=== PATIENT | female | born 1960 | race Caucasian/White ===

== ENCOUNTER 2020-06-19 04:03 | Observation (INO) | payer BC, SELFPAY ==
[2020-06-19] VITALS (12 sets, daily range): BP systolic 148–197; BP diastolic 77–107; PULSE 54–75; RESP 12–20; TEMP 36–36.6; O2SAT 97–100
--- NOTE | 2020-06-19 | ECHO_ITS ---
Patient Info Name: Ju Mondragon Age: 59 years : 1960 Gender: Female HR: 57 bpm Heart Rhythm: Sinus Rhythm Technical Quality: Good Exam Date: 06/19/2020 2:41 PM Exam Location: [facility] Pulmonary Patient Status: Inpatient Admit Date: 06/19/2020 Staff Ordering Physician: Darlene Dowell MD Tenant Coordinator: Twan Naranjo RDCS, RT Attending Provider: Inna Strange DO Referring Physician: Delmer LANCASTER; Exam Type: CA echo limited w bubble study Study Info Indications G45.9 - Transient cerebral ischemic attack, unspecified Limited two-dimensional transthoracic echocardiogram is performed with agitated saline. Summary 1. Suspected patent foramen ovale visualized by agitated saline imaging. 2. Saline contrast imaging is posotive for intracardiac shunt. Left Ventricle Left ventricular chamber dimension is normal. Left ventricular systolic function is normal, estimated at 60-65%. Right Ventricle Right ventricular chamber dimension is normal. Left Atria Left atrial chamber dimension is normal. Right Atria Right atrial chamber dimension is normal. Atrial Septum Suspected patent foramen ovale visualized by agitated saline imaging. Saline contrast imaging is posotive for intracardiac shunt. Mitral Valve The mitral valve has normal leaflets. Tricuspid Valve The tricuspid valve leaflets are normal. Report Signatures
--- NOTE | 2020-06-19 | ECHO_ITS ---
Patient Info Name: Ju Mondragon Age: 59 years : 1960 Gender: Female Ht: 66 in Wt: 131 lbs BSA: 1.66 m2 HR: 50 bpm BP: 162 / 97 mmHg Heart Rhythm: Bradycardia, Sinus Rhythm Technical Quality: Good Exam Date: 06/19/2020 11:41 AM Exam Location: [facility] Card Pulmonary Patient Status: Inpatient Admit Date: 06/19/2020 Staff Ordering Physician: Darlene Dowell MD Utility Bill Complaints Investigator: Twan Naranjo, TASHIA, RT Attending Provider: Inna Strange DO Referring Physician: Delmer LANCASTER; Exam Type: CA echo doppler color flow Study Info Indications G45.9 - Transient cerebral ischemic attack, unspecified Complete two-dimensional, color flow and Doppler transthoracic echocardiogram is performed. Strain analysis performed. Summary 1. Complete two-dimensional, color flow and Doppler transthoracic echocardiogram is performed. 2. Left ventricular systolic function is normal, estimated at 60-65%. 3. There is mildly increased left ventricular wall thickness. 4. The left ventricular diastolic function is grade I diastolic dysfunction. 5. Right atrial chamber dimension is mildly enlarged. 6. There is trace mitral valve regurgitation. 7. There is mild tricuspid valve regurgitation. 8. No pulmonary hypertension, estimated pulmonary arterial systolic pressure is 26 mmHg. 9. Recommend bubble study to assess for intracardiac shunt at atrial level. Recommendations * Recommend bubble study to assess for intracardiac shunt at atrial level. * Consider APPLE if clinically indicated. Left Ventricle Left ventricular chamber dimension is normal. Left ventricular systolic function is normal, estimated at 60-65%. There is mildly increased left ventricular wall thickness. The left ventricular diastolic function is grade I diastolic dysfunction. Global longitudinal strain is mildly elevated at -17 %. Right Ventricle Right ventricular chamber dimension is normal. Right ventricular systolic function is normal. Left Atria Left atrial chamber dimension is normal. Right Atria Right atrial chamber dimension is mildly enlarged. Aortic Valve The aortic valve is not well visualized. There is no aortic valve stenosis. There is no aortic valve regurgitation. Pulmonic Valve The pulmonic valve is not well visualized. There is trace pulmonic regurgitation. Mitral Valve The mitral valve has normal leaflets. There is trace mitral valve regurgitation. The mitral valve annulus is mildly calcified. Tricuspid Valve The tricuspid valve leaflets are normal. There is mild tricuspid valve regurgitation. No pulmonary hypertension, estimated pulmonary arterial systolic pressure is 26 mmHg. Pericardium/Pleural The pericardium appears normal. There is no pericardial effusion. Inferior Vena Cava Normal inferior vena cava with >50% collapse upon inspiration consistent with normal right atrial pressure, 5 mmHg. Aorta The aortic root size at the sinus of Valsalva is normal. Left Ventricular Outflow Tract Name Value Normal LVOT 2D LVOT Diameter 1.9 cm LVOT Doppler LVOT Peak Gradient 6 mmHg
--- NOTE | ~2020-06-19 | MR_ITS ---
EXAMINATION: MR brain/brain stem wo con DATE: 06/19/2020 13:32 INDICATION: Weakness. TECHNIQUE: Magnetic resonance imaging (MRI) of the brain and brainstem was performed without intraven ous contrast. Sequences included sagittal and axial T1-weighted FSE, axial diffusion-weighted FS EPI, axial T2*-weighted GRE, axial T2-weighted FLAIR Propeller, and axial T2-weighted Propeller. Apparent diffusion coefficient (ADC) maps were created. COMPARISON: Head CT 06/19/2020 FINDINGS: There are scattered areas of nonspecific increased T2-weighted signal intensity in the cere bral white matter. There is no intracranial hemorrhage, acute infarction, or abnormal intracranial ma ss lesion. The ventricles are normal in size. There is a trace left mastoid effusion. There is mucosa l thickening in the paranasal sinuses. The orbits are normal. IMPRESSION: 1. Mild nonspecific cerebral white matter disease, which likely represents chronic small vessel ische mariela disease. Reviewed, dictated and finalized at location A. IMPRESSION: 1. 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
--- NOTE | ~2020-06-19 | CT_ITS ---
EXAMINATION: CTA brain carotid DATE: 06/19/2020 04:30 INDICATION: Slurred speech. Stroke. TECHNIQUE: Computed tomographic angiography (CTA) of the head was performed without and with 100 mL O mnipaque-350 intravenous contrast. CTA of the neck was performed with intravenous contrast. Automated exposure control and iterative reconstruction technique were employed. The dose-length product was 1 593.33 mGy-cm. Maximum intensity projection and volume rendered 3D-reconstructions were created by geo mi technologist on a separate workstation. COMPARISON: Head CT 09/30/2008 FINDINGS: HEAD CTA: There are scattered areas of low attenuation in the cerebral white matter. There is no intr acranial hemorrhage, acute infarction, or abnormal intracranial mass lesion. The ventricles are lenka l in size. There is mucosal thickening in the paranasal sinuses. The orbits are normal. There are jace nges of right mastoidectomy. The vertebral arteries are codominant. There is no significant stenosis of basilar artery or the posterior cerebral arteries. There is no significant stenosis of the intracr anial internal carotid arteries or anterior or middle cerebral arteries. Anterior communicating arter y is normal. Posterior communicating arteries are not identified. There is no aneurysm. NECK CTA: There is mild scarring at the lung apices. There are no pathologically enlarged lymph nodes . There is no significant stenosis of the vertebral arteries. There is plaque in the proximal interna l carotid arteries. There is 0% stenosis of the proximal right internal carotid artery relative to no rmal distal artery lumen diameter (NASCET criteria). There is 0% stenosis of the proximal left project intern al carotid artery relative to normal distal artery lumen diameter. There is mild cervical spondylosis . IMPRESSION: 1. Mild nonspecific cerebral white matter disease, which likely represents chronic small vessel ische mariela disease. 2. No aneurysm or significant intracranial arterial stenosis. 3. 0% stenosis of the proximal internal carotid arteries relative to normal distal artery lumen diame ters (NASCET criteria). Reviewed, dictated and finalized at location A. IMPRESSION: 1. 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 2. No aneurysm or significant intracranial arterial stenosis. 3. 0% stenosis of the proximal internal carotid arteries relative to normal dis deisi artery lumen diameters (NASCET criteria).
--- NOTE | ~2020-06-19 | XR_ITS ---
EXAMINATION: XR chest 1V portable DATE: 06/19/2020 04:38 INDICATION: Stroke. TECHNIQUE: A single frontal view of the chest was obtained. COMPARISON: Chest 2 views 12/11/2018 FINDINGS: The chest demonstrates clear lungs without pneumonia, pleural effusion, or pneumothorax. Th e heart size is normal. IMPRESSION: 1. No acute cardiopulmonary disease. Reviewed, dictated and finalized at location A.
--- NOTE | 2020-06-19 04:09 | ECG_ITS ---
Measurements Intervals [place] Rate: 68 P: 73 FL: 146 QRS: 7 QRSD: 105 T: 44 QT: 385 QTc: 410 Interpretive Statements SINUS RHYTHM LEFT ATRIAL ENLARGEMENT INCOMPLETE RIGHT BUNDLE BRANCH BLOCK BASELINE ARTIFACT- II, III, AVR, AVL,A VF, V1-V6 BORDERLINE ECG Electronically Signed On 06-19-2020 7:36:26 CDT by Jovanni Coffey D.O.
[2020-06-19 04:23] LABS: Estimated CRCL calculation 70 ml/min; Estimated Glomerular Filt Rate > 60
--- NOTE | 2020-06-19 04:31 | PC.NURSE ---
accucheck 113.
[2020-06-19 04:34] LABS: Glucose Point of Care 113 (65-105)
[2020-06-19 04:36] LABS: Basophils Absolute Auto 0.1 K/mm3 (0.0-0.1); Basophils Percent Auto 0.4 % (0.2-1.2); Eosinophils Absolute Auto 0.3 K/mm3 (0-0.3); Eosinophils Percent Auto 1.9 % (0-4.4); Hematocrit 47.7 % (37.0-47.0); Hemoglobin 15.9 g/dL (12.0-15.0); Immature Granulocyte Absolute 0.07 K/mm3 (0.00-0.031); Immature Granulocyte Percent A 0.5 % (0-0.5); Lymphocytes Absolute Auto 2.61 K/mm3 (0.9-3.2); Lymphocytes Percent Auto 18.7 % (18.3-44.2); Mean Corpuscular HGB Conc 33.3 g/dl (32-36); Mean Corpuscular Hemoglobin 32.4 pg (26-34); Mean Corpuscular Volume 97.1 fl (80-100); Mean Platelet Volume 10.2 fl (7.4-10.4); Monocytes Absolute Auto 0.8 K/mm3 (0.1-0.6); Monocytes Percent Auto 5.8 % (2.6-8.5); Neutrophils Absolute Auto 10.1 K/mm3 (1.3-6.7); Neutrophils Percent Auto 72.7 % (45.5-73.1); Platelet Count Result 296 k/mm3 (150-375); Red Blood Count 4.91 M/mm3 (4.2-5.4); Red Cell Distribution Width 12.5 % (11.5-14.5)
--- NOTE | 2020-06-19 04:45 | ED.NEUROSD ---
HPI - Neuro Symptoms/Deficit General Chief Complaint: Neuro Symptoms/Deficit Stated Complaint: Bilateral arm numbness Time Seen by Provider: 06/19/20 04:07 Source: patient Mode of arrival: wheelchair Limitations: no limitations History of Present Illness HPI Narrative: Patient is a 59-year-old female complaining of left-sided weakness and numbness that started when she woke up early this morning. states that patient went to sleep around 9-10 PM and was fine , did not have any symptoms, and when she woke up at 4 AM, she was not able to walk her had to help her go to the bathroom, noticed left-sided weakness. Denies any speech or visual disturbance, headache, dizziness chest pain, shortness of breath, abdominal pain, nausea, vomiting, fever or chills. Related Data Allergies Allergy/AdvReac Type Severity Reaction Status Date / Time Penicillins Allergy Unknown Verified 08/28/17 08:52 Review of Systems Review of Systems: All systems reviewed & are unremarkable except as noted in HPI and below Constitutional: Constitutional: Denies body ache(s), Denies chills, Denies excessive sweating, Denies fatigue, Denies fever(s), Denies headache(s), Denies lethargy, Denies malaise and Denies weight loss Eyes: Eyes: Denies blurry vision, Denies change in vision and Denies loss of vision ENT: Denies dizziness, Denies ear discharge, Denies headache(s), Denies lip swelling, Denies epistaxis, Denies nasal congestion, Denies neck pain, Denies throat swelling and Denies tongue swelling Cardiovascular: Cardiovascular: Denies chest pain, Denies chest pain at rest, Denies chest pain with activity, Denies diaphoresis, Denies rapid heart rate, Denies edema, Denies irregular heart rhythm, Denies lightheadedness, Denies palpitations, Denies dyspnea and Denies dyspnea on exertion Respiratory: Respiratory: Denies chest congestion, Denies cough, Denies hemoptysis, Denies dyspnea and Denies dyspnea on exertion Gastrointestinal: Gastrointestinal: Denies abdominal pain, Denies melena, Denies hematochezia, Denies diarrhea, Denies nausea, Denies vomiting and Denies hematemesis Musculoskeletal: Musculoskeletal: Denies abnormal gait, Denies deformity, Denies joint swelling, Denies limited range of motion, Denies neck pain and Denies numbness Neurologic: Denies Abnormal speech present, Denies confusion, Denies dizziness, Denies headache(s), Denies loss of vision, Denies Other visual disturbances and Denies weakness Psychiatric: Psychiatric: Denies confusion, Denies depression, Denies auditory hallucinations, Denies homicidal ideation and Denies suicidal ideation Endocrine: Endocrine: Denies cold intolerance, Denies excessive sweating, Denies fatigue, Denies heat intolerance and Denies palpitations Hematologic/Lymphatic: Hematologic/Lymphatic: Denies easy bleeding and Denies easy bruising Allergic/Immunologic: Allergic/Immunologic: Denies lip swelling, Denies throat swelling and Denies tongue swelling PMFSH Past Medical History Medical History (Updated 06/19/20 @ 05:12 by Prudencio Rai MD) Benign essential hypertension Hyperlipidemia Nodule of right lung Surgical History Surgical History (Updated 06/28/19 @ 11:41 by Rosanna Burks CMA) H/O: hysterectomy History of lung surgery right lung nodule removed Family History Family History (Updated 08/28/17 @ 08:52 by DOCTOR UNKNOWN) Father Hypertension Acute myocardial infarction Mother Family history of Alzheimer's disease Social History Social History (Updated 08/01/19 @ 13:25 by Rosanna Burks CMA) Smoking status: Former smoker Smoking end date: 02/20/17 Alcohol intake: never Exam Const: General: cooperative, healthy appearing, comfortable, no acute distress, well developed, alert and awake; No confusion Orientation/consciousness: oriented to person, oriented to place, oriented to time, patient oriented x3 and No confusion Limitations: no limitations HENMT:
[2020-06-19 04:46] LABS: INR 0.9; Prothrombin Time 12.2 Seconds (11.1-14.7)
[2020-06-19 04:48] LABS: Partial Thromboplastin Time 33.1 SECONDS (22.3-36.8)
--- NOTE | 2020-06-19 05:58 | PC.NURSE ---
upon arrival in ED with , he reports they went to bed at approx 2100 or 2200 last pm, and pt was acting normally then. she awoke at approx 0300 and he thought she was using the restroom but pt fell while getting out of bed. both pt and report that pt is generally healthy and ambulates without assist.pt reports that she has not taken any prescriptoni swallow eval done prior to o
[2020-06-19 06:19] LABS: Anion Gap 5 mmol/L (8-16); Blood Urea Nitrogen 7 mg/dL (7-17); Calcium 9.1 mg/dL (8.4-10.2); Carbon Dioxide 29 mmol/L (22-30); Chloride 106 mmol/L (98-107); Estimated CRCL calculation 70 ml/min; Estimated Glomerular Filt Rate > 60; Glucose 117 mg/dL (65-105); Potassium 3.9 mmol/L (3.4-5.0); Sodium 140 mmol/L (137-145)
[2020-06-19 06:30] LABS: Troponin I < 0.012 ng/mL (0.000-0.034)
--- NOTE | 2020-06-19 06:56 | ADMGEN ---
This patient, Ju Mondragon, was admitted to 2 Medical Room 255-01. Patient/family oriented to hospital policies and general routines including ID bracelet, bed and alarms, visiting hours, pain management, procedures, bathroom and other care routines, personal items, smoking policy, room service/diet, and visiting hours. Information on how to activate the Rapid Response Team has been discussed. Patient/Family are encouraged to report perceived risks to care and to ask questions if they do not understand what they are told or what they should do.
[2020-06-19] MEDS: LACTATED RINGERS 1,000 ML 125 ML IV CONT (07:57)
--- NOTE | 2020-06-19 08:27 | PM.IMHP ---
H&P: HPI History of Present Illness Date/Time: 06/19/20 08:27 Chief Complaint: UNSTEADY GAIT Narrative: THIS IS A 59-YEAR-OLD FEMALE WITH KNOWN PAST MEDICAL HISTORY SIGNIFICANT FOR HYPERTENSION DYSLIPIDEMIA PATIENT PRESENTED TO THE EMERGENCY ROOM AFTER SHE WOKE UP IN THE MIDDLE OF THE NIGHT SHE STATES THAT SHE WAS FEELING NUMBED FROM HER NECK DOWN PARALYZED UNABLE TO MOVE COULD NOT GET UP THE BED BY THE TIME SHE MADE IT TO THE EMERGENCY ROOM SHE WAS UNABLE TO MOVE HER LEFT ARM. PATIENT DENIES ANY NUMBNESS ANY INCONTINENCE OF URINE OR STOOL NO FEVERS NO RIGORS NO CHILLS NO VISION CHANGE NO HEADACHE SHE ALSO HAD SLURRED SPEECH. PATIENT STATES THAT SHE HAS BEEN IN HER USUAL STATE OF HEALTH PRIOR TO THESE LAST TIME SHE WAS FINE WAS BEFORE SHE WENT TO BED. SHE DENIES ANY NAUSEA VOMITING DIARRHEA CHEST PAIN PALPITATIONS SHORTNESS OF BREATH COUGH SPUTUM PRODUCTION CURRENTLY PATIENT DENIES ANY FOCAL WEAKNESS OR NUMBNESS OR VISION CHANGES. SHE DENIES ANY PAIN. PRELIMINARY WORKUP HAS BEEN ESSENTIALLY NONREVEALING. A CT ANGIO WAS NOT SIGNIFICANT FOR LARGE VESSEL OCCLUSION BAD CHRONIC SMALL-VESSEL ISCHEMIC DISEASE. Review of Systems Review of Systems: All systems reviewed & are unremarkable except as noted in HPI and below Constitutional: Constitutional: Denies body ache(s), Denies chills, Denies excessive sweating, Denies fatigue, Denies fever(s), Denies headache(s), Denies lethargy, Denies malaise, Denies weakness and Denies weight loss Eyes: Eyes: Denies blurry vision, Denies change in vision and Denies loss of vision ENT: Denies dizziness, Denies ear discharge, Denies headache(s), Denies lip swelling, Denies epistaxis, Denies nasal congestion, Denies neck pain, Denies throat swelling and Denies tongue swelling Cardiovascular: Cardiovascular: Denies chest pain, Denies chest pain at rest, Denies chest pain with activity, Denies diaphoresis, Denies rapid heart rate, Denies edema, Denies irregular heart rhythm, Denies lightheadedness, Denies palpitations, Denies dyspnea and Denies dyspnea on exertion Respiratory: Respiratory: Denies chest congestion, Denies cough, Denies hemoptysis, Denies dyspnea and Denies dyspnea on exertion Gastrointestinal: Gastrointestinal: Denies abdominal pain, Denies melena, Denies hematochezia, Denies diarrhea, Denies nausea, Denies vomiting and Denies hematemesis Musculoskeletal: Musculoskeletal: Denies abnormal gait, Denies deformity, Denies joint swelling, Denies limited range of motion, Denies neck pain and Denies numbness Neurologic: Denies Abnormal speech present, Denies abnormal gait, Denies confusion, Denies dizziness, Denies headache(s), Denies loss of vision, Denies numbness, Denies Other visual disturbances and Denies weakness Psychiatric: Psychiatric: Denies confusion, Denies depression, Denies auditory hallucinations, Denies homicidal ideation and Denies suicidal ideation Endocrine: Endocrine: Denies cold intolerance, Denies excessive sweating, Denies fatigue, Denies heat intolerance and Denies palpitations Hematologic/Lymphatic: Hematologic/Lymphatic: Denies easy bleeding and Denies easy bruising Allergic/Immunologic: Allergic/Immunologic: Denies lip swelling, Denies throat swelling and Denies tongue swelling PMFSH Past Medical History Medical History (Updated 06/19/20 @ 05:12 by Prudencio Rai MD) Benign essential hypertension Hyperlipidemia Nodule of right lung Surgical History Surgical History (Updated 06/28/19 @ 11:41 by Rosanna Burks CMA) H/O: hysterectomy History of lung surgery right lung nodule removed Family History Family History Father Hypertension Acute myocardial infarction Mother Family history of Alzheimer's disease Social History Social History (Updated 08/01/19 @ 13:25 by Rosanna Burks CMA) Smoking packs per day: 1 Smoking cigarettes per day: 20.0 Smoking status: Current every day smoker Tobacco type: ciga
[2020-06-19] MEDS: amLODIPine BESYLATE 5 MG TABLET PO (09:02)
[2020-06-19] MEDS: hydroCHLOROthiazide 12.5 MG CAPSULE PO (09:02)
[2020-06-19] MEDS: ATORVASTATIN 40 MG TABLET PO (09:02)
[2020-06-19] MEDS: lisinopriL 20 MG TABLET 40 MG PO (09:02)
--- NOTE | 2020-06-19 14:50 | WPDNEURCNPN ---
Assessment and Plan Assessment and plan (1) Acute cerebrovascular accident (CVA): Code(s): I63.9 - Cerebral infarction, unspecified Status: Acute (2) Neurologic gait dysfunction: Code(s): R26.9 - Unspecified abnormalities of gait and mobility Status: Acute Additional Plan fairly normal of neurological examination with normal MRI of the brain, negative head neck CTA but complaints of unsteady gait I will obtain the MRI of cervical spine to rule out the possibly of incidental cervical myelopathy in the meantime treatment will be continued as such Consult date: 06/19/20 Time Seen: 14:00 HPI: Ju Mondragon is a 59 year old female 59 years old has been admitted to the hospital for unsteady gait in addition to the ongoing history of 1. Hypertension 2. Dyslipidemia reportedly she woke up in the middle of the night feeling numb from her neck down unable to move could not kept up the bed by the time she made it to the emergency room she was unable to move her left upper extremity she gave no history of incontinence of bowel or bladder she gave no history of numbness of weakness of 1 side or other side, patient does have ongoing history of pulmonary nodule and history having right pulmonectomy evaluation up until now reveals the echocardiogram with no significant abnormalities though bubble study have been suggested, head neck CTA also revealed no aneurysm or intracranial abnormalities and MRI of the brain documented nonspecific white matter disease but no major territorial stroke, routine blood studies are unremarkable except mild leukocytosis Review of Systems Review of Systems: All systems reviewed & are unremarkable except as noted in HPI and below PMFSH Past Medical History Medical History Benign essential hypertension Hyperlipidemia Nodule of right lung Surgical History Surgical History H/O: hysterectomy History of lung surgery right lung nodule removed Family History Family History Father Hypertension Acute myocardial infarction Mother Family history of Alzheimer's disease Social History Social History Smoking packs per day: 1 Smoking cigarettes per day: 20.0 Smoking status: Current every day smoker Tobacco type: cigarettes Smoking end date: 02/20/17 Alcohol intake: current Drinks per week: 3 Substance use: never Spiritual care concerns: No Meds Home Medications and Allergies Home Medications Medication Instructions Recorded Confirmed Type atorvastatin 40 mg tablet 40 mg PO DAILY #30 tablet 10/03/19 06/19/20 Rx hydrochlorothiazide 12.5 mg capsule 12.5 mg PO DAILY #30 cap 10/03/19 06/19/20 Rx amlodipine 5 mg tablet 5 mg PO DAILY #30 tablet 03/05/20 06/19/20 Rx lisinopril 40 mg tablet 40 mg PO DAILY #90 tablet 03/23/20 06/19/20 Rx Allergies Allergy/AdvReac Type Severity Reaction Status Date / Time Penicillins Allergy Unknown Verified 08/28/17 08:52 Vital Signs Vital Signs - 24 hr 06/19/20 04:06 06/19/20 04:10 06/19/20 04:31 Temperature 36.2 C L 36.6 C Pulse Rate 75 Respiratory Rate 18 12 Blood Pressure 174/102 H 189/104 H Pulse Oximetry 98 99 97 06/19/20 05:25 06/19/20 05:57 06/19/20 08:00 Temperature 36.6 C 36.0 C L Pulse Rate 63 62 55 L Respiratory Rate 20 12 18 Blood Pressure 197/107 H 184/82 H 162/97 H Pulse Oximetry 99 100 100 06/19/20 12:00 06/19/20 12:23 Temperature Pulse Rate 56 L Respiratory Rate Blood Pressure Pulse Oximetry 97 Exam Const: General: cooperative, no acute distress and Physically active Nutritional Appearance: average body habitus and thin Orientation/consciousness: oriented to person Limitations: no limitations HENMT: Head: normal to inspection Ears: hearing grossly normal bilaterally Gen
--- NOTE | 2020-06-19 15:35 | PCSTNOTE ---
Please refer to the Bedside Swallow Evaluation in the EMR. Please note, silent aspiration cannot be ruled out at bedside.
[2020-06-20] VITALS (7 sets, daily range): BP systolic 149–153; BP diastolic 67–73; PULSE 46–59; RESP 18; TEMP 36.3–36.7; O2SAT 98–100
[2020-06-20] MEDS: amLODIPine BESYLATE 5 MG TABLET PO (09:14)
[2020-06-20] MEDS: ATORVASTATIN 40 MG TABLET PO (09:14)
[2020-06-20] MEDS: hydroCHLOROthiazide 12.5 MG CAPSULE PO (09:15)
[2020-06-20] MEDS: lisinopriL 20 MG TABLET 40 MG PO (09:15)
--- NOTE | 2020-06-20 14:21 | PM.DS ---
DS: Admitting Diagnosis Admitting Diagnosis Admitting Diagnosis: (1) Acute cerebrovascular accident (CVA): Code(s): I63.9 - Cerebral infarction, unspecified Status: Acute Assessment and Plan: CTA REVIEWED AWAITING MRI NONFOCAL PHYSICAL EXAM (2) Elevated glucose level: Code(s): R73.09 - Other abnormal glucose Status: Acute Assessment and Plan: INSULIN SLIDING SCALE NEEDED FOLLOW-UP IN OUTPATIENT SETTING (3) Benign essential hypertension: Code(s): I10 - Essential (primary) hypertension Status: Acute Assessment and Plan: CONTINUE HYDROCHLOROTHIAZIDE AND LISINOPRIL STABLE CONTINUE TO MONITOR (4) Hyperlipidemia: Qualifiers: Hyperlipidemia type: unspecified Qualified Code(s): E78.5 - Hyperlipidemia, unspecified Code(s): E78.5 - Hyperlipidemia, unspecified Status: Acute Assessment and Plan: CONTINUE STATIN CONTINUE TO MONITOR DS: Discharge Diagnosis Discharge Diagnosis (1) Acute cerebrovascular accident (CVA): Code(s): I63.9 - Cerebral infarction, unspecified Status: Acute Assessment and Plan: CTA REVIEWED MRI WITH NO ACUTE STROKE NONFOCAL PHYSICAL EXAM (2) Elevated glucose level: Code(s): R73.09 - Other abnormal glucose Status: Acute Assessment and Plan: INSULIN SLIDING SCALE NEEDED FOLLOW-UP IN OUTPATIENT SETTING (3) Benign essential hypertension: Code(s): I10 - Essential (primary) hypertension Status: Acute Assessment and Plan: CONTINUE HYDROCHLOROTHIAZIDE AND LISINOPRIL STABLE CONTINUE TO MONITOR (4) Hyperlipidemia: Qualifiers: Hyperlipidemia type: unspecified Qualified Code(s): E78.5 - Hyperlipidemia, unspecified Code(s): E78.5 - Hyperlipidemia, unspecified Status: Acute Assessment and Plan: CONTINUE STATIN CONTINUE TO MONITOR DS: Summary Hospital Course Reason for hospitalization: ABNORMAL GAIT Hospital Course: THIS IS A 59-YEAR-OLD FEMALE WITH PAST MEDICAL HISTORY SIGNIFICANT FOR HYPERTENSION DYSLIPIDEMIA PATIENT PRESENTED TO THE EMERGENCY ROOM AFTER SHE SHE HAD 1 EPISODE IN THE MIDDLE OF THE NIGHT WHERE SHE WOKE UP AND WAS NOT ABLE TO GET UP FROM BED FROM THE NECK DOWN SHE FELT PARALYZED UPON ARRIVAL TO EMERGENCY ROOM SHE HAD A SLURRY SPEECH LEFT UPPER EXTREMITY WEAKNESS AT THE TIME OF MY VISIT PATIENT WAS NONFOCAL. EXTENSIVE WORKUP FOR STROKE HAS BEEN NONREVEALING. PATIENT HAS BEEN ASYMPTOMATIC SINCE ADMISSION. CONSULTS OBTAINED: NEUROLOGY PROCEDURES: NO PROCEDURES Status at Discharge Cognitive/behavioral status at discharge: AAOX3 Functional status at discharge: independent ambulation Time Spent with Patient Time attestation: Total time spent providing and/or coordinating discharge services: Exam Narrative: Exam Narrative: LAYING IN BED IN NO ACUTE DISTRESS WANTING TO GO HOME Const: General: comfortable, no acute distress, well developed, alert and awake Nutritional Appearance: average body habitus Orientation/consciousness: patient oriented x3 HENMT: Head: normal to inspection, normocephalic and atraumatic Ears: hearing grossly normal bilaterally Face and sinus: normal facial exam Eyes: General: appearance normal, both eyes and all related structures Pupils: Equal, round and reactive pupils present EOM: EOMs intact bilaterally Neck: Neck: full ROM, no lymphadenopathy and no JVD Thyroid: thyroid normal Lymphatic: no lymphadenopathy noted Resp: Effort & Inspection: normal respiratory effort and able to speak in complete sentences Auscultation: clear to auscultation bilaterally Cardio: Jugular venous distension: no JVD Rate: regular rate Rhythm: regular rhythm Heart sounds: S1 normal heart sound present and S2 normal heart sound present GI: GI Palp: Yes Soft to palpation and Yes No hepatosplenomegaly present : General: Yes deferred Skin: Rashes: no rashes Wounds: no wounds Neuro: Gene
== END 2020-06-20 15:25 | disposition home or self-care (01) ==
LOC: ANHED 05:12 → ANH2MED 11:01
PROVIDERS: Admitting Provider Internal Medicine; Emergency Provider Emergency Medicine; PCP Internal Medicine; Visit Provider Internal Medicine
DX: G45.9 Transient cerebral ischemic attack, unspecified (principal); R26.9 Unspecified abnormalities of gait and mobility; R47.81 Slurred speech; R73.09 Other abnormal glucose; I10 Essential (primary) hypertension; E78.5 Hyperlipidemia, unspecified; F17.210 Nicotine dependence, cigarettes, uncomplicated
CPT/HCPCS: 70496; 70498; 70551; 71045; 80048; 82948; 84484; 85025; 85610; 85730; 92610; 93005; 93306; 93308; 96360; 96361; 96375; 99285; A9270; G0378; J7120; Q9967

== ENCOUNTER 2020-07-27 14:45 | Outpatient (CLI) | payer BC, SELFPAY ==
--- NOTE | ~2020-07-27 | XR_ITS ---
EXAMINATION: XR ankle RT min 3V, XR foot RT min 3V DATE: 07/27/2020 15:08 INDICATION: Unspecified right foot and ankle joint pain. TECHNIQUE: 1. Anteroposterior, mortise, additional oblique and lateral view of the right ankle were obtained. 2. Dorsoplantar, two oblique and lateral views of the right foot were obtained. COMPARISON: None. FINDINGS: Alignment of the right foot and ankle is normal. Small linear calcification paralleling the lateral a nd dorsolateral aspect of the anterior process of the calcaneus without definitive underlying donor s ite which could represent either an avulsion fracture in the region of the footplate of the bifurcate ligament or nonspecific dystrophic soft tissue calcification. 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 No evident erosions. No ankle joint effusion. Prominent soft tissue swelling at the lateral aspect of the right ankle, mid and hindfoot. IMPRESSION: 1. Linear calcific density along the dorsolateral aspect of the anterior process of the calcaneus wit h prominent surrounding soft tissue swelling. Differential would include avulsion fracture of the bif urcate ligament footplate although no evident donor site is appreciated or dystrophic soft tissue claire cification such as in the setting of a crystalline deposition disease. Reviewed, dictated and finalized at location A. IMPRESSION: 1. Linear calcific density along the dorsolateral aspect of the anterior proces s of the calcaneus with prominent surrounding soft tissue swelling. Differentia l would include avulsion fracture of the bifurcate ligament footplate although no evident donor site is appreciated or dystrophic soft tissue calcification freed ch as in the setting of a crystalline deposition disease.
== END 2020-07-27 14:46 | disposition home or self-care (01) ==
PROVIDERS: PCP Internal Medicine; Visit Provider Internal Medicine
DX: M25.473 Effusion, unspecified ankle (principal); M25.579 Pain in unspecified ankle and joints of unspecified foot; M79.671 Pain in right foot; R93.6 Abnormal findings on diagnostic imaging of limbs
CPT/HCPCS: 73610; 73630

== ENCOUNTER 2020-07-30 11:43 | Outpatient (CLI) | payer BC, SELFPAY ==
--- NOTE | ~2020-07-30 | CT_ITS ---
EXAMINATION: CT foot RT wo con DATE: 07/30/2020 12:05 INDICATION: Right foot pain TECHNIQUE: High resolution computed tomography (CT) of the right foot was performed without intraveno us contrast. Additional sagittal and coronal reconstructions were performed. Automated exposure contr ol and iterative reconstruction technique were employed. The dose-length product was 289.85 mGy-cm. COMPARISON: Radiographs dated 08/06/2020 FINDINGS: Minimally displaced avulsion fracture along the dorsal lateral corner of the anterior process of the calcaneus involving the footplate of the bifurcate ligament. Alignment remains essentially anatomic. No other fractures identified. Again seen is minimal to small bone island at the talar dome. Mild ost eoarthritis at the first metatarsophalangeal, navicular cuneiform and several tarsal metatarsal and i nterphalangeal joints. Soft tissue swelling about the lateral ankle and hindfoot. No right ankle join t effusion. IMPRESSION: 1. Minimally displaced avulsion fracture of the bifurcate ligament footplate at the dorsolateral corn er of the anterior process of the calcaneus. Reviewed, dictated and finalized at location A. IMPRESSION: 1. Minimally displaced avulsion fracture of the bifurcate ligament footplate at the dorsolateral corner of the anterior process of the calcaneus.
== END 2020-07-30 11:44 | disposition home or self-care (01) ==
LOC: ANHIMG 11:44
PROVIDERS: PCP Internal Medicine; Visit Provider Internal Medicine
DX: M79.671 Pain in right foot (principal); S92.021A Displaced fracture of anterior process of right calcaneus, initial encounter for closed fracture
CPT/HCPCS: 73700

== ENCOUNTER 2021-03-29 07:54 | Emergency (ER) | payer BC, SELFPAY ==
--- NOTE | ~2021-03-29 | XR_ITS ---
EXAMINATION: XR ribs RT 2V w CXR 2V EXAM DATE: 03/29/2021 08:40 INDICATION: fall on ice this morning, hit right side. TECHNIQUE: Frontal projection of the upper right ribs, frontal projection of the lower right ribs, ob lique projection of the right ribs, frontal and lateral chest x-ray(s) for interpretation. Comparison is made to prior examination from . FINDINGS: Probable right 9th rib fracture posterolaterally. There is no soft tissue abnormality seen. No confluent consolidation, pneumothorax or pleural effusion suspected. Cardiomediastinal silhouett e is normal. IMPRESSION: Probable nondisplaced right 9th rib fracture posterolaterally. Reviewed, dictated and finalized at location B. LANE COVERER
[2021-03-29 07:59] VITALS: BP 130/68; PULSE 72; RESP 18; TEMP 36.5; O2SAT 100
--- NOTE | 2021-03-29 08:15 | ED.FALL ---
HPI - Fall General Chief Complaint: Fall Stated Complaint: fell on ice R side pain Time Seen by Provider: 03/29/21 07:59 Source: patient Mode of arrival: ambulatory Limitations: no limitations History of Present Illness HPI Narrative: Patient is a 60-year-old female complaining of right rib pain, 8 out of 10, dull, aching, worse with palpation and movement after she slipped on ice prior to arrival. Patient was able to stand up and ambulate after the fall, drove herself here. Patient denies any head, neck, abdomen, back, pelvis or any extremity pain/injury. Related Data Allergies Allergy/AdvReac Type Severity Reaction Status Date / Time Penicillins Allergy Rash Verified 03/29/21 08:06 Review of Systems Review of Systems: All systems reviewed & are unremarkable except as noted in HPI and below Constitutional: Constitutional: Denies body ache(s), Denies chills, Denies excessive sweating, Denies fatigue, Denies fever(s), Denies headache(s), Denies lethargy, Denies malaise, Denies weakness and Denies weight loss Eyes: Eyes: Denies blurry vision, Denies change in vision and Denies loss of vision ENT: Denies dizziness, Denies ear discharge, Denies headache(s), Denies lip swelling, Denies epistaxis, Denies nasal congestion, Denies neck pain, Denies throat swelling and Denies tongue swelling Cardiovascular: Cardiovascular: Denies chest pain, Denies chest pain at rest, Denies chest pain with activity, Denies diaphoresis, Denies rapid heart rate, Denies edema, Denies irregular heart rhythm, Denies lightheadedness, Denies palpitations, Denies dyspnea and Denies dyspnea on exertion Respiratory: Respiratory: Denies chest congestion, Denies cough, Denies hemoptysis, Denies dyspnea and Denies dyspnea on exertion Gastrointestinal: Gastrointestinal: Denies abdominal pain, Denies melena, Denies hematochezia, Denies diarrhea, Denies nausea, Denies vomiting and Denies hematemesis Musculoskeletal: Musculoskeletal: Denies abnormal gait, Denies deformity, Denies joint swelling, Denies limited range of motion, Denies neck pain and Denies numbness Neurologic: Denies Abnormal speech present, Denies abnormal gait, Denies confusion, Denies dizziness, Denies headache(s), Denies focal weakness, Denies loss of vision, Denies numbness, Denies Other visual disturbances, Denies Sensory deficit (Neuro) and Denies weakness Psychiatric: Psychiatric: Denies confusion, Denies depression, Denies auditory hallucinations, Denies homicidal ideation and Denies suicidal ideation Endocrine: Endocrine: Denies cold intolerance, Denies excessive sweating, Denies fatigue, Denies heat intolerance and Denies palpitations Hematologic/Lymphatic: Hematologic/Lymphatic: Denies easy bleeding and Denies easy bruising Allergic/Immunologic: Allergic/Immunologic: Denies lip swelling, Denies throat swelling and Denies tongue swelling PMFSH Comments Past medical history: Hypertension, hyperlipidemia Family history: Unknown Social history: Positive for smoker, no EtOH or drug use Exam Const: General: cooperative, healthy appearing, comfortable, no acute distress, well developed, alert and awake; No confusion Orientation/consciousness: oriented to person, oriented to place, oriented to time, patient oriented x3 and No confusion Limitations: no limitations HENMT: Head: normal to inspection, normocephalic and atraumatic Ears: hearing grossly normal bilaterally, TM normal on the right and TM normal on the left General nose exam: Normal external nose present, Normal nares present and No nasal discharge present Face and sinus: normal facial exam Mouth: Yes Normal oral and palatal mucosa present, Yes lip normal, Yes tongue normal and Yes oropharynx normal Throat: posterior oropharynx normal, tonsils normal and uvula midline Eyes: General: appearance normal, both eyes and all related structures Pupils: Equal, round and reactive pupils present EOM: EOMs intact bilaterally Neck: Neck: normal vis
[2021-03-29] MEDS: KETOROLAC 30 MG/ML VIAL (*BKC) IM (08:16)
[2021-03-29 08:48] VITALS: BP 115/67; PULSE 62; RESP 18; O2SAT 100
[2021-03-29 09:41] VITALS: BP 126/63; PULSE 60; RESP 14; O2SAT 100
== END 2021-03-29 09:42 | disposition home or self-care (01) ==
PROVIDERS: Emergency Provider Emergency Medicine
DX: S22.31XA Fracture of one rib, right side, initial encounter for closed fracture (principal); I10 Essential (primary) hypertension; E78.5 Hyperlipidemia, unspecified; F17.200 Nicotine dependence, unspecified, uncomplicated; W00.0XXA Fall on same level due to ice and snow, initial encounter
CPT/HCPCS: 71046; 71100; 96372; 99283; J1885

== ENCOUNTER 2021-04-06 08:21 | Outpatient (CLI) | payer BC, SELFPAY ==
--- NOTE | ~2021-04-06 | XR_ITS ---
EXAMINATION: XR ribs BI 3V w CXR 2V INDICATION: Pleurodynia TECHNIQUE: PA and lateral views of the chest and 3 views of the bilateral ribs were obtained. COMPARISON: 03/29/2021 FINDINGS: There are displaced lateral fractures of the right fifth, sixth, seventh, and ninth ribs. N o displaced left rib fracture is identified. The lungs are free of acute opacities. There is no pleur al effusion or pneumothorax. IMPRESSION: 1. Displaced fractures of the right fifth, sixth, seventh, eighth and ninth ribs. 2. No acute cardiopulmonary abnormality. Reviewed, dictated and finalized at location A. NESS MANAGER IMPRESSION: 1. Displaced fractures of the right fifth, sixth, seventh, eighth and ninth rib s. 2. No acute cardiopulmonary abnormality.
== END 2021-04-06 08:22 | disposition home or self-care (01) ==
LOC: ANHIMG 08:27
PROVIDERS: PCP Internal Medicine; Visit Provider Internal Medicine
DX: R07.81 Pleurodynia (principal); S22.41XA Multiple fractures of ribs, right side, initial encounter for closed fracture
CPT/HCPCS: 71046; 71110

== ENCOUNTER 2021-07-23 15:08 | Outpatient (CLI) | payer BC, SELFPAY ==
[2021-07-23 16:17] LABS: Basophils Absolute Auto 0.1 K/mm3 (0.0-0.1); Basophils Percent Auto 0.6 % (0.2-1.2); Eosinophils Absolute Auto 0.1 K/mm3 (0-0.3); Eosinophils Percent Auto 1.3 % (0-4.4); Hematocrit 35.7 % (37.0-47.0); Immature Granulocyte Absolute 0.14 K/mm3 (0.00-0.031); Immature Granulocyte Percent A 1.3 % (0-0.5); Lymphocytes Absolute Auto 2.69 K/mm3 (0.9-3.2); Lymphocytes Percent Auto 24.9 % (18.3-44.2); Mean Corpuscular HGB Conc 33.6 g/dl (32-36); Mean Corpuscular Volume 95.2 fl (80-100); Mean Platelet Volume 10.1 fl (7.4-10.4); Monocytes Absolute Auto 0.8 K/mm3 (0.1-0.6); Monocytes Percent Auto 7.6 % (2.6-8.5); Neutrophils Percent Auto 64.3 % (45.5-73.1); Platelet Count Result 321 k/mm3 (150-375); Red Blood Count 3.75 M/mm3 (4.2-5.4); Red Cell Distribution Width 12.5 % (11.5-14.5); White Blood Count 10.8 K/mm3 (4.5-10.0)
[2021-07-23 16:38] LABS: Alanine Aminotransferase 26 U/L (6-35); Albumin Level 4.5 g/dL (3.5-5.1); Alkaline Phosphatase 95 U/L (38-126); Anion Gap 7 mmol/L (8-16); Aspartate Amino Transferase 32 U/L (14-36); Bilirubin,Total 0.3 mg/dL (0.2-1.3); Blood Urea Nitrogen 8 mg/dL (7-17); CRP < 0.5 mg/dL (<1.0); Calcium 9.1 mg/dL (8.4-10.2); Carbon Dioxide 26 mmol/L (22-30); Chloride 102 mmol/L (98-107); Estimated Glomerular Filt Rate > 60; Glucose 101 mg/dL (65-110); Potassium 3.6 mmol/L (3.4-5.0); Sodium 135 mmol/L (137-145)
[2021-07-23 16:41] LABS: Erythrocyte Sedimentation Rate 20 mm/hr (0-20)
== END 2021-07-23 15:09 | disposition home or self-care (01) ==
LOC: ANHLAB 15:10
PROVIDERS: PCP Internal Medicine; Visit Provider Internal Medicine Hematology & Oncology
DX: D72.829 Elevated white blood cell count, unspecified (principal)
CPT/HCPCS: 36415; 80053; 85025; 85652; 86140; 88184

== ENCOUNTER 2021-11-25 09:17 | Outpatient (CLI) | payer BC, SELFPAY ==
[2021-11-25 09:51] LABS: Basophils Absolute Auto 0.1 K/mm3 (0.0-0.1); Basophils Percent Auto 0.6 % (0.2-1.2); Eosinophils Absolute Auto 0.2 K/mm3 (0-0.3); Hematocrit 37.4 % (37.0-47.0); Hemoglobin 12.3 g/dL (12.0-15.0); Immature Granulocyte Absolute 0.09 K/mm3 (0.00-0.031); Immature Granulocyte Percent A 1.1 % (0-0.5); Lymphocytes Percent Auto 21.3 % (18.3-44.2); Mean Corpuscular HGB Conc 32.9 g/dl (32-36); Mean Corpuscular Hemoglobin 31.8 pg (26-34); Mean Corpuscular Volume 96.6 fl (80-100); Monocytes Absolute Auto 0.8 K/mm3 (0.1-0.6); Monocytes Percent Auto 9.2 % (2.6-8.5); Neutrophils Absolute Auto 5.6 K/mm3 (1.3-6.7); Neutrophils Percent Auto 65.8 % (45.5-73.1); Platelet Count Result 345 k/mm3 (150-375); Red Blood Count 3.87 M/mm3 (4.2-5.4); Red Cell Distribution Width 12.6 % (11.5-14.5); White Blood Count 8.5 K/mm3 (4.5-10.0)
[2021-11-25 11:14] LABS: Alanine Aminotransferase 27 U/L (6-35); Albumin Level 4.6 g/dL (3.5-5.1); Alkaline Phosphatase 89 U/L (38-126); Anion Gap 13 mmol/L (8-16); Aspartate Amino Transferase 28 U/L (14-36); Bilirubin,Total 0.4 mg/dL (0.2-1.3); Blood Urea Nitrogen 12 mg/dL (7-17); Calcium 9.4 mg/dL (8.4-10.2); Carbon Dioxide 25 mmol/L (22-30); Chloride 95 mmol/L (98-107); Estimated Glomerular Filt Rate 56; Glucose 143 mg/dL (65-110); Potassium 3.5 mmol/L (3.4-5.0); Sodium 133 mmol/L (137-145)
== END 2021-11-25 09:18 | disposition home or self-care (01) ==
LOC: ANHLAB 09:21
PROVIDERS: PCP Internal Medicine; Visit Provider Internal Medicine Hematology & Oncology
DX: D72.829 Elevated white blood cell count, unspecified (principal)
CPT/HCPCS: 36415; 80053; 85025

== ENCOUNTER 2022-02-22 10:28 | Outpatient (CLI) | payer OTHER, SELFPAY ==
--- NOTE | ~2022-02-22 | CT_ITS ---
EXAMINATION:CT lung screening DATE: 02/22/2022 10:49 INDICATION: Nicotine dependence, cigarettes, uncomplicated. Current smoker with 30 pack year history. TECHNIQUE: Computed tomography (CT) of the chest was performed without intravenous contrast. Automate d exposure control and iterative reconstruction technique were employed. The dose-length product (DLP ) was 57.67 mGy-cm. COMPARISON: None. FINDINGS: The lungs demonstrate mild atelectasis. There is mild scarring at the lung apices. No pleur al effusion. The heart size is normal. No pericardial effusion. There are old healed right rib fractu res. There is moderate thoracic spondylosis. IMPRESSION: 1. Lung-RADS category 2: Benign appearance or behavior. Continue annual screening with noncontrast lo w-dose chest CT in 12 months. Reviewed, dictated and finalized at location A. E OPTIC CABLE SPLICER IMPRESSION: 1. Lung-RADS category 2: Benign appearance or behavior. Continue annual screeni ng with noncontrast low-dose chest CT in 12 months.
== END 2022-02-22 10:29 | disposition home or self-care (01) ==
PROVIDERS: PCP Internal Medicine; Visit Provider Internal Medicine
DX: Z12.2 Encounter for screening for malignant neoplasm of respiratory organs (principal); F17.210 Nicotine dependence, cigarettes, uncomplicated
CPT/HCPCS: 71271

== ENCOUNTER 2022-04-01 13:27 | Outpatient (CLI) | payer OTHER, SELFPAY ==
[2022-04-01 13:47] LABS: Basophils Absolute Auto 0.1 K/mm3 (0.0-0.1); Basophils Percent Auto 0.5 % (0.2-1.2); Eosinophils Absolute Auto 0.1 K/mm3 (0-0.3); Eosinophils Percent Auto 1.2 % (0-4.4); Hematocrit 36.3 % (37.0-47.0); Hemoglobin 11.7 g/dL (12.0-15.0); Immature Granulocyte Absolute 0.07 K/mm3 (0.00-0.031); Immature Granulocyte Percent A 0.6 % (0-0.5); Lymphocytes Absolute Auto 3.02 K/mm3 (0.9-3.2); Lymphocytes Percent Auto 27.5 % (18.3-44.2); Mean Corpuscular HGB Conc 32.2 g/dl (32-36); Mean Corpuscular Hemoglobin 31.5 pg (26-34); Mean Corpuscular Volume 97.8 fl (80-100); Mean Platelet Volume 9.5 fl (7.4-10.4); Monocytes Absolute Auto 0.8 K/mm3 (0.1-0.6); Monocytes Percent Auto 7.3 % (2.6-8.5); Neutrophils Absolute Auto 6.9 K/mm3 (1.3-6.7); Neutrophils Percent Auto 62.9 % (45.5-73.1); Platelet Count Result 323 k/mm3 (150-375); Red Blood Count 3.71 M/mm3 (4.2-5.4); Red Cell Distribution Width 12.9 % (11.5-14.5)
[2022-04-01 15:59] LABS: Alanine Aminotransferase 28 U/L (6-35); Albumin Level 4.4 g/dL (3.5-5.1); Alkaline Phosphatase 95 U/L (38-126); Anion Gap 6 mmol/L (8-16); Aspartate Amino Transferase 27 U/L (14-36); Bilirubin,Total 0.4 mg/dL (0.2-1.3); Blood Urea Nitrogen 11 mg/dL (7-17); Calcium 9.4 mg/dL (8.4-10.2); Carbon Dioxide 31 mmol/L (22-30); Chloride 104 mmol/L (98-107); Estimated Glomerular Filt Rate 56; Glucose 117 mg/dL (65-110); Lactate Dehydrogenase 206 U/L (120-246); Potassium 3.6 mmol/L (3.4-5.0); Sodium 141 mmol/L (137-145)
== END 2022-04-01 13:28 | disposition home or self-care (01) ==
LOC: ANHLAB 13:28
PROVIDERS: PCP Internal Medicine; Visit Provider Internal Medicine Hematology & Oncology
DX: D72.829 Elevated white blood cell count, unspecified (principal)
CPT/HCPCS: 36415; 80053; 83615; 85025

== ENCOUNTER 2022-07-16 12:04 | Emergency (ER) | payer OTHER, SELFPAY ==
--- NOTE | ~2022-07-16 | XR_ITS ---
EXAMINATION: XR shoulder LT min 2V DATE: 07/16/2022 13:00 INDICATION: Left upper arm injury and pain. TECHNIQUE: 4 views of left shoulder were obtained. COMPARISON: None. FINDINGS: Bone alignment is normal. No fracture. Glenohumeral joint is normal. There is mild acromioc lavicular joint osteoarthritis. IMPRESSION: 1. Mild left acromioclavicular joint osteoarthritis. Reviewed, dictated and finalized at location A.
--- NOTE | ~2022-07-16 | XR_ITS ---
EXAMINATION: XR humerus LT DATE: 07/16/2022 13:00 INDICATION: Left upper arm injury. TECHNIQUE: 2 views of left humerus were obtained. COMPARISON: None. FINDINGS: Bone alignment is normal. No fracture. Glenohumeral joint is normal. There is mild acromioc lavicular joint osteoarthritis. There is an enthesophyte at lateral humeral epicondyle. IMPRESSION: 1. Mild osteoarthritis of acromioclavicular joint. Reviewed, dictated and finalized at location A.
[2022-07-16 12:37] VITALS: BP 117/75; PULSE 81; RESP 18; TEMP 36.7; O2SAT 100
--- NOTE | 2022-07-16 13:11 | ED.FALL ---
HPI - Fall General Chief Complaint: Fall Stated Complaint: left shoulder/upper arm pain post fall Time Seen by Provider: 07/16/22 12:40 Source: patient Mode of arrival: ambulatory Limitations: no limitations History of Present Illness HPI Narrative: Patient is 61 years old white female drove herself to the emergency room complaining of left shoulder pain after falling on that shoulder 2 days ago, while chasing her friend. She denies other injuries. complaint: fall Related Data Allergies Allergy/AdvReac Type Severity Reaction Status Date / Time Penicillins Allergy Rash Verified 07/16/22 12:04 Review of Systems Review of Systems: All systems reviewed & are unremarkable except as noted in HPI and below PMFSH Past Medical History Medical History Avulsion fracture of calcaneus Benign essential hypertension Hyperlipidemia Nodule of right lung TIA (transient ischemic attack) Surgical History Surgical History H/O lateral meniscus repair of left knee H/O: hysterectomy History of ear surgery History of lung surgery right lung nodule removed Family History Family History Father Hypertension Acute myocardial infarction Mother Family history of Alzheimer's disease Social History Social History Smoking packs per day: 1 Smoking cigarettes per day: 20.0 Smoking status: Current every day smoker Tobacco type: cigarettes Alcohol intake: former Drinks per week: 3 Alcohol use details: occasionally Substance use: never Spiritual care concerns: No Exam Narrative: General appearance: Well-developed, well-nourished Skin: Normal color Head: Normocephalic, nontraumatic Neck: Supple, nontender Chest and respiratory: Airway patent, no respiratory distress, no accessory muscle use Heart: Regular rate/rhythm Abdomen: Soft, nontender, no organomegaly, quiet bowel sounds Vascular: Normal peripheral pulses, normal capillary refill. 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 Patient insisted to get a sling and despite of my explanation that the sling is not good for her situation at this time. Date: 07/16/22 Time: 13:27 Vital Signs Vital signs: Vital Signs Temperature 36.7 C 07/16/22 12:37 Pulse Rate 81 07/16/22 12:37 Respiratory Rate 18 07/16/22 12:37 Blood Pressure 117/75 07/16/22 12:37 Pulse Oximetry 100 07/16/22 12:37 Oxygen Delivery Room Air 07/16/22 12:37 Temperature 36.7 C 07/16/22 12:37 Pulse Rate 81 07/16/22 12:37 Respiratory Rate 18 07/16/22 12:37 Blood Pressure 117/75 07/16/22 12:37 Pulse Oximetry 100 07/16/22 12:37 Oxygen Delivery Room Air 07/16/22 12:37 MDM - Fall MDM Narrative Medical decision making narrative: Patient had a fall, landed on left shoulder, no deformity, no other injuries. Work-up today showed negative x-ray of the left shoulder. Physical examination showed tenderness at the left shoulder laterally, patient to be discharged on Tylenol, ibuprofen as needed. Differential Diagnosis Differential diagnosis: Likely other (Left shoulder contusion, fracture, sprain, strain) Imaging Data Radiologist's impression: Impressions Shoulder X-Ray 0
== END 2022-07-16 13:46 | disposition home or self-care (01) ==
PROVIDERS: Emergency Provider Emergency Medicine; PCP Internal Medicine
DX: S40.012A Contusion of left shoulder, initial encounter (principal); I10 Essential (primary) hypertension; E78.5 Hyperlipidemia, unspecified; Z86.73 Personal history of transient ischemic attack (TIA), and cerebral infarction without residual deficits; Z90.710 Acquired absence of both cervix and uterus; F17.210 Nicotine dependence, cigarettes, uncomplicated; M19.012 Primary osteoarthritis, left shoulder; W18.39XA Other fall on same level, initial encounter; Y93.02 Activity, running
CPT/HCPCS: 73030; 73060; 99283; A4565

== ENCOUNTER 2022-07-27 11:02 | Outpatient (CLI) | payer OTHER, SELFPAY ==
[2022-07-27 11:16] LABS: Basophils Absolute Auto 0.1 K/mm3 (0.0-0.1); Basophils Percent Auto 0.5 % (0.2-1.2); Eosinophils Absolute Auto 0.3 K/mm3 (0-0.3); Eosinophils Percent Auto 2.1 % (0-4.4); Hematocrit 38.9 % (37.0-47.0); Hemoglobin 12.7 g/dL (12.0-15.0); Immature Granulocyte Absolute 0.26 K/mm3 (0.00-0.031); Immature Granulocyte Percent A 2.2 % (0-0.5); Lymphocytes Absolute Auto 2.58 K/mm3 (0.9-3.2); Lymphocytes Percent Auto 21.5 % (18.3-44.2); Mean Corpuscular HGB Conc 32.6 g/dl (32-36); Mean Corpuscular Hemoglobin 31.8 pg (26-34); Mean Corpuscular Volume 97.5 fl (80-100); Mean Platelet Volume 8.8 fl (7.4-10.4); Monocytes Absolute Auto 0.7 K/mm3 (0.1-0.6); Monocytes Percent Auto 6.2 % (2.6-8.5); Neutrophils Absolute Auto 8.1 K/mm3 (1.3-6.7); Neutrophils Percent Auto 67.5 % (45.5-73.1); Platelet Count Result 332 k/mm3 (150-375); Red Blood Count 3.99 M/mm3 (4.2-5.4)
[2022-07-27 16:30] LABS: Alanine Aminotransferase 35 U/L (6-35); Albumin Level 4.2 g/dL (3.5-5.1); Alkaline Phosphatase 114 U/L (38-126); Anion Gap 7 mmol/L (8-16); Aspartate Amino Transferase 32 U/L (14-36); Bilirubin,Total 0.4 mg/dL (0.2-1.3); Blood Urea Nitrogen 9 mg/dL (7-17); Calcium 8.7 mg/dL (8.4-10.2); Carbon Dioxide 31 mmol/L (22-30); Chloride 102 mmol/L (98-107); Estimated Glomerular Filt Rate 56; Glucose 95 mg/dL (65-110); Potassium 3.2 mmol/L (3.4-5.0); Sodium 140 mmol/L (137-145)
== END 2022-07-27 11:03 | disposition home or self-care (01) ==
LOC: ANHLAB 11:03
PROVIDERS: PCP Internal Medicine; Visit Provider Internal Medicine Hematology & Oncology
DX: D72.829 Elevated white blood cell count, unspecified (principal)
CPT/HCPCS: 36415; 80053; 85025

== ENCOUNTER 2022-12-13 06:44 | Outpatient (CLI) | payer OTHER, SELFPAY ==
--- NOTE | ~2022-12-13 | US_ITS ---
Limited Abdominal Sonogram: Real-time sonographic imaging of the right upper quadrant was performed. Clinical History: Abnormal liver enzymes Findings: The liver appears echogenic, with no evidence of mass lesion or bile duct dilatation. Main portal vein demonstrates normal direction of flow. The gallbladder is well distended, and appears no rmal with no evidence of gallstone or wall thickening. The common bile duct measures 3 mm. The visua lized pancreas, aorta, and IVC are unremarkable. Impression: Diffuse fatty infiltration of the liver. Reviewed, dictated and finalized at location M. Impression: Diffuse fatty infiltration of the liver.
== END 2022-12-13 06:45 | disposition home or self-care (01) ==
PROVIDERS: PCP Internal Medicine; Visit Provider Internal Medicine
DX: R74.8 Abnormal levels of other serum enzymes (principal); K76.0 Fatty (change of) liver, not elsewhere classified
CPT/HCPCS: 76705

== ENCOUNTER 2023-01-26 09:28 | Outpatient (CLI) | payer OTHER, SELFPAY ==
[2023-01-26 09:46] LABS: Basophils Absolute Auto 0.1 K/mm3 (0.0-0.1); Basophils Percent Auto 0.8 % (0.2-1.2); Eosinophils Absolute Auto 0.2 K/mm3 (0-0.3); Eosinophils Percent Auto 2.2 % (0-4.4); Hematocrit 38.8 % (37.0-47.0); Immature Granulocyte Absolute 0.09 K/mm3 (0.00-0.031); Lymphocytes Absolute Auto 2.35 K/mm3 (0.9-3.2); Lymphocytes Percent Auto 25.6 % (18.3-44.2); Mean Corpuscular HGB Conc 30.9 g/dl (32-36); Mean Corpuscular Hemoglobin 31.5 pg (26-34); Mean Corpuscular Volume 101.8 fl (80-100); Monocytes Absolute Auto 0.7 K/mm3 (0.1-0.6); Monocytes Percent Auto 7.7 % (2.6-8.5); Neutrophils Absolute Auto 5.8 K/mm3 (1.3-6.7); Neutrophils Percent Auto 62.7 % (45.5-73.1); Platelet Count Result 372 k/mm3 (150-375); Red Blood Count 3.81 M/mm3 (4.2-5.4); Red Cell Distribution Width 13.2 % (11.5-14.5); White Blood Count 9.2 K/mm3 (4.5-10.0)
[2023-01-26 11:40] LABS: Alanine Aminotransferase 45 U/L (6-35); Albumin Level 4.4 g/dL (3.5-5.1); Alkaline Phosphatase 57 U/L (38-126); Anion Gap 8 mmol/L (8-16); Aspartate Amino Transferase 43 U/L (14-36); Bilirubin,Total 0.6 mg/dL (0.2-1.3); Blood Urea Nitrogen 14 mg/dL (7-17); Calcium 9.4 mg/dL (8.4-10.2); Carbon Dioxide 27 mmol/L (22-30); Chloride 105 mmol/L (98-107); Estimated Glomerular Filt Rate 33; Glucose 111 mg/dL (65-110); Potassium 3.4 mmol/L (3.4-5.0); Sodium 140 mmol/L (137-145)
== END 2023-01-26 09:29 | disposition home or self-care (01) ==
LOC: ANHLAB 09:31
PROVIDERS: PCP Internal Medicine; Visit Provider Internal Medicine Hematology & Oncology
DX: D72.829 Elevated white blood cell count, unspecified (principal)
CPT/HCPCS: 36415; 80053; 85025

== ENCOUNTER 2023-05-18 09:54 | Outpatient (CLI) | payer OTHER, SELFPAY ==
[2023-05-18 10:08] LABS: Basophils Absolute Auto 0.1 K/mm3 (0.0-0.1); Basophils Percent Auto 0.6 % (0.2-1.2); Eosinophils Absolute Auto 0.2 K/mm3 (0-0.3); Eosinophils Percent Auto 1.3 % (0-4.4); Hematocrit 40.8 % (37.0-47.0); Immature Granulocyte Percent A 1.4 % (0-0.5); Lymphocytes Absolute Auto 3.04 K/mm3 (0.9-3.2); Lymphocytes Percent Auto 21.2 % (18.3-44.2); Mean Corpuscular HGB Conc 31.9 g/dl (32-36); Mean Corpuscular Hemoglobin 31.3 pg (26-34); Mean Corpuscular Volume 98.3 fl (80-100); Mean Platelet Volume 9.2 fl (7.4-10.4); Neutrophils Absolute Auto 9.8 K/mm3 (1.3-6.7); Neutrophils Percent Auto 68.5 % (45.5-73.1); Platelet Count Result 297 k/mm3 (150-375); Red Blood Count 4.15 M/mm3 (4.2-5.4); Red Cell Distribution Width 13.2 % (11.5-14.5); White Blood Count 14.4 K/mm3 (4.5-10.0)
[2023-05-18 10:16] LABS: Atypical Lymphocytes Present; Platelet Estimate Adequate (Adequate); Schistocytes None Seen
[2023-05-18 10:57] LABS: Alanine Aminotransferase 22 U/L (6-35); Albumin Level 4.2 g/dL (3.5-5.1); Alkaline Phosphatase 106 U/L (38-126); Anion Gap 4 mmol/L (4-12); Aspartate Amino Transferase 28 U/L (14-36); Bilirubin,Total 0.6 mg/dL (0.2-1.3); Blood Urea Nitrogen 6 mg/dL (7-17); Calcium 9.4 mg/dL (8.4-10.2); Carbon Dioxide 28 mmol/L (22-30); Chloride 103 mmol/L (98-107); Estimated Glomerular Filt Rate 56; Glucose 121 mg/dL (65-110); Potassium 3.4 mmol/L (3.4-5.0); Sodium 135 mmol/L (137-145)
== END 2023-05-18 09:55 | disposition home or self-care (01) ==
LOC: ANHLAB 09:56
PROVIDERS: PCP Family Medicine; Visit Provider Internal Medicine Hematology & Oncology
DX: D72.829 Elevated white blood cell count, unspecified (principal)
CPT/HCPCS: 36415; 80053; 85025

== ENCOUNTER 2023-05-19 10:24 | Outpatient (CLI) | payer OTHER, SELFPAY ==
--- NOTE | ~2023-05-19 | US_ITS ---
EXAMINATION: US pelvic complete DATE: 05/19/2023 11:19 INDICATION: Right lower quadrant pain TECHNIQUE: Multiple transabdominal and endovaginal sonographic images of the pelvis were obtained. COMPARISON: None. FINDINGS: The uterus is surgically absent. The ovaries are not visualized however no adnexal abnormal ity is seen. There is no free fluid in the pelvis. IMPRESSION: 1. No sonographic correlate for the patient's symptoms. Reviewed, dictated and finalized at location A.
== END 2023-05-19 10:25 | disposition home or self-care (01) ==
LOC: ANHIMG 10:25
PROVIDERS: PCP Family Medicine; Visit Provider Internal Medicine Hematology & Oncology
DX: R10.31 Right lower quadrant pain (principal)
CPT/HCPCS: 76856

== ENCOUNTER → 2023-06-07 09:56 | Outpatient (REF) | payer OTHER, SELFPAY | LOC: ANHLAB 09:56 | PROVIDERS: PCP Internal Medicine; Visit Provider Plastic Surgery | DX: C44.01 Basal cell carcinoma of skin of lip (principal) | CPT/HCPCS: 88305 ==

== ENCOUNTER 2023-06-30 09:55 | Outpatient (CLI) | payer OTHER, SELFPAY ==
--- NOTE | ~2023-06-30 | CT_ITS ---
CT Scan of the Chest without Contrast: Clinical Indication: Lung cancer screening, nicotine dependence Technique: Contiguous sections were acquired throughout the chest without intravenous contrast. Dose reduction technique was used on this scan by utilizing automated exposure control and iterative recon struction technique. The dose-length product (DLP) was 79.48 mGy-cm. COMPARISON: 02/22/2022 Findings: There is no evidence of any significant mediastinal, hilar or axillary lymphadenopathy. The mediastin al soft tissues appear normal. There is no evidence of pleural or pericardial effusion. Focal calcified pleural plaques are present. The lungs are clear. No pulmonary nodules or infiltrates are noted. Images through the upper abdomen reveal no abnormalities. Impression: Lung RADS 1: Negative. 12 month follow-up screening CT advised. Reviewed, dictated and finalized at [facility]. Impression: Lung RADS 1: Negative. 12 month follow-up screening CT advised.
== END 2023-06-30 09:56 | disposition home or self-care (01) ==
LOC: ANHIMG 09:55
PROVIDERS: PCP Internal Medicine; Visit Provider Internal Medicine
DX: Z12.2 Encounter for screening for malignant neoplasm of respiratory organs (principal); Z87.891 Personal history of nicotine dependence
CPT/HCPCS: 71271

== ENCOUNTER 2023-07-20 11:13 | Outpatient (CLI) | payer OTHER, SELFPAY ==
[2023-07-20 11:38] LABS: Basophils Absolute Auto 0.1 K/mm3 (0.0-0.1); Basophils Percent Auto 0.7 % (0.2-1.2); Eosinophils Absolute Auto 0.2 K/mm3 (0-0.3); Eosinophils Percent Auto 1.6 % (0-4.4); Hemoglobin 13.1 g/dL (12.0-15.0); Immature Granulocyte Absolute 0.18 K/mm3 (0.00-0.031); Immature Granulocyte Percent A 1.3 % (0-0.5); Lymphocytes Absolute Auto 3.49 K/mm3 (0.9-3.2); Mean Corpuscular Hemoglobin 31.4 pg (26-34); Mean Corpuscular Volume 98.3 fl (80-100); Mean Platelet Volume 9.6 fl (7.4-10.4); Monocytes Percent Auto 6.9 % (2.6-8.5); Neutrophils Percent Auto 64.5 % (45.5-73.1); Platelet Count Result 364 k/mm3 (150-375); Red Blood Count 4.17 M/mm3 (4.2-5.4); Red Cell Distribution Width 13.1 % (11.5-14.5)
[2023-07-20 19:08] LABS: Alanine Aminotransferase 23 U/L (6-35); Albumin Level 4.3 g/dL (3.5-5.1); Alkaline Phosphatase 113 U/L (38-126); Anion Gap 6 mmol/L (4-12); Aspartate Amino Transferase 28 U/L (14-36); Bilirubin,Total 0.5 mg/dL (0.2-1.3); Blood Urea Nitrogen 5 mg/dL (7-17); Calcium 9.3 mg/dL (8.4-10.2); Carbon Dioxide 26 mmol/L (22-30); Chloride 107 mmol/L (98-107); Estimated Glomerular Filt Rate 56; Glucose 87 mg/dL (65-110); Potassium 3.9 mmol/L (3.4-5.0); Sodium 139 mmol/L (137-145)
== END 2023-07-20 11:14 | disposition home or self-care (01) ==
LOC: ANHLAB 11:15
PROVIDERS: PCP Internal Medicine; Visit Provider Internal Medicine Hematology & Oncology
DX: D72.829 Elevated white blood cell count, unspecified (principal)
CPT/HCPCS: 36415; 80053; 85025

== ENCOUNTER 2023-08-08 10:13 | Outpatient (RCR) | payer OTHER, SELFPAY ==
--- NOTE | 2023-08-08 11:16 | OTOPEVAL1 ---
Assessment and note entered by TAYLOR Barry/Darlene, SHEA Evaluation Information 08/08/23 Assessment Status Evaluation Diagnosis Right middle finger trigger finger Subjective Information Patient reports having symptoms of trigger finger for about 5 months. She reports pain and tenderness in the hand and finger. She states she has difficulties using the hand for ADL tasks. Difficulties with gripping. Reported Pain Level Pain Score 5: Self Report Assessment OT Clinical Summary Patient referred to OT with dx of trigger finger of the right middle finger. She presents with a palpable nodule on her flexor tendon, reduced ROM and flexibility, and pain with use. Skilled OT indicated to facilitate reduced pain and inflammation and promote improved flexibility and strength of the right hand to return to improved daily use for ADLs. Plan of Care Interventions Therapeutic Exercise,Manual Therapy,Therapeutic Activities,Hot Pack/Cold Pack,Ultrasound,Paraffin OT Services Indicated Yes Treatment Frequency and 1x/week for 4 visits Duration These treatments will address the objective and functional deficits as defined above. The patient will be advanced safely and appropriately in order for the patient to progress towards his/her prior level of function. Additional exercises will be introduced and as well as a comprehensive home exercise program upon discharge, if needed, ?to ensure carryover of functional gains achieved in the clinic. This treatment plan has been reviewed and agreement upon by the patient.
--- NOTE | 2023-08-08 11:16 | OPREHPOC ---
Outpatient Therapy Plan of Care This is a Multidisciplinary Plan of Care that may contain components documented by all disciplines (PT, OT, and ST.) OT Problem 1 OT Problem #1 Knowledge Deficit OT Goal 1 Goal 1. Patient to be independent and compliant with all materials. Target Visit 4 OT Problem 2 OT Problem #2 Pain OT Goal 1 Goal 1. Patient to report reduced pain to 0/10 at rest. 2. Patient to report pain no greater than 2/10 with use/ADLs. Target Visit 4 OT Problem 3 OT Problem #3 Impaired Flexibility OT Goal 1 Goal 1. Patient to be able to make a hook fist with the right hand with <1cm gap with the middle finger and DPC. Target Visit 4 OT Problem 4 OT Problem #4 Impaired Strength OT Goal 1 Goal 1. Patient to be able to tolerate 5 minutes of yellow theraputty HEP without pain.4
--- NOTE | 2023-08-14 12:24 | PCOTNOTE ---
Patient did not show up for scheduled appointment this date. Called patient and left voicemail regarding missed appointment.
--- NOTE | 2023-08-21 15:04 | PCOTNOTE ---
Patient did not show up for scheduled appointment this date. Called patient and was unable to get through or have the opportunity to leave a message this time.
--- NOTE | 2023-08-28 15:02 | OTOPDC ---
Assessment and note entered by Darrell March, OTR/L, CHT OT D/C Notification 08/28/23 OT Clinical Summary Patient was initially evaluated on 08/07/23 for right middle finger trigger finger. She unfortunately has not shown for any follow up appointments and we are unable to contact her. We are discharging her due to poor attendance.
== END 2023-08-29 10:01 | disposition home or self-care (01) ==
LOC: ANHOT 10:13
PROVIDERS: PCP Internal Medicine; Visit Provider Plastic Surgery
DX: M65.331 Trigger finger, right middle finger (principal)
CPT/HCPCS: 97018; 97110; 97140; 97165

== ENCOUNTER 2023-11-21 11:31 | Outpatient (CLI) | payer OTHER, SELFPAY ==
[2023-11-21 11:51] LABS: Hematocrit 41.4 % (37.0-47.0); Hemoglobin 13.3 g/dL (12.0-15.0); Immature Granulocyte Percent A 0.5 % (0-0.5); Mean Corpuscular HGB Conc 32.1 g/dl (32-36); Mean Corpuscular Hemoglobin 31.3 pg (26-34); Mean Corpuscular Volume 97.4 fl (80-100); Mean Platelet Volume 9.5 fl (7.4-10.4); Neutrophils Percent Auto 64.3 % (45.5-73.1); Platelet Count Result 323 k/mm3 (150-375); Red Blood Count 4.25 M/mm3 (4.2-5.4); Red Cell Distribution Width 12.6 % (11.5-14.5); White Blood Count 10.6 K/mm3 (4.5-10.0)
[2023-11-21 11:52] LABS: Basophils Absolute Auto 0.1 K/mm3 (0.0-0.1); Basophils Percent Auto 0.5 % (0.2-1.2); Eosinophils Absolute Auto 0.2 K/mm3 (0-0.3); Eosinophils Percent Auto 1.5 % (0-4.4); Immature Granulocyte Absolute 0.05 K/mm3 (0.00-0.031); Lymphocytes Absolute Auto 2.61 K/mm3 (0.9-3.2); Lymphocytes Percent Auto 24.5 % (18.3-44.2); Monocytes Absolute Auto 0.9 K/mm3 (0.1-0.6); Monocytes Percent Auto 8.7 % (2.6-8.5); Neutrophils Absolute Auto 6.8 K/mm3 (1.3-6.7)
[2023-11-21 13:37] LABS: Anion Gap 8 mmol/L (4-12); Blood Urea Nitrogen 11 mg/dL (7-17); CRP 0.6 mg/dL (<1.0); Calcium 9.2 mg/dL (8.4-10.2); Carbon Dioxide 25 mmol/L (22-30); Chloride 107 mmol/L (98-107); Estimated Glomerular Filt Rate > 60; Glucose 91 mg/dL (65-110); Potassium 3.8 mmol/L (3.4-5.0); Sodium 140 mmol/L (137-145)
== END 2023-11-21 11:32 | disposition home or self-care (01) ==
PROVIDERS: PCP Internal Medicine; Visit Provider Internal Medicine Hematology & Oncology
DX: D72.829 Elevated white blood cell count, unspecified (principal)
CPT/HCPCS: 36415; 80048; 85025; 86140; 88184

== ENCOUNTER 2023-12-13 05:20 | Day surgery (SDC) | payer OTHER, SELFPAY ==
[2023-12-07 08:42] VITALS: BMI 23.2
--- NOTE | 2023-12-07 08:47 | PC.NURSE ---
Report to the Outpatient Waiting Room, entrance under the green pavilion located off [facility], at time _0630_ on date _[phone]_. Planned Procedure Time: _0830_.? Time changes happen often and if your time is changed the preop area will call you the afternoon before. - You and your visitor will be asked to self-screen and do not enter if you have any COVID symptoms. Please call surgeon if you need to reschedule. - A mask is optional within the hospital at this time. Patients may have clear liquids (water, carbonated beverages, clear teas, apple juice) until 3 hours prior to surgery with a maximum of 20 ounces. - No food from midnight until time of surgery and no smoking Take only the following medications with a SIP of water on the morning of surgery: ___Amlodipine DO NOT STOP ANY OF YOUR OTHER PRESCRIPTION MEDICATIONS PRIOR TO SURGERY EXCEPT THE FOLLOWING Medications to discontinue per physician ____None Date to take last dose Please no make-up, nail citizen of [place], hairspray, perfume, deodorant, or body powder the day of surgery.? No jewelry (including any body piercings) or valuables the day of surgery, leave them at home.? Please take a shower or bath the night before, or the morning of, surgery with an antibacterial soap.? Wear comfortable, loose fitting clothing.? - Jewelry must be removed prior to entering the operating room.? Rings and piercings that are not removed may be cut off. - The hospital will not accept responsibility for valuables.? - Please leave all valuables, including medications, at home the day of surgery. If you are going home after surgery, a licensed bobcat driver/labor must drive you home.? - NO public transportation without another adult if you receive anesthesia. - We recommend that an adult stay with you for 24 hours following discharge. - We also recommend that you do not drive, make important decision, drink alcoholic beverages, or take any drugs that were not prescribed by your health care provider for at least 24 hours after your discharge time. Follow any additional instructions given to you from your surgeon. Telephone instructions given to __Debra__and asked if any additional questions and then verbalized understanding. Patient advised to call surgeon office or pre surgery nurse liaison [phone] if any additional questions.
--- NOTE | 2023-12-07 08:51 | PC.NURSE ---
Report to the Outpatient Waiting Room, entrance under the green pavilion located off [facility], at time _0630_ on date _[phone]_. Planned Procedure Time: _0830_.? Time changes happen often and if your time is changed the preop area will call you the afternoon before. - You and your visitor will be asked to self-screen and do not enter if you have any COVID symptoms. Please call surgeon if you need to reschedule. - A mask is optional within the hospital at this time. - No food or drink from midnight until time of surgery and no smoking Take only the following medications with a SIP of water on the morning of surgery: __Amlodipine DO NOT STOP ANY OF YOUR OTHER PRESCRIPTION MEDICATIONS PRIOR TO SURGERY EXCEPT THE FOLLOWING Medications to discontinue per physician ___None Date to take last dose Please no make-up, nail armenian, hairspray, perfume, deodorant, or body powder the day of surgery.? No jewelry (including any body piercings) or valuables the day of surgery, leave them at home.? Please take a shower or bath the night before, or the morning of, surgery with an antibacterial soap.? Wear comfortable, loose fitting clothing.? - Jewelry must be removed prior to entering the operating room.? Rings and piercings that are not removed may be cut off. - The hospital will not accept responsibility for valuables.? - Please leave all valuables, including medications, at home the day of surgery. If you are going home after surgery, a licensed road oiling truck driver must drive you home.? - NO public transportation without another adult if you receive anesthesia. - We recommend that an adult stay with you for 24 hours following discharge. - We also recommend that you do not drive, make important decision, drink alcoholic beverages, or take any drugs that were not prescribed by your health care provider for at least 24 hours after your discharge time. Follow any additional instructions given to you from your surgeon. Telephone instructions given to __Debra__and asked if any additional questions and then verbalized understanding. Patient advised to call surgeon office or pre surgery nurse liaison [phone] if any additional questions.
[2023-12-13 06:32] LABS: Glucose Point of Care 120 mg/dl (65-105)
--- NOTE | 2023-12-13 06:38 | PM.HPGS ---
History of Present Illness History of Present Illness Chief complaint: swelling, mass and lump right upper limb Narrative: Patient seen and examined in pre-operative holding area. No interval change in medical history or symptoms. Patient recalls previous discussion of benefits and alternatives to procedure. Continues to desire to proceed with right middle finger mass excision. Reviewed procedure, post-op expectations and risks including but not limited to bleeding, infection, injury to tendon/nerve/vessel, decreased hand function, stiffness, RSD, no change or worsening of symptoms, recurrence. I discussed the possible use of assistants and their participation in the case. Patient stated understanding and signed the consent form wishing to proceed. Review of Systems Review of Systems: All systems reviewed & are unremarkable except as noted in HPI and below PMFSH Past Medical History Medical History Avulsion fracture of calcaneus Benign essential hypertension Hyperlipidemia Nodule of right lung TIA (transient ischemic attack) Surgical History Surgical History H/O lateral meniscus repair of left knee H/O: hysterectomy History of ear surgery History of lung surgery right lung nodule removed Family History Family History Father Hypertension Acute myocardial infarction Mother Family history of Alzheimer's disease Social History Social History (Updated 05/19/23 @ 15:03 by Erika Willard) Social History: Smoking packs per day: 1 Smoking cigarettes per day: 20.0 Years smoked: 26 Smoking pack-years: 26.00 Smoking status: Current every day smoker Tobacco type: cigarettes Second hand tobacco smoke exposure: Yes Alcohol intake: current Drinks per week: 2 Substance use: never Substance use type: does not use Do You Feel Safe in your Home?: Yes Lack of Transportation: No Lack of Food: Never True Current Housing: I Have Housing Concerned About Future Housing: No Difficulty Paying Gas/Electric Bills: No Difficulty Paying for Meds: No Currently Unemployed: YES Education: Don't Know Living arrangements: with family Occupation/Education: retired Gender identity (if verbalized by the patient): Female Sexual Orientation (if Verbalized by the Patient): Straight or Heterosexual Spiritual care concerns: No Meds Home Medications and Allergies Home Medications Medication Instructions Recorded Confirmed Type amlodipine 5 mg tablet 5 mg PO DAILY #30 tabs 07/07/21 12/07/23 Rx lisinopril 40 mg tablet See Rx Instructions .Route 12/10/21 12/07/23 Rx .COMPLEX #90 tabs allopurinol 100 mg tablet 100 mg PO DAILY 05/19/23 12/07/23 History atorvastatin 40 mg tablet 80 mg PO DAILY 05/19/23 12/07/23 History dapagliflozin propanediol 10 mg 10 mg PO DAILY 05/19/23 12/07/23 History tablet (Farxiga) fenofibrate nanocrystallized 145 145 mg PO DAILY 05/19/23 12/07/23 History mg tablet furosemide 20 mg tablet 20 mg PO QAM 05/19/23 12/07/23 History meloxicam 15 mg tablet 15 mg PO DAILY 05/19/23 12/07/23 History varenicline 0.5 mg (11)-1 mg (42) 1 ea PO BID 12/07/23 12/07/23 History tablets in a dose pack Allergies Allergy/AdvReac Type Severity Reaction Status Date / Time Penicillins Allergy Rash Verified 12/13/23 07:07 Exam Narrative: unchanged Assessment and Plan Assessment and plan (1) Finger mass, right: Code(s): R22.31 - Localized swelling, mass and lump, right upper limb Status: Acute Assessment and Plan: cont as above
--- NOTE | 2023-12-13 06:39 | W.PM.PROC2 ---
Procedure Note - Detailed Date of Procedure 12/13/23 Pre-op Diagnosis right middle finger mass Post-op Diagnosis Same Procedure Performed excision right middle finger mass Surgeon Tanna Jesus MD Computator michell licona pa-c Anesthesia MAC Description of Procedure INFORMED CONSENT: The patient was seen and examined and marked in the pre-op area.? The patient signed the consent form. PROCEDURE IN DETAIL:The patient taken back to OR on the stretcher in supine position. Time out performed with anesthesia, surgeon and staff agreeing on patient's name site and surgery to be performed SCDs were placed on the lower extremities and inflated. A tourniquet was placed on {right} upper extremity and antibiotics given IV After anesthesia administered sedation I injected {4}cc 1%lido and 0.5% marcaine plain for digital block in the palm The?{right upper extremity}?was prepped and draped in sterile fashion the??{right upper extremity} was? exsanguinated with Esmarch bandage proximal to the mass and tourniquet inflated to 250mmHg I made a longitudinal incision over the mass over the proximal phalanx through skin and dermis with 15 blade scalpel. Littler scissors were used to spread through subq down to the extensor allison noting mass appearing to originate in deep space between lake and caryn ligaments. I continued with dissection and excision of this mass noting it didn't appear to directly involve the neurovascular bundle which was identified and protected during procedure. I irrigated with normal saline and closed with 4-0 chromic A dressing of xeroform, 4x4, soumya, and tube gauze after the tourniquet was let down noting the hand was warm and well perfused. The patient was then awaken from anesthesia and transferred to the recovery room in stable condition.? Complications - none EBL- 0cc Disposition - home in stable conditions Michell Licona PA-c was essential for positioning, retraction, closure and dressing placement [facility] [place] Surgery - Charge Forward: Surgery Billing ([id number] for michell)
[2023-12-13 07:10] VITALS: BP 141/69; PULSE 60; RESP 16; TEMP 36.4; O2SAT 100
[2023-12-13 07:11] VITALS: BMI 22.9
[2023-12-13] MEDS: LACTATED RINGERS 1,000 ML 30 ML IV CONT (07:33)
--- NOTE | 2023-12-13 07:36 | WPDANESEPPF ---
Anes - Initial Pre Proc Eval Procedure: Operation Date: 12/13/23 08:30 Proposed Procedures p Right Middle Finger Mass Excision - Tanna Jesus MD Date/Time: 12/13/23 07:36 Surgeon: Tanna Jesus MD Pre Op Diagnosis: swelling, mass and lump right upper limb Patient Data Age: 63 Gender: F Height: 1.68 m Weight: 64.45 kg Last Vital Signs Temp 36.4 C 12/13/23 07:10 Pulse 60 12/13/23 07:10 Resp 16 12/13/23 07:10 BP 141/69 H 12/13/23 07:10 Pulse Ox 100 12/13/23 07:10 O2 Del Method Room Air 12/13/23 07:10 Allergies Allergy/AdvReac Type Severity Reaction Status Date / Time Penicillins Allergy Rash Verified 12/13/23 07:07 Home Medications Medication Instructions Recorded Confirmed Type amlodipine 5 mg tablet 5 mg PO DAILY #30 tabs 07/07/21 12/07/23 Rx lisinopril 40 mg tablet See Rx Instructions .Route 12/10/21 12/07/23 Rx .COMPLEX #90 tabs allopurinol 100 mg tablet 100 mg PO DAILY 05/19/23 12/07/23 History atorvastatin 40 mg tablet 80 mg PO DAILY 05/19/23 12/07/23 History dapagliflozin propanediol 10 mg 10 mg PO DAILY 05/19/23 12/07/23 History tablet (Farxiga) fenofibrate nanocrystallized 145 145 mg PO DAILY 05/19/23 12/07/23 History mg tablet furosemide 20 mg tablet 20 mg PO QAM 05/19/23 12/07/23 History meloxicam 15 mg tablet 15 mg PO DAILY 05/19/23 12/07/23 History varenicline 0.5 mg (11)-1 mg (42) 1 ea PO BID 12/07/23 12/07/23 History tablets in a dose pack Laboratory Tests 12/13/23 06:26 POC Capillary Glucose 120 H mg/dl (65-105) Patient hx anesthesia problems: none Family hx anesthesia problems: none Results Review: All pre-operative results and documents have been reviewed as part of the pre-operative evaluation. FORMERLY [facility], [facility] Past Medical History Medical History (Updated 12/13/23 @ 07:39 by Chan Dennis MD) Avulsion fracture of calcaneus Benign essential hypertension Diabetes Hyperlipidemia Nodule of right lung TIA (transient ischemic attack) Tobacco abuse Surgical History Surgical History H/O lateral meniscus repair of left knee H/O: hysterectomy History of ear surgery History of lung surgery right lung nodule removed Family History Family History Father Hypertension Acute myocardial infarction Mother Family history of Alzheimer's disease Social History Social History Social History: Smoking packs per day: 1 Smoking cigarettes per day: 20.0 Years smoked: 26 Smoking pack-years: 26.00 Smoking status: Current every day smoker Tobacco type: cigarettes Second hand tobacco smoke exposure: Yes Alcohol intake: current Drinks per week: 2 Substance use: never Substance use type: does not use Do You Feel Safe in your Home?: Yes Lack of Transportation: No Lack of Food: Never True Current Housing: I Have Housing Concerned About Future Housing: No Difficulty Paying Gas/Electric Bills: No Difficulty Paying for Meds: No Currently Unemployed: YES Education: Don't Know Living arrangements: with family Occupation/Education: retired Gender identity (if verbalized by the patient): Female Sexual Orientation (if Verbalized by the Patient): Straight or Heterosexual Spiritual care concerns: No Anes - Eval Final PreProcedure Day of Procedure 12/13/23 07:36 Patient weight: normal Heart: regular rate and rhythm Lungs: clear to auscultation Airway: Mallampati scale class II Neurological: alert and oriented Last oral intake: >/= 8 hours ASA classification: III Emergent: no Anesthetic plan: proceed Anesthesia type and monitoring: general GIVS and standard monitoring Results Review: All pre-operative results and documents have been reviewed as part of the pre-operative evaluation. Informed Consent: The patient's anesthetic plan and its attendant risks and benefits were discussed with the patient/family/POA. Questions were solicited and answers provided to the satisfaction of the patient/family/POA.
[2023-12-13] MEDS: ceFAZolin 2 GM/D5W 50 ML 2 GM/50 ML BAG IVPB (08:16)
[2023-12-13] MEDS: LIDOCAINE HCL 1% LOCAL INJ 20 ML VIAL 10 ML INFILTRATE (08:30)
[2023-12-13 08:41] VITALS: BP 107/61; PULSE 66; RESP 15; O2SAT 98
[2023-12-13 09:05] LABS: Glucose Point of Care 107 mg/dl (65-105)
[2023-12-13 09:11] VITALS: BP 111/57; PULSE 61; RESP 16
[2023-12-13] MEDS: oxyCODONE HCL (*CRX) 5 MG TAB IR PO (09:22)
[2023-12-13 09:39] VITALS: BP 117/62; PULSE 61; O2SAT 96
[2023-12-13 09:51] VITALS: BP 111/55; PULSE 56; O2SAT 98
== END 2023-12-13 10:03 | disposition home or self-care (01) ==
PROVIDERS: PCP Internal Medicine; Visit Provider Plastic Surgery
PROC: (CPT 26116; principal; 2023-12-13 08:30)
DX: D36.12 Benign neoplasm of peripheral nerves and autonomic nervous system, upper limb, including shoulder (principal); E78.5 Hyperlipidemia, unspecified; I10 Essential (primary) hypertension; E11.9 Type 2 diabetes mellitus without complications; F17.210 Nicotine dependence, cigarettes, uncomplicated; Z79.84 Long term (current) use of oral hypoglycemic drugs; Z98.890 Other specified postprocedural states; Z86.73 Personal history of transient ischemic attack (TIA), and cerebral infarction without residual deficits; Z82.49 Family history of ischemic heart disease and other diseases of the circulatory system
CPT/HCPCS: 26116; 82948; 88304; A9270; J0690; J2003; J2250; J2704; J3010; J7120

== ENCOUNTER 2024-05-27 14:47 | Outpatient (CLI) | payer MEDICARE, SELFPAY ==
[2024-05-27 15:03] LABS: Basophils Absolute Auto 0.1 K/mm3 (0.0-0.1); Basophils Percent Auto 0.6 % (0.2-1.2); Eosinophils Absolute Auto 0.3 K/mm3 (0-0.3); Eosinophils Percent Auto 1.9 % (0-4.4); Hematocrit 42.8 % (37.0-47.0); Hemoglobin 13.8 g/dL (12.0-15.0); Immature Granulocyte Absolute 0.36 K/mm3 (0.00-0.031); Immature Granulocyte Percent A 2.6 % (0-0.5); Lymphocytes Percent Auto 29.8 % (18.3-44.2); Mean Corpuscular HGB Conc 32.2 g/dl (32-36); Mean Corpuscular Hemoglobin 31.9 pg (26-34); Mean Corpuscular Volume 99.1 fl (80-100); Mean Platelet Volume 9.7 fl (7.4-10.4); Monocytes Absolute Auto 0.7 K/mm3 (0.1-0.6); Neutrophils Absolute Auto 8.5 K/mm3 (1.3-6.7); Neutrophils Percent Auto 60.1 % (45.5-73.1); Platelet Count Result 313 k/mm3 (150-375); Red Blood Count 4.32 M/mm3 (4.2-5.4); Red Cell Distribution Width 12.7 % (11.5-14.5); White Blood Count 14.1 K/mm3 (4.5-10.0)
[2024-05-27 16:39] LABS: Anion Gap 11 mmol/L (4-12); Blood Urea Nitrogen 11 mg/dL (7-17); Calcium 9.7 mg/dL (8.4-10.2); Carbon Dioxide 26 mmol/L (22-30); Chloride 102 mmol/L (98-107); Estimated Glomerular Filt Rate 50; Glucose 165 mg/dL (65-110); Potassium 3.8 mmol/L (3.4-5.0); Sodium 139 mmol/L (137-145)
--- OUTSIDE RECORDS SUMMARY | 2024-05-27 16:56 | XMS_ITS | Referral Summary ---
Author Organization [facility] Address [address] [place] [address] Care Team Providers Care Carpenters Helper Name Role Phone Trang Burns MD Primary Care Provide r Encounters Date Type Department Care Team Description 03/19/2024 2:30 PM MAINTENANCE MECHANIC Ancillary Procedure [facility] Cardiology [address] [place] [address] Syncope and collapse from Last 3 Months Allergies Active Allergy Reactions Criticality Noted Date Comments Penicillins Anaphylaxis,Swelling High 10/07/2013 Medications amLODIPine (NORVASC) 5 mg tablet Take 5 mg by mouth daily 06/22/2020 Active hydroCHLOROthia zide (MICROZIDE) 12.5 mg capsule Take 12.5 mg by mouth daily 06/22/2020 Active lisinopriL (PRINIVIL,ZESTR IL) 40 mg tablet Take 40 mg by mouth daily Active aspirin 81 mg enteric coated tablet Take 81 mg by mouth daily Active atorvastatin (LIPITOR) 40 mg tablet Take 40 mg by mouth daily Active ergocalciferol (VITAMIN D) 50,000 unit capsule TAKE 1 CAPSULE BY MOUTH ONCE A WEEK (PREFERABLY ON THE SAME DAY EACH WEEK) FOR 8 WEEKS 05/05/2021 Active naproxen (NAPROSYN) 500 mg tablet 07/09/2021 Active Active Problems No known active problems Social History Tobacco Use Types Packs/Day Years Used Date Smoking Tobacco: Every Day Cigarettes Smokeless Tobacco: Never Tobacco Cessation:Ready to Q uit: Not Asked; Counseling Given: Not Answered Comments Unknown Sex and Gender Information Value Date Recorded Sex Assigned at Not on file Legal Sex Female 4:26 PM MAINTENANCE MECHANIC Gender Identity Not on file Sexual Orientation Not on file Last Filed Vital Signs Vital Sign Reading Time Taken Comments Blood Pressure 114/70 11/10/2021 12:48 PM CDT Pulse 79 11/10/2021 12:48 PM CDT Temperature 36.1 C (97 F) 10/30/2013 12:08 PM CDT Respiratory Rate - - Oxygen Saturation 97% 11/10/2021 12:48 PM CDT Inhaled Oxygen Concentration - - Weight 68.5 kg (151 lb) 11/10/2021 12:48 PM CDT Height 167.6 cm (5' 6 ) 11/10/2021 12:48 PM CDT Body Mass Index 24.37 11/10/2021 12:48 PM CDT Plan of Treatment Not on file Procedures Procedure Name Priority Date/Time Associated Diagnosis Comments HOLTER MONITOR 24 HR Routine 03/19/2024 3:33 PM MAINTENANCE MECHANIC Syncope and collapse from Last 3 Months Results * 24 HR Holter Monitor (03/19/2024 3:33 PM MAINTENANCE MECHANIC) Anatomical Region Laterality Modality Electrocardiogra phy Narrative 03/25/2024 1:07 PM MAINTENANCE MECHANIC AMBULATORY [employer] TE[employer] MEMBER REPORT Patient Name: Ju Mondragon Date of : 1960 Requesting Physician: Dr. Ralph Date of interpretation: 03/25/24 Type of monitor : 24 hour Holter monitor Date of the study/Enrollment period: March 19, 2024 till February Indication: Syncope and collapse Quality of the study: Good Interpretation: Average heart rate was 76 beats per minute with a minimum heart rate 45 beats per minute and maximum heart rate 124 beats per minute. No evidence of atrial fibrillation, supraventricular tachycardia, ventricular tachycardia or significant pauses or blocks. No PVCs detected. There were 34 isolated supraventricular ectopic contractions. Patient was asymptomatic during the monitoring time. Conclusions: Unremarkable 24 hour Holter monitor without significant arrhythmias. Voice recognition software was used to complete this document, therefore, product engineer variances may occur. Re Bonilla MD, [facility] 03/25/24 Procedure Note Re Bonilla MD - 03/25/2024 AMBULATORY PIZZA [employer] TEAM MEMBER REPORT Patient Name: Ju Mondragon Date of : 1960 Requesting Physician: Dr. Ralph Date of interpretation: 03/25/24 Type of monitor : 24 hour Holter monitor Date of the study/Enrollment period: March 19, 2024 till Indication: Syncope and collapse Quality of the study: Good Interpretation: Average heart rate was 76 beats per minute with a minimum heart rate 45beats per minute and maximum heart rate 124 beats per minute. No evidenceof atrial fibrillation, supraventricular tachycardia, ventriculartachycardia or significant pauses or blocks. No PVCs detected. Therewere 34 isolated supraventricular ectopic contractions. Patient wasasymptomatic during the monitoring time. Conclusions: Unremarkable 24 hour Holter monitor without significant arrhythmias. Voice recognition software was used to complete this document, therefore,product engineer variances may occur. Re Bonilla MD, [facility] 03/25/24 Andre Ralph MD CARDIAC SERVICES [facility] Final Result from Last 3 Months Insurance [facility] IDPA [facility] MEDICARE ADVANTAGE [facility] MEDICARE Address: [address] [address] [place] [address] Care Teams Carpenters Helper Relationship Specialty Start Date End Date Trang Burns MD [address] [place] [address] PCP - General Internal Medicine 10/07/20
--- OUTSIDE RECORDS SUMMARY | 2024-05-27 16:56 | XMS_ITS | Patient Health Record ---
Author Organization [facility] Address [address] [facility] [address] [place] [address] Care Team Providers Care Costuming Supervisor Name Role Phone Dimitris Dhillon Unavailable [phone] REASON FOR REFERRAL No Information MEDICATIONS Medication SIG (Take, Route, Frequency, Duration) Notes Start Date End Date Status Varenicline Tartrate (Starter) 0.5 MG X 11 & 1 MG X 42 as directed Orally 10/20/2023 Active Furosemide 20 MG Take 1 tablet by rodger th once daily for 90 Active Allopurinol 100 MG Take 1 tablet by rodger th once daily for 90 days Active Ergocalciferol 1.25 MG (74002 UT) 1 capsule Orally Once a week for 90 days 04/17/2024 07/16/2024 Active Ciprofloxacin HCl 250 MG TAKE 1 TABLET B Y MOUTH EVERY 12 HOURS FOR 10 DAYS for 10 Active Vitamin D (Ergocalciferol) 1.25 MG (35342 UT) Take 1 capsule by mouth once a week for 90 days 07/16/2024 Active Calcitriol 0.25 MCG 1 capsule Orally Onc e a day for 90 days Active SOCIAL HISTORY Sex Assigned At : Social History Observation Description Sex Assigned At Female PROBLEMS Problem Type ICD Code Onset Dates Problem Status W/U Status Risk SNOMED Code Notes Problem Secondary hyperparathyroidi sm, not elsewhere classified (E21.1) Active confirmed Secondary hyperparathyroidism (51993315) Problem Vitamin D deficiency, unspecified (E55.9) Active confirmed Vitamin D defic iency (21525803) Problem Cerebrovascular disease, unspecified (I67.9) Active confirmed Cerebrovascular disease (74033803) Problem Chronic obstructive pulmonary disease, unspecified (J44.9) Active confirmed Chronic obstruc tive pulmonary disease (14463487) Problem Renal osteodystrophy (N25.0) Active confirmed Renal osteodyst rophy (24117241) Problem Other proteinuria (R80.8) Active confirmed Proteinuria (61324975) Problem Essential hypertension (I10) Active confirmed Essential hypertension (17305232) Problem Chronic kidney disease, stage 3 unspecified (N18.30) Active confirmed Chronic kidney disease stage 3 (disorder) (729138225) Encounters Encounter Location Date Provider Diagnosis [place] [facility] [address] [address] 06/09/2023 Dimitris Dhillon Chronic kidney disea se, stage 2 (mild) N18.2 ; Essential hypertension I10 ; Other proteinuria R80.8 ; Renal osteodystrophy N25.0 and Secondary hyperparathyroidism, not elsewhere classified E21.1 [place] [facility] [address] [address] 09/01/2023 Dimitrismagi Dhillon Chronic kidney disea se, stage 2 (mild) N18.2 ; Essential hypertension I10 ; Other proteinuria R80.8 ; Renal osteodystrophy N25.0 and Secondary hyperparathyroidism, not elsewhere classified E21.1 [facility] [place] [facility] [address] [place] [address] 09/08/2023 Dimitris Dhillon Chronic kidney disea se, stage 2 (mild) N18.2 ; Essential hypertension I10 ; Other proteinuria R80.8 ; Renal osteodystrophy N25.0 and Secondary hyperparathyroidism, not elsewhere classified E21.1 [facility] [place] [facility] [address] [place] [address] 10/20/2023 Dimitris Dhillon Chronic kidney disea se, stage 3 unspecified N18.30 ; Essential hypertension I10 ; Renal osteodystrophy N25.0 ; Other proteinuria R80.8 and Secondary hyperparathyroidism, not elsewhere classified E21.1 [place] [facility] [address] [address] 12/22/2023 Dimitris Dhillon Essential hypertensi on I10 ; Chronic kidney disease, stage 3 unspecified N18.30 ; Other proteinuria R80.8 ; Renal osteodystrophy N25.0 ; Secondary hyperparathyroidism, not elsewhere classified E21.1 and Chronic kidney disease, stage 2 (mild) N18.2 [facility] [address] [facility] [address] [place] [address] 03/01/2024 Dimitris [facility] [address] [address] 05/01/2024 Dimitris Dhillon Chronic kidney disea se, stage 3 unspecified N18.30 ; Essential hypertension I10 ; Other proteinuria R80.8 ; Renal osteodystrophy N25.0 ; Secondary hyperparathyroidism, not elsewhere classified E21.1 ; Chronic obstructive pulmonary disease, unspecified J44.9 ; Vitamin D deficiency, unspecified E55.9 and Cerebrovascular disease, unspecified I67.9 [place] [facility] [address] [address] 04/17/2024 Dimitris [facility] [address] [address] 04/17/2024 Dimitris Dhillon [place] [facility] [address] [place] [address] 04/17/2024 Dimitris Dhillon [facility] [place] [facility] [address] [place] [address] 10/20/2023 Dimitris Dhillon [facility] [place] [facility] [address] [place] [address] 12/25/2023 Dimitris Dhillon ASSESSMENTS Encounter Date Diagnosis Assessment Notes Treatment Notes Treatment Clinical Notes Section Notes 06/09/2023 Chronic kidney disease, stage 2 (mild) (ICD-10 - N18.2) 09/01/2023 Chronic kidney disease, stage 2 (mild) (ICD-10 - N18.2) 09/08/2023 Chronic kidney disease, stage 2 (mild) (ICD-10 - N18.2) 10/20/2023 Chronic kidney disease, stage 3 unspecified (ICD-10 - N18.30) 12/22/2023 Essential hypertension (ICD-10 - I10) 12/22/2023 Chronic kidney disease, stage 3 unspecified (ICD-10 - N18.30) 05/01/2024 Chronic kidney disease, stage 3 unspecified (ICD-10 - N18.30) 05/01/2024 Essential hypertension (ICD-10 - I10) 12/22/2023 Other proteinuria (ICD-10 - R80.8) 10/20/2023 Essential hypertension (ICD-10 - I10) 09/08/2023 Essential hypertension (ICD-10 - I10) 09/01/2023 Essential hypertension (ICD-10 - I10) 06/09/2023 Essential hypertension (ICD-10 - I10) 06/09/2023 Other proteinuria (ICD-10 - R80.8) 09/01/2023 Other proteinuria (ICD-10 - R80.8) 10/20/2023 Renal osteodystrophy (ICD-10 - N25.0) 09/08/2023 Other proteinuria (ICD-10 - R80.8) 12/22/2023 Renal osteodystrophy (ICD-10 - N25.0) 05/01/2024 Other proteinuria (ICD-10 - R80.8) 05/01/2024 Renal osteodystrophy (ICD-10 - N25.0) 12/22/2023 Secondary hyperparathyroidism, not elsewhere classified (ICD-10 - E21.1) 10/20/2023 Other proteinuria (ICD-10 - R80.8) 09/01/2023 Renal osteodystrophy (ICD-10 - N25.0) 09/08/2023 Renal osteodystrophy (ICD-10 - N25.0) 06/09/2023 Renal osteodystrophy (ICD-10 - N25.0) 09/01/2023 Secondary hyperparathyroidism, not elsewhere classified (ICD-10 - E21.1) 06/09/2023 Secondary hyperparathyroidism, not elsewhere classified (ICD-10 - E21.1) 09/08/2023 Secondary hyperparathyroidism, not elsewhere classified (ICD-10 - E21.1) 10/20/2023 Secondary hyperparathyroidism, not elsewhere classified (ICD-10 - E21.1) 12/22/2023 Chronic kidney disease, stage 2 (mild) (ICD-10 - N18.2) 05/01/2024 Secondary hyperparathyroidism, not elsewhere classified (ICD-10 - E21.1) 05/01/2024 Chronic obstructive pulmonary disease, unspecified (ICD-10 - J44.9) 05/01/2024 Vitamin D deficiency, unspecified (ICD-10 - E55.9) 05/01/2024 Cerebrovascular disease, unspecified (ICD-10 - I67.9) PLAN OF TREATMENT Next Appt Details Provider Name:Dimitris Dhillon , 06/05/2024 02:15:00 PM, [address], [facility] [address], [place], [address],
--- OUTSIDE RECORDS SUMMARY | 2024-05-27 16:57 | XMS_ITS | Clinical Summary ---
Author Organization [facility] Krystle rollins Jorge Address [address] [place] [address] Care Team Providers Care Orthopedic Shoes Salesperson Name Role Phone Caitlyn Burns MD Primary Care Provider Allergies Active Allergy Reactions Criticality Noted Date Comments Penicillins Anaphylaxis,Swelling High 10/07/2013 Medications naproxen (NAPROSYN) 500 mg tablet naproxen 500 mg tablet Active lisinopriL (PRINIVIL) 40 mg tablet lisinopril 40 mg tablet TAKE 1 TABLET BY MOUTH ONCE DAILY Active atorvastatin (LIPITOR) 40 mg tablet atorvastatin 40 mg tablet Active ergocalciferol (VITAMIN D2) 50,000 unit capsule TAKE 1 CAPSULE BY MOUTH ONCE A WEEK (PREFERABLY ON THE SAME DAY EACH WEEK) FOR 8 WEEKS 2 Active amLODIPine (NORVASC) 5 mg tablet Take 5 mg by mouth daily. 2 Active metFORMIN (GLUCOPHAGE) 500 mg tablet Take 500 mg by mouth 2 times daily with meals. Active Farxiga 10 mg Tablet Take 10 mg by mouth daily. Active calcitRIOL (ROCALTROL) 0.25 mcg capsule Take 0.25 mcg by mouth daily. Active Active Problems Problem Noted Date Diagnosed Date Leukocytosis (leucocytosis) 07/22/2021 Encounters Date Type Department Care Team Description 05/21/2024 External Device Data STL ABSTRACTION Provider, Abstract 05/08/2024 External Device Data ST[facility] ABSTRACTION Provider, Abstract 05/01/2024 External Device Data [facility] ABSTRACTION Provider, Abstract 04/30/2024 External Device Data [facility] ABSTRACTION Provider, Abstract 04/29/2024 External Device Data ST[facility] ABSTRACTION Provider, Abstract 04/27/2024 External Device Data ST[facility] ABSTRACTION Provider, Abstract 04/27/2024 External Device Data [facility] ABSTRACTION Provider, Abstract 04/24/2024 External Device Data ST[facility] ABSTRACTION Provider, Abstract 04/10/2024 External Device Data STL ABSTRACTION Provider, Abstract 04/04/2024 Orders Only [facility] [address] [place] [address] Scanning, Provider 03/14/2024 External Device Data STL ABSTRACTION Provider, Abstract 03/05/2024 External Device Data STL ABSTRACTION Provider, Abstract from Last 3 Months Family History Relation Name Status Comments Brother 1 Brother 2 Alive Brother 3 Alive Daughter 1 Alive Daughter 2 Alive Father Mother Sister 1 Sister 2 Alive Sister 3 Alive Sister 4 Alive Sister 5 Alive Social History Tobacco Use Types Packs/Day Years Used Date Smoking Tobacco: Former Cigarettes 0.3 28 Q uit: 10/29/2023 Smokeless Tobacco: Never Tobacco Cessation:Counseling Given: Not Answered Alcohol Use Standard Drinks/Week Comments Yes 0 (1 standard drink = 0.6 oz pur e alcohol) Comments Unknown Sex and Gender Information Value Date Recorded Sex Assigned at Not on file Legal Sex Female 1:15 PM CDT Gender Identity Not on file Sexual Orientation Not on file Last Filed Vital Signs Vital Sign Reading Time Taken Comments Blood Pressure 132/74 11/28/2023 1:14 PM CDT Pulse 64 11/28/2023 1:14 PM CDT Temperature 36.3 C (97.3 F) 11/28/2023 1:14 PM CDT Respiratory Rate 16 11/28/2023 1:14 PM CDT Oxygen Saturation 97% 11/28/2023 1:14 PM CDT Inhaled Oxygen Concentration - - Weight 65.3 kg (144 lb) 11/28/2023 1:14 PM CDT Height 157.5 cm (5' 2 ) 12/01/2021 3:28 PM CDT Body Mass Index 26.34 12/01/2021 3:28 PM CDT Plan of Treatment Upcoming Encounters Date Type Department Care Team (Late st Contact Info) Description 05/28/2024 11:45 AM CDT Office Visit [facility] Oncology and Hematology [facility] [address] [place] [address] Howie Hernandez MD [address] [place] [address] Health Maintenance Due Date Last Done Comments DIABETES ANNUAL FOOT EXAM 1978 DIABETES ANNUAL RETINAL EXAM 1978 DIABETES HBA1C Q 6 MONTHS 1978 DIABETES MICROALBUMIN ANNUAL SCREEN 1978 LDL CHOLESTEROL ANNUAL 1978 DTAP/TDAP/TD VACCINES (1 - Tdap) 11/19/1979 Preventative Visit-Managed Medicaid 11/19/1979 HPV/Cotest (21-29) 1981 CERVICAL CANCER SCREENING 1990 HPV/Cotest (30-65) 1990 PAP SMEAR 1990 BREAST CANCER SCREENING 2000 COLORECTAL SCREENING 2005 Colorectal Cancer Screening 2005 FIT-DNA Q 3 years 2005 FIT/FOBT Q 1 year 2005 Flex Sig/CT Colonography Q 5 years 2005 ZOSTER VACCINE (1 of 2) 2010 RSV VACCINE (60+ or ) (1 - Risk 60-74 years 1-dose series) 2020 INFLUENZA VACCINE (#1) 2023 Procedures Procedure Name Priority Date/Time Associated Diagnosis Comments CBC WITH DIFFERENTIAL Routine 04/02/2024 8:23 AM GREETER from Last 3 Months Results * CBC WITH DIFFERENTIAL (04/02/2024 8:23 AM GREETER) Blood us Provider Scanning HEMATOLOGY ORDERABLES Final Re sult from Last 3 Months Insurance [facility] MEDICAID Care Teams Orthopedic Shoes Salesperson Relationship Specialty Start Date End Date Caitlyn Burns MD PCP - General Internal Medicine 07/22/21
--- OUTSIDE RECORDS SUMMARY | 2024-05-27 16:57 | XMS_ITS | Clinical Summary ---
Author Organization [facility] Address [address] [place] [address] Care Team Providers Care Jewel Cupping Machine Operator Name Role Phone Unknown, Provider Primary Care Provider Unavaila ble Source Comments [facility],non-owned Affiliates and Associated Physician Practices is amultiple site organization consisting of ambulatory clinics and hospital sitesin [place], [place], [place] and [place]. This disclosure is being madepursuant to the Care Everywhere program and may not contain all information available regarding this patient. Last updated 17.[facility] [place] Social History Tobacco Use Types Packs/Day Years Used Date Smoking Tobacco: Never Assessed Sex and Gender Information Value Date Recorded Sex Assigned at Not on file Gender Identity Not on file Sexual Orientation Not on file Plan of Treatment Health Maintenance Due Date Last Done Comments COLOGUARD (AGES 45-75) - COLON CA SCREENING 1960 COLON MONITORING 1960 COLONOSCOPY - COLON CA SCREENING 1960 CT COLONOGRAPHY - COLON CA SCREENING 1960 Colorectal Cancer Screening 1960 FIT - COLON CA SCREENING 1960 FLEX SIG - COLON CA SCREENING 1960 LIPID TESTING 1960 MAMMOGRAM 1960 PAP SMEAR 1960 HIV SCREENING 11/19/1975 HEPATITIS C SCREENING 11/14/1978 DTAP/TDAP/TD VACCINES (1 - Tdap) 11/19/1979 PNEUMOCOCCAL VACCINE 50+ (1 of 1 - PCV) 2010 ZOSTER VACCINE (1 of 2) 2010 COVID-19 VACCINE ( season) 2023 07/30/2021, 03/31/2021, 07/20/2020, Additional history exists INFLUENZA VACCINE (#1) 2023 3, 12/08/2021, 12/09/2020 DEPRESSION SCREENING 02/21/2024 Respiratory Syncytial Virus (RSV) Vaccine Pt: or over 60 yrs (1 - 1-dose 75+ series) 11/19/2035 HEPATITIS B VACCINE Aged Out No longe r eligible based on patient's age to complete this topic HIB VACCINE Aged Out No longer eligi ble based on patient's age to complete this topic HPV VACCINE Aged Out No longer eligi ble based on patient's age to complete this topic MENINGOCOCCAL (Group B) VACCINE SHARED DECISION-MAKING Aged Out No longer eligible based on patient's age to complete this topic MENINGOCOCCAL GROUPS A/C/Y/W VACCINE Aged Out No longer eligible based on patient's age to complete this topic PNEUMOCOCCAL VACCINE Aged Out No long er eligible based on patient's age to complete this topic Care Teams Jewel Cupping Machine Operator Relationship Specialty Start Date End Date Unknown, Provider PCP - General 08/31/23
--- OUTSIDE RECORDS SUMMARY | 2024-05-27 16:57 | XMS_ITS | Continuity of Care Document ---
Author Organization [facility] Address [address] [address] [place] [address] Phone Care Team Providers Care Metal Spray Operator Name Role Phone Daljit Wilkins MD Unavailable Unavailable Allergies, Adverse Reactions, Alerts Substance Reaction Status Criticality No Known Allergies Active No Inform ation Medications Medication Instructions Dosage Effective Dates (start - stop) Status Comments losartan 100 mg-hydrochlorothiaz tray 25 mg tablet take 1 tablet by oral route every day 1.00 tablet - Active Procedures Procedure Date OFFICE/OUTPATIENT VISIT, EST OFFICE/OUTPATIENT VISIT, EST OFFICE/OUTPATIENT VISIT, EST OFFICE/OUTPATIENT VISIT, EST OFFICE/OUTPATIENT VISIT, EST PREV VISIT, NEW, AGE 40-64 Advance Directives Directive Yes / No Effective Date File Name No Information Encounters Encounter Description Practice Location Reason(s) For Visit Diagnoses Date Provider Providers Copied on Encounter OFFICE/OUTPA TIENT VISIT, EST [facility], [address], [place], [place], [address], [place] tel:[phone] [facility] HTN (chief complaint) rash (chief complaint) mammogram (chief complaint) colon polyp (chief complaint) Unspecified essential hypertensionBreakin g out - eruptionSolitary pulmonary noduleColon polyp 5 [address]. [address], [place], [place], [address] , [place]. tel:[phone] Referring Provider: Daljit Wilkins, [address], [place], [place], [address]. tel:[phone] OFFICE/OUTPA TIENT VISIT, [facility], [address], [place], [place], [address], [place] tel:[phone] [facility] rib fx (chief complaint) HTN (chief complaint) skin issue (chief complaint) Unspecified essential hypertensionRib fractureBreaking out - eruption 5 Franky Bocan[address]ra. [address], [address], [place], [place], [address] , [place]. tel:[phone] Referring Provider: Trini [address], [place], [place], [address]. tel:[phone] OFFICE/OUTPA TIENT VISIT, [facility], [address], [place], [place], [address], [place] tel:[phone] [facility], [place] HTN (chief complaint) smoking (chief complaint) lung nodule (chief complaint) dizziness (chief complaint) Hypertension, UnspecifiedSOLITARY PULMONRY NODULEDizziness 5 Franky [address]oc[address]egra. [address], [address], [place], [place], [address] , [place]. tel:[phone] Referring Provider: Trini [address], [place], [place], [address]. tel:[phone] OFFICE/OUTPA TIENT VISIT, [facility], [address], [place], [place], [address], [place] tel:[phone] [facility], [place] lung nodule (chief complaint) HTN (chief complaint) tobacco (chief complaint) SOLITARY PULMONRY NODULEHypertension, UnspecifiedTobacco AbusePersonal history of noncompliance with medical treatment, presenting hazards to health 5 Franky Bocanegra. [address], [place], [place], [address] , [place]. tel:[phone] Referring Provider: Trini Mars [address], [place], [place], [address]. tel:[phone] OFFICE/OUTPA TIENT VISIT, [facility], [address], [place], [place], [address], [place] tel:[phone] [facility] chest nodule (chief complaint) HTN (chief complaint) Hypertension, UnspecifiedSOLITARY PULMONRY NODULESpecial screening for malignant neoplasms, colonMammogram, Screening 5 Franky Bocanegra. [address], [place], [place], [address] , [place]. tel:[phone] Referring Provider: Daljit Wilkins, [address], [place], [place], [address]. tel:[phone] PREV VISIT, NEW, AGE 40-64 [facility], [place], [address], [place], [place], [address], tel:[phone] [facility], [place] Physical (chief complaint) Routine Medical ExamRoutine Medical Exam 5 Franky [address]ra. [address], [place], [address] , [place]. tel:[phone] Family History Family Member Type Diagnosis Age At Onset Brother Problem (finding) MVA Mother Problem (finding) old age Father Problem (finding) Coronary artery disease 60 Brother Problem (finding) No Family hist ory of No history of Unknown Disease Payers Payer name Insurance type Covered democrat ID Authoriza tion(s) No Information Social History Type Description Quantity Date Captured Comments Alcohol Use Details No Caffeine Use Details Unknown Tobacco Use Status Non-smoker Smoking Status Former smoker Sex Female Vital Signs Date / Time: Height Weight BMI Pulse Rate Blood Pressure Temperature Respiratory Rate Body Surface Area Head Circumference BMI percentile Pulse Ox Inhaled Ox 2:23 PM 167.64 cm 130.00 lbs 20.9 8 kg/m eter (2) 69 /min 112/70 mm[Hg] 97.2 F 15 /min Chief Complaint And Reason For Visit From encounter dated '09/04/2014 13:00'. HTN (chief complaint). Description: Pt has HTN. Pt takes losatan and her BP is ok today. Pt denies any chets apin or headahe rash (chief complaint). Description: The patient presents for rash. Additional information: Pt has chronic mild rash front of chest area. Pt has not seen dermatology yet. mammogram (chief complaint). Description: I still dont have copy of mammogram colon polyp (chief complaint). Description: Pt has colon poly from last year. Pt denies any GI bleeding. Pt has adematous polyp. Pt has no idea when she needs to repeat colonoscopy again Plan Of Treatment Date Type Action Status Goal Tobacco cessation counseling completed Goal Tobacco cessation counseling completed Goal Tobacco cessation counseling completed Goal Tobacco cessation counseling completed Referral Ordered: Dermatology (related to Breaking out - eruption) ordered Referral Ordered: Referrals: Dermatology ordered Referral Ordered: MAMMOGRAM, SCREENING ordered Referral Ordered: COLONOSCOPY AND BIOPSY ordered Referral Ordered: CT THORAX W/O DYE ordered History Of Present Illness Encounter Date Complaint History Of Prese nt Illness mammogram I still dont hav e copy of mammogram colon polyp Pt has colon piter y from last year. Pt denies any GI bleeding. Pt has adematous polyp. Pt has no idea when she needs to repeat colonoscopy again HTN Pt has HTN. Pt t akes losatan and her BP is ok today. Pt denies any chets apin or headahe rash The patient pres ents for rash. Additional information: Pt has chronic mild rash front of chest area. Pt has not seen dermatology yet. rib fx Pt recently trip ped and fell on the edge or coffee table and broke her left rib 10 days ago. Pt went to ER and was told she has rib fx but no pneumothorax. Pt denie any SOB. pt notices mild pain. Pt takes norco from ER and is doing ok. HTN Pt has HTN. Pt t akes losartan daily. Her BP is high. Pt denies any chest pain or headache skin issue Pt notices redne ss around front of neck and upper chest area for mutliple months. Pt denies any sun exposure. Pt denies any itching or pain Instructions Date Instruction Additional Infor mation No Information Assessments Type Assessment Date assessment Unspecified essential hypertensi on assessment Breaking out - eruption 015 assessment Solitary pulmonary nodule assessment Colon polyp Mental Status Date Cognitive Assessment Orientation - [place] ed to time, place, person, situation.
--- OUTSIDE RECORDS SUMMARY | 2024-05-27 16:57 | XMS_ITS ---
Author Organization [facility] Address [address] [address] [place] [address] Care Team Providers Care House Builder Name Role Phone Dhillon Dimitris Unavailable [phone] MEDICATIONS Medication SIG (Take, Route, Frequency, Duration) Notes Start Date End Date Status Vitamin D (Ergocalciferol) 1.25 MG (49877 UT) Take 1 capsule by mouth once a week for 90 days 07/16/2024 Active SOCIAL HISTORY Sex Assigned At : Social History Observation Description Sex Assigned At Female Encounters Encounter Location Date Provider Diagnosis [facility] [address] [facility] [address] [place] [address] 04/17/2024 Dimitris Dhillon PLAN OF TREATMENT Medication Medication Name Sig Start Date Stop Date Notes Vitamin D (Ergocalciferol) 1.25 MG (58862 UT) Take 1 capsule by mouth once a week for 90 days 07/16/2024 Next Appt Details Provider Name:Dimitris Dhillon , 06/05/2024 02:15:00 PM, [address] [facility], [place], [address], Progress Notes * Zarina MONDRAGONaDOB: [birth year] (63 yo F)Acc No.[id number]:04/17/2024 Patient: Ju MONDRAGON :1960 Age:63 Y Sex:Female Address:[address], [place] [address] * Refills Refill Vitamin D (Ergocalciferol) Capsule, 1.25 MG (46352 UT), Take 1 capsule by mouth once a week, 90 days, Refills=0 * * Date:
--- OUTSIDE RECORDS SUMMARY | 2024-05-27 16:57 | XMS_ITS ---
Author Organization [facility] Address [address] [address] [place] [address] Care Team Providers Care Collections Representative Name Role Phone Dhillon Dimitris Unavailable [phone] MEDICATIONS Medication SIG (Take, Route, Frequency, Duration) Notes Start Date End Date Status Ergocalciferol 1.25 MG (25396 UT) 1 capsule Orally Once a week for 90 days 04/17/2024 07/16/2024 Active SOCIAL HISTORY Sex Assigned At : Social History Observation Description Sex Assigned At Female Encounters Encounter Location Date Provider Diagnosis [facility] [address] [facility] [address] [place] [address] 04/17/2024 Dimitris Dhillon PLAN OF TREATMENT Medication Medication Name Sig Start Date Stop Date Notes Ergocalciferol 1.25 MG (5000 0 UT) 1 capsule Orally Once a week for 90 days 04/17/2024 07/16/2024 Next Appt Details Provider Name:Dimitris Dhillon , 06/05/2024 02:15:00 PM, [address] [facility], [address], [place], [address], Progress Notes * Zarina MONDRAGONaDOB: [birth year] (63 yo F)Acc No.[id number]:04/17/2024 Patient: Ju MONDRAGON :1960 Age:63 Y Sex:Female Address:[address], [place] [address] * Refills Start Ergocalciferol Capsule, 1.25 MG (12936 UT), Orally, 13, 1 capsule, Once a week, 90 days * * Date:
--- OUTSIDE RECORDS SUMMARY | 2024-05-27 16:57 | XMS_ITS ---
Author Organization [facility] Address [address] [address] [place] [address] Care Team Providers Care Stone Setter Apprentice Name Role Phone Alejo Dimitris Unavailable [phone] SOCIAL HISTORY Sex Assigned At : Social History Observation Description Sex Assigned At Female PROBLEMS Problem Type ICD Code Onset Dates Problem Status W/U Status Risk SNOMED Code Notes Problem Chronic obstructive pulmonary disease, unspecified (J44.9) Active confirmed Chronic obstructive pulmonary disease (35877791) Problem Vitamin D deficiency, unspecified (E55.9) Active confirmed Vitamin D deficiency (30844520) Problem Cerebrovascular disease, unspecified (I67.9) Active confirmed Cerebrovascular disease (56427244) Encounters Encounter Location Date Provider Diagnosis [facility] [address] [facility] [address] [place] [address] 05/01/2024 Dimitris Dhillon Chronic kidney disea se, stage 3 unspecified N18.30 ; Essential hypertension I10 ; Other proteinuria R80.8 ; Renal osteodystrophy N25.0 ; Secondary hyperparathyroidism, not elsewhere classified E21.1 ; Chronic obstructive pulmonary disease, unspecified J44.9 ; Vitamin D deficiency, unspecified E55.9 and Cerebrovascular disease, unspecified I67.9 ASSESSMENTS Encounter Date Diagnosis Assessment Notes Treatment [...] , 06/05/2024 02:15:00 PM, [address], [address], [place], [address], Progress Notes * Zarina FAITHaDOB: [birth year] (63 yo F)Acc No.[id number]:05/01/2024 Progress Notes Patient: Ju FAITH Provider: MD GIANNI, F.Barrington.C.P, F.A.S.N. :1960 Age:63 Y Sex:Female Date:05/01/2024 Address:[facility] [address] Subjective: * Chief Complaints: * * Medical History: Objective: Assessment: * Assessment: 1. Chronic kidney disease, stage 3 unspecified - N18.30 (Primary) 2. Essential hypertension - I10 3. Other proteinuria - R80.8 4. Renal osteodystrophy - N25.0 5. Secondary hyperparathyroidism, not elsewhere classified - E21.1 6. Chronic obstructive pulmonary disease, unspecified - J44.9 7. Vitamin D deficiency, unspecified - E55.9 8. Cerebrovascular disease, unspecified - I67.9 Plan: * Treatment: * Billing Information: * Visit Code: 92168 Office Visit, Est Pt., Level 4. * Procedure Codes: * Sign off status: Pending * Provider: MD GIANNI, Dominga.Barrington.C.P, F.A.S.N. Date: 05/01/2024
--- OUTSIDE RECORDS SUMMARY | 2024-05-27 16:57 | XMS_ITS | CONTINUITY OF CARE DOCUMENT ---
Author Name rian modi Address Unknown Organization [facility] Address [address] [address] [place] [address] Phone [phone] Care Team Providers Care Child Care Attendant School Name Role Phone Calderon Wynn MD Unavailable [phone] ZAMZAM TAFOYA, YOGI Unavailable [phone] ZAMZAM TAFOYA, YOGI Unavailable [phone] PROBLEMS Condition Status Date Provider Notes Shortness of breath active Roma Ventimigl ia [employer] Hyperlipidemia active Roma Ventimiglia FN P CKD (chronic kidney disease) active Roma Ventimiglia [employer]AIR INS[employer]OR [employer]EVELER Diabetes mellitus, type 2 active Roma Kwaku timiglia [employer]AIR INSPECTOR [employer] LEVELER CVA active Roma Ventimiglia [employer]AIR INS[employer]OR [employer] LEVELER Abnormal EKG active Roma Ventimiglia [employer]AIR INS[employer]OR [employer]EVELER Tobacco use, restarted active Umm Barker Hypertension active Efren Roy Preoperative cardiovascular evaluation active Emmett Swanson ENCOUNTERS Date Type Provider Location Encounter Diag nosis - In-person encounter Office Visit Calderon Wynn MD [facility] Office - In-person encounter Office Visit Calderon Wynn MD [place] [facility] - In-person encounter Office Visit Janet Beebe MD [facility] Preoperative cardiovascular evaluation - In-person encounter Office Visit Calderon Wynn MD [place] [facility] - In-person encounter Office Visit Calderon Wynn MD [place] [facility] Hypertension - In-person encounter Office Visit Calderon Wynn MD [place] [facility] Tobacco use, restarted - In-person encounter Office Visit Calderon Wynn MD [place] [facility] Shortness of breathHyperlipidemiaCKD (chronic kidney disease)Diabetes mellitus, type 2CVAAbnormal EKGTobacco use, restarted VITAL SIGNS Date Observation Value Provider Body Mass Index (Ratio) 27.07 kg/m2 García Li oxygen saturation, oximetry 98 % [facility] 59 /min [facility], diastolic 88 mm[Hg] [facility], systolic 151 mm[Hg] velvet [facility] respiratory rate E&M 12 /min [facility] weight E&M 148 [lb_av] [facility] height E&M 62 [in_i] [facility] blood pressure, cuff size regular An reyna [place] Body Mass Index (Ratio) 26.70 kg/m2 Christo Blanchard blood pressure, diastolic 74 mm[Hg] Am viridiana Ventimiglia [facility] blood pressure, systolic 132 mm[Hg] Drake nda Ventimiglia [facility] height E&M 62 [in_i] Roma Ventimig betzaida [facility] respiratory rate E&M 12 /min Roma Ventimiglia [facility] oxygen saturation, oximetry 98 % Roma Ventimiglia [facility] pulse rate 62 /min Roma Ventimig betzaida [facility] weight E&M 146 [lb_av] Roma Ventimig betzaida [facility] Body Mass Index (Ratio) 25.97 kg/m2 Emmett Ahmedzai blood pressure, diastolic 80 mm[Hg] Chela nkLogic blood pressure, systolic 140 mm[Hg] Luz kLogic blood pressure, cuff size regular Ja rret blood pressure, diastolic 80 mm[Hg] Ja rret blood pressure, systolic 140 mm[Hg] Jar ret pulse rate 68 /min Umair oxygen saturation, oximetry 99 % Umair respiratory rate E&M 14 /min Umair weight E&M 142 [lb_av] Umair height E&M 62 [in_i] [facility] y Body Mass Index (Ratio) 27.25 kg/m2 García Li blood pressure, cuff size regular [facility] blood pressure, diastolic 76 mm[Hg] [facility] blood pressure, systolic 133 mm[Hg] [facility] oxygen saturation, oximetry 98 % [facility] pulse rate 66 /min [facility] respiratory rate E&M 16 /min Starr M iller weight E&M 149 [lb_av] [facility] height E&M 62 [in_i] [facility] Body Mass Index (Ratio) 27.80 kg/m2 Jarrod am Manuela blood pressure, cuff size regular [facility] blood pressure, diastolic 88 mm[Hg] [facility] blood pressure, systolic 166 mm[Hg] [facility] oxygen saturation, oximetry 99 % [facility] respiratory rate E&M 16 /min Starr Sheikh iller pulse rate 61 /min [facility] weight E&M 152 [lb_av] Starr Anglin height E&M 62 [in_i] Starr Anglin Body Mass Index (Ratio) 27.43 kg/m2 Calderon Wynn MD blood pressure, diastolic 66 mm[Hg] Jessica sotelo Mk blood pressure, systolic 133 mm[Hg] Verna wright Mk pulse rate 77 /min Olive Mk oxygen saturation, oximetry 98 % Olive Mk weight E&M 150 [lb_av] Olive Mk blood pressure, cuff size large An deepak Mk height E&M 62 [in_i] Olive Terrazas Body Mass Index (Ratio) 28.60 kg/m2 Emmett Kiki blood pressure, diastolic 69 mm[Hg] Chela nkLog blood pressure, systolic 121 mm[Hg] Luz kLogsaima pulse rate 70 /min Madison Thomas blood pressure, cuff size regular jhon Thomas blood pressure, diastolic 69 mm[Hg] jhon Thomas blood pressure, systolic 121 mm[Hg] She kaylee Martha oxygen saturation, oximetry 99 % Madison Thomas respiratory rate E&M 20 /min Madison Thomas height E&M 62 [in_i] Madison Thomas weight E&M 156.4 [lb_av] Madison Thomas ALLERGIES Allergy Name Onset Date Reaction Criticality Status PENICILLIN High Criticality active HISTORY OF MEDICATION USE Medication Status Instructions Dates Provider Indications Com ments atorvastatin 80 mg tablet active Roma Ventimiglia CHAIR INSPECTOR AND LEVELER Farxiga 10 mg tablet active Roma Ventimiglia [employer]AIR INSPECTOR AND LEVELER furosemide 20 mg tablet active TAKE 1 TABLET BY MOUTH ONCE DAILY Roma Ventimiglia [employer]AIR INSPECTOR [employer] LEVELER calcitriol 0.25 mcg capsule active Roma Ventimiglia CHAIR INSPECTOR AND LEVELER lisinopril 40 mg tablet active Roma Ventimiglia [employer]AIR INSPECTOR AND LEVELER allopurinol 100 mg tablet active Roma Ventimiglia CHAIR INSPECTOR [employer] LEVELER ergocalciferol (vitamin D2) 1,250 mcg (50,000 unit) capsule active Roma Ventimiglia [employer]AIR INSPECTOR AND LEVELER amlodipine 5 mg tablet active Roma Ventimiglia CHAIR INSPECTOR AND LEVELER metformin 500 mg tablet completed - Roma Ventimiglia CHAIR INSPECTOR AND LEVELER atorvastatin 40 mg tablet completed - Roma Ventimiglia CHAIR INSPECTOR AND LEVELER SOCIAL HISTORY Date Observation Value Provider personal history of marijuana use no Calderon Wynn MD drug use no Calderon Wynn MD alcohol use, average drinks per day social Calderon Wynn MD alcohol use yes Calderon Wynn MD smoking, year quit 2023 Calderon lopez MD smoking history, tot al pack/day 1 pack a day Calderon Wynn MD cigarette use yes Calderon Wynn MD smoking status Former smoker Calderon Wynn MD personal history of marijuana use no Roma Ventimiglia [facility] alcohol use, average drinks per day social Roma Ventimiglia CHAIR INSPECTOR [employer] LEVELER smoking, year quit 2023 Roma Ve ntimiglia [facility] drug use no Roma Ventimig betzaida [facility] alcohol use yes Roma Ventimig betzaida [facility] smoking history, tot al pack/day 1 pack a day Roma Ventimiglia [employer]AIR INSPECTOR AND LEVELER cigarette use yes Roma Ventimi glia [employer]AIR INSPECTOR AND LEVELER smoking status Former smoker Roma Venti miglia CHAIR INSPECTOR AND LEVELER drug use no Emmett Garcíazavelvet alcohol use no Emmett Swanson smoking, year quit 2022 Emmett chowdhury smoking history, tot al pack/day 1 pack a day Emmett Swanson cigarette use yes Emmett Swanson smoking status Current every da y smoker Emmett Swanson number of grandchildren Calderon Li drug use no [facility] alcohol use no [facility] smoking, year quit 2022 Starr [facility] smoking history, tot al pack/day 1 pack a day [facility] cigarette use yes [facility] smoking status Current every da y smoker [facility] social history reviewed E&M revi ewed - no changes required Calderon Wynn MD smoking history, tot al pack/day 1 pack a day [facility] cigarette use yes [facility] smoking status Current every da y smoker [facility] smoking status Former smoker Umm Barker social history E&M S moking History: Davon burkett currently smokes every day. Isabela Matute [employer]RE[employer]ING MECH[employer]IC social history reviewed E&M revi ewed - no changes required Isabela Matute NP smoking, year quit 2022 Olive Will iams cigarette use yes Oliveadriana Terrazas social history E&M S moking History: Davon burkett is a former smoker. Emmett Swanson social history reviewed E&M revi ewed - no changes required Emmett Swanson drug use no Roma Ventimig beztaida [facility] alcohol use no Roma Ventimig betzaida [facility] smoking, year quit 2022 Madison talley cigarette use yes Madison Thomas smoking status Former smoker Madison Howard poole INSURANCE PROVIDERS Payer name Policy type / Coverage type [employer] party ID [id number] (PPO C-SNP) [employer] insurance Doctor[employer] [id number] ADVANCE DIRECTIVES Name Date DISCUSSED - NO DECISION MADE TREATMENT PLAN Date Name Performer [id number],S,u ncontrolled BP. Will obtain renal artery duplex and her lab work results from PCP. I recommend pulmonary consultation, after that we will consider right and left heart cath & #13;BP today: 166/88 P rior BP: 133/66 (08/08/2022) Her updated medication list for this problem includes: Furosemide 20 Mg Tablet (Furosemide) ..... Take 1 tablet by mouth once daily Lisinopril 40 Mg Tablet (Lisinopril) Amlodipine 5 Mg Tablet (Amlodipine) Efren Roy [id number],C,T he Patient was reencouraged to stop smoking. Efren Goldmanri [id number],S, H er updated medication list for this problem includes: Atorvastatin 40 Mg Tablet (Atorvastatin) Efren Goldmanri [id number],S, Will obtain renal artery duplex and her lab work results from PCP emir sheppard with NANCY Dhillon Efren Goldmanri [id number],S,C ontinues to have SOB, uncontrolled BP. Will obtain renal artery duplex and her lab work results from PCP. I recommend pulmonary consultation, after that we will consider right and left heart cath Efren Goldmanri [id number],C, N uclear stress negative for ischemia E cho nml lv function, lvef 65%, diastolic dysfunction, mild mr, mild-mod tr 4 8 hour holter SR no pauses or arrhythmias, rare ectopic beats p fts result pending C onsider coronary calcium score Isabela Matute [employer] MECH[employer]IC [id number],C, H er updated medication list for this problem includes: Atorvastatin 40 Mg Tablet (Atorvastatin) Isabela Matute [employer]RECKING MECHANIC [id number],C, [id number],C, p er primary team. Request lab from primary H er updated medication list for this problem includes: Lisinopril 40 Mg Tablet (Lisinopril) Metformin 500 Mg Tablet (Metformin) Isabela Matute WRECKING MECHANIC [id number],C, h x of CVA 2021 . on statin therapy. C arotid with mild plaque <50% bilaterally 4 8 hour holter SR no pauses or arrhythmias, rare ectopic beats Isabela Matute [employer]RECKING MECHANIC [id number],C,Q uit one month ago. Smoked 1/2-1 ppd for over 25 years. Will plan low dose CT chest screening Romaviridiana Garciachaka [facility] [id number],C,follows with NANCY Dhillon [facility] [id number],C,p er primary team. will get recent labs H er updated medication list for this problem includes: Lisinopril 40 Mg Tablet (Lisinopril) Metformin 500 Mg Tablet (Metformin) [facility] [id number],C,h x of CVA over a year ago. on statin therapy. Will plan carotid to r/o stenosis. Will also do 48 hour event monitor to r/o arryhtmia that may have contributed. O rders: 9 9205 HIGH 60-74 min (CPT-60466) H olter Monitor 48 hr (CPT-75948) C omplete Echo (CPT-50358) C arotid Duplex Bilateral (CPT-46193) S tress Regadenoson (CPT-17898) C ounseling LDCT (CPT-G0296) L ow Dose Lung CT (CPT-G0297) Roma [facility] [id number],C,s ee above O rders: 9 9205 HIGH 60-74 min (CPT-67504) H olter Monitor 48 hr (CPT-29389) C omplete Echo (CPT-06955) C arotid Duplex Bilateral (CPT-95551) S tress Regadenoson (CPT-37081) C ounseling LDCT (CPT-G0296) L ow Dose Lung CT (CPT-G0297) Romaviridiana Holcomb [facility] [id number],C,P atjulienne has SOB that has been ongoing for the last year. It interferes with her ADLs and cause her to sit and rest. She denies any chest pain. She had abnormal EKG with non-specific changes and risk factors for CAD. Based on this have recommended ischemic eval with stress test and echo. Will do nuclear lexiscan as SOB prohibits ambulation. She will also have PFTs to r/o COPd. Will return post testing or sooner if needed. H er updated medication list for this problem includes: Furosemide 20 Mg Tablet (Furosemide) ..... Take 1 tablet by mouth once daily Lisinopril 40 Mg Tablet (Lisinopril) Amlodipine 5 Mg Tablet (Amlodipine) Orders: 9204 HIGH 60-74 min (CPT-31132) H olter Monitor 48 hr (CPT-35214) C omplete Echo (CPT-81652) C arotid Duplex Bilateral (CPT-38829) S tress Regadenoson (CPT-66101) C ounseling LDCT (CPT-G0296) L ow Dose Lung CT (CPT-G0297) Roma Holcomb [facility] Cardiology:gave pre operative clearance for her surgery Her updated medication list for this problem includes: Lisinopril 40 Mg Tablet (Lisinopril) Amlodipine 5 Mg Tablet (Amlodipine) Orders: 9213 MOD 30-39min (CPT-27583) C omplex e/m visit add on (G2211) C omplete Echo (99441) A rterial Duplex LLE (97207) P reop clearance, phn/internet/emr >5min (04825) Calderon Wynn MD Cardiology:This visi t has been a part of the consistent, comprehensive, and ongoing management of the chronic medical condition(s) listed above for the patient. BP today: 151/88 P rior BP: 132/74 (11/27/2023) Her updated medication list for this problem includes: Furosemide 20 Mg Tablet (Furosemide) ..... Take 1 tablet by mouth once daily Lisinopril 40 Mg Tablet (Lisinopril) Amlodipine 5 Mg Tablet (Amlodipine) Calderon Wynn MD Cardiology: O rders: 9213 MOD 30-39min (CPT-30925) C omplete Echo (18750) Roma Holcomb [facility] Cardiology: T he following medications were removed from the medication list: Metformin 500 Mg Tablet (Metformin) Her updated medication list for this problem includes: Farxiga 10 Mg Tablet (Dapagliflozin propanediol) Lisinopril 40 Mg Tablet (Lisinopril) Romaviridiana Garciachaka [facility] Cardiology: T he following medications were removed from the medication list: Atorvastatin 40 Mg Tablet (Atorvastatin) Her updated medication list for this problem includes: Atorvastatin 80 Mg Tablet (Atorvastatin) [facility] Cardiology:continued cessation e ncouraged [facility] Cardiology:BP contro lled c ontinue present med regimen H er updated medication list for this problem includes: Furosemide 20 Mg Tablet (Furosemide) ..... Take 1 tablet by mouth once daily Lisinopril 40 Mg Tablet (Lisinopril) Amlodipine 5 Mg Tablet (Amlodipine) [facility] Electrophysiology:Sh e is undergo R big toe procedure with Dr Wells, she may undergo this procedure without restrictions. Emmett didier Electrophysiology: H er updated medication list for this problem includes: Lisinopril 40 Mg Tablet (Lisinopril) Metformin 500 Mg Tablet (Metformin) Ememtt didier Electrophysiology: h x of CVA 2021 . on statin therapy. C arotid with mild plaque <50% bilaterally [facility]: H er updated medication list for this problem includes: Atorvastatin 40 Mg Tablet (Atorvastatin) Emmettthee Swanson Electrophysiology:st able at this time, no signs of decompensation [facility] Electrophysiology:Mo nitor your BP at home, goal BP is <135/85 BP today: 140/80 P rior BP: 133/76 (03/01/2023) Her updated medication list for this problem includes: Furosemide 20 Mg Tablet (Furosemide) ..... Take 1 tablet by mouth once daily Lisinopril 40 Mg Tablet (Lisinopril) Amlodipine 5 Mg Tablet (Amlodipine) Emmett didier Cardiology: T he Patient was reencouraged to stop smoking. [facility] Cardiology: H er updated medication list for this problem includes: Atorvastatin 40 Mg Tablet (Atorvastatin) [facility] Cardiology:eGFR is 2 9, thus she is at risk of nephropathy from cath. [facility] Cardiology: B P today: 133/76 P rior BP: 166/88 (12/19/2022) Her updated medication list for this problem includes: Furosemide 20 Mg Tablet (Furosemide) ..... Take 1 tablet by mouth once daily Lisinopril 40 Mg Tablet (Lisinopril) Amlodipine 5 Mg Tablet (Amlodipine) [facility] Cardiology:Continues to have SOB.= eGFR is 29, thus she is at risk of nephropathy from cath. Did not have pulmonaey consult yet. Encouraged her to get it. Based on recommendation from pulmonary, will then reconsider cardiac cath. [facility] Cardiology:uncontrol led BP. Will obtain renal artery duplex and her lab work results from PCP. I recommend pulmonary consultation, after that we will consider right and left heart cath BP today: 166/88 P rior BP: 133/66 (08/08/2022) Her updated medication list for this problem includes: Furosemide 20 Mg Tablet (Furosemide) ..... Take 1 tablet by mouth once daily Lisinopril 40 Mg Tablet (Lisinopril) Amlodipine 5 Mg Tablet (Amlodipine) Efren Roy Cardiology:The Patie nt was reencouraged to stop smoking. Efren Roy Cardiology: H er updated medication list for this problem includes: Atorvastatin 40 Mg Tablet (Atorvastatin) Efren Roy Cardiology: Will obt ain renal artery duplex and her lab work results from PCP emir sheppard with NANCY Roy Cardiology:Continues to have SOB, uncontrolled BP. Will obtain renal artery duplex and her lab work results from PCP. I recommend pulmonary consultation, after that we will consider right and left heart cath Efren Roy Cardiology: N uclear stress negative for ischemia E cho nml lv function, lvef 65%, diastolic dysfunction, mild mr, mild-mod tr 4 8 hour holter SR no pauses or arrhythmias, rare ectopic beats p fts result pending C onsider coronary calcium score Isabela Matute [employer] Cardiology: H er updated medication list for this problem includes: Atorvastatin 40 Mg Tablet (Atorvastatin) Isabela Matute [employer] Cardiology: f ollows with NANCY Dhillon Isabela Matute [employer] MECH[employer] Cardiology: p er primary team. Request lab from primary H er updated medication list for this problem includes: Lisinopril 40 Mg Tablet (Lisinopril) Metformin 500 Mg Tablet (Metformin) Isabela Matute [employer] MECH[employer] Cardiology: h x of CVA 2021 . on statin therapy. C arotid with mild plaque <50% bilaterally 4 8 hour holter SR no pauses or arrhythmias, rare ectopic beats Isabela Matute [employer] MECH[employer]IC Cardiology:Quit one month ago. Smoked 1/2-1 ppd for over 25 years. Will plan low dose CT chest screening [facility] Cardiology:follows with NANCY Dhillon [facility] Cardiology:per prima team. will get recent labs H er updated medication list for this problem includes: Lisinopril 40 Mg Tablet (Lisinopril) Metformin 500 Mg Tablet (Metformin) [facility] Cardiology:hx of CVA over a year ago. on statin therapy. Will plan carotid to r/o stenosis. Will also do 48 hour event monitor to r/o arryhtmia that may have contributed. O rders: 9 9205 HIGH 60-74 min (CPT-85425) H olter Monitor 48 hr (CPT-12927) C omplete Echo (CPT-88751) C arotid Duplex Bilateral (CPT-10184) S tress Regadenoson (CPT-90303) C ounseling LDCT (CPT-G0296) L ow Dose Lung CT (CPT-G0297) [facility] Cardiology:see above O rders: 9 9205 HIGH 60-74 min (CPT-29319) H olter Monitor 48 hr (CPT-94621) C omplete Echo (CPT-70811) C arotid Duplex Bilateral (CPT-89978) S tress Regadenoson (CPT-09232) C ounseling LDCT (CPT-G0296) L ow Dose Lung CT (CPT-G0297) Roma Holcomb [facility] Cardiology:Patient h as SOB that has been ongoing for the last year. It interferes with her ADLs and cause her to sit and rest. She denies any chest pain. She had abnormal EKG with non-specific changes and risk factors for CAD. Based on this have recommended ischemic eval with stress test and echo. Will do nuclear lexiscan as SOB prohibits ambulation. She will also have PFTs to r/o COPd. Will return post testing or sooner if needed. H er updated medication list for this problem includes: Furosemide 20 Mg Tablet (Furosemide) ..... Take 1 tablet by mouth once daily Lisinopril 40 Mg Tablet (Lisinopril) Amlodipine 5 Mg Tablet (Amlodipine) Orders: 9 9205 HIGH 60-74 min (CPT-24208) H olter Monitor 48 hr (CPT-19046) C omplete Echo (CPT-05473) C arotid Duplex Bilateral (CPT-58450) S tress Regadenoson (CPT-82828) C ounseling LDCT (CPT-G0296) L ow Dose Lung CT (CPT-G0297) Roma Holcomb [facility] Date Name Arterial Duplex LLE Complete Echo Complete Echo Renal Artery Duplex Low Dose Lung CT Stress Regadenoson Carotid Duplex Bilat eral Complete Echo Holter Monitor 48 hr DLCO - 98280 FRC - 18813 FVC - 76916 HISTORY OF PROCEDURES Procedure Date Procedure Name Provider Procedure Notes S tatus Complex e/m visit ad d on Calderon Wynn MD completed EKG Janet Beebe MD comp leted Counseling LDCT Calderon Wynn MD compl eted
--- OUTSIDE RECORDS SUMMARY | 2024-05-27 16:57 | XMS_ITS | Clinical Summary ---
Author Organization [facility] Address [address] [place] [id number] Care Team Providers Care Chief Operator Synthesis Name Role Phone Trang Burns MD Primary Care Provide r Allergies Active Allergy Reactions Criticality Noted Date [...] Active Active Problems No known active problems Encounters Date Type Department Care Team Description 03/19/2024 2:30 PM RETAIL MARKETING COORDINATOR Ancillary Procedure [facility] [address] [place] [address] Syncope and collapse from Last 3 Months Surgical History Surgery Date Site/Laterality Comments EAR SURGERY Ear Surgery - (Added by GUERLINE Salazar) EAR SURGERY 02/20/2018 - 02/19/2019 Medical History Medical History Date Comments Personal history of other di seases of the circulatory system History of hypertension - (A dded by GUERLINE Salazar) Hypertension Hyperlipidemia PFO (patent foramen ovale) Family History Medical History Relation Name Comments Brain cancer Father Heart disease Mother Family history of cardiac disorder - (Added by TW Conv) Heart failure Mother Relation Name Status Comments Father Mother (Age 68) Social History Tobacco Use Types Packs/Day Years Used Date Smoking Tobacco: Every Day Cigarettes Smokeless Tobacco: Never Tobacco Cessation:Ready to Q uit: Not Asked; Counseling Given: Not Answered Comments Unknown Sex and Gender Information Value Date Recorded Sex Assigned at Not on file Legal Sex Female 4:26 PM RETAIL MARKETING COORDINATOR Gender Identity Not on file Sexual Orientation Not on file Obstetrics History Last Filed Vital Signs Vital Sign Reading [...] 11/10/2021 12:48 PM CDT Plan of Treatment Health Maintenance Due Date Last Done Comments Breast Cancer Screening-Mammogram 1960 Cervical Cancer Screening 1960 Colon Cancer Screening-Colonoscopy 1960 Depression Screening 1960 Hepatitis C Screening 1960 Regular Well Visit/Exam 18-64 1978 Pneumococcal vaccine <65 (1 of 2 - PCV) 11/19/1979 Zoster Vaccine (2 of 2) 10/02/2022 08/07/2022 Covid-19 Vaccine (2023-2 5 season) 2023 07/30/2021, 03/31/2021, 07/20/2020, Additional history exists Influenza Vaccine (#1) 2023 , 12/08/2021, 12/09/2020 DTaP/Tdap/Td Vaccine (2 - Td or Tdap) 10/12/2030 10/12/2020 Hepatitis B Screening Completed 07/28/2022 Procedures Procedure Name Priority Date/Time Associated Diagnosis Comments HOLTER MONITOR 24 HR Routine 03/19/2024 3:33 PM RETAIL MARKETING COORDINATOR Syncope and collapse from Last 3 Months Results * 24 HR Holter Monitor (03/19/2024 3:33 PM RETAIL MARKETING COORDINATOR) Anatomical Region Laterality Modality Electrocardiogra phy Narrative 03/25/2024 1:07 PM RETAIL MARKETING COORDINATOR AMBULATORY GYN REPORT Patient Name: Ju Mondragon Date of [...] was used to complete this document, therefore, motor scooter mechanic variances may occur. Re Bonilla MD, [facility] 03/25/24 Procedure Note Re Bonilla MD - 03/25/2024 AMBULATORY GYN REPORT Patient Name: Ju Mondragon Date of [...] software was used to complete this document, therefore,motor scooter mechanic variances may occur. Re Bonilla MD, [facility] 03/25/24 Andre Ralph MD [facility] CARDIAC SERVICES PROCE FELISA Final Result from Last 3 Months Insurance [facility] [employer] MEDICARE ADVANTAGE Care Teams Chief Operator Synthesis Relationship Specialty Start Date End Date Trang Burns MD [address] [place] [address] PCP - General Internal Medicine 10/07/20
== END 2024-05-27 14:48 | disposition home or self-care (01) ==
LOC: ANHLAB 14:48
PROVIDERS: PCP Internal Medicine; Visit Provider Internal Medicine Hematology & Oncology
DX: D72.829 Elevated white blood cell count, unspecified (principal)
CPT/HCPCS: 36415; 80048; 85025

== ENCOUNTER 2024-07-08 08:22 | Outpatient (CLI) | payer MEDICARE, SELFPAY ==
--- NOTE | ~2024-07-08 | MM_ITS ---
EXAMINATION: MM screening bernardo BI w kerri HISTORY: Screening TECHNIQUE: Craniocaudal and mediolateral oblique 3-D tomosynthesis images were obtained and synthetic 2-D images were generated. CAD analysis was submitted and interpreted. COMPARISON: No prior mammogram is available for comparison at this institution. BREAST PARENCHYMAL COMPOSITION: Not dense: There are scattered areas of fibroglandular density. FINDINGS: There is focal asymmetry inferiorly in the left breast on MLO view, anterior depth. There is no mammographic evidence for malignancy in the right breast. IMPRESSION: 1. Left breast asymmetry inferiorly on MLO view. 2. Additional mammographic views and possible breast ultrasound are recommended. BI-RADS Category 0: Incomplete: Needs additional imaging evaluation. Reviewed, dictated and finalized at location B. IMPRESSION: 1. Left breast asymmetry inferiorly on MLO view. 2. Additional mammographic views and possible breast ultrasound are recommended . BI-RADS Category 0: Incomplete: Needs additional imaging evaluation.
--- OUTSIDE RECORDS SUMMARY | 2024-07-08 08:26 | XMS_ITS ---
Author Organization [facility] Address [address] [address] [place] [address] Care Team Providers Care Negative Stripper Name Role Phone Dhillon Dimitris Unavailable [phone] MEDICATIONS Medication SIG (Take, Route, Frequency, Duration) Notes Start Date End Date Status Ciprofloxacin HCl 250 MG TAKE 1 TABLET B Y MOUTH EVERY 12 HOURS FOR 10 DAYS for 10 Active SOCIAL HISTORY Sex Assigned At : Social History Observation Description Sex Assigned At Female Encounters Encounter Location Date Provider Diagnosis [place] [facility] [address] [facility] [address] [place] [address] 06/05/2024 Dimitris Dhillon PLAN OF TREATMENT Medication Medication Name Sig Start Date Stop Date Notes Ciprofloxacin HCl 250 MG TAKE 1 TABLET B Y MOUTH EVERY 12 HOURS FOR 10 DAYS for 10 Next Appt Details Provider Name:Dimitris Dhillon , 08/14/2024 02:45:00 PM, [address]43 [facility], [facility] 15, [place], [address], Progress Notes * Zarina FAITHaDOB: [birth year] (63 yo F)Acc No.[id number]:06/05/2024 Patient: Ju FAITH :1960 Age:63 Y Sex:Female [address], [place] [address] * Refills Refill Ciprofloxacin HCl Tablet, 250 MG, 20 Tablet, TAKE 1 TABLET BY MOUTH EVERY 12 HOURS FOR 10 DAYS, 10, Refills=0 * * Date:
--- OUTSIDE RECORDS SUMMARY | 2024-07-08 08:26 | XMS_ITS | Referral Summary ---
Author Organization [facility] Address [address] [place] [address] Care Team Providers Care Respiratory Director Name Role Phone Trang Burns MD Primary [...] on file Legal Sex Female 4:26 PM RN CALL CENTER Gender Identity Not on file Sexual Orientation [...] CDT Plan of Treatment Not on file Insurance [facility] PPO [facility] MEDICARE ADVANTAGE [facility] Address: [address] [address] [place] [address] Care Teams Respiratory Director Relationship Specialty Start Date End Date Trang Burns MD [address] [place] [address] PCP - General Internal Medicine 10/07/20
--- OUTSIDE RECORDS SUMMARY | 2024-07-08 08:26 | XMS_ITS | Patient Health Record ---
Author Organization [facility] Address [address] [facility] [address] [place] [address] Care Team Providers Care Catcher Helper Name Role Phone Dimitris Dhillon Unavailable [phone] REASON FOR REFERRAL No Information MEDICATIONS Medication SIG (Take, Route, Frequency, Duration) Notes Start Date End Date Status Varenicline Tartrate (Starter) 0.5 MG X 11 & 1 MG X 42 as directed Orally 10/20/2023 Active Furosemide 20 MG Take 1 tablet by rodger th once daily for 90 Active Allopurinol 100 MG Take 1 tablet by rdoger th once daily for 90 days Active Ciprofloxacin HCl 250 MG TAKE 1 TABLET B Y MOUTH EVERY 12 HOURS FOR 10 DAYS for 10 Active Ergocalciferol 1.25 MG (09676 UT) 1 capsule Orally Once a week for 90 days 04/17/2024 07/16/2024 Active Vitamin D (Ergocalciferol) 1.25 MG (34675 UT) Take 1 capsule by mouth once [...] elsewhere classified (E21.1) Active confirmed Secondary hyperparathyroidism (49503164) Problem Vitamin D deficiency, unspecified (E55.9) Active confirmed Vitamin D defic iency (23437763) Problem Cerebrovascular disease, unspecified (I67.9) Active confirmed Cerebrovascular disease (10441835) Problem Chronic obstructive pulmonary disease, unspecified (J44.9) Active confirmed Chronic obstruc tive pulmonary disease (56464179) Problem Chronic kidney disease, stage 2 (mild) (N18.2) Active confirmed Chronic kidne y disease stage 2 (581564745) Problem Renal osteodystrophy (N25.0) Active confirmed Renal osteodyst rophy (43038663) Problem Other proteinuria (R80.8) Active confirmed Proteinuria (95637453) Problem Tobacco use (Z72.0) Active confirmed Tobacco use (654215745) Problem Essential hypertension (I10) Active confirmed Essential hypertension (81672452) Problem Alcohol abuse (F10.10) Active confirmed Alcohol abuse (08002385) Problem Bunion of unspecified foot (M21.619) Active confirmed Swelling of fir st metatarsophalangeal joint of hallux (580982341) Encounters Encounter Location Date Provider Diagnosis [place] [facility] [address] [facility] 15 [place] [address] 09/01/2023 Dimitris Dhillon Chronic kidney disea se, stage 2 (mild) N18.2 ; Essential hypertension I10 ; Other proteinuria R80.8 ; Renal osteodystrophy N25.0 and Secondary hyperparathyroidism, not elsewhere classified E21.1 [facility] [place] [facility] [address] [place] [address] 09/08/2023 Dimitris Dhillon Chronic kidney disea se, stage 2 (mild) N18.2 ; Essential hypertension I10 ; Other proteinuria R80.8 ; Renal osteodystrophy N25.0 and Secondary hyperparathyroidism, not elsewhere classified E21.1 [facility] [place] [facility] [address] [place] [address] 10/20/2023 Dimitris Dhillon Chronic kidney disea se, stage 3 unspecified N18.30 ; Essential hypertension I10 ; Renal osteodystrophy N25.0 ; Other proteinuria R80.8 and Secondary hyperparathyroidism, not elsewhere classified E21.1 [place] [facility] [address] [facility] [address] [place] [address] 12/22/2023 Dimitris Dhillon Essential hypertensi on I10 ; Chronic kidney disease, stage 3 unspecified N18.30 ; Other proteinuria R80.8 ; Renal osteodystrophy N25.0 ; Secondary hyperparathyroidism, not elsewhere classified E21.1 and Chronic kidney disease, stage 2 (mild) N18.2 [facility] [address] [facility] [address] [place] [address] 03/01/2024 Dimitris Dhillon [place] [facility] [address] [address] 05/01/2024 Dimitris Dhillon Chronic kidney disea se, stage 3 unspecified N18.30 ; Essential hypertension I10 ; Other proteinuria R80.8 ; Renal osteodystrophy N25.0 ; Secondary hyperparathyroidism, not elsewhere classified E21.1 ; Chronic obstructive pulmonary disease, unspecified J44.9 ; Vitamin D deficiency, unspecified E55.9 and Cerebrovascular disease, unspecified I67.9 [place] [facility] [address] [place] [address] 06/05/2024 Dimitris Dhillon Chronic kidney disea se, stage 2 (mild) N18.2 ; Essential hypertension I10 ; Other proteinuria R80.8 ; Renal osteodystrophy N25.0 ; Secondary hyperparathyroidism, not elsewhere classified E21.1 ; Chronic obstructive pulmonary disease, unspecified J44.9 ; Vitamin D deficiency, unspecified E55.9 ; Cerebrovascular disease, unspecified I67.9 ; Tobacco use Z72.0 ; Alcohol abuse F10.10 and Bunion of unspecified foot M21.619 [place] [facility] [address] [place] [address] 04/17/2024 Dimitris [facility] [address] [place] [address] 04/17/2024 Dimitris [facility] [address] [place] [address] 04/17/2024 Dimitris Dhillon [place] [facility] [address] [place] [address] 06/05/2024 Dimitris Dhillon [facility] [place] [facility] [address] [place] [address] 10/20/2023 Dimitris Dhillon [facility] [place] [facility] [address] [place] [address] 12/25/2023 Dimitris Dhillon ASSESSMENTS Encounter Date Diagnosis Assessment Notes Treatment Notes Treatment Clinical Notes Section Notes 09/01/2023 Chronic kidney disease, stage 2 (mild) (ICD-10 - N18.2) 09/08/2023 Chronic kidney disease, stage 2 (mild) (ICD-10 - N18.2) 10/20/2023 Chronic kidney disease, stage 3 unspecified (ICD-10 - N18.30) 12/22/2023 Essential hypertension (ICD-10 - I10) 12/22/2023 Chronic kidney disease, stage 3 unspecified (ICD-10 - N18.30) 05/01/2024 Chronic kidney disease, stage 3 unspecified (ICD-10 - N18.30) 06/05/2024 Chronic kidney disease, stage 2 (mild) (ICD-10 - N18.2) 05/01/2024 Essential hypertension (ICD-10 - I10) 06/05/2024 Essential hypertension (ICD-10 - I10) 12/22/2023 Other proteinuria (ICD-10 - R80.8) 10/20/2023 Essential hypertension (ICD-10 - I10) 09/08/2023 Essential hypertension (ICD-10 - I10) 09/01/2023 Essential hypertension (ICD-10 - I10) 09/01/2023 Other proteinuria (ICD-10 - R80.8) 10/20/2023 Renal osteodystrophy (ICD-10 - N25.0) 09/08/2023 Other proteinuria (ICD-10 - R80.8) 12/22/2023 Renal osteodystrophy (ICD-10 - N25.0) 06/05/2024 Other proteinuria (ICD-10 - R80.8) 05/01/2024 Other proteinuria (ICD-10 - R80.8) 06/05/2024 Renal osteodystrophy (ICD-10 - N25.0) 05/01/2024 Renal osteodystrophy (ICD-10 - N25.0) 12/22/2023 Secondary hyperparathyroidism, not elsewhere classified (ICD-10 - E21.1) 10/20/2023 Other proteinuria (ICD-10 - R80.8) 09/01/2023 Renal osteodystrophy (ICD-10 - N25.0) 09/08/2023 Renal osteodystrophy (ICD-10 - N25.0) 09/01/2023 Secondary hyperparathyroidism, not elsewhere classified (ICD-10 - E21.1) 09/08/2023 Secondary hyperparathyroidism, not elsewhere classified (ICD-10 - E21.1) 10/20/2023 Secondary hyperparathyroidism, not elsewhere classified (ICD-10 - E21.1) 12/22/2023 Chronic kidney disease, stage 2 (mild) (ICD-10 - N18.2) 05/01/2024 Secondary hyperparathyroidism, not elsewhere classified (ICD-10 - E21.1) 06/05/2024 Secondary hyperparathyroidism, not elsewhere classified (ICD-10 - E21.1) 06/05/2024 Chronic obstructive pulmonary disease, unspecified (ICD-10 - J44.9) 05/01/2024 Chronic obstructive pulmonary disease, unspecified (ICD-10 - J44.9) 05/01/2024 Vitamin D deficiency, unspecified (ICD-10 - E55.9) 06/05/2024 Vitamin D deficiency, unspecified (ICD-10 - E55.9) 06/05/2024 Cerebrovascular disease, unspecified (ICD-10 - I67.9) 05/01/2024 Cerebrovascular disease, unspecified (ICD-10 - I67.9) 06/05/2024 Tobacco use (ICD-10 - Z72.0) 06/05/2024 Alcohol abuse (ICD-10 - F10.10) 06/05/2024 Bunion of unspecified foot (ICD-10 - M21.619) PLAN OF TREATMENT Next Appt Details Provider Name:Dimitris Dhillon , 08/14/2024 02:45:00 PM, [address], [address],
--- OUTSIDE RECORDS SUMMARY | 2024-07-08 08:27 | XMS_ITS | Data Portability ---
Author Organization [place] [facility] [employer], Main Office Address [address] [place] [address] Care Team Providers Care Telegraph And Teletype Operator Name Role Phone ZAMZAM CAITLYN Primary Care Provider GINAVASQUEZBarrington CAITLYN Referring Provider ZOË DOW Plate Put In Worker TWAN LOREDO Chief Dietitian JANINA SAMUEL Orthopedic Surgeon MANDY KINGSTON Orthopedic Surgeon [phone] CAITLYN WYMAN Primary Care Provider AISHA MILIAN General Surgeon FREDRICK ALVAREZ Crane Manager JULIA ROBERTSON Hand Surgeon DIMITRIS VERA Research Fellow AP ULLOA Hematology/Oncology DYANA GREGORY Heavy Equipment Service Manager Assessment Encounter Date Assessment Date Assessment LastModified by Organization Details LastModified Time 05/27/2024 05/27/2024 This note is dictated and transcribed by [employer]. Manufacturing Engineering Professor variances may occur. Despite proofreading, typographical errors may occur. Occasional wrong-word or 'hyrse-b-ttkk' substitutions may have occurred due to the inherent limitations of voice recording. Read the chart carefully and recognize, using context, where substitutions have occurred. [email or web address] Not available 05/27/2024 15:26:17 06/03/2024 06/03/2024 This note is dictated and transcribed by [employer]. Manufacturing Engineering Professor variances may occur. Despite proofreading, typographical errors may occur. Occasional wrong-word or 'jecxc-k-njpu' substitutions may have occurred due to the inherent limitations of voice recording. Read the chart carefully and recognize, using context, where substitutions have occurred. Not available 06/03/2024 14:20:07 06/13/2024 06/13/2024 This note is dictated and transcribed by [employer]. Manufacturing Engineering Professor variances may occur. Despite proofreading, typographical errors may occur. Occasional wrong-word or 'zsoed-n-yhas' substitutions may have occurred due to the inherent limitations of voice recording. Read the chart carefully and recognize, using context, where substitutions have occurred. [email or web address] Not available 06/13/2024 14:38:32 07/01/2024 07/01/2024 This note is dictated and transcribed by [employer]. Manufacturing Engineering Professor variances may occur. Despite proofreading, typographical errors may occur. Occasional wrong-word or 'glgdg-x-ibzz' substitutions may have occurred due to the inherent limitations of voice recording. Read the chart carefully and recognize, using context, where substitutions have occurred. Not available 07/01/2024 14:52:22 Plan of Treatment Reminders Order Date Submit Date Provider Last Modified By Organization Details Last Modified Time Details Appointments Post-Op 15 2024 01:15P M Twan Loredo DPM Not available Not available Not available Follow Up 15 2024 01:30P Aguilar benavides MD Not available Not available Not available Lab None recorded. Referral None recorded. Procedures None recorded. Surgeries None recorded. Imaging XR, foot, 3 or more view 2024 025 [email or web address] [facility] [place], [facility], [place], [address], 06/06/2024 11:51:23 Medication Orders doxycycli ne monohydra te 100 mg capsule 2024 025 [email or web address] [facility] [address], [address], [place], [address], 07/01/2024 14:49:39 Patient TargetsNo targets recorded. Patient InstructionsNo instructions recorded. Reason for Referral None Reported. Results Created Date Observation Date Name Description Value Unit Range Abnormal Flag Note LastModifiedBy Organization Detail LastModifiedTime 05/24/19 25 05/23/2024 imagi ng/di agnos tic resul t No observ ation record ed. [email or web address] [facility] [address], [place], [address], 06/03/2024 12:33:19 05/25/19 25 05/23/2024 imagi ng/di agnos tic resul t No observ ation record ed. [email or web address] [facility] [address], [place], [address], 06/03/2024 12:33:37 06/07/19 25 XR, foot, 3 or more view No observ ation record ed. [email or web address] [facility] [place] [address], [place], [address], 06/06/2024 11:51:23 Result Notes None recorded. Problems Name Problem SNOMED Code Status Onset Date Resolution Date Notes Provider Name and Address Organization Details Recorded Time Hypertrigl yceridemia 433919173 Active 2021 Not Available [facility] 3 15:48:22 Vitamin D deficiency 41213937 Active 2021 Not Available [facility] 3 15:48:22 Osteoarthr itis 785066285 Active 2021 Not Available [facility] 3 15:48:22 Essential hypertensi on 38328912 Active 2022 Not Available [facility] 3 15:48:22 Cigarette smoker 20182548 Active 2022 Not Available [facility] 3 15:48:22 Gout 58991918 Active 2022 Not Available [facility] 3 15:48:22 Diabetes mellitus 94518885 Active 2022 Not Available [facility] 3 15:48:22 Cerebrovas cular accident 339928085 Active 2022 Not Available [facility] 3 15:48:22 Non-alcoho lic fatty liver 711312473 Active 2022 Not Available [facility] 3 15:48:22 Vitamin B12 deficiency (non anemic) 88896765 Active 2023 Erika Andersen MA null, [facility] 4 12:09:13 Peripheral arterial occlusive disease 068841898 Active 2023 Twan Loredo DPM [address], [place], [address] , [facility] 4 14:44:22 Basal cell carcinoma of face 885215721 Active 2023 Erika Andersen MA null, [facility] 4 10:19:31 Dyspnea on exertion 89566463 Active 2023 Zoë Dow MD [address], [address], [place], [address] , [facility] 4 12:41:41 Smoker 96722975 Active 2023 Zoë Dow MD [address], [place], [address] , [facility] 4 12:44:42 Hallux valgus AND bunion 302987854 Active 2023 Twan Loredo DPM [address], [place], [address] , [facility] 4 15:12:29 Proteinuri a 27752406 Active 2023 Caitlyn wright MD [address], [place], [address] , [facility] 4 10:50:05 Hyperlipid emia 80006169 Active 2023 Caitlyn wright MD [address], [place], [address] , [place] [facility] 4 10:50:05 Prediabete s 584169907 Active 2023 Caitlyn wright MD [address], [place], [address] , [place] [facility] 4 10:50:05 Leukocytos is 312412738 Active 2023 Caitlyn wright MD [address], [place], [address] , [place] [facility] 4 10:50:05 Macrocytos is 559415245 Active 2023 Caitlyn wright MD [address], [place], [address] , [place] [facility] 4 10:50:05 Liver enzymes level above reference range 250225476 Active 2023 Caitlyn wright MD [address], [place], [address] , [place] [facility] 4 10:50:05 Pain in right hand 8509286689899 09 Active 2023 TORIN Webb, [place] [facility] 4 13:54:33 Pain of bilateral hands 4761546710582 9109 Active 2023 TORIN Webb, [place] [facility] 4 13:55:11 Pain in toe 481407725 Active 2023 Twan Loredo DPM [address], [place], [address] , [place] [facility] 4 09:40:49 Postoperat lou care Active 2023 Twan Loredo DPM [address], [place], [address] , [facility] 4 11:25:46 Pain of left knee joint 9844837936068 07 Active 2023 Caitlyn wright MD [address], [place], [address] , [facility] 4 16:57:55 Skin lesion 20811388 Active 2023 Caitlyn wright MD [address], [place], [address] , [facility] 4 16:57:55 Pain of left hand 9880647639558 03 Active 2023 Caitlyn wright MD [address], [place], [address] , [facility] 4 16:57:55 Pain of left shoulder joint 3074743116771 9109 Active 2023 Caitlyn wright MD [address], [place], [address] , [facility] 4 16:57:55 Hallux valgus AND bunion 185403025 Active 2023 Twan Loredo DPM [address], [place], [address] , [facility] 4 15:06:33 Hallux valgus AND bunion 406386766 Active 2023 Twan Loredo DPM [address], [place], [address] , [facility] 4 15:06:41 Hammer toe 728445354 Active 2023 Twan Loredo DPM [address], [place], [address] , [facility] 4 15:24:01 Pain in toe 675739633 Active 2024 Twan Loredo DPM [address], [place], [address] , [facility] 5 15:38:42 Serum vitamin B12 below reference range 774381507 Active 2024 Caitlyn wright MD [address], [place], [address] , [facility] 5 15:30:38 Hypothyroi dism 66889957 Active 2024 Caitlyn wright MD [address], [place], [address] , [facility] 5 15:31:20 Cobalamin deficiency 030464580 Active 2024 Kailey Espinosa MA [facility], [place] [facility] 5 12:08:39 Closed fracture proximal phalanx, toe 821817323 Active 2024 Twan Loredo DPM [address], [place], [address] , [facility] 5 17:37:10 Pain in toe 801109171 Active 2024 Twan Loredo DPM [address], [place], [address] , [facility] 5 17:38:27 Postoperat lou visit 241884015 Active 2024 Twan Loredo DPM [address], [place], [address] , [facility] 5 14:14:50 Dehiscence of external surgical incision wound 1228994862604 08 Active 2024 Twan Loredo DPM [address], [place], [address] , [facility] 5 14:39:21 Notes:Medical History: Near syncope Right CVA without residual left hemiparesis Right tinnitus Eosinophils 180/uL Nicotine use PASP 25 mmHg Mod TR Mild NM Mild MR Hypertension EF 59% Mixed hyperlipidemia T2DM Hiatal hernia with JUAN CARLOS NAFLD Hepatomegaly Diverticulosis Left renal cyst Vit B12 deficiency Vit D insufficiency Right 5th to 9th rib fractures Thoracolumbar DDD Mild left shoulder OA Gout Mild bilateral PAD Procedure History: Appendectomy 2003 [facility]URE[facility]-BSO 2003 Right ear surgery 2020 Left medial/lateral menisci repairs 2021 Upper lip basal cell ca excision 2023 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 Procedures Surgical History Date Name Laterality Status Provider Name and Address Organization Details Recorded Time 07/02/19 25 Wound Care-Podiatry completed Twan Loredo DPM [address], [address], [place], [address], [employer] 07/01/2024 14:51:56 02/28/19 25 Suture Removal completed Twan Loredo DPM [address], [place], [address], [employer] 02/29/2024 14:24:39 01/29/20 24 Advanced Care Planning completed Umer Bañuelos LPN [employer] 01/29/2024 15:04:34 01/29/20 24 Medicare Wellness CPT Code, Initial completed Umer Bañuelos LPN [employer] 01/29/2024 07:48:05 10/25/19 24 Medicare Wellness CPT Code, Welcome completed Umer Bañuelos LPN [employer] 10/25/2023 10:25:58 10/25/19 24 Advanced Care Planning completed Umer Bañuelos LPN [employer] 10/25/2023 10:24:53 08/28/19 24 Suture Removal completed Twan Loredo DPM [address], [place], [address], [employer] 08/28/2023 15:47:13 04/11/19 24 Excision Cyst Multilayer completed Aisha Milian MD [address], [place], [address], [employer] 04/11/2023 18:10:14 12/27/19 23 Nail Debridement completed Twan Loredo DPM [address], [place], [address], [employer] [facility] [employer] [facility] 12/26/2022 15:02:34 12/15/19 23 Ortho - Cortisone Injection completed Janina Samuel MD [address], [place], [address], [facility] [employer] [facility] [employer] [facility] 12/14/2022 13:21:26 09/27/19 23 Nail Debridement completed Twan Loredo DPM [address], [place], [address], [employer] [facility] [employer] 09/26/2022 14:47:07 09/27/19 23 Callus Debridement 2-4 completed Twan Loredo DPM [address], [place], [address], [employer] 09/26/2022 14:46:55 Hysterectomy completed Not Available [employer] 04/20/2022 10:42:48 Imaging Results Imaging Date Name Status LastModified by Organiz ation Details LastModified Time 05/23/2024 imaging/diag nostic result completed [address] [facility] [address], [place], [address], 06/03/2024 12:33:19 05/23/2024 imaging/diag nostic result completed [email or web address] [place] [address] [facility] [address], [place], [address], 06/03/2024 12:33:37 06/06/2024 XR, foot, 3 or more view completed [email or web address] [facility] Slava Recio [address], [place], [address], 06/06/2024 11:51:23 Procedure Notes None recorded. Medical Equipment None Reported. Allergies Allergen ID Allergen Name Allergen Category Reaction Reaction Severity Criticality Documentation Date Start Date Code Code System Note Provider Name and Address Organization Details Recorded Time 49473 Vascepa medicatio n vomiting Not available Not available 04/20/20222021 30066 80 RxNorm Not Available [facility] 3 10:49:31 86107 Product containin g penicilli n (product) medicatio n swelling moderate Not available 04/20/2022 92232 8001 SNOMED Not Available [facility] 3 10:49:32 Medications Name Sig Start Date Stop Date Status Note LastModified by Organization Details LastModified Time atorvastati n 40 mg tablet TAKE 1 TABLET BY MOUTH ONCE DAILY 06/28 completed Not Available Not Available Not Available metformin 500 mg tablet TAKE 1 TABLET BY MOUTH TWICE DAILY 12/09 completed Not Available Not Available Not Available atorvastati n 80 mg tablet TAKE 1 TABLET BY MOUTH ONCE DAILY active Not Available Not Available No t Available hydrocodone 5 mg-acetamin ophen 325 mg tablet TAKE 1 TABLET BY MOUTH EVERY 6 HOURS NEEDED FOR PAIN active Not Available Not Available No t Available ondansetron HCl 4 mg tablet TAKE 1 TABLET BY MOUTH EVERY 8 HOURS 05/27 completed Not Available Not Available Not Available ciprofloxac in 250 mg tablet TAKE 1 TABLET BY MOUTH EVERY 12 HOURS FOR 10 DAYS 07/01 completed Not Available Not Available Not Available amlodipine 5 mg tablet TAKE 1 TABLET BY MOUTH ONCE DAILY active Not Available Not Available No t Available allopurinol 100 mg tablet TAKE 1 TABLET BY MOUTH ONCE DAILY active Not Available Not Available No t Available ciprofloxac in 500 mg tablet TAKE 1 TABLET BY MOUTH TWICE DAILY FOR 7 DAYS 10/22 completed Not Available Not Available Not Available peg-electro lyte solution 420 gram oral solution TAKE ONE-HALF OF PREP AT 5PM ON 04/12 AND THEN OTHER HALF AT 5AM ON 04/13 completed Not Available Not Available Not Available omeprazole 40 mg capsule,del ayed release TAKE 1 CAPSULE BY MOUTH ONCE DAILY 07/30 completed Not Available Not Available Not Available tramadol 50 mg tablet TAKE 1 TABLET BY MOUTH EVERY 8 HOURS NEEDED 05/01 completed Not Available Not Available Not Available triamcinolo ne acetonide 0.1 % topical cream APPLY A THIN LAYER TO THE AFFECTED AREA(S) BY TOPICAL ROUTE 2 TIMES PER DAY PRN 04/20 completed Not Available Not Available Not Available Mobic 15 mg tablet Take 1 tablet every day by oral route. 05/01 completed Not Available Not Available Not Available Kenalog 10 mg/mL suspension for injection in office 03/27 completed [facility]: [phone] Not Available Not Available Not Available doxycycline monohydrate 100 mg capsule TAKE 1 CAPSULE BY MOUTH TWICE DAILY DIRECTED FOR 10 DAYS 07/01 completed Not Available Not Available Not Available cephalexin 500 mg capsule TAKE 1 CAPSULE BY MOUTH EVERY 6 HOURS 04/20 completed Not Available Not Available Not Available cyanocobala min (vit B-12) 1,000 mcg/mL injection solution Inject 1 mL every week by subcutane ous route. 2024 active Not Available Not Available Not Avai lable hydrochloro thiazide 12.5 mg capsule TAKE 1 CAPSULE BY MOUTH ONCE DAILY 08/09 completed Not Available Not Available Not Available Xylocaine 20 mg/mL (2 %) injection solution In office injection administe red by the provider 07/09 completed Not Available Not Available Not Available furosemide 20 mg tablet TAKE 1 TABLET BY MOUTH ONCE DAILY active Not Available Not Available No t Available ergocalcife rol (vitamin D2) 1,250 mcg (50,000 unit) capsule TAKE 1 CAPSULE BY MOUTH ONCE A WEEK FOR 90 DAYS active Not Available Not Available No t Available lisinopril 40 mg tablet TAKE 1 TABLET BY MOUTH ONCE DAILY active Not Available Not Available No t Available calcitriol 0.25 mcg capsule TAKE 1 CAPSULE BY MOUTH ONCE DAILY active Not Available Not Available No t Available naproxen 500 mg tablet Take 1 tablet twice a day by oral route with meals. 09/01 completed Not Available Not Available Not Available Vitamin B-12 1,000 mcg tablet Take 1 tablet every week by oral route. 07/30 completed Not Available Not Available Not Available ciprofloxac in 0.3 %-dexametha sone 0.1 % ear drops,suspe nsion INSTILL 4 DROPS INTO AFFECTED EAR(S) TWICE DAILY FOR 7 DAYS 03/27 completed Not Available Not Available Not Available furosemide 03/27 completed Not Available Not Available Not Available varenicline tartrate 0.5 mg (11)-1 mg (42) tablets in a dose pack USE DIRECTED 01/28 completed Not Available Not Available Not Available fenofibrate nanocrystal lized 145 mg tablet Take 1 tablet every day by oral route for 90 days. 06/26 completed Not Available Not Available Not Available ropivacaine (PF) 5 mg/mL (0.5 %) injection solution in office 03/27 completed [facility] [phone] Not Available Not Available Not Available Vascepa 1 gram capsule TAKE 2 CAPSULES BY MOUTH TWICE DAILY 09/10 completed Not Available Not Available Not Available Farxiga 10 mg tablet Take 1 tablet by oral route. 2024 active Not Available Not Available Not Avai erin Raya COVID-19 Ag Card kit TEST DIRECTED 04/12 completed Not Available Not Available Not Available Vitals Date Recorded Body height Body mass index (BMI) Body weight Heart rate Respiratory rate Body temperature Oxygen saturation Oxygen saturation in Arterial blood by Pulse oximetry Systolic blood pressure Diastolic blood pressure Provider Name and Address Organization Details Last Updated DateTime 5 167.64 cm 23.9 kg/m2 99774.6 7 g 65 /min 14 /min 97.7 [degF] 98 % 98 % 144 mm[Hg] 83 mm[Hg] Umm Woodard [facility] [employer] [facility] 5 14:52:29 Date Recorded Body height Body mass index (BMI) Body weight Heart rate Respiratory rate Oxygen saturation Oxygen saturation in Arterial blood by Pulse oximetry Systolic blood pressure Diastolic blood pressure Provider Name and Address Organization Details Last Updated DateTime 5 167.64 cm 23.9 kg/m2 63153.6 7 g 84 /min 14 /min 98 % 98 % 129 mm[Hg] 71 mm[Hg] Martha Ruiz [place] [employer] [facility] [employer] [facility] 5 14:08:42 Date Recorded Body height Body mass index (BMI) Body weight Heart rate Respiratory rate Oxygen saturation Oxygen saturation in Arterial blood by Pulse oximetry Systolic blood pressure Diastolic blood pressure Provider Name and Address Organization Details Last Updated DateTime 5 167.64 cm 23.9 kg/m2 73984.6 7 g 82 /min 14 /min 98 % 98 % 111 mm[Hg] 67 mm[Hg] Martha ESPINOZA [employer] [facility] [employer] [facility] 5 14:08:19 Date Recorded Body height Body mass index (BMI) Body weight Heart rate Respiratory rate Oxygen saturation Oxygen saturation in Arterial blood by Pulse oximetry Systolic blood pressure Diastolic blood pressure Provider Name and Address Organization Details Last Updated DateTime 167.64 cm 23.9 kg/m2 86452.6 7 g 72 /min 14 /min 98 % 98 % 129 mm[Hg] 82 mm[Hg] Martha Ruiz [facility] [employer] [facility] 5 14:51:23 Date Recorded Body height Body mass index (BMI) Body weight Heart rate Respiratory rate Oxygen saturation Oxygen saturation in Arterial blood by Pulse oximetry Systolic blood pressure Diastolic blood pressure Provider Name and Address Organization Details Last Updated DateTime 167.64 cm 23.9 kg/m2 95284.6 7 g 74 /min 14 /min 98 % 98 % 153 mm[Hg] 96 mm[Hg] Martha Joseph [facility] [employer] [facility] 5 14:06:32 Social History Question Answer Notes LastModified by [employer] ion Details LastModified Time Tobacco Smoking Status Current Every Day Smoker Not Available [facility] 04/20/2022 10:42:21 Do You Have An Advance Directive? No [id number] Information not available 04/20/2022 How Many Years Have You Consumed Alcohol? 20 [email or web address] Information not available 10/25/2023 Do You Wear A Helmet When Biking? No Does Not Bike Information not available 10/25/2023 Is Blood Transfusion Acceptable In An Emergency? Yes [email or web address] Information not available 10/25/2023 What Is Your Level Of Caffeine Consumption? Moderate [id number] Information not available 04/20/2022 In The 14 Days Before Symptom Onset, Have You Had Close Contact With A Laboratory-confir med COVID-19 While That Case Was Ill? No [id number] Information not available 04/20/2022 In The 14 Days Before Symptom Onset, Have You Had Close Contact With A Person Who Is Under Investigation For COVID-19 While That Person Was Ill? No [id number] Information not available 04/20/2022 What Type Of Diet Are You Following? REGULAR [id number] Information not available 04/20/2022 What Is The Highest Grade Or Level Of School You Have Completed Or The Highest Degree You Have Received? [id number] Information not available 04/20/2022 How Many Days Of Moderate To Strenuous Exercise, Like A Brisk Walk, Did You Do In The Last 7 Days? 5 [email or web address] Information not available 10/25/2023 On Those Days That You Engage In Moderate To Strenuous Exercise, How Many Minutes, On Average, Do You Exercise? 30 [email or web address] Information not available 10/25/2023 Have There Been Any Changes To Your Family Or Social Situation? No [id number] Information not available 04/20/2022 Are There Any Guns Present In Your Home? No [id number] Information not available 04/20/2022 Do You Use Insect Repellent Routinely? No [id number] Information not available 04/20/2022 Where Do You Live? Apartment [id number] Information not available 04/20/2022 Do You Have A Medical Power Of Physician Recruiter? No [id number] 7530 Information not available 04/20/2022 What Was The Date Of Your Most Recent Tobacco Screening? 05/01/2024 Information not available 05/01/2024 How Many Children Do You Have? 2 [email or web address] Information not available 10/25/2023 What Is Your Current Pack Years? 30ormorepacky ears MIGRATION.[id number] 6555 Information not available 04/20/2022 Have You Ever Been Counseled For Unhealthy Alcohol Use? No [id number] 8411 Information not available 04/20/2022 Do You Have Any Pets? Yes MIGRATION.395246 2845 Information not available 04/20/2022 Do You Use Protection During Sex? No Information not available 10/25/2023 What Is Your Relationship Status? MIGRATION.795524 6319 Information not available 04/20/2022 Do You Use Your Seat Belt Or Car Seat Routinely? Yes [id number] 9361 Information not available 04/20/2022 Are You Sexually Active? Yes [email or web address] Information not available 10/25/2023 Do You Have Smoke And Carbon Monoxide Detectors In Your Home? Yes MIGRATION.[id number] 2994 Information not available 04/20/2022 At What Age Did You Start Smoking Tobacco? 25 [email or web address] Information not available 10/25/2023 Are You Passively Exposed To Smoke? Yes MIGRATION.630353 7088 Information not available 04/20/2022 Are There Any Smokers In Your House? Yes MIGRATION.931116 6476 Information not available 04/20/2022 How Much Tobacco Do You Smoke? 0.5 PPD [email or web address] Information not available 04/01/2024 What Types Of Sporting Activities Do You Participate In? None [id number].[id number] 6122 Information not available 04/20/2022 Do You Use Sunscreen Routinely? No MIGRATION.370519 6393 Information not available 04/20/2022 Has Tobacco Cessation Counseling Been Provided? Yes [email or web address] Information not available 10/25/2023 On What Date Was Tobacco Cessation Counseling Provided? 10/25/2023 [email or web address] Information not available 10/25/2023 How Many Years Have You Smoked Tobacco? 40 [email or web address] Information not available 10/25/2023 [id number]|2024-07-08 08:27:00|2024-07-08 08:26:00|XMS_ITS|BKG DAEMON|External Medical Summaries|[id number]|" Progress note - 05/01/2024 Created on: July 08, 2024 Ju Mondragon : 1960 Sex: Female Author Organization [facility] Address [address] [address] Care Team Providers Care Telegraph And Teletype Operator Name Role Phone Dimitris Vera Unavailable [phone] SOCIAL HISTORY Sex Assigned At : Social History Observation Description Sex Assigned At Female PROBLEMS Problem Type ICD Code Onset Dates Problem Status W/U Status Risk SNOMED Code Notes Problem Chronic obstructive pulmonary disease, unspecified (J44.9) Active confirmed Chronic obstructive pulmonary disease (64503874) Problem Vitamin D deficiency, unspecified (E55.9) Active confirmed Vitamin D deficiency (24125792) Problem Cerebrovascular disease, unspecified (I67.9) Active confirmed Encounters Encounter Location Date Provider Diagnosis [facility] [address] [facility] [address] [place] [address] 05/01/2024 Dimitris Vera Chronic kidney disea se, stage 3 unspecified [...] OF TREATMENT Next Appt Details Provider Name:Dimitris Vera , 08/14/2024 02:45:00 PM, [address] [facility], [facility], [place], [address], Progress Notes * Brice MONDRAGONB: [birth year] (63 yo F)Acc No.[id number]:05/01/2024 Progress Notes Patient: Ju MONDRAGON Provider: MD GIANNI, F.A.C.P, F.A.S.N. :1960 Age:63 Y Sex:Female Date:05/01/2024 Address:[facility] Chris Russo [address] Subjective: * Chief Complaints: * * Medical [...] Treatment: * Billing Information: * Visit Code: 26204 Office Visit, Est Pt., Level 4. * Procedure Codes: * Sign off status: Pending * Provider: MD GIANNI, F.A.C.P, F.A.S.N. Date: 05/01/2024 "
--- OUTSIDE RECORDS SUMMARY | 2024-07-08 08:27 | XMS_ITS | Continuity of Care Document ---
Author Organization [facility] Address [address] [facility] [place] [address] [place] [address] Phone Care Team Providers Care Refrigerator Repairman Name Role Phone Daljit Wilkins MD Unavailable [...] Copied on Encounter OFFICE/OUTPA TIENT VISIT, EST [facility], [address], [place], [place], [address], [place] tel:[phone] [facility] HTN (chief complaint) rash (chief complaint) mammogram (chief complaint) colon polyp (chief complaint) Unspecified essential hypertensionBreakin g out - eruptionSolitary pulmonary noduleColon polyp [address], [place], [place], [address] , [place]. tel:[phone] Referring Provider: Daljit Wilkins, [address], [place], [place], [address]. tel:[phone] OFFICE/OUTPA TIENT VISIT, [facility], [address], [place], [place], [address], [place] tel:[phone] [facility] rib fx (chief complaint) HTN (chief complaint) skin issue (chief complaint) Unspecified essential hypertensionRib fractureBreaking out - eruption 5 [address]. [address], [place], [place], [address] , [place]. tel:[phone] Referring Provider: Trini [address], [place], [place], [address]. tel:[phone] OFFICE/OUTPA TIENT VISIT, [facility], [address], [place], [place], [address], [place] tel:[phone] [facility] HTN (chief complaint) smoking (chief complaint) lung nodule (chief complaint) dizziness (chief complaint) Hypertension, UnspecifiedSOLITARY PULMONRY NODULEDizziness 5 Frank[address]. [address], [place], [place], [address] , [place]. tel:[phone] Referring Provider: Trini [address], [place], [place], [address]. tel:[phone] OFFICE/OUTPA TIENT VISIT, [facility], [address], [place], [place], [address], [place] tel:[phone] [facility] lung nodule (chief complaint) HTN (chief complaint) tobacco (chief complaint) SOLITARY PULMONRY NODULEHypertension, UnspecifiedTobacco AbusePersonal history of noncompliance with medical treatment, presenting hazards to health 5 Franky [address]. [address], [place], [place], [address] , [place]. tel:[phone] Referring Provider: Trini [address], [place], [place], [address]. tel:[phone] OFFICE/OUTPA TIENT VISIT, [facility], [address], [place], [place], [address], [place] tel:[phone] [facility] chest nodule (chief complaint) HTN (chief complaint) Hypertension, UnspecifiedSOLITARY PULMONRY NODULESpecial screening for malignant neoplasms, colonMammogram, Screening 5 Frank[address], [place], [place], [address] , [place]. tel:[phone] Referring Provider: Daljit Wilkins, [address], [place], [place], [address]. tel:[phone] PREV VISIT, NEW, AGE 40-64 [facility], [address], [place], [place], [address], tel:[phone] [facility] Physical (chief complaint) Routine Medical ExamRoutine Medical Exam 5 Frank[address], [address] [place], [address] , [place]. tel:[phone] Family History Family Member Type Diagnosis Age At Onset Brother Problem (finding) MVA Mother Problem (finding) old age Father Problem (finding) Coronary artery disease 60 Brother Problem (finding) No Family hist ory of No history of Unknown Disease Payers Payer name Insurance type Covered libertarian ID Authoriza tion(s) No Information Social History [...] Mental Status Date Cognitive Assessment Orientation - [place] ed to time, place, person, situation.
--- OUTSIDE RECORDS SUMMARY | 2024-07-08 08:27 | XMS_ITS | Clinical Summary ---
Author Organization [facility] Krystle rollins Jorge Address [address] [facility] [place] [address] Care Team Providers Care Purler Name Role Phone Caitlyn Burns MD Primary [...] Encounters Date Type Department Care Team Description 05/28/2024 11:45 AM CDT Office Visit [facility] Oncology and Hematology - [place] [address] [place] [address] Howie Hernandez MD Leukocytosis, unspecified type (Primary Dx) 05/28/2024 Orders Only [facility] Oncology and Hematology [place] [address] [place] [address] Howie Hernandez MD 05/21/2024 External Device Data STL ABSTRACTION Provider, [...] Sign Reading Time Taken Comments Blood Pressure 127/83 05/28/2024 11:28 AM CDT Pulse 73 05/28/2024 11:28 AM CDT Temperature 36.4 C (97.6 F) 05/28/2024 11:28 AM CDT Respiratory Rate 16 05/28/2024 11:28 AM CDT Oxygen Saturation 97% 05/28/2024 11:28 AM CDT Inhaled Oxygen Concentration - - Weight 66.7 kg (147 lb) 05/28/2024 11:28 AM CDT Height 157.5 cm (5' 2 ) 12/01/2021 3:28 PM CDT Body Mass Index 26.89 12/01/2021 3:28 PM CDT Plan of Treatment Upcoming Encounters Date Type Department Care Team (Late st Contact Info) Description 11/27/2024 11:45 AM CDT Office Visit [facility] Oncology and Hematology [facility] [address] [facility] [address] [place] [address] Howie Hernandez MD [address] [facility] [address] [place] [address] Health Maintenance Due Date Last Done Comments DIABETES ANNUAL FOOT EXAM 1978 DIABETES ANNUAL RETINAL EXAM 1978 DIABETES HBA1C Q 6 MONTHS 1978 DIABETES MICROALBUMIN ANNUAL SCREEN 1978 LDL CHOLESTEROL ANNUAL 1978 DTAP/TDAP/TD VACCINES (1 - Tdap) 11/19/1979 HPV/Cotest (21-29) 1981 CERVICAL CANCER SCREENING [...] Procedure Name Priority Date/Time Associated Diagnosis Comments BASIC METABOLIC PANEL Routine 05/27/2024 12:27 PM CDT CBC WITH AUTODIFFERENTIAL Routine 2024 12:22 PM CDT from Last 3 Months Results * BASIC METABOLIC PANEL (05/27/2024 12:27 PM CDT) Blood us Howie Hernandez MD CHEMISTRY ORDERABLES Final Resu lt * CBC WITH AUTODIFFERENTIAL (05/27/2024 12:22 PM CDT) Blood us Howie Hernandez MD HEMATOLOGY ORDERABLES Final Res ult from Last 3 Months Care Teams Purler Relationship Specialty Start Date End Date Caitlyn Burns MD PCP - General Internal Medicine 07/22/21
--- OUTSIDE RECORDS SUMMARY | 2024-07-08 08:27 | XMS_ITS | Clinical Summary ---
Author Organization [facility] Address [address] [place] [address] Care Team Providers Care Asphalt Tar And Gravel Roofer Name Role Phone Trang Burns MD Primary [...] Active Active Problems No known active problems Surgical History Surgery Date Site/Laterality Comments EAR SURGERY Ear Surgery - (Added by GUERLINE Conv) EAR SURGERY 02/20/2018 - 02/19/2019 Medical History Medical History Date Comments Personal history of other di seases of the circulatory system History of hypertension - (A dded by GUERLINE Salazar) Hypertension Hyperlipidemia PFO (patent foramen ovale) Family History Medical History Relation Name Comments Brain cancer Father Heart disease Mother Family history of cardiac disorder - (Added by GUERLINE Conv) Heart failure Mother Relation Name Status Comments Father Mother (Age 68) Social History Tobacco Use Types Packs/Day Years Used Date Smoking Tobacco: Every Day Cigarettes Smokeless Tobacco: Never Tobacco Cessation:Ready to Q uit: Not Asked; Counseling Given: Not Answered Comments Unknown Sex and Gender Information Value Date Recorded Sex Assigned at Not on file Legal 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
--- OUTSIDE RECORDS SUMMARY | 2024-07-08 08:27 | XMS_ITS | Clinical Summary ---
Author Organization [facility] Address [address] [facility] [place] [address] Care Team Providers Care Production Zone Leader Name Role Phone Unknown, Provider Primary Care Provider Unavaila ble Source Comments [facility],non-owned Affiliates and Associated Physician Practices is amultiple site organization consisting of ambulatory clinics and hospital sitesin [place], [place], [place] and [place]. This disclosure is being madepursuant to the Care Everywhere program and may not contain all information available regarding this patient. Last updated 17.[facility] Health Encounters Date Type Department Care Team Description 06/14/2024 Travel from Last 3 Months Social History Tobacco Use Types Packs/Day Years Used Date Smoking Tobacco: Never Assessed Comments Unknown Sex and Gender Information Value Date Recorded Sex Assigned at Not on file Legal Sex Female 1:30 PM CDT Gender Identity Not on file Sexual Orientation Not on file Plan of Treatment Upcoming Encounters Date Type Department Care Team (Late st Contact Info) Description 07/25/2024 11:00 AM CDT Office Visit [facility] [place] [address] [facility], [place] [address] Marisa Burleson, GOLF SALES ASSOCIATE-DIRECTOR SERVICE [address] [facility] [address] [place] [address] Health Maintenance Due Date Last Done Comments [...] VACCINE (1 of 2) 2010 COVID-19 VACCINE (5 - season) 2023 07/30/2021, 03/31/2021, 07/20/2020, Additional history exists DEPRESSION SCREENING 02/21/2024 MEDICARE AWV CALENDAR YEAR 2024 INFLUENZA VACCINE (Season Ended) 2024 11/23/2022, 12/08/2021, 12/09/2020 Respiratory Syncytial Virus (RSV) Vaccine Pt: or [...] on patient's age to complete this topic Insurance [facility] MA[facility]GED MEDICARE ADV Care Teams Production Zone Leader Relationship Specialty Start Date End Date Unknown, Provider PCP - General 08/31/23
--- OUTSIDE RECORDS SUMMARY | 2024-07-08 08:27 | XMS_ITS | CONTINUITY OF CARE DOCUMENT ---
Author Name rian, rian Address Unknown Organization [facility] Address [address] [place] [address] Phone [phone] Care Team Providers Care Family Preservation Officer Name Role Phone Calderon Wynn MD Unavailable [phone] YOGI WYMAN MD Unavailable [phone] YOGI WYMAN MD Unavailable PROBLEMS Condition Status Date Provider Notes Shortness of breath active Roma Ventimigl ia STAFFING SPECIALIST Hyperlipidemia active Roma Ventimiglia FN P CKD (chronic kidney disease) active Roma Ventimiglia STAFFING SPECIALIST Diabetes mellitus, type 2 active Roma Kwaku timiglia STAFFING SPECIALIST CVA active Roma Ventimiglia STAFFING SPECIALIST Abnormal EKG active Roma Ventimiglia STAFFING SPECIALIST Tobacco use, restarted active Umm Barker Hypertension active Efren Roy Preoperative cardiovascular evaluation active Emmett Swanson ENCOUNTERS Date Type Provider Location Encounter Diag nosis - In-person encounter Office Visit Calderon Wynn MD [facility] Office - In-person encounter Office Visit Calderon Wynn MD [place] [facility] - In-person encounter Office Visit Janet Beebe MD [facility] Preoperative cardiovascular evaluation - In-person encounter Office Visit Calderon Wynn MD [place] [facility] - In-person encounter Office Visit Calderon Wynn MD [facility] Hypertension - In-person encounter Office Visit Calderon Wynn MD [facility] Tobacco use, restarted - In-person encounter Office Visit Calderon Wynn MD [facility] Shortness of breathHyperlipidemiaCKD (chronic kidney disease)Diabetes mellitus, type 2CVAAbnormal EKGTobacco use, restarted VITAL SIGNS Date Observation Value Provider Body Mass Index (Ratio) 27.07 kg/m2 García Li oxygen saturation, oximetry 98 % [facility] 59 /min [facility] blood pressure, diastolic 88 mm[Hg] [facility] blood pressure, systolic 151 mm[Hg] [place] [facility] respiratory rate E&M 12 /min [facility] weight E&M 148 [lb_av] [facility] height E&M 62 [in_i] [facility] blood pressure, cuff size regular An reyna Universal Body Mass Index (Ratio) 26.70 kg/m2 Christo Blanchard blood pressure, diastolic 74 mm[Hg] Am viridiana Ventimiglia [facility] blood pressure, systolic 132 mm[Hg] Ruston nda Ventimiglia [facility] height E&M 62 [in_i] Roma Ventimig [facility] respiratory rate E&M 12 /min Roma Ventimiglia [facility] oxygen saturation, oximetry 98 % Roma Ventimiglia [facility] pulse rate 62 /min Roma Ventimig betzaida [facility] weight E&M 146 [lb_av] Roma Ventimig betzaida [facility] Body Mass Index (Ratio) 25.97 kg/m2 Emmett Swanson blood pressure, diastolic 80 mm[Hg] Chela nkLogic blood pressure, systolic 140 mm[Hg] Luz kLogic blood pressure, cuff size regular Ja rret blood pressure, diastolic 80 mm[Hg] Reji rret blood pressure, systolic 140 mm[Hg] Jar ret pulse rate 68 /min Umair y oxygen saturation, oximetry 99 % Umair respiratory rate E&M 14 /min Umair weight E&M 142 [lb_av] Umair y height E&M 62 [in_i] [facility] y Body Mass Index (Ratio) 27.25 kg/m2 García Li blood pressure, cuff size regular [facility] blood pressure, diastolic 76 mm[Hg] [facility] blood pressure, systolic 133 mm[Hg] [facility] saturation, oximetry 98 % [facility] pulse rate 66 /min [facility] respiratory rate E&M 16 /min Starr Sheikh iller weight E&M 149 [lb_av] [facility] height E&M 62 [in_i] [facility] Body Mass Index (Ratio) 27.80 kg/m2 Jarrod ellis Manuela blood pressure, cuff size regular [facility] blood pressure, diastolic 88 mm[Hg] [facility] blood pressure, systolic 166 mm[Hg] [facility] oxygen saturation, oximetry 99 % [facility] respiratory rate E&M 16 /min Starr Sheikh iller pulse rate 61 /min [facility] weight E&M 152 [lb_av] [facility] height E&M 62 [in_i] Starr Anglin Body Mass Index (Ratio) 27.43 kg/m2 Calderon Wynn MD blood pressure, diastolic 66 mm[Hg] Jessica sotelo Mk blood pressure, systolic 133 mm[Hg] Verna wright Mk pulse rate 77 /min Olive Mk oxygen saturation, oximetry 98 % Olive Mk weight E&M 150 [lb_av] Olive Mk blood pressure, cuff size large An deepak Mk height E&M 62 [in_i] Olive Mk Body Mass Index (Ratio) 28.60 kg/m2 Emmett Kiki blood pressure, diastolic 69 mm[Hg] Li nkLogic blood pressure, systolic 121 mm[Hg] Luz kLogsaima [...] atorvastatin 80 mg tablet active Roma Ventimiglia STAFFING SPECIALIST Farxiga 10 mg tablet active Roma Ventimiglia STAFFING SPECIALIST furosemide 20 mg tablet active TAKE 1 TABLET BY MOUTH ONCE DAILY Roma Ventimiglia STAFFING SPECIALIST calcitriol 0.25 mcg capsule active Roma Ventimiglia STAFFING SPECIALIST lisinopril 40 mg tablet active Roma Ventimiglia STAFFING SPECIALIST allopurinol 100 mg tablet active Roma Ventimiglia STAFFING SPECIALIST ergocalciferol (vitamin D2) 1,250 mcg (50,000 unit) capsule active Roma Ventimiglia STAFFING SPECIALIST amlodipine 5 mg tablet active Roma Ventimiglia STAFFING SPECIALIST metformin 500 mg tablet completed - Roma Ventimiglia STAFFING SPECIALIST atorvastatin 40 mg tablet completed - Roma Ventimiglia STAFFING SPECIALIST SOCIAL HISTORY Date Observation Value Provider personal history of marijuana use no Claderon Wynn MD drug use no Calderon Wynn [...] history of marijuana use no Roma Ventimiglia STAFFING SPECIALIST alcohol use, average drinks per day social Roma Ventimiglia [facility] smoking, year quit 2023 Roma Ve ntimiglia [facility] drug use no Roma Ventimig betzaida [facility] alcohol use yes Roma Ventimig betzaida [facility] smoking history, tot al pack/day 1 pack a day Roma Ventimiglia STAFFING SPECIALIST cigarette use yes Roma Ventimi glia STAFFING SPECIALIST smoking status Former smoker Roma Venti miglia STAFFING SPECIALIST drug use no Emmett Swanson alcohol use no Emmett Swanson smoking, year quit 2022 Emmett chowdhury smoking history, tot al pack/day 1 pack a day Emmett Swanson cigarette use yes Emmett Swanson smoking status Current every da y smoker Emmett Swanson number of grandchildren Calderon Li drug use no Starr Anglin alcohol use no Starr Anglin smoking, year quit 2022 Starr telles smoking history, tot al pack/day 1 pack a day Starr Anglin cigarette use yes Starr Anglin smoking status Current every da y smoker Starr Anglin social history reviewed E&M revi ewed - no changes required Calderon Wynn MD smoking history, tot al pack/day 1 pack a day Starr Anglin cigarette use yes [facility] smoking status Current every da y smoker Starr Anglin smoking status Former smoker Umm Barker social history E&M S moking History: Davon burkett currently smokes every day. Isabela Matute NP social history reviewed E&M revi ewed - no changes required Isabela Matute NP smoking, year quit 2022 Olive Will ia cigarette use yes Olive Terrazas social history E&M S moking History: Davon burkett is a former smoker. Emmett Swanson social history reviewed E&M revi ewed - no changes required Emmett Swanson drug use no Roma Ventimig betzaida [facility] alcohol use no Roma Ventimig betzaida [facility] smoking, year quit 2022 Madison talley cigarette use yes Madison Thomas smoking status Former smoker Madison poole INSURANCE PROVIDERS Payer name Policy type / Coverage type [place] red libertarian ID [id number] (PPO C-SNP) Commercial insurance company [id number] ADVANCE DIRECTIVES Name Date DISCUSSED - NO DECISION MADE TREATMENT PLAN Date Name Performer [id number],S,u ncontrolled BP. Will obtain renal artery duplex [...] Amlodipine 5 Mg Tablet (Amlodipine) Efren Roy [id number],C,T he Patient was reencouraged to stop smoking. Efren Goldmanri [id number],S, H er updated medication list for this problem includes: Atorvastatin 40 Mg Tablet (Atorvastatin) Efren Roy [id number],S, Will obtain renal artery duplex and her lab work results from PCP emir sheppard with NANCY Dhillon Efren Goldmanri [id number],S,C ontinues to have SOB, uncontrolled BP. Will obtain renal artery duplex and her lab work results from PCP. I recommend pulmonary consultation, after that we will consider right and left heart cath Efren Goldmanri [id number],C, N uclear stress negative for ischemia E cho nml lv function, lvef 65%, diastolic dysfunction, mild mr, mild-mod tr 4 8 hour holter SR no pauses or arrhythmias, rare ectopic beats p fts result pending C onsider coronary calcium score Isabela Matute [employer] [id number],C, H er updated medication list for this problem includes: Atorvastatin 40 Mg Tablet (Atorvastatin) Isabela Matute [employer] [id number],Omar f valarie with NANCY Matute [employer] [id number],C, p er primary team. 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 on statin therapy. C arotid with mild plaque <50% bilaterally 4 8 hour holter SR no pauses or arrhythmias, rare ectopic beats Isabela Matute [employer] RET[employer]OFIT DES[employer] [id number],C,Q uit one month ago. Smoked 1/2-1 ppd for over 25 years. Will plan low dose CT chest screening Romaviridiana Holcomb [facility] [id number],C,follows with NANCY Dhillon [facility] [id number],C,p er primary team. will get recent labs H er updated medication list for this problem includes: Lisinopril 40 Mg Tablet (Lisinopril) Metformin 500 Mg Tablet (Metformin) [facility] [id number],C,h x of CVA over a year ago. on statin therapy. Will plan carotid to r/o stenosis. Will also do 48 hour event monitor to r/o arryhtmia that may have contributed. O rders: 9 9205 HIGH 60-74 min (CPT-09028) H olter Monitor 48 hr (CPT-04971) C omplete Echo (CPT-59453) C arotid Duplex Bilateral (CPT-23253) S tress Regadenoson (CPT-57272) C ounseling LDCT (CPT-G0296) L ow Dose Lung CT (CPT-G0297) Romaviridiana Holcomb [facility] [id number],C,s ee above O rders: 9 9205 HIGH 60-74 min (CPT-77422) H olter Monitor 48 hr (CPT-46745) C omplete Echo (CPT-21780) C arotid Duplex Bilateral (CPT-14952) S tress Regadenoson (CPT-66456) C ounseling LDCT (CPT-G0296) L ow Dose Lung CT (CPT-G0297) Romaviridiana Holcomb [facility] [id number],C,P atient has SOB that has been ongoing for [...] Tablet (Amlodipine) Orders: 9204 HIGH 60-74 min (CPT-45589) H olter Monitor 48 hr (CPT-45239) C omplete Echo (CPT-81165) C arotid Duplex Bilateral (CPT-77534) S tress Regadenoson (CPT-48035) C ounseling LDCT (CPT-G0296) L ow Dose Lung CT (CPT-G0297) Roma Holcomb [facility] Cardiology:gave pre operative clearance for her surgery Her updated medication list for this problem includes: Lisinopril 40 Mg Tablet (Lisinopril) Amlodipine 5 Mg Tablet (Amlodipine) Orders: 9213 MOD 30-39min (CPT-15053) C omplex e/m visit add on (G2211) C omplete Echo (00460) A rterial Duplex LLE (90990) P reop clearance, phn/internet/emr >5min (26089) Calderon Wynn MD Cardiology:This visi t has [...] (Amlodipine) Calderon Wynn MD Cardiology: O rders: 9 9213 MOD 30-39min (CPT-00758) C omplete Echo (86584) Roma Holcomb [facility] Cardiology: T he following medications were removed from the medication list: Metformin 500 Mg Tablet (Metformin) Her updated medication list for this problem includes: Farxiga 10 Mg Tablet (Dapagliflozin propanediol) Lisinopril 40 Mg Tablet (Lisinopril) [facility] Cardiology: T he following medications were removed from the medication list: Atorvastatin 40 Mg Tablet (Atorvastatin) Her updated medication list for this problem includes: Atorvastatin 80 Mg Tablet (Atorvastatin) [facility] Cardiology:continued cessation e ncouraged [facility] Cardiology:BP contro lled c ontinue present med regimen H er updated medication list for this problem includes: Furosemide 20 Mg Tablet (Furosemide) ..... Take 1 tablet by mouth once daily Lisinopril 40 Mg Tablet (Lisinopril) Amlodipine 5 Mg Tablet (Amlodipine) [facility] Electrophysiology:Sh e is undergo R big toe procedure with Dr Wells, she may undergo this procedure without restrictions. Emmett didier Electrophysiology: H er updated medication list for this problem includes: Lisinopril 40 Mg Tablet (Lisinopril) Metformin 500 Mg Tablet (Metformin) [facility] h x of CVA 2021 . on statin therapy. C arotid with mild plaque <50% bilaterally [facility]: H er updated medication list for this problem includes: Atorvastatin 40 Mg Tablet (Atorvastatin) Emmett didier Electrophysiology:st able at this time, no signs of decompensation [facility] Electrophysiology:Mo nitor your BP at home, goal BP is <135/85 BP today: 140/80 P rior BP: 133/76 (03/01/2023) Her updated medication list for this problem includes: Furosemide 20 Mg Tablet (Furosemide) ..... Take 1 tablet by mouth once daily Lisinopril 40 Mg Tablet (Lisinopril) Amlodipine 5 Mg Tablet (Amlodipine) Emmettthee Swanson Cardiology: T he Patient was reencouraged to stop smoking. Twan Li Cardiology: H er updated medication list for this problem includes: Atorvastatin 40 Mg Tablet (Atorvastatin) [facility]an [facility] Cardiology:eGFR is 2 9, thus she is at risk of nephropathy from cath. Twan [facility] Cardiology: B P today: 133/76 P rior BP: 166/88 (12/19/2022) Her updated medication list for this problem includes: Furosemide 20 Mg Tablet (Furosemide) ..... Take 1 tablet by mouth once daily Lisinopril 40 Mg Tablet (Lisinopril) Amlodipine 5 Mg Tablet (Amlodipine) [facility] Cardiology:Continues to have SOB.= eGFR is 29, thus she is at risk of nephropathy from cath. Did not have pulmonaey consult yet. Encouraged her to get it. Based on recommendation from pulmonary, will then reconsider cardiac cath. [facility]an [facility] Cardiology:uncontrol led BP. Will obtain renal artery [...] Tablet (Lisinopril) Amlodipine 5 Mg Tablet (Amlodipine) [facility]:The Patie nt was reencouraged to stop smoking. Efren Manuela Cardiology: H er updated medication list for this problem includes: Atorvastatin 40 Mg Tablet (Atorvastatin) Efrenrhonda Roy Cardiology: Will obt ain renal artery duplex and her lab work results from PCP emir sheppard with NANCY Dhillon [facility] Card[facility]:Continues to have SOB, uncontrolled BP. Will obtain renal artery duplex and her lab work results from PCP. I recommend pulmonary consultation, after that we will consider right and left heart cath [facility]: N uclear stress negative for ischemia E cho nml lv function, lvef 65%, diastolic dysfunction, mild mr, mild-mod tr 4 8 hour holter SR no pauses or arrhythmias, rare ectopic beats p fts result pending C onsider coronary calcium score Isabela Matute [employer] DES[employer] Cardiology: H er updated medication list for this problem includes: Atorvastatin 40 Mg Tablet (Atorvastatin) Isabela Matute [employer] DES[employer] Cardiology: f ollows with NANCY Dhillon Isabela 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 Request lab from primary H er updated medication list for this problem includes: Lisinopril 40 Mg Tablet (Lisinopril) Metformin 500 Mg Tablet (Metformin) Isabela Matute [employer] RET[employer] DES[employer] Cardiology: h x of CVA 2021 . on statin therapy. C arotid with mild plaque <50% bilaterally 4 8 hour holter SR no pauses or arrhythmias, rare ectopic beats Isabela Matute [employer] DES[employer] Cardiology:Quit one month ago. Smoked 1/2-1 ppd for over 25 years. Will plan low dose CT chest screening [facility] Cardiology:follows with NANCY Dhillon [facility] Cardiology:per prima ry team. will get recent labs H er updated medication list for this problem includes: Lisinopril 40 Mg Tablet (Lisinopril) Metformin 500 Mg Tablet (Metformin) [facility] Cardiology:hx of CVA over a year ago. on statin therapy. Will plan carotid to r/o stenosis. Will also do 48 hour event monitor to r/o arryhtmia that may have contributed. O rders: 9 9205 HIGH 60-74 min (CPT-22371) H olter Monitor 48 hr (CPT-69005) C omplete Echo (CPT-06412) C arotid Duplex Bilateral (CPT-86385) S tress Regadenoson (CPT-65360) C ounseling LDCT (CPT-G0296) L ow Dose Lung CT (CPT-G0297) [facility] Cardiology:see above O rders: 9 9205 HIGH 60-74 min (CPT-38296) H olter Monitor 48 hr (CPT-50909) C omplete Echo (CPT-66863) C arotid Duplex Bilateral (CPT-01134) S tress Regadenoson (CPT-27930) C ounseling LDCT (CPT-G0296) L ow Dose Lung CT (CPT-G0297) Roma Holcomb [facility] Cardiology:Patient h as SOB that has [...] (Amlodipine) Orders: 9 9205 HIGH 60-74 min (CPT-90871) H olter Monitor 48 hr (CPT-47690) C omplete Echo (CPT-06413) C arotid Duplex Bilateral (CPT-06275) S tress Regadenoson (CPT-23088) C ounseling LDCT (CPT-G0296) L ow Dose Lung CT (CPT-G0297) Romaviridiana Holcomb [facility] Date Name Arterial Duplex LLE Complete Echo Complete Echo Renal Artery Duplex Low Dose Lung CT Stress Regadenoson Carotid Duplex Bilat eral Complete Echo Holter Monitor 48 hr DLCO - 39465 FRC - 12118 FVC - 19968 HISTORY OF PROCEDURES Procedure Date Procedure Name Provider Procedure Notes S tatus Complex e/m visit ad d on Calderon Wynn MD completed EKG Janet Beebe MD comp leted Counseling LDCT Calderon Wynn MD compl eted
--- OUTSIDE RECORDS SUMMARY | 2024-07-08 08:27 | XMS_ITS ---
Author Organization [facility] Address [address] [place] [address] Care Team Providers Care Annealing Torch Operator Name Role Phone Alejo Dimitris Unavailable [phone] SOCIAL HISTORY Sex Assigned At : Social History Observation Description Sex Assigned At Female PROBLEMS Problem Type ICD Code Onset Dates Problem Status W/U Status Risk SNOMED Code Notes Problem Chronic kidney disease, stage 2 (mild) (N18.2) Active confirmed Chronic kidney disease stage 2 (941453419) Problem Tobacco use (Z72.0) Active confirmed Tobacco use (410360460) Problem Alcohol abuse (F10.10) Active confirmed Alcohol abuse (23349200) Problem Bunion of unspecified foot (M21.619) Active confirmed Swelling of f irst metatarsophalangeal joint of hallux (604482924) Encounters Encounter Location Date Provider Diagnosis [facility] [address] [place] [address] 06/05/2024 Dimitris Dhillon Chronic kidney disea se, stage 2 (mild) N18.2 ; Essential hypertension I10 ; Other proteinuria R80.8 ; Renal osteodystrophy N25.0 ; Secondary hyperparathyroidism, not elsewhere classified E21.1 ; Chronic obstructive pulmonary disease, unspecified J44.9 ; Vitamin D deficiency, unspecified E55.9 ; Cerebrovascular disease, unspecified I67.9 ; Tobacco use Z72.0 ; Alcohol abuse F10.10 and Bunion of unspecified foot M21.619 ASSESSMENTS Encounter Date Diagnosis Assessment Notes Treatment [...] OF TREATMENT Next Appt Details Provider Name:Dimitris Alejo , 08/14/2024 02:45:00 PM, [address] [facility] [address], [address], Progress Notes * Zarina FAITHaDOB: [birth year] (63 yo F)Acc No.[id number]:06/05/2024 Progress Notes Patient: Ju FAITH Provider: MD GIANNI, F.A.C.P, F.A.S.N. :1960 Age:63 Y Sex:Female Date:06/05/2024 Address:[facility] [address] Subjective: * Chief Complaints: * * Medical History: Objective: Assessment: * Assessment: 1. Chronic kidney disease, stage 2 (mild) - N18.2 (Primary) 2. Essential hypertension - I10 3. Other proteinuria - R80.8 4. Renal osteodystrophy - N25.0 5. Secondary hyperparathyroidism, not elsewhere classified - E21.1 6. Chronic obstructive pulmonary disease, unspecified - J44.9 7. Vitamin D deficiency, unspecified - E55.9 8. Cerebrovascular disease, unspecified - I67.9 9. Tobacco use - Z72.0 10. Alcohol abuse - F10.10 11. Bunion of unspecified foot - M21.619 Plan: * Treatment: * Billing Information: * Visit Code: 66040 Office Visit, Est Pt., Level 4. * Procedure Codes: * Sign off status: Pending * Provider: MD GIANNI, F.A.C.P, F.A.S.N. Date: 06/05/2024
== END 2024-07-08 08:23 | disposition home or self-care (01) ==
LOC: ANHIMG 08:24
PROVIDERS: PCP Internal Medicine; Visit Provider Internal Medicine
DX: Z12.31 Encounter for screening mammogram for malignant neoplasm of breast (principal); R92.8 Other abnormal and inconclusive findings on diagnostic imaging of breast
CPT/HCPCS: 77063; 77067

== ENCOUNTER 2024-07-19 12:31 | Outpatient (CLI) | payer MEDICARE, SELFPAY ==
--- NOTE | ~2024-07-19 | XR_ITS ---
XR toe 1st LT min 2V Ordering provider: Twan Wells, DPM History: . bunion . Comparison: None. FINDINGS: BONES: Fracture in the midshaft of the proximal phalanx of the left big toe with postoperative change s. JOINT SPACES: Normal. SOFT TISSUES: Normal. IMPRESSION: Fracture in the midshaft of the proximal phalanx of the left big toe with postoperative changes. Reviewed, dictated and finalized at location A. IMPRESSION: Fracture in the midshaft of the proximal phalanx of the left big toe with posto perative changes.
--- OUTSIDE RECORDS SUMMARY | 2024-07-19 12:37 | XMS_ITS ---
Author Organization [facility] Address [address] [facility] [address] [facility] [address] [place] [address] Care Team Providers Care Health Actuary Name Role Phone Glendy Dhillonerjit Unavailable [phone] Social History Sex Assigned At : Social History Observation Description Sex Assigned At Female Encounters Encounter Location Date Provider Diagnosis [facility] [address] [facility] [address] [place] [address] 03/01/2024 Dimitris Dhillon Plan Of Treatment Next Appt Details Provider Name:Dimitris Dhillon , 08/14/2024 02:45:00 PM, [address] [facility] [address], [address], Progress Notes * Zarina MONDRAGONaDOB: [birth year] (63 yo F)Acc No.[id number]:03/01/2024 Progress Notes Patient: Ju BURDEN Provider: Nina VILA MD, Dominga.Barrington.C.P, F.A.S.N. :1960 A ge:63 Y S ex:Female Date:03/01/2024 Address[address] Subjective: * Chief Complaints: * * Medical History: Objective: * Vitals: Assessment: Plan: * Treatment: * Billing Information: * Visit Code: * Procedure Codes: * Electronic signature of Saravanan Dhillon MD on 07/19/2024 at 12:36 PM CDT Sign off status: Pending * Provider: Nina VILA MD, Dominga.Barrington.C.P, F.A.S.N. Date: 0 03/01/2024 Generated for Printing/Faxing/eTransmitting on: 0 07/19/2024 12:36 PM CDT
--- OUTSIDE RECORDS SUMMARY | 2024-07-19 12:37 | XMS_ITS | Patient Health Record ---
Author Organization [facility] Address [address] [facility] [address] [place] [address] Care Team Providers Care Stone Setter Metal Optical Frames Name Role Phone Dimitris Dhillon Unavailable [phone] Reason For Referral No Information Medications Medication SIG (Take, Route, Frequency, Duration) [...] HOURS FOR 10 DAYS for 10 Active Calcitriol 0.25 MCG 1 capsule Orally Onc e a day for 90 days Active Social History Sex Assigned At : Social History Observation Description Sex Assigned At Female Problems Problem Type SNOMED Code ICD Code Onset Dates Problem Status W/U Status Risk Notes Problem Secondary hyperparathyroidism (77260602) Secondary hyperparathyroidi sm, not elsewhere classified (E21.1) Active confirmed Problem Vitamin D deficiency (40121876) Vitamin D deficiency, unspecified (E55.9) Active confirmed Problem Cerebrovascular disease (17464533) Cerebrovascular disease, unspecified (I67.9) Active confirmed Problem Chronic obstructive pulmonary disease (75635228) Chronic obstructive pulmonary disease, unspecified (J44.9) Active confirmed Problem Chronic kidney disease stage 2 (701254152) Chronic kidney disease, stage 2 (mild) (N18.2) Active confirmed Problem Renal osteodystrophy (92412004) Renal osteodystrophy (N25.0) Active confirmed Problem Proteinuria (64693329) Other proteinuria (R80.8) Active confirmed Problem Tobacco use (373012979) Tobacco use (Z72.0) Active confirmed Problem Essential hypertension (04996571) Essential hypertension (I10) Active confirmed Problem Alcohol abuse (63732904) Alcohol abuse (F10.10) Active confirmed Problem Swelling of first metatarsophalangeal joint of hallux (391949477) Bunion of unspecified foot (M21.619) Active confirmed Encounters Encounter Location Date Provider Diagnosis [facility] [place] [facility] [address] [place] [address] 09/08/2023 Dimitris Dhillon Chronic kidney disea se, stage 2 (mild) N18.2 ; Essential hypertension I10 ; Other proteinuria R80.8 ; Renal osteodystrophy N25.0 and Secondary hyperparathyroidism, not elsewhere classified E21.1 [facility] [place] [facility] [address] [place] [address] 10/20/2023 Dimitris Dhillon Chronic kidney disea se, stage 3 unspecified N18.30 ; Essential hypertension I10 ; Renal osteodystrophy N25.0 ; Other proteinuria R80.8 and Secondary hyperparathyroidism, not elsewhere classified E21.1 [place] [facility] [address] [place] [address] 12/22/2023 Dimitris Dhillon Essential hypertensi on I10 ; Chronic kidney disease, stage 3 unspecified N18.30 ; Other proteinuria R80.8 ; Renal osteodystrophy N25.0 ; Secondary hyperparathyroidism, not elsewhere classified E21.1 and Chronic kidney disease, stage 2 (mild) N18.2 [place] [facility] [address] [address] 05/01/2024 Dimitris Dhillon Chronic kidney disea se, stage 3 unspecified N18.30 ; Essential hypertension I10 ; Other proteinuria R80.8 ; Renal osteodystrophy N25.0 ; Secondary hyperparathyroidism, not elsewhere classified E21.1 ; Chronic obstructive pulmonary disease, unspecified J44.9 ; Vitamin D deficiency, unspecified E55.9 and Cerebrovascular disease, unspecified I67.9 [place] [facility] [address] [place] [address] 06/05/2024 Dimitris Dhillon Chronic kidney disea se, stage 2 (mild) N18.2 ; Essential hypertension I10 ; Other proteinuria R80.8 ; Renal osteodystrophy N25.0 ; Secondary hyperparathyroidism, not elsewhere classified E21.1 ; Chronic obstructive pulmonary disease, unspecified J44.9 ; Vitamin D deficiency, unspecified E55.9 ; Cerebrovascular disease, unspecified I67.9 ; Tobacco use Z72.0 ; Alcohol abuse F10.10 and Bunion of unspecified foot M21.619 [place] [facility] [address] [address] 04/17/2024 Dimitris Dhillon [place] [facility] [address] [address] 04/17/2024 Dimitris Dhillon [facility] [facility] [address] [place] [address] 04/17/2024 Dimitris [facility] [address] [address] 06/05/2024 Dimitris Dhillon [facility] [place] [facility] [address] [place] [address] 10/20/2023 Dimitris Dhillon [facility] [place] [facility] [address] [place] [address] 12/25/2023 Dimitris Dhillon Assessments Encounter Date Diagnosis (ICD Code) Assessment [...] I10) 09/08/2023 Essential hypertension (ICD-10 - I10) 10/20/2023 Renal osteodystrophy (ICD-10 - N25.0) 09/08/2023 Other proteinuria (ICD-10 - R80.8) 12/22/2023 Renal osteodystrophy (ICD-10 - N25.0) 06/05/2024 Other proteinuria (ICD-10 - R80.8) 05/01/2024 Other proteinuria (ICD-10 - R80.8) 06/05/2024 Renal osteodystrophy (ICD-10 - N25.0) 05/01/2024 Renal osteodystrophy (ICD-10 - N25.0) 12/22/2023 Secondary hyperparathyroidism, not elsewhere classified (ICD-10 - E21.1) 10/20/2023 Other proteinuria (ICD-10 - R80.8) 09/08/2023 Renal osteodystrophy (ICD-10 - N25.0) 09/08/2023 Secondary hyperparathyroidism, not elsewhere classified (ICD-10 [...] Dhillon , 08/14/2024 02:45:00 PM, [address], [place], [address],
--- OUTSIDE RECORDS SUMMARY | 2024-07-19 12:37 | XMS_ITS ---
Author Organization [facility] Address [address] [address] [place] [address] Care Team Providers Care Hood Maker Name Role Phone Alejo Dimitris Unavailable [phone] Social History Sex Assigned At : Social History Observation Description Sex Assigned At Female Problems Problem Type SNOMED Code ICD Code Onset Dates Problem Status W/U Status Risk Notes Problem Chronic kidney disea se stage 2 (668397432) Chronic kidney disease, stage 2 (mild) (N18.2) Active confirmed Problem Tobacco use (585525287) Tobacco use (Z72.0) Active confirmed Problem Alcohol abuse (33278729) Alcohol abuse (F10.10) Active confirmed Problem Swelling of first metatarsophalangeal joint of hallux (562603796) Bunion of unspecified foot (M21.619) Active confirmed Encounters Encounter Location Date Provider Diagnosis [place] [facility] [address] [place] [address] 06/05/2024 Dimitris Dhillon Chronic kidney disea se, [...] Name:Dimitris Alejo , 08/14/2024 02:45:00 PM, [address] [facility], [facility] [address], [address], Progress Notes * Zarina FAITHaDOB: [birth year] (63 yo F)Acc No.[id number]:06/05/2024 Progress Notes Patient: Ju BURDEN Provider: Nina VILA MD, F.A.C.P, F.A.S.N. :1960 A ge:63 Y S ex:Female Date:06/05/2024 Address:[address] [place] [address] Subjective: * Chief Complaints: * * Medical [...] Treatment: * Billing Information: * Visit Code: 52733 Office Visit, Est Pt., Level 4. * Procedure Codes: * Electronic signature of Saravanan Dhillon MD on 07/19/2024 at 12:37 PM CDT Sign off status: Pending * Provider: Nina VILA MD, F.A.C.P, F.A.S.N. Date: 0 06/05/2024 Generated for Printing/Faxing/eTransmitting on: 0 07/19/2024 12:37 PM CDT
--- OUTSIDE RECORDS SUMMARY | 2024-07-19 12:37 | XMS_ITS ---
Author Organization [facility] Address [address] [place] [address] Care Team Providers Care Flarer Name Role Phone Alejo Dimitris Unavailable [phone] Social History Sex Assigned At : Social History Observation Description Sex Assigned At Female Problems Problem Type SNOMED Code ICD Code Onset Dates Problem Status W/U Status Risk Notes Problem Chronic obstructive pulmonary disease (71458558) Chronic obstructive pulmonary disease, unspecified (J44.9) Active confirmed Problem Vitamin D deficiency (33520271) Vitamin D deficiency, unspecified (E55.9) Active confirmed Problem Cerebrovascular disease (84291235) Cerebrovascular disease, unspecified (I67.9) Active confirmed Encounters Encounter Location Date Provider Diagnosis [place] [facility] [address] [facility] [address] [place] [address] 05/01/2024 Dimitris Dhillon Chronic kidney disea se, [...] Dhillon , 08/14/2024 02:45:00 PM, [address], [place], [address], Progress Notes * Brice FAITHB: [birth year] (63 yo F)Acc No.[id number]:05/01/2024 Progress Notes Patient: Ju BURDEN Provider: Nina VILA MD, F.A.C.P, F.A.S.N. :1960 A ge:63 Y S ex:Female Date:05/01/2024 Address:[facility] [address] [facility] [address] [address] Subjective: * Chief Complaints: * * Medical [...] Treatment: * Billing Information: * Visit Code: 68468 Office Visit, Est Pt., Level 4. * Procedure Codes: * Electronic signature of Saravanan Dhillon MD on 07/19/2024 at 12:36 PM CDT Sign off status: Pending * Provider: Nina VILA MD, Dominga.Barrington.C.P, F.A.S.N. Date: 0 05/01/2024 Generated for Printing/Faxing/eTransmitting on: 0 07/19/2024 12:36 PM CDT
== END 2024-07-19 12:32 | disposition home or self-care (01) ==
PROVIDERS: PCP Internal Medicine; Visit Provider Podiatrist Foot & Ankle Surgery
DX: S92.412A Displaced fracture of proximal phalanx of left great toe, initial encounter for closed fracture (principal); X58.XXXA Exposure to other specified factors, initial encounter
CPT/HCPCS: 73660

== ENCOUNTER 2024-11-14 08:55 | Emergency (ER) | payer MEDICARE, SELFPAY ==
--- OUTSIDE RECORDS SUMMARY | 2024-05-01 10:15 | XMS_ITS ---
Author Organization [facility] Address [address] [place] [address] Care Team Providers Care Stained Glass Painter Name Role Phone Alejo Dimitris Unavailable [phone] Social History Sex Assigned At : Social History Observation Description Sex Assigned At Female Problems Problem Type SNOMED Code ICD Code Onset Dates Problem Status W/U Status Risk Notes Problem Chronic obstructive pulmonary disease (39332230) Chronic obstructive pulmonary disease, unspecified (J44.9) Active confirmed Problem Vitamin D deficiency (59022814) Vitamin D deficiency, unspecified (E55.9) Active confirmed Problem Cerebrovascular disease (65383641) Cerebrovascular disease, unspecified (I67.9) Active confirmed Encounters Encounter Location Date Provider Diagnosis [place] [facility] [address] [facility] [address] [place] [address] 05/01/2024 Dimitris Dhillon Chronic kidney disea se, [...] Next Appt Details Provider Name:Dimitris Dhillon , 12/04/2024 03:15:00 PM, [address], [address], [place], [address], Progress Notes * Brice MONDRAGONB: [birth year] (63 yo F)Acc No.[id number]:05/01/2024 Progress Notes Patient: Ju BURDEN Provider: Nina VILA MD, F.A.C.P, F.A.S.N. :1960 A ge:63 Y S ex:Female Date:05/01/2024 Address:[facility] [address] [facility] [address] [address] Subjective: * Chief Complaints: * * Medical [...] Treatment: * Billing Information: * Visit Code: 86088 Office Visit, Est Pt., Level 4. * Procedure Codes: * Electronic signature of Saravanan Dhillon MD on 11/14/2024 at 09:13 AM CDT Sign off status: Pending * Provider: Nina VILA MD, Dominga.Barrington.C.P, F.A.S.N. Date: 0 05/01/2024 Generated for Printing/Faxing/eTransmitting on: 0 11/14/2024 09:13 AM CDT
--- OUTSIDE RECORDS SUMMARY | 2024-06-05 09:15 | XMS_ITS ---
Author Organization [facility] Address [address] [place] [address] Care Team Providers Care Mill Laborer Name Role Phone Alejo Dimitris Unavailable [phone] Social History Sex Assigned At : Social History Observation Description Sex Assigned At Female Problems Problem Type SNOMED Code ICD Code Onset Dates Problem Status W/U Status Risk Notes Problem Tobacco use (077485907) Tobacco use (Z72.0) Active confirmed Problem Alcohol abuse (81592475) Alcohol abuse (F10.10) Active confirmed Problem Swelling of first metatarsophalangeal joint of hallux (662755899) Bunion of unspecified foot (M21.619) Active confirmed Encounters Encounter Location Date Provider Diagnosis [place] [facility] [address] [facility] [address] [place] [address] 06/05/2024 Dimitris Dhillon Chronic kidney disea se, [...] Name:Dimitris Alejo , 12/04/2024 03:15:00 PM, [address] [facility], [facility] 15, [place], [address], Progress Notes * Zarina MONDRAGONaDOB: [birth year] (63 yo F)Acc No.[id number]:06/05/2024 Progress Notes Patient: Ju BURDEN Provider: Nina VILA MD, F.A.C.P, F.A.S.N. :1960 A ge:63 Y S ex:Female Date:06/05/2024 Address:[facility] [address] [facility] [address] [place], [place] [id number] Subjective: * Chief Complaints: * * Medical [...] Treatment: * Billing Information: * Visit Code: 39940 Office Visit, Est Pt., Level 4. * Procedure Codes: * Electronic signature of Saravanan Dhillon MD on 11/14/2024 at 09:14 AM CDT Sign off status: Pending * Provider: Nina VILA MD, F.A.C.P, F.A.S.N. Date: 0 06/05/2024 Generated for Printing/Faxing/eTransmitting on: 0 11/14/2024 09:14 AM CDT
--- OUTSIDE RECORDS SUMMARY | 2024-08-14 09:45 | XMS_ITS ---
Author Organization [facility] Address [address] [place] [address] Care Team Providers Care Clerical Grader Name Role Phone Alejo Dimitris Unavailable [phone] Social History Sex Assigned At : Social History Observation Description Sex Assigned At Female Problems Problem Type SNOMED Code ICD Code Onset Dates Problem Status W/U Status Risk Notes Problem Chronic kidney disease stage 3A (disorder) (717845167) Chronic kidney disease, stage 3a (N18.31) Active confirmed Encounters Encounter Location Date Provider Diagnosis [place] [facility] [address] [facility] [address] [place] [address] 08/14/2024 Dimitris Dhillon Chronic kidney disea se, [...] Name:Dimitris Dhillon , 12/04/2024 03:15:00 PM, [address] [facility] [address], [address], Progress Notes * Zarina MONDRAGONaDOB: [birth year] (63 yo F)Acc No.[id number]:08/14/2024 Progress Notes Patient: Ju BURDEN Provider: Nina VILA MD, F.A.C.P, F.A.S.N. :1960 A ge:63 Y S ex:Female Date:08/14/2024 Address:[address] Subjective: * Chief Complaints: * * Medical [...] Treatment: * Billing Information: * Visit Code: 81245 Office Visit, Est Pt., Level 4. * Procedure Codes: * Electronic signature of Saravanan Dhillon MD on 11/14/2024 at 09:13 AM CDT Sign off status: Pending * Provider: Nina VILA MD, F.A.C.P, F.A.S.N. Date: 0 08/14/2024 Generated for Printing/Faxing/eTransmitting on: 0 11/14/2024 09:13 AM CDT
--- OUTSIDE RECORDS SUMMARY | 2024-10-02 15:45 | XMS_ITS ---
Author Organization [facility] Address 1400 [facility] [address] [facility] [address] [place] [address] Care Team Providers Care Police Worker Name Role Phone Glendy Dhillonerjit Unavailable [phone] Social History Sex Assigned At : Social History Observation Description Sex Assigned At Female Encounters Encounter Location Date Provider Diagnosis [place] [facility] 2043 [facility] 15 [place] [address] 10/02/2024 Dimitris Dhillon Plan Of Treatment Next Appt Details Provider Name:Dimitris Dhillon , 12/04/2024 03:15:00 PM, 2043 [facility], [facility] 15, [place], [address], Progress Notes * Zarina MONDRAGONaDOB: [birth year] (63 yo F)Acc No.[id number]:10/02/2024 Progress Notes Patient: Ju BURDEN Provider: Nina VILA MD, Dominga.Barrington.C.P, F.A.S.N. :1960 A ge:63 Y S ex:Female Date:10/02/2024 Address:[address] Subjective: * Chief Complaints: * * Medical History: Objective: * Vitals: Assessment: Plan: * Treatment: * Billing Information: * Visit Code: * Procedure Codes: * Electronic signature of Saravanan Dhillon MD on 11/14/2024 at 09:13 AM CDT Sign off status: Pending * Provider: Nina VILA MD, Dominga.Barrington.C.P, F.A.S.N. Date: 0 10/02/2024 Generated for Printing/Faxing/eTransmitting on: 0 11/14/2024 09:13 AM CDT
--- OUTSIDE RECORDS SUMMARY | 2024-10-09 10:30 | XMS_ITS ---
Author Organization [facility] Address [address] [place] [address] Care Team Providers Care Rollout Manager Name Role Phone Alejo Dimitris Unavailable [phone] Social History Sex Assigned At : Social History Observation Description Sex Assigned At Female Problems Problem Type SNOMED Code ICD Code Onset Dates Problem Status W/U Status Risk Notes Problem Metabolic disorder (76944419) Metabolic disorder, unspecified (E88.9) Active confirmed Problem Diabetic renal disease (465117225) Type 2 diabetes mellitus with diabetic chronic kidney disease (E11.22) Active confirmed Encounters Encounter Location Date Provider Diagnosis [facility] [address] [facility] [address] [place] [address] 10/09/2024 Dimitris Dhillon Chronic kidney disea se, [...] Name:Dimitris Dhillon , 12/04/2024 03:15:00 PM, [address] [facility] [address], [address], Progress Notes * Zarina MONDRAGONaDOB: [birth year] (63 yo F)Acc No.[id number]:10/09/2024 Progress Notes Patient: Ju BURDEN Provider: Nina VILA MD, F.A.C.P, F.A.S.N. :1960 A ge:63 Y S ex:Female Date:10/09/2024 Address:[address] [place], [place] [id number] Subjective: * Chief Complaints: Objective: Assessment: * [...] Plan: * Billing Information: * Visit Code: 27386 Office Visit, Est Pt., Level 4. * Procedure Codes: * Electronic signature of Saravanan Dhillon MD on 11/14/2024 at 09:13 AM CDT Sign off status: Pending * Provider: Nina VILA MD, F.A.C.P, F.A.S.N. Date: 0 10/09/2024 Generated for Printing/Faxing/eTransmitting on: 0 11/14/2024 09:13 AM CDT
--- NOTE | 2024-11-14 08:56 | ED.SKABFB ---
HPI - Skin/Abscess/Foreign Bdy General Chief complaint: Skin/Abscess/Foreign Body Stated complaint: Skin Time Seen by Provider: 11/14/24 08:56 Source: patient Mode of arrival: ambulatory Limitations: no limitations History of Present Illness HPI narrative: Ju is a 63-year-old female patient presenting to the clinic today with complaints of facial swelling x2 days. Swelling is over her cheeks and eyes. She reports the area is very itchy. Denies any environmental changes which include soaps, shampoos, lotions, detergents, medications, or foods, she has not been outside in the [place] or around any of [place]. She denies any difficulty breathing, swallowing, chest pain, or shortness of breath. No tongue swelling. No rashes. No URI symptoms. Related Data Home Medications ?Medication ?Instructions ?Recorded ?Confirmed ?Last Taken ?Type allopurinol 100 mg tablet 100 mg PO DAILY 05/19/23 03/18/24 12/12/23 History atorvastatin 40 mg tablet 80 mg PO DAILY 05/19/23 03/18/24 12/12/23 History dapagliflozin propanediol 10 mg 10 mg PO DAILY 05/19/23 03/18/24 12/12/23 History tablet (Farxiga) fenofibrate nanocrystallized 145 145 mg PO DAILY 05/19/23 03/18/24 12/12/23 History mg tablet meloxicam 15 mg tablet 15 mg PO DAILY 05/19/23 03/18/24 12/12/23 History Allergies Allergy/AdvReac Type Severity Reaction Status Date / Time Penicillins Allergy Rash Verified 11/14/24 09:06 Review of Systems Review of Systems: Pertinent positives per HPI. Patient denies any fever, chills, rash, headache, visual changes, dizziness, cough, runny nose, sore throat, shortness of breath, chest pain, palpitations, nausea, vomiting, diarrhea, constipation, abdominal pain, or any urinary issues. [facility] Past Medical History Medical History (Updated 11/14/24 @ 09:24 by Neftaly Sky APRN) Type 2 diabetes mellitus Transient ischemic attack Tobacco abuse Avulsion fracture of calcaneus Hyperlipidemia Nodule of right lung Benign essential hypertension Surgical History Surgical History History of lateral meniscus repair of left knee History of hysterectomy History of ear surgery History of lung surgery right lung nodule removed Family History Family History Father Hypertension Acute myocardial infarction Mother Family history of Alzheimer's disease Social History Social History Social History: Surrogate medical decision maker: Danial Mondragon, spouse. Code status: Full code. Smoking packs per day: 1 Smoking cigarettes per day: 20.0 Years smoked: 26 Smoking pack-years: 26.00 Smoking status: Current some day smoker Tobacco type: cigarettes Second hand tobacco smoke exposure: Yes Alcohol intake: current Alcohol use details: occasional alcohol use in moderation Substance use: never Substance use type: does not use Do You Feel Safe in your Home?: No Lack of Transportation: No Lack of Food: Never True Current Housing: I Have Housing Concerned About Future Housing: No Difficulty Paying Gas/Electric Bills: No Difficulty Paying for Meds: No Currently Unemployed: No Education: Decline to Answer Difficulty w/ Childcare or Family Care: No Living arrangements: with family Occupation/Education: retired Spiritual care concerns: No Comments At the time of my signature, I reviewed and agree with the nursing past medical, surgical, social, and family history. There is no relevant family history pertinent to the patient complaint. Exam Narrative: General: Well-developed, well nourished, in no apparent distress Head: Normocephalic,atraumatic, patient has edema over the cheeks, forehead, orbits, and eyelids, no redness, erythema, or induration, no drainage Eyes: Pupils equally round and reactive to light bilaterally, EOM intact, sclera and conjunctive clear, no discharge, lids normal Ears: TMs intact and clear, ear canals clear, no drainage, grossly hearing normal. Nose: Nares patent, no discharge, no inflammation, no sinus tenderness. Mouth: Oropharynx without lesions or masses, good dentition, MMM. Neck: Supple, trachea midline, no enlargement of anterior or posterior cervical nodes, no thyroid masses or goiter palpable. Cardio: Regular rate and rhythm, s1 and s2 normal, no murmur appreciated. Resp: Clear to auscultation bilaterally anteriorly and posteriorly, no rhonchi, rales, wheezing or rubs Course Course Emergency Course: Portions of this record may have been created with voice recognition software. Level of Care: Express Care Visit Vital Signs Vital signs: Vital Signs Temperature 36.8 C 11/14/24 09:03 Pulse Rate 67 11/14/24 09:03 Respiratory Rate 18 11/14/24 09:03 Blood Pressure 137/62 11/14/24 09:03 Pulse Oximetry 99 11/14/24 09:03 Oxygen Delivery Room Air 11/14/24 09:03 Temperature 36.8 C 11/14/24 09:03 Pulse Rate 67 11/14/24 09:03 Respiratory Rate 18 11/14/24 09:03 Blood Pressure 137/62 11/14/24 09:03 Pulse Oximetry 99 11/14/24 09:03 Oxygen Delivery Room Air 11/14/24 09:03 Vital signs reviewed MDM - Skin/Abscess/Foreign Bdy MDM Narrative Medical decision making narrative: At the time of visit patient is resting comfortably on the exam table. Patient appears to be nontoxic. complaints of facial swelling x2 days. Swelling is over her cheeks and eyes. She reports the area is very itchy. Denies any environmental changes which include soaps, shampoos, lotions, detergents, medications, or foods, she has not been outside in the [place] or around any of [place]. She denies any difficulty breathing, swallowing, chest pain, or shortness of breath. No tongue swelling. No rashes. No URI symptoms. Patient has not taken any medications for symptoms. Decadron 10 mg IM and Benadryl 50 mg p.o. ordered. On exam patient has facial edema to the bilateral cheeks, periorbits, eye lids, and forehead. Nontender to palpation, no induration, mild erythema, no drainage-itchy Medications: Decadron 10 mg IM and Benadryl 50 mg p.o. given in the clinic today Plan: I suspect patient likely has angioedema-patient is taking amlodipine and lisinopril that may potentially be the cause-less likely due to allergic reaction. Prescription for 10 day taper dose of prednisone was sent to the pharmacy. Instructed patient that she must go the emergency room immediately if she develops lip swelling, tongue swelling, difficulty swallowing, difficulty breathing, shortness breath, or chest pain and she voiced understanding. Supportive measures were discussed with the patient and they voiced understanding discharge instructions and agrees to treatment plan. Return precautions reviewed. Differential Diagnosis Differential diagnosis: Likely abscess of skin or subcutaneous tissue, urticaria, herpes zoster, allergic reaction to drug, cellulitis, eczema, insect bites, contact dermatitis and other (Angioedema, allergic reaction) Discharge Plan Discharge Clinical Impression: Angioedema Qualifiers: Encounter type: initial encounter Qualified Code(s): T78.3XXA - Angioneurotic edema, initial encounter Patient Disposition: Home Condition: Stable Instructions: Antibiotic Form, Angioedema (ED) Additional Instructions: Decadron 10 mg IM given in the clinic today. Benadryl 50 mg p.o. given in the clinic today. Take prednisone taper dose as directed-this medication will increase your blood sugar-keep a tight control on your blood sugar. May take Benadryl 25 mg to 50 mg every 6 hours as needed for swelling May take 10 mg of Zyrtec or Claritin daily Increase fluids and stay well hydrated May take Tylenol/Motrin as needed for pain as per bottle directions Hold taking your blood pressure medications- lisinopril and your amlodipine until you speak with your primary care provider in regards to your angioedema Call your PCP today to schedule a follow-up appointment Go to the emergency room immediately if your symptoms worsen-increase in swelling, develop tongue or lip swelling, difficulty swallowing, difficulty breathing, chest pain, or shortness of breath. Patient Language: Maltese Prescriptions: New prednisone 10 mg tablet 10 mg PO DAILY Qty: 30 0RF Rx Instructions: 60mg po daily on day 1, 40mg po daily on days 2-4, 30mg po daily on days 5-6, 20mg po daily on days 7-8, 10mg po daily on days 9-10 No Action atorvastatin 40 mg tablet 80 mg PO DAILY allopurinol 100 mg tablet 100 mg PO DAILY meloxicam 15 mg tablet 15 mg PO DAILY fenofibrate nanocrystallized 145 mg tablet 145 mg PO DAILY dapagliflozin propanediol [Farxiga] 10 mg tablet 10 mg PO DAILY tramadol 50 mg tablet 50 mg PO Q6H PRN (Reason: pain) Qty: 8 0RF amlodipine 5 mg tablet 5 mg PO DAILY Qty: 30 0RF Rx Instructions: Last fill until seen lisinopril 40 mg tablet See Rx Instructions .ROUTE .COMPLEX Qty: 90 0RF Dose Instruction: Take 1 tablet by mouth once daily Rx Instructions: Take 1 tablet by mouth once daily Follow-up/Referrals: Grant,MD Caitlyn [Primary Care Provider, Unknown] Time of Disposition: 09:33 Quality NIHSS Nursing Documentation ED NIHSS nursing documentation: reviewed/agree
[2024-11-14 09:03] VITALS: BP 137/62; PULSE 67; RESP 18; TEMP 36.8; O2SAT 99
--- OUTSIDE RECORDS SUMMARY | 2024-11-14 09:13 | XMS_ITS | Patient Health Record ---
Author Organization [facility] Address [address] [facility] [address] [place] [address] Care Team Providers Care Farmer And Grazier Name Role Phone Dimitris Dhillon Unavailable [phone] Reason For Referral No Information Medications Medication SIG (Take, Route, Frequency, Duration) Notes Start Date End Date Status Varenicline Tartrate (Starter) 0.5 MG X 11 & 1 MG X 42 as directed Orally 10/20/2023 Active Allopurinol 100 MG Take 1 tablet by rodger th once daily; Duration: 90 days Active Furosemide 20 MG Take 1 tablet by rodger th once daily; Duration: 90 Active Ciprofloxacin HCl 250 MG TAKE 1 TABLET B Y MOUTH EVERY 12 HOURS FOR 10 DAYS; Duration: 10 Active Calcitriol 0.25 MCG 1 capsule Orally Onc e a day; Duration: 90 days 08/09/2025 Active Ergocalciferol 1.25 MG (59923 UT) 1 capsule Orally Once a week; Duration: 30 days 08/14/2024 12/12/2024 Active Social History Sex Assigned At : Social History Observation Description Sex Assigned At Female Problems Problem Type SNOMED Code ICD Code Onset Dates Problem Status W/U Status Risk Notes Problem Diabetic renal disease (907547702) Type 2 diabetes mellitus with diabetic chronic kidney disease (E11.22) Active confirmed Problem Secondary hyperparathyroidism (06463011) Secondary hyperparathyroidi sm, not elsewhere classified (E21.1) Active confirmed Problem Vitamin D deficiency (77466337) Vitamin D deficiency, unspecified (E55.9) Active confirmed Problem Metabolic disorder (99730152) Metabolic disorder, unspecified (E88.9) Active confirmed Problem Cerebrovascular disease (89493997) Cerebrovascular disease, unspecified (I67.9) Active confirmed Problem Chronic obstructive pulmonary disease (57818590) Chronic obstructive pulmonary disease, unspecified (J44.9) Active confirmed Problem Renal osteodystrophy (30730984) Renal osteodystrophy (N25.0) Active confirmed Problem Proteinuria (21800097) Other proteinuria (R80.8) Active confirmed Problem Tobacco use (240308683) Tobacco use (Z72.0) Active confirmed Problem Essential hypertension (61915328) Essential hypertension (I10) Active confirmed Problem Alcohol abuse (02597030) Alcohol abuse (F10.10) Active confirmed Problem Swelling of first metatarsophalangeal joint of hallux (654198767) Bunion of unspecified foot (M21.619) Active confirmed Problem Chronic kidney disease stage 3A (disorder) (170915000) Chronic kidney disease, stage 3a (N18.31) Active confirmed Encounters Encounter Location Date Provider Diagnosis [facility] [address] [place] [address] 12/22/2023 Dimitris Dhillon Essential hypertensi on I10 ; Chronic kidney disease, stage 3 unspecified N18.30 ; Other proteinuria R80.8 ; Renal osteodystrophy N25.0 ; Secondary hyperparathyroidism, not elsewhere classified E21.1 and Chronic kidney disease, stage 2 (mild) N18.2 [facility] [address] [place] [address] 05/01/2024 Dimitris Dhillon Chronic kidney disea se, stage 3 unspecified N18.30 ; Essential hypertension I10 ; Other proteinuria R80.8 ; Renal osteodystrophy N25.0 ; Secondary hyperparathyroidism, not elsewhere classified E21.1 ; Chronic obstructive pulmonary disease, unspecified J44.9 ; Vitamin D deficiency, unspecified E55.9 and Cerebrovascular disease, unspecified I67.9 [facility] [address] [place] [address] 06/05/2024 Dimitris Dhillon Chronic kidney disea se, stage 2 (mild) N18.2 ; Essential hypertension I10 ; Other proteinuria R80.8 ; Renal osteodystrophy N25.0 ; Secondary hyperparathyroidism, not elsewhere classified E21.1 ; Chronic obstructive pulmonary disease, unspecified J44.9 ; Vitamin D deficiency, unspecified E55.9 ; Cerebrovascular disease, unspecified I67.9 ; Tobacco use Z72.0 ; Alcohol abuse F10.10 and Bunion of unspecified foot M21.619 [facility] [address] [place] [address] 08/14/2024 Dimitris Dhillon Chronic kidney disea se, stage 3a N18.31 ; Essential hypertension I10 ; Other proteinuria R80.8 ; Renal osteodystrophy N25.0 ; Secondary hyperparathyroidism, not elsewhere classified E21.1 ; Chronic obstructive pulmonary disease, unspecified J44.9 ; Vitamin D deficiency, unspecified E55.9 ; Cerebrovascular disease, unspecified I67.9 ; Tobacco use Z72.0 ; Alcohol abuse F10.10 and Bunion of unspecified foot M21.619 [facility] [address] [place] [address] 10/09/2024 Dimitris Dhillon Chronic kidney disea se, [...] chronic kidney disease E11.22 and Hypokalemia E87.6 [facility] [address] [place] [address] 04/17/2024 Dimitris Dhillon [facility] [address] [place] [address] 04/17/2024 Dimitris Dhillon [facility] [address] [place] [address] 04/17/2024 Dimitris Dhillon [facility] [address] [place] [address] 06/05/2024 Dimitris Dhillon [facility] [address] [place] [address] 08/14/2024 Dimitris Dhillon [facility] [place] [address] [place] [address] 12/25/2023 Dimitris Dhillon Assessments Encounter Date Diagnosis (ICD Code) Assessment Notes Treatment Notes Treatment Clinical Notes Section Notes 12/22/2023 Essential hypertension (ICD-10 - I10) 12/22/2023 Chronic kidney disease, stage 3 unspecified (ICD-10 - N18.30) 05/01/2024 Chronic kidney disease, stage 3 unspecified (ICD-10 - N18.30) 06/05/2024 Chronic kidney disease, stage 2 (mild) (ICD-10 - N18.2) 08/14/2024 Chronic kidney disease, stage 3a (ICD-10 - N18.31) 10/09/2024 Essential hypertension (ICD-10 - I10) 10/09/2024 Chronic kidney disease, stage 3a (ICD-10 - N18.31) 10/09/2024 Other proteinuria (ICD-10 - R80.8) 08/14/2024 Essential hypertension (ICD-10 - I10) 05/01/2024 Essential hypertension (ICD-10 - I10) 06/05/2024 Essential hypertension (ICD-10 - I10) 12/22/2023 Other proteinuria (ICD-10 - R80.8) 12/22/2023 Renal osteodystrophy (ICD-10 - N25.0) 06/05/2024 Other proteinuria (ICD-10 - R80.8) 05/01/2024 Other proteinuria (ICD-10 - R80.8) 08/14/2024 Other proteinuria (ICD-10 - R80.8) 10/09/2024 Renal osteodystrophy (ICD-10 - N25.0) 10/09/2024 Secondary hyperparathyroidism, not elsewhere classified (ICD-10 - E21.1) 08/14/2024 Renal osteodystrophy (ICD-10 - N25.0) 06/05/2024 Renal osteodystrophy (ICD-10 - N25.0) 05/01/2024 Renal osteodystrophy (ICD-10 - N25.0) 12/22/2023 Secondary hyperparathyroidism, not elsewhere classified (ICD-10 - E21.1) 12/22/2023 Chronic kidney disease, stage 2 (mild) (ICD-10 - N18.2) 05/01/2024 Secondary hyperparathyroidism, not elsewhere classified (ICD-10 - E21.1) 06/05/2024 Secondary hyperparathyroidism, not elsewhere classified (ICD-10 - E21.1) 08/14/2024 Secondary hyperparathyroidism, not elsewhere classified (ICD-10 - E21.1) 10/09/2024 Chronic obstructive pulmonary disease, unspecified (ICD-10 - J44.9) 10/09/2024 Vitamin D deficiency, unspecified (ICD-10 - E55.9) 06/05/2024 Chronic obstructive pulmonary disease, unspecified (ICD-10 - J44.9) 08/14/2024 Chronic obstructive pulmonary disease, unspecified (ICD-10 - J44.9) 05/01/2024 Chronic obstructive pulmonary disease, unspecified (ICD-10 - J44.9) 05/01/2024 Vitamin D deficiency, unspecified (ICD-10 - E55.9) 08/14/2024 Vitamin D deficiency, unspecified (ICD-10 - E55.9) 06/05/2024 Vitamin D deficiency, unspecified (ICD-10 - E55.9) 10/09/2024 Cerebrovascular disease, unspecified (ICD-10 - I67.9) 10/09/2024 Tobacco use (ICD-10 - Z72.0) 06/05/2024 Cerebrovascular disease, unspecified (ICD-10 - I67.9) 08/14/2024 Cerebrovascular disease, unspecified (ICD-10 - I67.9) 05/01/2024 Cerebrovascular disease, unspecified (ICD-10 - I67.9) 06/05/2024 Tobacco use (ICD-10 - Z72.0) 10/09/2024 Alcohol abuse (ICD-10 - F10.10) 08/14/2024 Tobacco use (ICD-10 - Z72.0) 08/14/2024 Alcohol abuse (ICD-10 - F10.10) 10/09/2024 Bunion of unspecified foot (ICD-10 - M21.619) 06/05/2024 Alcohol abuse (ICD-10 - F10.10) 06/05/2024 Bunion of unspecified foot (ICD-10 - M21.619) 10/09/2024 Metabolic disorder, unspecified (ICD-10 - E88.9) 08/14/2024 Bunion of unspecified foot (ICD-10 - M21.619) 10/09/2024 Type 2 diabetes mellitus with diabetic chronic kidney disease (ICD-10 - E11.22) 10/09/2024 Hypokalemia (ICD-10 - E87.6) Plan Of Treatment Next Appt Details Provider Name:Dimitris Dhillon , 12/04/2024 03:15:00 PM, [address] [facility] [address], [address],
--- OUTSIDE RECORDS SUMMARY | 2024-11-14 09:14 | XMS_ITS | Clinical Summary ---
Author Organization [facility] Krystle rollins Jorge Address [address] [place] [address] Care Team Providers Care Certified Retinal Angiographer Name Role Phone Caitlyn Burns MD Primary [...] Encounters Date Type Department Care Team Description 11/06/2024 External Device Data [facility] ABSTRACTION Provider, Abstract 11/05/2024 External Device Data [facility] ABSTRACTION Provider, Abstract 11/05/2024 External Device Data [facility] ABSTRACTION Provider, Abstract 09/24/2024 External Device Data [facility] ABSTRACTION Provider, Abstract [...] 11:28 AM CDT Height 157.5 cm (5' 2) 12/01/2021 3:28 PM CDT Body Mass Index 26.89 12/01/2021 3:28 PM CDT Plan of Treatment Upcoming Encounters Date Type Department Care Team (Late st Contact Info) Description 11/27/2024 11:45 AM CDT Office Visit [facility] Oncology and Hematology [facility] [address] [facility] [address] [place] [address] Howie Hernandez MD [address] [facility] [address] [place] [address] Health Maintenance Due Date Last [...] years 1-dose series) 2020 INFLUENZA VACCINE (#1) 2024 Insurance [facility] PPO SNP [facility] Care Teams Certified Retinal Angiographer Relationship Specialty Start Date End Date Caitlyn Burns MD PCP - General Internal Medicine 07/22/21
--- OUTSIDE RECORDS SUMMARY | 2024-11-14 09:14 | XMS_ITS | Data Portability ---
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 Name Role Phone YOGI BURNS Primary Care Provider GINAVASQUEZBarrington YOGI Referring Provider ZOË DOW Plaster Model [employer] Mold Maker ANNE LOREDO Worm Farm Laborer JANINA SAMUEL Orthopedic Surgeon LUZ KINGSTON Orthopedic Surgeon ZAMZAM YOGI Primary Care Provider GERRY MILIAN General Surgeon FREDRICK WYNN Superintendent [employer] JULIA ROBERTSON Hand Surgeon DIMITRIS VERA Dielectric Press Operator AP HERNANDEZ Hematology/Oncology [phone] DYANA MARIE Executive Chairman Of The Board Assessment Encounter Date Assessment Date Assessment LastModified by Organization Details LastModified Time 07/01/2024 07/01/2024 This note is dictated and transcribed by [employer]. Search Engine Optimizer variances may occur. Despite proofreading, typographical errors may occur. Occasional wrong-word or 'allwp-x-elgg' substitutions may have occurred due to the inherent limitations of voice recording. Read the chart carefully and recognize, using context, where substitutions have occurred. Not available 07/01/2024 14:52:22 07/18/2024 07/18/2024 This note is dictated and transcribed by [employer] Software. Search Engine Optimizer variances may occur. Despite proofreading, typographical errors may occur. Occasional wrong-word or 'zlffl-g-[id number]' substitutions may have occurred due to the inherent limitations of voice recording. Read the chart carefully and recognize, using context, where substitutions have occurred. Not available 07/22/2024 09:37:39 09/04/2024 09/04/2024 04/18/2022: A1C 5.6 TSH/FT4/VIT D/CBC: WNL TG 193 CMP: WNL Urine micro alb 16.8 07/15/2022: A1C 6.0 Gluc 112, GFR 54 TG 219, LDL 114 WBC 11.0 10/03/2022: A1C 5.8 11/16/2022: WBC 11.6, MCV 101.5, PLT 416 Gluc 156, Cr 1.39, GFR 39, ALT 69/AST 75 TG 298, LDL 100 02/23/2023: A1C 5.8 Gluc 128, Cr 1.34, GFR 40, AST 38 Chol 210, TG 195, LDL 132 MCV 100.5 Addendum: 06/21/2023: Case sent A1C 5.6 Ast 39 TG 269 Urine micro alb 19.1 WBC 17.2H, MCV 99.8 11/21/2023: Dr Hernandez WBC 10.6 01/09/2024: A1C 5.9 Urine micro alb 27.9 GFR 54 TG 248 MCV 99.7 03/13/2024: A1C 5.6 B12 221L FT4 0.73L AST 40H, Alb 4.8H TG 234 WBC 13.0H, MCV 100.7 05/24/2024: A1C 5.7 Folate 4.2L GFR 56 TG 301 [email or web address] Not available 09/04/2024 14:25:58 10/28/2024 10/28/2024 04/18/2022: A1C 5.6 TSH/FT4/VIT D/CBC: WNL TG 193 CMP: WNL Urine micro alb 16.8 07/15/2022: A1C 6.0 Gluc 112, GFR 54 TG 219, LDL 114 WBC 11.0 10/03/2022: A1C 5.8 11/16/2022: WBC 11.6, MCV 101.5, PLT 416 Gluc 156, Cr 1.39, GFR 39, ALT 69/AST 75 TG 298, LDL 100 02/23/2023: A1C 5.8 Gluc 128, Cr 1.34, GFR 40, AST 38 Chol 210, TG 195, LDL 132 MCV 100.5 Addendum: 06/21/2023: Case sent A1C 5.6 Ast 39 TG 269 Urine micro alb 19.1 WBC 17.2H, MCV 99.8 11/21/2023: Dr Hernandez WBC 10.6 01/09/2024: A1C 5.9 Urine micro alb 27.9 GFR 54 TG 248 MCV 99.7 03/13/2024: A1C 5.6 B12 221L FT4 0.73L AST 40H, Alb 4.8H TG 234 WBC 13.0H, MCV 100.7 05/24/2024: A1C 5.7 Folate 4.2L GFR 56 TG 301 10/23/2024: A1C 5.7 Folate: 4.1L GFR 50, ALT/AST 36/34 TG 187, LDL 102 [email or web address] Not available 10/28/2024 15:06:11 Plan of Treatment Reminders Order Date Submit Date Provider Last Modified By Organization Details Last Modified Time Details Appointments Follow Up 15 2024 11:00A Aguilar benavides MD Not available Not available Not available Lab vitamin B12 + folate, serum or blood 2024 025 Not available 10/29/2024 11:06:44 HbA1c (hemoglob in A1c), blood 2024 025 Not available 10/29/2024 11:06:44 microalbu min, urine 2024 025 [facility] - Outpatient Lab, [address] [place], [address], 10/29/2024 11:06:44 lipid panel, serum 2024 025 Not available 10/29/2024 11:06:43 CMP, serum or plasma 2024 025 Not available 10/29/2024 11:06:43 CBC w/ auto diff 2024 025 Not available 10/29/2024 11:06:43 TSH + free T4, serum 2024 025 Not available 10/29/2024 11:06:44 vitamin B12 + folate, serum or blood 2024 025 YEFRI Not available 10/24/2024 11:08:57 HbA1c (hemoglob in A1c), blood 2024 025 YEFRI Not available 10/24/2024 11:08:58 microalbu min, urine [email or web address] - Outpatient Lab, [address] [facility], [place], [address], 09/04/2024 17:27:28 lipid panel, serum 2024 025 YEFRI Not available 10/24/2024 11:08:55 CMP, serum or plasma 2024 025 YEFRI Not available 10/24/2024 11:08:56 CBC w/ auto diff 2024 025 YEFRI Not available 10/24/2024 11:08:56 TSH + free T4, serum 2024 025 YEFRI Not available 10/24/2024 11:08:55 Referral podiatris t referral - Please call patient to schedule an appointme nt. Thank you. 2024 025 YEFRI Loredo DPM, [address] [facility], [address], [place], [address], 10/29/2024 12:49:31 nephrolog ist referral - Please call patient to schedule an appointme nt. Thank you. 2024 025 Evan-Resub elissa-Revert Dimitris Vera MD (Nephrology, [address], [address], [place], [address], 10/29/2024 14:20:39 hand surgeon referral - Please call patient to schedule an appointme nt. Thank you. 2024 025 SAMEER Robertson MD, [address] [facility] [address], [address], [place], [address], 10/29/2024 13:00:11 podiatris t referral - Please call patient to schedule an appointme nt. Thank you. 2024 025 YEFRI Loredo DPM, [address], [address], [place], [address], 09/04/2024 16:00:18 nephrolog ist referral - Please call patient to schedule an appointme nt. Thank you. 2024 025 SAMEER Vera MD (Nephrology, [address], [address], [place], [address], 09/16/2024 10:06:47 hand surgeon referral - Please call patient to schedule an appointme nt. Thank you. 2024 025 SAMEER Robertson MD, [address] [facility] [address], [address], [place], [address], 09/04/2024 15:36:31 hepatolog ist referral - Please call patient to schedule an appointme nt. Thank you. 2024 025 SAMEER [facility], [address] [place], [address], 09/11/2024 12:52:30 Procedures cerumen removal (PROC) 2024 025 [email or web address] In-Office Order, Internal Use Only DO Not Attach Compendium DO Not Attach Compendium, Do Not Delete/merge, [id number] 09/24/2024 08:56:42 Surgeries None recorded. Imaging US, liver - Please call patient to schedule. 2024 025 SAMEER [facility] Central Scheduling, [address] [facility], [place], [address], 10/28/2024 16:31:51 LDCT, chest, for lung cancer screening - Please call patient to schedule. [address] Central Scheduling, [address] [facility] [address], [place], [address], 10/28/2024 16:23:51 LDCT, chest, for lung cancer screening - Please call patient to schedule. 2024 025 [email or web address] [facility] (Imaging), [address] [facility] [address], [place], [address], 09/04/2024 15:06:39 Medication Orders folic acid 1 mg tablet 2024 025 [facility] [place], [address], 10/28/2024 15:42:36 thiamine HCl (vitamin B1) 100 mg tablet 2024 025 [facility], [address] [place], [address], 10/28/2024 15:42:35 Zithromax Z-Imer 250 mg tablet 2024 025 [facility] [address], [address] [place], [address], 10/28/2024 15:42:38 Ciprodex 0.3 %-0.1 % ear drops,reuben pension 2024 025 [facility] [address], [address] [place], [address], 09/19/2024 12:02:46 Farxiga 10 mg tablet 2024 025 [facility] [address], [address] [place], [address], 09/04/2024 14:32:56 fenofibra te nanocryst allized 145 mg tablet 2024 025 YEFRI [facility] [address], [address] [place], [address], 09/04/2024 14:32:51 doxycycli ne hyclate 100 mg capsule 2024 025 [email or web address] [facility] [address] [place], [address], 09/18/2024 14:58:01 Patient TargetsNo targets recorded. Patient InstructionsNo instructions recorded. Reason for Referral Worm Farm Laborer Referral for Pred iabetes Please call patient to schedule an appointment. Thank you. Referring Physician: Yogi Burns Internal Medicine, Encounter Date: 09/04/2024 Dielectric Press Operator Referral for Pr oteinuria Please call patient to schedule an appointment. Thank you. Referring Physician: Yogi Burns Internal Medicine, Encounter Date: 09/04/2024 Offset Printer Referral for Li carole enzymes level above reference range Please call patient to schedule an appointment. Thank you. Referring Physician: Yogi Burns Internal Medicine, Encounter Date: 09/04/2024 Hand Surgeon Referral for Pa in of bilateral hands Please call patient to schedule an appointment. Thank you. Referring Physician: Yogi Burns Internal Medicine, Encounter Date: 09/04/2024 Worm Farm Laborer Referral for Pred iabetes Please call patient to schedule an appointment. Thank you. Referring Physician: Yogi Burns Internal Medicine, Encounter Date: 10/28/2024 Dielectric Press Operator Referral for Pr oteinuria Please call patient to schedule an appointment. Thank you. Referring Physician: Yogi Burns Internal Medicine, Encounter Date: 10/28/2024 Hand Surgeon Referral for Pa in of bilateral hands Please call patient to schedule an appointment. Thank you. Referring Physician: Marylou Fernandez Medicine, Encounter Date: 10/28/2024 Results Created Date Observation Date Name Description Value Unit Range Abnormal Flag Note LastModifiedBy Organization Detail LastModifiedTime 06/07/19 XR, foot, 3 or more view No observ ation record ed. [email or web address] [facility] [place] [address] [facility] [address], [place], [address], 06/06/2024 11:51:23 07/09/19 25 07/08/2024 imagi ng/di agnos tic resul t No observ ation record ed. [address], [place], [address], 07/08/2024 13:42:27 07/10/19 25 07/08/2024 imagi ng/di agnos tic resul t No observ ation record ed. [facility] ([facility]) [facility] [address], [place], [address], 07/09/2024 09:48:44 07/20/19 25 07/08/2024 imagi ng/di agnos tic resul t No observ ation record ed. [address], [place], [address], 07/19/2024 08:36:32 07/21/19 25 07/19/2024 imagi ng/di agnos tic resul t No observ ation record ed. [address], [place], [address], 07/20/2024 00:31:39 07/21/19 25 07/19/2024 XR, foot, 3 or more view No observ ation record ed. [email or web address] [place] [id number] [facility] [address], [place], [address], 07/22/2024 09:53:22 Result Notes None recorded. Problems Name Problem SNOMED Code Status Onset Date Resolution Date Notes Provider Name and Address Organization Details Recorded Time Osteoarthr itis 473924683 Active 2021 Not Available [facility] 3 15:48:22 Vitamin D deficiency 04132058 Active 2021 Not Available [employer] 3 15:48:22 Hypertrigl yceridemia 809564936 Active 2021 Not Available [facility] 3 15:48:22 Essential hypertensi on 69163952 Active 2022 Not Available [facility] 3 15:48:22 Cigarette smoker 08815340 Active 2022 Not Available [facility] 3 15:48:22 Gout 14588290 Active 2022 Not Available [facility] 3 15:48:22 Diabetes mellitus 50628952 Active 2022 Not Available [facility] 3 15:48:22 Cerebrovas cular accident 735279045 Active 2022 Not Available [facility] 3 15:48:22 Non-alcoho lic fatty liver 653826437 Active 2022 Not Available [facility] 3 15:48:22 Vitamin B12 deficiency (non anemic) 63942587 Active 2023 Erika Andersen MA null, [facility] [employer] [facility] 4 12:09:13 Peripheral arterial occlusive disease 251291375 Active 2023 Anne Loredo DPM [address], [address], [place], [address] , [facility] 4 14:44:22 Basal cell carcinoma of face 592124014 Active 2023 Erika Andersen MA null, [facility] 4 10:19:31 Dyspnea on exertion 65619356 Active 2023 Zoë Dow MD [address], [address], [place], [address] , [facility] 4 12:41:41 Smoker 77423623 Active 2023 Zoë Dow MD [address], [address], [place], [address] , [place] [facility] 4 12:44:42 Hallux valgus AND bunion 691613550 Active 2023 Anne Loredo DPM [address], [address], [place], [address] , [facility] 4 15:12:29 Proteinuri a 53076476 Active 2023 Yogi wright MD [address], [address], [place], [address] , [place] [facility] 4 10:50:05 Hyperlipid emia 59844515 Active 2023 Yogi wright MD [address], [address], [place], [address] , [place] [facility] 4 10:50:05 Prediabete s 612407900 Active 2023 Yogi wright MD [address], [address], [place], [address] , [place] [facility] 4 10:50:05 Leukocytos is 683098776 Active 2023 Yogi wright MD [address], [address], [place], [address] , [place] [facility] 4 10:50:05 Macrocytos is 908665225 Active 2023 Yogi wright MD [address], [address], [place], [address] , [place] [facility] 4 10:50:05 Liver enzymes level above reference range 772774645 Active 2023 Yogi wright MD [address], [address], [place], [address] , [place] [facility] 4 10:50:05 Pain in right hand 2128856071448 09 Active 2023 TORIN Webb null, [facility] 4 13:54:33 Pain of bilateral hands 9226358679121 9109 Active 2023 TORIN Webb null, [facility] 4 13:55:11 Pain in toe 067094815 Active 2023 Anne Loredo DPM [address], [address], [place], [address] , [facility] 4 09:40:49 Postoperat lou care Active 2023 Anne Loredo DPM [address], [address], [place], [address] , [facility] 4 11:25:46 Pain of left knee joint 1650086429496 07 Active 2023 Yogi wright MD [address], [address], [place], [address] , [facility] 4 16:57:55 Skin lesion 45373416 Active 2023 Ygoi wright MD [address], [address], [place], [address] , [facility] 4 16:57:55 Pain of left hand 8095278468370 03 Active 2023 Yogi wright MD [address], [address], [place], [address] , [facility] 4 16:57:55 Pain of left shoulder joint 7647371585784 9109 Active 2023 Yogi wright MD [address], [address], [place], [address] , [facility] 4 16:57:55 Hallux valgus AND bunion 754126157 Active 2023 Anne Loredo DPM [address], [address], [place], [address] , [facility] 4 15:06:33 Hallux valgus AND bunion 930470217 Active 2023 Anne Loredo DPM [address], [address], [place], [address] , [facility] 4 15:06:41 Hammer toe 616969539 Active 2023 Anne Loredo DPM [address], [address], [place], [address] , [facility] 4 15:24:01 Pain in toe 735008074 Active 2024 Anne Loredo DPM [address], [address], [place], [address] , [facility] 5 15:38:42 Serum vitamin B12 below reference range 283728263 Active 2024 Yogi wright MD [address], [address], [place], [address] , [facility] 5 15:30:38 Hypothyroi dism 52323402 Active 2024 Yogi wright MD [address], [address], [place], [address] , [facility] 5 15:31:20 Cobalamin deficiency 233344386 Active 2024 Kailey Espinosa MA null, [facility] 5 12:08:39 Closed fracture proximal phalanx, toe 092972364 Active 2024 Anne Loredo DPM [address], [address], [place], [address] , [facility] 5 17:37:10 Pain in toe 336673575 Active 2024 Anne Loredo DPM [address], [address], [place], [address] , [place] [facility] 5 17:38:27 Postoperat lou visit 543008149 Active 2024 Anne Loredo DPM [address], [place], [address] , [place] [facility] 5 14:14:50 Dehiscence of external surgical incision wound 4863499878874 08 Active 2024 Anne Loredo DPM [address], [place], [address] , [place] [facility] 5 14:39:21 Acute right otitis media 728957170 Active 2024 Yogi wright MD [address], [address], [place], [address] , [place] [facility] 5 14:33:25 Otitis media of right ear 7410785410089 104 Active 2024 Tammy Wilkes, [facility] null, [place] [facility] 5 15:39:11 Acute otitis externa 03155687 Active 2024 Zeeshan Adrian MD [address], [address], [place], [address] , [place] [facility] 5 12:01:35 Impacted cerumen in right ear 4165515181135 103 Active 2024 Zeeshan Adrian MD [address], [address], [place], [address] , [place] [facility] 5 12:01:46 Liver function test above reference range 949264832 Active 2024 Yogi wright MD [address], [place], [address] , [place] [facility] 5 15:36:02 Alcohol intoxicati on delirium 56807681 Active 2024 Yogi wright MD [address], [place], [address] , [employer] 15:38:11 Upper respirator y infection 41088082 Active 2024 Yogi wright MD [address], [place], [address] , [employer] 15:41:05 Notes:Medical History: Near syncope Right CVA without residual left hemiparesis Right tinnitus Eosinophils 180/uL Nicotine use PASP 25 mmHg Mod TR Mild DE Mild MR Hypertension EF 59% Mixed hyperlipidemia T2DM Hiatal hernia with JUA NCARLOS NAFLD Hepatomegaly Diverticulosis Left renal cyst Vit B12 deficiency Vit D insufficiency Right 5th to 9th rib fractures Thoracolumbar DDD Mild left shoulder OA Gout Mild bilateral PAD Procedure History: Appendectomy 2003 MAUREEN-BSO 2003 Right ear surgery 2020 Left medial/lateral menisci repairs 2021 Upper lip basal cell ca excision 2023 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 Procedures Surgical History Date Name Laterality Status Provider Name and Address Organization Details Recorded Time 07/02/19 25 Wound Care-Podiatry completed Anne Loredo DPM [address], [place], [address], [employer] 07/01/2024 14:51:56 02/28/19 25 Suture Removal completed Anne Loredo DPM [address], [address], [place], [address], [employer] 02/29/2024 14:24:39 01/29/20 24 Advanced Care Planning completed Umer Bañuelos LPN [employer] 01/29/2024 15:04:34 01/29/20 24 Medicare Wellness CPT Code, Initial completed Umer Bañuelos LPN [facility] [employer] 01/29/2024 07:48:05 10/25/19 24 Medicare Wellness CPT Code, Welcome completed Umer Bañuelos LPN [employer] 10/25/2023 10:25:58 10/25/19 24 Advanced Care Planning completed Umer Bañuelos LPN [facility] 10/25/2023 10:24:53 08/28/19 24 Suture Removal completed Anne Loredo DPM [address], [address], [place], [address], [facility] [employer] [facility] 08/28/2023 15:47:13 04/11/19 24 Excision Cyst Multilayer completed Gerry Milian MD [address], [address], [place], [address], [facility] [employer] [facility] 04/11/2023 18:10:14 12/27/19 23 Nail Debridement completed Anne Loredo DPM [address], [address], [place], [address], [facility] [employer] [facility] 12/26/2022 15:02:34 12/15/19 23 Ortho - Cortisone Injection completed Janina Samuel MD [address], [address], [place], [address], [facility] [employer] [facility] 12/14/2022 13:21:26 09/27/19 23 Nail Debridement completed Anne Loredo DPM [address], [address], [place], [address], [facility] [employer] [facility] 09/26/2022 14:47:07 09/27/19 23 Callus Debridement 2-4 completed Anne Loredo DPM [address], [address], [place], [address], [facility] [employer] [facility] 09/26/2022 14:46:55 Hysterectomy completed Not Available [employer] 04/20/2022 10:42:48 Toe completed Ai Hammonds MA [facility] [employer] [facility] 09/04/2024 14:08:35 Imaging Results None recorded. Procedure Notes None recorded. Medical Equipment None Reported. Allergies Allergen ID Allergen Name Allergen Category Reaction Reaction Severity Criticality Documentation Date Start Date Code Code System Note Provider Name and Address Organization Details Recorded Time 05006 Vascepa medicatio n vomiting Not available Not available 04/20/20222021 76574 80 RxNorm Not Available [facility] 10:49:31 39127 Product containin g penicilli n (product) medicatio n swelling moderate Not available 04/20/2022 43656 8001 SNOMED Not Available [facility] 3 10:49:32 Medications Name Sig Start Date [...] Not Available Not Available No t Available doxycycline hyclate 100 mg capsule Take 1 capsule by mouth twice daily for 7 days active Not Available Not Available No t Available azithromyci n 250 mg tablet TAKE 2 TABLETS BY MOUTH ON DAY 1, AND THEN TAKE 1 TABLET BY MOUTH ONCE A DAY ON DAY 2 THROUGH DAY 5 active Not Available Not Available No t Available hydrocodone 5 mg-acetamin ophen 325 mg tablet TAKE 1 TABLET BY MOUTH EVERY 6 HOURS NEEDED FOR PAIN 09/04 completed Not Available Not Available Not Available ondansetron HCl 4 mg tablet TAKE 1 TABLET BY MOUTH EVERY 8 HOURS 05/27 completed Not Available Not Available Not Available thiamine HCl (vitamin B1) 100 mg tablet Take 1 tablet every day by oral route for 90 days. 2024 active Not Available Not Available Not Avai lable ciprofloxac in 250 mg tablet TAKE 1 [...] suspension for injection in office 03/27 completed [facility]: [phone] Not Available Not Available Not Available doxycycline monohydrate 100 mg capsule TAKE 1 CAPSULE BY MOUTH TWICE DAILY DIRECTED FOR 10 DAYS active Not Available Not Available No t Available cephalexin 500 mg capsule TAKE 1 [...] completed Not Available Not Available Not Available folic acid 1 mg tablet TAKE 1 TABLET BY MOUTH ONCE DAILY active Not Available Not Available No t Available furosemide 20 mg tablet TAKE 1 TABLET BY MOUTH ONCE DAILY active Not Available Not Available No t Available ergocalcife rol (vitamin D2) 1,250 mcg (50,000 unit) capsule TAKE 1 CAPSULE BY MOUTH ONCE A WEEK active Not Available Not Available No t [...] AFFECTED EAR(S) TWICE DAILY FOR 7 DAYS active Not Available Not Available No t Available furosemide 03/27 completed Not Available Not Available Not Available varenicline tartrate 0.5 mg (11)-1 mg (42) tablets in a dose pack USE DIRECTED 01/28 completed Not Available Not Available Not Available fenofibrate nanocrystal lized 145 mg tablet Take 1 tablet every day by oral route for 90 days. 2024 active Not Available Not Available Not Avai lable ropivacaine (PF) 5 mg/mL (0.5 %) injection solution in office 03/27 completed [facility] [phone] Not Available Not Available Not Available Vascepa 1 gram capsule TAKE 2 CAPSULES BY MOUTH TWICE DAILY 09/10 completed Not Available Not Available Not Available Farxiga 10 mg tablet Take 1 tablet by oral route. 2024 active Not Available Not Available Not Avai erin BinaxNOW COVID-19 Ag Card kit TEST DIRECTED 04/12 completed Not Available Not Available Not Available Vitals Date Recorded Body height Body mass index (BMI) Body weight Heart rate Respiratory rate Oxygen saturation Oxygen saturation in Arterial blood by Pulse oximetry Systolic And Diastolic Provider Name and Address Organization Details Last Updated DateTime 5 167.64 cm 23.9 kg/m2 51121.6 7 g 74 /min 14 /min 98 % 98 % 153/96 mm[Hg] Martha Ruiz [employer] 14:06:32 Date Recorded Body height Body mass index (BMI) Body weight Provider Name and Address Organization Details Last Updated DateTime 07/18/2024 167.64 cm 23.9 kg/m2 27379.67 g TORIN Fernandes [employer] 07/18/2024 14:07:04 Date Recorded Heart rate Respiratory rate Oxygen saturation Oxygen saturation in Arterial blood by Pulse oximetry Systolic And Diastolic Provider Name and Address Organization Details Last Updated DateTime 72 /min 14 /min 98 % 98 % 114/190 mm[Hg] Martha Ruiz [employer] 14:07:58 Date Recorded Body height Body mass index (BMI) Body weight Body temperature Heart rate Oxygen saturation Oxygen saturation in Arterial blood by Pulse oximetry Pain severity - 0-10 verbal numeric rating [Score] - Reported Systolic And Diastolic Provider Name and Address Organization Details Last Updated DateTime 167.64 cm 23.7 kg/m2 46923.0 8 g 97.8 [degF] 67 /min 97 % 97 % 10 118/66 mm[Hg] Ai Hammonds MA [facility] [employer] [facility] 14:05:45 Date Recorded Body height Body mass index (BMI) Body weight Body temperature Provider Name and Address Organization Details Last Updated DateTime 09/19/2024 167.64 cm 23.1 kg/m2 67076.71 g 96.7 [degF] Florina Joshi [facility] [employer] [facility] 09/19/2024 11:43:00 Date Recorded Body height Body mass index (BMI) Body weight Body temperature Heart rate Systolic And Diastolic Provider Name and Address Organization Details Last Updated DateTime 167.64 cm 22.9 kg/m2 41143.1 2 g 98 [degF] 72 /min 128/76 mm[Hg] Tammy Wilkes [facility] [employer] [facility] 14:53:55 Social History Question Answer Notes LastModified by Organizat ion Details LastModified Time Tobacco Smoking Status Current Every Day Smoker Not Available [facility] 04/20/2022 10:42:21 Do You Have An Advance Directive? No MIGRATION.[id number] Information not available 04/20/2022 How Many Years Have You Consumed Alcohol? 20 Information not available 10/25/2023 Do You Wear A Helmet When Biking? No Does Not Bike [email or web address] Information not available 10/25/2023 Is Blood Transfusion Acceptable In An Emergency? Yes [email or web address] Information not available 10/25/2023 What Is Your Level Of Caffeine Consumption? Moderate MIGRATION.853190 0917 Information not available 04/20/2022 In The 14 Days Before Symptom Onset, Have You Had Close Contact With A Laboratory-confir med COVID-19 While That Case Was Ill? No MIGRATION.679172 4050 Information not available 04/20/2022 In The 14 Days Before Symptom Onset, Have You Had Close Contact With A Person Who Is Under Investigation For COVID-19 While That Person Was Ill? No MIGRATION.132870 4872 Information not available 04/20/2022 What Type Of Diet Are You Following? REGULAR MIGRATION.745931 9027 Information not available 04/20/2022 What Is The Highest Grade Or Level Of School You Have Completed Or The Highest Degree You Have Received? [id number] MIGRATION.508861 9590 Information not available 04/20/2022 How Many Days Of Moderate To Strenuous Exercise, Like A Brisk Walk, Did You Do In The Last 7 Days? 5 [email or web address] Information not available 10/25/2023 On Those Days That You Engage In Moderate To Strenuous Exercise, How Many Minutes, On Average, Do You Exercise? 30 [email or web address] Information not available 10/25/2023 Have There Been Any Changes To Your Family Or Social Situation? No MIGRATION.816744 6798 Information not available 04/20/2022 Are There Any Guns Present In Your Home? No MIGRATION.105191 1852 Information not available 04/20/2022 Do You Use Insect Repellent Routinely? No MIGRATION.010275 1770 Information not available 04/20/2022 Where Do You Live? 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 10/28/2024 Information not available 10/28/2024 How Many Children Do You Have? 2 [email or web address] Information not available 10/25/2023 What Is Your Current Pack Years? [email or web address] MIGRATION.098869 3998 Information not available 04/20/2022 Have You Ever Been Counseled For Unhealthy Alcohol Use? No MIGRATION.309293 2913 Information not available 04/20/2022 Do You Have Any Pets? Yes MIGRATION.116228 1465 Information not available 04/20/2022 Do You Use Protection During Sex? No [email or web address] Information not available 10/25/2023 What Is Your Relationship Status? MIGRATION.851695 5997 Information not available 04/20/2022 Do You Use Your Seat Belt Or Car Seat Routinely? Yes MIGRATION.711483 3504 Information not available 04/20/2022 Are You Sexually Active? Yes [email or web address] Information not available 10/25/2023 Do You Have Smoke And Carbon Monoxide Detectors In Your Home? Yes MIGRATION.951816 2217 Information not available 04/20/2022 At What Age Did You Start Smoking Tobacco? 25 [email or web address] Information not available 10/25/2023 Are You Passively Exposed To Smoke? Yes MIGRATION.658630 0390 Information not available 04/20/2022 Are There Any Smokers In Your House? Yes MIGRATION.932479 1361 Information not available 04/20/2022 How Much Tobacco Do You Smoke? 1 PPD Information not available 10/28/2024 What Types Of Sporting Activities Do You Participate In? None MIGRATION.017096 7020 Information not available 04/20/2022 Do You Use Sunscreen Routinely? No MIGRATION.663304 1838 Information not available 04/20/2022 Has Tobacco Cessation Counseling Been Provided? Yes [email or web address] Information not available 10/25/2023 On What Date Was Tobacco Cessation Counseling Provided? 10/25/2023 Information not available 10/25/2023 How Many Years Have You Smoked Tobacco? 40 [email or web address] Information not available 10/25/2023 Have You Recently Traveled Abroad? No MIGRATION.865784 3925 Information not available 04/20/2022 Do You Have Any Dietary Restrictions? Yes MIGRATION.325385 8703 Information not available 04/20/2022 How Many Days In The Past Year Have You Consumed 4 Or More Drinks? 0 Information no t available 10/25/2023 Sex: Female Functional Status Question Answer Note LastModified by Organizat ion Details LastModified Time Do you use any illicit or recreational drugs? No MIGRATION.3164731 035 Information not available 04/20/2022 Do you or have you ever used any other forms of tobacco or nicotine? No MIGRATION.9173247 035 Information not available 04/20/2022 What is your level of alcohol consumption? Occasional [email or web address] Information not available 10/25/2023 Are you currently employed? No Retired Information not available 10/25/2023 What is your exercise level? Moderate walking MIGRATION.1640089 035 Information not available 04/20/2022 Mental Status Question Answer Note LastModified by Organizat ion Details LastModified Time Do you feel stressed (tense, restless, nervous, or anxious, or unable to sleep at night)? [id number] MIGRATION.[id number] 5 Information not available 04/20/2022 Family History Relationship Description Onset Age of this Age Resolved Age Notes LastModified by Organization Details LastModified Time Mother Diabetes mellitus [id number] Not available 04/20/2022 10:42:55 Medical History Condition Response NERVE DISEASE N BLINDNESS N RHEUMATIC FEVER N KIDNEY STONES N BLADDER PROBLEMS N MRSA N OTHER # 1 Y POLIO N LUNG DISEASE/DISORDER N HISTORY OF DRUG ABUSE N RADIATION / CHEMOTHERAPY N COPD N Other # 2 N BLOOD DISEASES Y EAR OR HEARING PROBLEMS N MUMPS N SHINGLES N DEPRESSION (INCLUDING POST ) N BOWEL PROBLEMS N STROKE/TIA Y ULCERS N BENIGN PROSTATIC HYPERPLASIA N MEASLES N HYPOTENSION N MYOCARDIAL INFARCTION N OBESITY N GERD/NAUSEA N ANEURYSM N URINARY/BLADDER/KIDNEY PROBLEMS N CORONARY ARTERY DISEASE (CAD) N ADDICTION CONCERNS N Impotence N ENDOMETRIOSIS N USE OF BLOOD THINNERS N SKIN PROBLEMS N GASTROINTESTINAL DISORDER N PERIPHERAL VASCULAR DISEASE N MUSCLE,JOINT OR BONE PROBLEMS N GASTROINTESTINAL BLEEDING N BLOOD CLOTS N ASTHMA N CATARACTS N ERECTILE DYSFUNCTION N VARICOSITIES N GI PROBLEMS N Low Testosterone N INFERTILITY N AIDS/HIV N CHEMOTHERAPY / RADIATION N LIVER DISEASE N MALE HYPOGONADISM N HYPERTENSION Y Deficiency Y TOURETTE'S N ANXIETY DISORDER N BLOOD TRANSFUSION N ANEMIA/BLOOD DISORDER N CHRONIC EAR INFECTIONS N BRONCHITIS N TUBERCULOSIS N GLAUCOMA N FOOT PROBLEM N DIVERTICULITIS N SLEEP APNEA N CHICKENPOX N INFECTIOUS DISEASE N PROSTATE N HEART ARRHYTHMIA N INSOMNIA N HIGH CHOLESTEROL / HYPERLIPIDEMIA Y HYPERTHYROIDISM N EYE PROBLEMS N EDEMA N CHRONIC PAIN SYNDROME N HYPOTHYROIDISM N CONSTIPATION N CAROTID BLOCKAGE N BACK / NECK PROBLEMS N ATHEROSCLEROSIS N BREAST PROBLEMS N DIALYSIS N ECZEMA N OSTEOPOROSIS N ARTHRITIS N APPENDICITIS N DIABETES, TYPE Y BAD TEETH N ENT N HEARTBURN / REFLUX N AUTISM SPECTRUM DISORDER (ASD) N HEPATITIS / LIVER DISEASE N GOUT N SLEEP DISORDER N ALZHEIMER'S DISEASE N Brain Problems N HERPES N DEMENTIA N SEIZURES/EPILEPSY N HEADACHES/MIGRAINES N VASCULAR DISEASE N PACEMAKER N Blood Disorder N DIZZINESS N KIDNEY DISEASE N HEART DISEASE/HEART PROBLEMS N MULTIPLE SCLEROSIS N CARDIAC ARRHYTHMIA N CANCER: SPECIFY N Gall Stones N ATRIAL FIBRILLATION N PULMONARY EMBOLISM N AUTOIMMUNE DISEASE N Gynecological History Statement/Question Response How many live births 2 Date of Last Colonoscopy Date of Last Mammogram Date of LMP Most Recent Bone Density Date of Last Pap Current Control Method Hysterectom y Obstetrics History GPAL:G 2 P 2 0 0 2 Type Value Multiple Births 0 Full Term 2 Induced 0 Spontaneous 0 Premature 0 Living 2 Ectopics 0 Total 2 Immunizations Vaccine Type Date Status Note Provider Nam e and Address Organization Details Recorded Time zoster recombinant 3 completed Umer Bañuelos LPN null, [facility] 10/24/2023 11:27:53 HepB-CpG 3 [facility] 11:27:53 COVID-19, mRNA, LNP-S, PF, 30 mcg/0.3 mL dose 1 completed Umer Bañuelos LPN null, [facility] 10/24/2023 11:27:53 COVID-19, mRNA, LNP-S, PF, 30 mcg/0.3 mL dose 1 completed [facility] 11:27:53 Pneumococcal conjugate PCV20, polysaccharide [id number] conjugate, adjuvant, PF 3 completed Umer Bañuelos LPN null, [facility] 10/24/2023 11:27:53 COVID-19, mRNA, LNP-S, PF, 30 mcg/0.3 mL dose, silvia-sucrose 2 completed Umer Bañuelos LPN null, [facility] 10/24/2023 11:27:53 COVID-19, mRNA, LNP-S, PF, 30 mcg/0.3 mL dose, silvia-sucrose 2 completed Umer Bañuelos LPN null, [facility] 10/24/2023 11:27:53 COVID-19, mRNA, LNP-S, bivalent, PF, 30 mcg/0.3 mL dose 2 completed Umer Bañuelos LPN null, [facility] 10/24/2023 11:27:53 zoster recombinant 4 completed Not Available [employer] 10/28/2024 14:42:55 COVID-19, mRNA, LNP-S, PF, silvia-sucrose, 30 mcg/0.3 mL 4 completed Not Available [facility] 10/28/2024 14:42:55 Influenza, split virus, trivalent, PF 4 completed Not Available [facility] 10/28/2024 14:42:55 Influenza, split virus, quadrivalent, PF 3 completed Yogi Burns MD [address] [facility], [place] [address], [place], [address], [facility] [employer] [facility] [employer] [facility] 11/23/2022 15:51:31 COVID-19, mRNA, LNP-S, PF, 30 mcg/0.3 mL dose 2 completed Umer Bañuelos LPN null, [place] [employer] [facility] [employer] [facility] 10/24/2023 11:27:53 COVID-19, mRNA, LNP-S, PF, 100 mcg/0.5mL dose or 50 mcg/0.25mL dose 1 completed Umer Bañuelos LPN null, [employer] [facility] [employer] [facility] 10/24/2023 11:27:53 COVID-19, mRNA, LNP-S, PF, 100 mcg/0.5mL dose or 50 mcg/0.25mL dose 1 completed Umer Bañuelos LPN null, [place] [employer] [facility] [employer] [facility] 10/24/2023 11:27:53 COVID-19, mRNA, LNP-S, PF, 30 mcg/0.3 mL dose 2 completed Umer Bañuelos LPN null, [employer] [facility] [employer] [facility] 10/24/2023 11:27:53 Influenza, split virus, quadrivalent, PF 2 completed Not Available [facility] 03/01/2023 02:51:04 Influenza, split virus, quadrivalent, PF 1 completed Not Available [facility] 03/01/2023 02:51:04 Tdap 1 completed Not Available [facility] 03/01/2023 02:51:04 Past Encounters Encounter ID Performer Location Encounter Start Date Encounter Closed Date Diagnosis/Indication Diagnosis SNOMED-CT Code Diagnosis ICD10 Code Diagnosis IMO Codes Diagnosis Note [id number] Yogi wright MD [facility] Internal Med [place] [address] [place] [address] [place] [address] 10/07/2020 00:00:00 10/07/2020 11:24:35 [id number] Yogi wright MD [facility] Internal Med [place] [address] [place] [address] [place] [address] 10/14/2020 00:00:00 10/14/2020 16:39:33 [id number] Chan Beltrán MD [facility] Urology [address] [address] 10/22/2020 00:00:00 10/22/2020 10:22:09 [id number] Yogi wright MD [facility] Internal [place] [address] [place] [address] [place] [address] 12/09/2020 00:00:00 12/09/2020 17:11:52 [id number] Yogi wright MD [facility] Internal Med [facility] [address] [facility] [place] [address] 04/06/2021 00:00:00 04/06/2021 17:05:19 [id number] Yogi wright MD [facility] Internal [place] [address] [place] [address] [place] [address] 04/12/2021 00:00:00 04/12/2021 09:59:03 [id number] Yogi wright MD [facility] Internal Med [place] [address] [place] [address] [place] [address] 05/05/2021 00:00:00 05/05/2021 14:24:27 [id number] Paul George MD [facility] Ortho [place] [address] [place] [address] 05/21/2021 00:00:00 05/21/2021 20:45:17 [id number] Paul George MD [facility] [place] [address] [place] [address] 06/21/2021 00:00:00 06/21/2021 15:40:25 [id number] Paul George MD [facility] [place] [place] [address] [place] [address] 07/09/2021 00:00:00 07/19/2021 19:23:01 [id number] Paul George MD [facility] Orth[facility] [place] [address] [place] [address] 07/23/2021 00:00:00 07/23/2021 14:22:50 [id number] Yogi wright MD [facility] [place] [address] [place] [address] 08/04/2021 00:00:00 08/04/2021 17:08:56 [id number] Paul George MD [facility] [place] [address] [place] [address] 09/01/2021 00:00:00 09/01/2021 11:00:40 [id number] Yogi wright MD [facility] [place] [address] [facility] [place] [address] 10/20/2021 00:00:00 10/20/2021 11:20:15 [id number] Yogi wright MD [facility] [place] [address] [place] [address] 12/08/2021 00:00:00 12/08/2021 16:31:48 [id number] Yogi wright MD [facility] [place] [address] [facility] [place] [address] 04/20/2022 13:41:40 04/20/2022 14:50:13 Screening - NAD [id number] Z13.9 C-scope: Get the report Mammogram: 11/17/2021 : NegDEXA: 10/14/2020 : NegPAP: 1: Mag Perez SPECIALTIES OPERATOR Get yearly flu shotGet tdap if not doneUTD on COVID 19 vaccineCan do shingrix vaccine RTC in 3 monthsDo labsER if worseShe did verbalize her understand ing of the above Essential hypertension 49934058 I10 EKG: NSR, no acute STT changes On amlodipine 5mg dailyOn HCTZ 12.5mg dailyOn lisinopril 40mg dailyGet labsWill see Dr Wynn today 04/20/2022 at [facility] location Hyperlipidemia 68849436 E78.5 On atorvastat in 40mg dailyOn vascepaGet labs Cigarette smoker 0282377 7 F17.210 Smoker 24 years 2 PPD, now cut down to 1/4 PPDAdvised to quit smoking LDCT 12/31/2020 LDCT 02/22/2022 Leukocytosis 436753714 D 72.[address] Hernandez Pain of le ft knee joint 1008356879 41415 M25.562 Chuy MARIE 09/01/2021 , s/p knee arthroscop y, f/u PRN Prediabetes 541097624 R7 3.03 On metformin 500mg bidGet labs Proteinuria 38042192 R80 .9 On vit d weeklyOn calcitriol Sees Dr Alejo CRUZ Gout 19244703 M10.[address] Alejo CRUZ [id number] Yogi wright MD [facility] [place] [address] [facility] [place] [address] 07/27/2022 13:56:12 07/27/2022 14:34:52 Screening - NAD [id number] Z13.9 C-scope: 04/13/2022 : Dr Marie next in 5 years Mammogram: 11/17/2021 : NegDEXA: 10/14/2020 : NegPAP: 1: Mag Perez SPECIALTIES OPERATOR Get yearly flu shotGet tdap if not doneUTD on COVID 19 vaccineCan do shingrix vaccine RTC in 3 monthsDo labsER if worseShe did verbalize her understand ing of the above Essential hypertension 75610770 I10 EKG: NSR, no acute STT changesStr ess test 07/19/2022 : Neg On amlodipine 5mg dailyOn HCTZ 12.5mg dailyOn lisinopril 40mg dailyGet labsWill see Dr Wynn today 04/20/2022 at [facility] location Hyperlipidemia 69812241 E78.5 On atorvastat in 40mg dailyOn vascepaGet labs Cigarette smoker 5151604 7 F17.210 Smoker 24 years 2 PPD, now cut down to 1/4 PPDAdvised to quit smoking LDCT 12/31/2020 LDCT 02/22/2022 LDCT 06/30/2022 : Dr Wynn Leukocytosis 962233833 D 72.[address] Hernandez Pain of le ft knee joint 1714306657 23055 M25.562 Chuy Doll PA 09/01/2021 , s/p knee arthroscop y, f/u PRN Prediabetes 550834763 R7 3.03 On metformin 500mg bidGet labs Proteinuria 24987191 R80 .9 On vit d weeklyOn calcitriol Sees Dr Alejo CRUZ Gout 34736650 M10.[address] Alejo CRUZ Pain of le ft shoulder joint 0322160888 5060061 M25.512 Slept wrong, seen in the ER as per her history, will refer to Dr Burns Pain of left hand 790972 0943 [address] Burns Screening for malignant neoplasm of breast 255386796 Z12.39 [id number] Prudencio Burns MD [facility] [place] [address] [place] [address] 08/09/2022 13:39:19 08/09/2022 15:08:57 Pain of left shoulder joint 3689831055 3875894 M25.512 Adhesive c apsulitis of left shoulder 3598267195 31748 M75.02 physical therapy for the shoulder to work on range of motion patient is a smoker and diabetic in female which is higher risk for frozen shoulder I have her follow-up in [address] Samuel. If no progress over time consider a scan to evaluate for any other pathology and to show if any significan t thickening of the capsule. Told the patient could easily take 6-18 months for this to run its course typically Dupuytren contracture of left palm 8795268989 2736812 M72.0 conservati ve observatio n for the Dupuytren' s [id number] Janina Samuel MD [facility] [place] [address] [place] [address] 09/07/2022 10:47:54 09/07/2022 11:47:17 Pain of left shoulder joint 0853433015 0873134 M25.512 Adhesive c apsulitis of left shoulder 4490347175 27796 M75.02 [id number] Anne Loredo DPM [facility] Podiatry [place] [address] [place] [address] 09/26/2022 13:43:34 10/20/2022 20:34:42 Foot callus 668970267 L84 bilateral great toesDebrid ed without incidentOf floadingEd ucated on wider shoe gearFollow -up in 3 months Dystrophia unguium 92075 009 L60.3 Nails 1 through 10 were debrided with sharp mechanical debridemen t without incident. Nails were debrided and greater than 50% length and thickness where needed. Cigarette smoker 0442957 7 F17.210 Educated the patient on the side effects of [facility] discontinu e smoking Diabetes mellitus 936894 09 E11.9 Patient educated on neuropathy , diabetes, diabetic diet, and daily foot exams. Patient is to check feet daily for new wounds, blisters, redness to prevent infection and ulceration s to the feet. Patient will return to clinic in 3 months for diabetic foot workup. [id number] Janina Samuel MD [facility] [place] [address] [place] [address] 10/19/2022 13:57:44 10/19/2022 14:37:35 Pain of left shoulder joint 0333097953 0537145 M25.512 Adhesive c apsulitis of left shoulder 0869247528 75751 M75.02 [id number] Yogi wright MD [facility] Internal [place] [address] [place] [address] [place] [address] 10/26/2022 09:17:44 10/26/2022 10:09:32 Gynecologic examination 26629935 Z01.411 Discussed importance of SBE, diet rich in calcium, weight bearing exercise. Notify office if any vaginal bleeding occurs. RTC 1 year and PRN. She does voice understand ing of the above. Lesion of skin of face 0836632926 06 L98.9 Get appointmen t with DermI advised patient I suspect this is either precancer skin cancer, so I stressed importance of her getting her appointmen t for evaluation , she voices understand ing [id number] Yogi wright MD [facility] [address] [place] [address] [place] [address] 11/23/2022 14:03:56 11/23/2022 14:44:28 Screening - NAD [id number] Z13.9 C-scope: 04/13/2022 : Dr Marie next in 5 years Mammogram: 11/17/2021 : NegMammogr am: 11/22/2022 : Neg DEXA: 10/14/2020 : NegPAP: 1: Mag Perez SPECIALTIES OPERATOR, Mag Perez 10/26/2022 Get yearly flu shotGet tdap if not doneUTD on COVID 19 vaccineCan do shingrix vaccineGet RSV vaccine RTC in 3 monthsDo labsER if worseShe did verbalize her understand ing of the above Essential hypertension 69517744 I10 EKG: NSR, no acute STT changesStr ess test 07/19/2022 : Neg On amlodipine 5mg dailyNot on HCTZ 12.5mg dailyOn lisinopril 40mg dailyOn lasix given by Dr Alejo Drew see Dr Wynn today 04/20/[address] Hyperlipidemia 18524761 E78.5 On atorvastat in 80mg daily, stopGet on fenofibrat e 145mg dailyNot on vascepa caused vomitingGe t labs Cigarette smoker 6517271 7 F17.210 Smoker 24 years 2 PPD, now cut down to 1/4 PPDAdvised to quit smoking LDCT 12/31/2020 LDCT 02/22/2022 LDCT 06/30/2022 : Dr Wynn Leukocytosis 423249444 D 72.[address] Hernandez Pain of le ft knee joint 9441852581 33162 M25.562 Chuy MARIE 09/01/2021 , s/p knee arthroscop y, f/u PRN Prediabetes 537916840 R7 3.03 On metformin 500mg bidGet labs Proteinuria 33010791 R80 .9 On vit d weeklyOn calcitriol Sees Dr Alejo CRUZ Gout 49806745 M10.[address] Vera IJ Pain of le ft shoulder joint 0315402698 9123061 M25.512 Slept wrong, seen in the ER as per her history, will refer to Dr Katy Kingston SPECIALTIES OPERATOR 10/19/2022 , f/u PRN Pain of left hand 015354 9658 [address] Burns Screening for osteoporosis 772254511 Z13.820 Z78.0 Macrocytosis 692811788 D 75.89 Get labs Liver enzy mes level above reference range 662499283 R74.8 Administra tion of influenza vaccine 85774184 Z23 Skin lesion 21405386 L98 .9 On the R upper lip, and is now to see dermatolog y, referred by Mag Perez SPECIALTIES OPERATOR [id number] Janina Samuel MD [facility] [place] [address] [place] [address] 12/14/2022 11:07:09 12/14/2022 11:27:26 Pain of left hand 1574578473 29603 M79.545 [id number] Anne Loredo DPM [facility] [place] [address] [place] [address] 12/26/2022 14:09:20 12/26/2022 15:25:57 Diabetes mellitus 66614781 E11.9 Patient educated on neuropathy , diabetes, diabetic diet, and daily foot exams. Patient is to check feet daily for new wounds, blisters, redness to prevent infection and ulceration s to the feet. Patient will return to clinic in 3 months for diabetic foot workup. Cigarette smoker 7642186 7 F17.210 Educated the patient on the side effects of smokingRec ommend patient discontinu e smoking Dystrophia unguium 10256 009 L60.3 Nails 1 through 10 were debrided with sharp mechanical debridemen t without incident. Nails were debrided and greater than 50% length and thickness where needed. Porokeratosis 827015761 Q82.8 Debrided without incident left footRecomm end use of Amlactin and pumice stone dailyFollo w-up as needed [id number] Yogi wright MD [facility] [place] [address] [facility] , [facility] [place] [address] 03/27/2023 14:01:41 03/27/2023 15:11:43 Screening - NAD 320962221 Z13.9 C-scope: 04/13/2022 : Dr Marie next in 5 years Mammogram: 11/17/2021 : NegMammogr am: 11/22/2022 : Neg DEXA: 10/14/2020 : NegDEXA: 01/03/2023 : Neg PAP: 1: Mag Perez SPECIALTIES OPERATOR, Mag Perez 10/26/2022 Get yearly flu shotGet tdap if not doneUTD on COVID 19 vaccineCan do shingrix vaccineGet RSV vaccine RTC in 3 monthsDo labsER if worseShe did verbalize her understand ing of the above Essential hypertension 62071105 I10 EKG: NSR, no acute STT changesStr ess test 07/19/2022 : Neg On amlodipine 5mg dailyNot on HCTZ 12.5mg dailyOn lisinopril 40mg dailyNot on lasix given by Dr Alejo Romero labsOscar see Dr Wynn Hyperlipidemia 44250626 E78.5 On atorvastat in 80mg daily, stopOn fenofibrat e 145mg dailyNot on vascepa caused vomitingGe t labs Cigarette smoker 1940391 7 F17.210 Smoker 24 years 2 PPD, now cut down to 1/4 PPDAdvised to quit smoking LDCT 12/31/2020 LDCT 02/22/2022 LDCT 06/30/2022 : Dr Wynn Leukocytosis 592765102 D 72.[address] Hernandez Pain of le ft knee joint 2568736132 51195 M25.562 Chuy MARIE 09/01/2021 , s/p knee arthroscop y, f/u PRN Prediabetes 326884772 R7 3.03 Not taking metformin 500mg bid, declined 03/27/2023 , prediabete s, more diet and exercise is neededGet labs Proteinuria 63147969 R80 .9 On vit d weeklyOn calcitriol Sees Dr Alejo CRUZ Gout 08429702 M10.[address] Alejo CRUZ Pain of le ft shoulder joint 5355052581 7579728 M25.512 Slept wrong, seen in the ER as per her history, will refer to Dr Katy Kingston SPECIALTIES OPERATOR 10/19/2022 , f/u PRN Pain of left hand 203978 [address] Samuel 12/14/2022 Macrocytosis 204395402 D 75.89 Get labs Liver enzy mes level above reference range 819146203 R74.8 GGT: 12/05/2022 : NegHepatit is panel: 12/05/2022 : Neg US liver 12/13/2022 CT A/P: 12/23/2022 : [facility] ER: Hepatomega ly Skin lesion 09278384 L98 .9 On the R upper lip, and is now to see dermatolog y, referred by Mag Perez NPStates that she could not get in with the dermatolog ist d/t her insurance, will get an apt with Dr Kelly [id number] Janina Samuel MD [facility] [place] [address] [place] [address] 03/29/2023 14:04:55 03/29/2023 14:26:02 Pain in right hand 3573807837 53199 M79.232 [id number] Gerry faustin MD [facility] General Surgery [address] [place] [address] 04/11/2023 11:52:18 04/11/2023 16:53:07 Skin lesion 94504315 L98.9 upper lip [id number] Gerry faustin MD [facility] General Surgery [address] [place] [address] 04/18/2023 11:34:26 04/18/2023 16:15:01 Basal cell carcinoma of skin 480251973 C44.91 right face [id number] Anne Loredo DPM [facility] Podiatry [place] [address] [place] [address] 05/01/2023 13:42:39 05/19/2023 16:35:13 Diabetes mellitus 98812852 E11.9 Patient educated on neuropathy , diabetes, diabetic diet, and daily foot exams. Patient is to check feet daily for new wounds, blisters, redness to prevent infection and ulceration s to the feet. Patient will return to clinic in 3 months for diabetic foot workup. Peripheral arterial occlusive disease 919498896 I73.9 Follow-up testing Cigarette smoker 2951642 7 F17.210 Educated the patient on the side effects of smokingRec ommend patient discontinu e smoking Bunion 987496646 M21.61 9 follow-up testing possible surgery [id number] Anne Loredo DPM [facility] Podiatry [place] [address] [place] [address] 05/15/2023 13:54:39 05/15/2023 14:45:15 Bunion 298255030 M21.619 right- SLAUGHTER 18 degrees distal bunioncall us of IPJ medial and plantarDis cussed treatment optionswil l try toe spacer and wide shoe gearfollow -up in early May if not improved will discuss surgery options, likely did Jean Marie osteotomy Pain of to e of right foot 7168549641 99771 M79.674 as above Peripheral arterial occlusive disease 332043877 I73.9 testing reviewedne gative for significan t diseasefol low-up 6 months Cigarette smoker 4239772 7 F17.210 Educated the patient on the side effects of smokingRec ommend patient discontinu e smoking [id number] Zoë Dow MD [facility] [place] [address] [facility] [address] [place] [address] 06/13/2023 10:43:01 06/14/2023 09:01:53 Dyspnea on exertion 15669948 R06.09 R05.9 T78.40XA D89.9 Smoker 65009668 F17.218 F17.219 E83.42 [id number] Anne Loredo DPM [facility] [place] [address] [place] [address] 06/19/2023 14:12:39 06/20/2023 11:55:42 Hallux valgus AND bunion 033789137 M20.11 distal great toe bunionplan Jean Marie osteotomy with hardwareOb tain surgical clearancep atient has a upcoming appointmen t with her primary care on 06/20 Pain in toe 656386271 M7 9.674 as above [id number] Yogi wright MD [facility] [place] [address] [facility] [facility] [place] [address] 06/21/2023 09:47:19 06/21/2023 11:32:36 Screening - NAD 018758566 Z13.9 C-scope: 04/13/2022 : Dr Marie next in 5 years Mammogram: 11/17/2021 : NegMammogr am: 11/22/2022 : Neg DEXA: 10/14/2020 : NegDEXA: 01/03/2023 : Neg PAP: 1: Mag Perez SPECIALTIES OPERATOR, Mag Perez 10/26/2022 Get yearly flu shotGet tdap if not doneUTD on COVID 19 vaccineCan do shingrix vaccineGet RSV vaccine RTC in 3 monthsDo labsER if worseShe did verbalize her understand ing of the above Essential hypertension 22416743 I10 EKG: NSR, no acute STT changesStr ess test 07/19/2022 : Neg On amlodipine 5mg dailyNot on HCTZ 12.5mg dailyOn lisinopril 40mg dailyNow on lasix given by Dr Vera IJGet labs Dr Wynn 03/01/2023 Hyperlipidemia 93155878 E78.5 On atorvastat in 40mg dailyOn fenofibrat e 145mg dailyNot on vascepa caused vomitingGe t labs Cigarette smoker 7125915 7 F17.210 Smoker 24 years 2 PPD, now cut down to 1/4 PPDAdvised to quit smoking LDCT 12/31/2020 LDCT 02/22/2022 LDCT 06/30/2022 : Dr Wynn Leukocytosis 438902594 D 72.[address] Hernandez Pain of le ft knee joint 2738319970 01081 M25.562 Chuy MARIE 09/01/2021 , s/p knee arthroscop y, f/u PRN Prediabetes 479178909 R7 3.03 Not taking metformin 500mg bid, declined 03/27/2023 , prediabete s, more diet and exercise is neededGet labs OV 06/21/2023 :On farxiga 10mg dailyGet labs Proteinuria 53920329 R80 .9 On vit d weeklyOn calcitriol Sees Dr Alejo CRUZ Gout 39056060 M10.[address] Alejo CRUZ Pain of le ft shoulder joint 4978709671 6208181 M25.512 Slept wrong, seen in the ER as per her history, will refer to Dr Katy Kingston SPECIALTIES OPERATOR 10/19/2022 , f/u PRN Pain of left hand 496603 [address] Samuel 03/29/2023 , next apt 06/28/2023 Macrocytosis 554395685 D 75.89 Get labs Liver enzy mes level above reference range 965175970 R74.8 GGT: 12/05/2022 : NegHepatit is panel: 12/05/2022 : Neg US liver 12/13/2022 CT A/P: 12/23/2022 : [facility]: Hepatomega ly Skin lesion 34483384 L98 .9 On the R upper lip, and is now to see dermatolog y, referred by Mag Perez NPStates that she could not get in with the dermatolog ist d/t her insurance, will get an apt with Dr Kelly OV 06/21/2023 :S/p surgery Dr Kelly, 04/11/2023 Pre-surger y evaluation 873332150 Z01.818 Surgery: R foot bunyonSurg garland: Dr Heard te: TBDAnesthe cyndi: Cheyanne ce: Awaiting cardiac clearance with Dr Mcgraw dum: 06/22/2023 :She has been cleared for surgery by cardiology , 06/21/2023 , will need to see Dr Hernandez d/t her elevated WBC count [id number] Janina Samuel MD [facility] [place] [address] [place] [address] 06/28/2023 13:45:56 06/28/2023 14:57:15 Pain of bilateral hands 9244885109 7067721 M79.769 [id number] Anne Loredo DPM [facility] [place] [place] [address] [place] [address] 07/31/2023 08:23:25 08/01/2023 11:57:23 Hallux valgus AND bunion 504142653 M20.11 distal great toe bunionSurg linda clearance obtained- plan surgery August 10plan Jean Marie osteotomy with hardware Pain in toe 729425623 M7 9.674 as above [id number] Anne Loredo DPM [facility] [place] [address] [facility] [address] [place] [address] 08/15/2023 10:56:33 08/16/2023 13:45:01 Postoperative care 248949418 Z48.89 status post 4 days right great toe Jean Marie osteotomyd ressings removed and changedx-r ays reviewed lateral cortex has broken intact staple fixationco ntinue postop shoeminima l weight-antoine ring focused to the heel right foot- to and from the bathroom onlyfollow -up 1 week for dressing change [id number] Anne Loredo DPM [facility] [place] [address] [place] [address] 08/21/2023 12:01:05 08/22/2023 11:16:07 Postoperative care 586639370 Z48.89 status post 11days right great toe Jean Marie osteotomyd ressings removed and changedcon tinue postop shoeminima l weight-antoine ring focused to the heel right foot- to and from the bathroom onlyfollow -up 1 week for suture removal and repeat x-rays [id number] Anne Loredo DPM [facility] Podiatry [place] [address] [place] [address] 08/28/2023 15:04:46 08/28/2023 16:21:40 Postoperative care 358796116 Z48.89 status post 3 weeks---ri ght great toe Jean Marie osteotomyd ressings removed and changedsut ures removedcon tinue postop shoeminima l weight-anotine ring focused to the heel right foot- to and from the bathroom onlyrepeat x-rays in 2 weeks [id number] Anne Loredo DPM [facility] Podiatry [place] [address] [place] [address] 09/11/2023 13:52:34 09/12/2023 16:41:05 Postoperative care 108509754 Z48.89 status post 5 weeks---ri ght great toe Jean Marie osteotomyc ontinue postop shoeminima l weight-antoine ring focused to the heel right foot- to and from the bathroom onlyrice therapyx-r ays reviewed with the patientrtc in 3-4 weeks Noncomplia nce with treatment 8963722 Z91.199 not wearing postop shoe [id number] Anne Loredo DPM [facility] Podiat[facility] [place] [address] [place] [address] 10/16/2023 13:54:13 10/16/2023 16:48:55 Postoperative care 594281349 Z48.89 status post-right great toe Jean Marie osteotomyc ontinue postop shoeminima l weight-antoine ring focused to the heel right foot- to and from the bathroom onlyrice therapyx-r ays reviewed with the patientrtc 2 months possible surg eval of the left at that time if conservati ve therapy fails [id number] Yogi wright MD [facility] [place] [address] [facility] [place] [address] 10/25/2023 09:51:06 10/25/2023 10:35:27 Essential hypertension 44133438 I10 EKG: NSR, no acute STT changesStr ess test 07/19/2022 : Neg On amlodipine 5mg dailyNot on HCTZ 12.5mg dailyOn lisinopril 40mg dailyOn lasix given by Dr Alejo CRUZGet labs Dr Wynn 03/01/2023 Screening - NAD 87116628 3 Z13.9 C-scope: 04/13/2022 : Dr Marie next in 5 years Mammogram: 11/17/2021 : NegMammogr am: 11/22/2022 : Neg DEXA: 10/14/2020 : NegDEXA: 01/03/2023 : Neg PAP: 1: Mag Perez SPECIALTIES OPERATOR, Mag Perez 10/26/2022 Get yearly flu shotGet tdap if not doneUTD on COVID 19 vaccineCan do shingrix vaccineGet RSV vaccine RTC in 3 monthsDo labsER if worseShe did verbalize her understand ing of the above Hyperlipidemia 25519652 E78.5 On atorvastat in 40mg dailyNot on fenofibrat e 145mg dailyNot on vascepa caused vomitingGe t labs Cigarette smoker 2606373 7 F17.210 Smoker 24 years 2 PPD, now cut down to 1/4 PPDAdvised to quit smokingShe has been started on chantix by Dr Vera IJ on 10/20/2023 LDCT 12/31/2020 LDCT 02/22/2022 LDCT 06/30/2022 : Dr WynnLDCT 06/30/2023 Leukocytosis 951996042 D 72.[address] Hernandez last OV 07/25/2023 , next in 3 months, referred 10/25/2023 Pain of le ft knee joint 1173748135 01516 M25.562 Chuy Doll PA 09/01/2021 , s/p knee arthroscop y, f/u PRN Prediabetes 010583803 R7 3.03 Not taking metformin 500mg bid, declined 03/27/2023 , prediabete s, more diet and exercise is neededGet labs On farxiga 10mg dailyGet labs Proteinuria 49953340 R80 .9 On vit d weeklyOn calcitriol Sees Dr Alejo CRUZ Gout 41677712 M10.[address] Alejo CRUZ Pain of le ft shoulder joint 6139143267 6014733 M25.512 Slept wrong, seen in the ER as per her history, will refer to Dr Katy Kingston SPECIALTIES OPERATOR 10/19/2022 , f/u PRN Macrocytosis 598552914 D 75.89 Get labs Liver enzy mes level above reference range 040870269 R74.8 GGT: 12/05/2022 : NegHepatit is panel: 12/05/2022 : Neg US liver 12/13/2022 US liver 06/30/2023 CT A/P: 12/23/2022 : [facility]: Hepatomega ly Skin lesion 53047187 L98 .9 On the R upper lip, and is now to see dermatolog y, referred by Mag Perez NPStates that she could not get in with the dermatolog ist d/t her insurance, will get an apt with Dr Kelly OV 06/21/2023 :S/p surgery Dr Kelly, 04/11/2023 Pre-surger y evaluation 705251567 Z01.818 Surgery: R foot bunyonSurg garland: Dr Heard te: TBDAnesthe cyndi: Cheyanne ce: Awaiting cardiac clearance with Dr Mcgraw dum: 06/22/2023 :She has been cleared for surgery by cardiology , 06/21/2023 , will need to see Dr Hernandez d/t her elevated WBC count Screening mammography 24 673051 Z12.31 Pain of bi lateral hands 1853357478 4436525 M79.641 M79.642 Luz Dawkins SPECIALTIES OPERATOR ortho 06/28/2023 , 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, will refer again 10/25/2023 Adult heal th examination 259600493 Z00.00 Screening for disorder 529572960 Z13.9 [id number] Anne Loredo DPM [facility] [place] [address] [place] [address] 12/18/2023 14:19:07 02/15/2024 14:47:58 Hallux valgus AND bunion 666201353 M20.12 distal great toe bunionSurg linda clearance obtained- plan surgery August 10plan Jean Marie osteotomy with hardware- repeat xrays at next visit [id number] Yogi wright MD [facility] Primary [facility] [address] [facility] [address] [facility] [place] [address] 01/08/2024 16:23:45 01/08/2024 17:58:39 Essential hypertension 57885464 I10 EKG: NSR, no acute STT changesStr ess test 07/19/2022 : Neg On amlodipine 5mg dailyNot on HCTZ 12.5mg dailyOn lisinopril 40mg dailyOn lasix given by Dr Alejo CRUZGet labs Dr Wynn 03/01/2023 Screening - NAD 98702767 3 Z13.9 C-scope: 04/13/2022 : Dr Marie next in 5 years Mammogram: 11/17/2021 : NegMammogr am: 11/22/2022 : Neg DEXA: 10/14/2020 : NegDEXA: 01/03/2023 : Neg PAP: 1: Mag Perez SPECIALTIES OPERATOR, Mag Perez 10/26/2022 Get yearly flu shotGet tdap if not doneUTD on COVID 19 vaccineCan do shingrix vaccineGet RSV vaccine RTC in 3 monthsDo labsER if worseShe did verbalize her understand ing of the above Hyperlipidemia 38940965 E78.5 On atorvastat in 40mg dailyNot on fenofibrat e 145mg dailyNot on vascepa caused vomitingGe t labs Cigarette smoker 9574725 7 F17.210 Smoker 24 years 2 PPD, now cut down to 1/4 PPDAdvised to quit smokingShe has been started on chantix by Dr Alejo CRUZ on 10/20/2023 LDCT 12/31/2020 LDCT 02/22/2022 LDCT 06/30/2022 : Dr WynnLDCT 06/30/2023 Leukocytosis 539763091 D 72.[address] Hernandez last OV 07/25/2023 , next in 3 months, referred 10/25/2023 Pain of le ft knee joint 8618258027 65322 M25.562 Chuy Doll PA 09/01/2021 , s/p knee arthroscop y, f/u PRN Prediabetes 357937286 R7 3.03 Not taking metformin 500mg bid, declined 03/27/2023 , prediabete s, more diet and exercise is neededGet labs On farxiga 10mg dailyGet labs Proteinuria 69700736 R80 .9 On vit d weeklyOn calcitriol Sees Dr Alejo CRUZ Gout 08602224 M10.[address] Vera IJ Pain of le ft shoulder joint 3669347505 1945725 M25.512 Slept wrong, seen in the ER as per her history, will refer to Dr Katy Kingston SPECIALTIES OPERATOR 10/19/2022 , f/u PRN Macrocytosis 193590171 D 75.89 Get labs Liver enzy mes level above reference range 810776728 R74.8 GGT: 12/05/2022 : NegHepatit is panel: 12/05/2022 : Neg US liver 12/13/2022 US liver 06/30/2023 CT A/P: 12/23/2022 : [facility]: Hepatomega ly Skin lesion 80174050 L98 .9 On the R upper lip, and is now to see dermatolog y, referred by Mag Perez NPStates that she could not get in with the dermatolog ist d/t her insurance, will get an apt with Dr Kelly OV 06/21/2023 :S/p surgery Dr Kelly, 04/11/2023 Pre-surger y evaluation 560002467 Z01.818 Surgery: R foot bunyonSurg garland: Dr Heard te: TBDAnesthe cyndi: Cheyanne ce: Awaiting cardiac clearance with Dr Mcgraw dum: 06/22/2023 :She has been cleared for surgery by cardiology , 06/21/2023 , will need to see Dr Hernandez d/t her elevated WBC count OV 01/08/2024 :Needs to get cardiac clearance for the L foot bunion Screening mammography 24 710441 Z12.31 Pain of bi lateral hands 0236655737 1445153 M79.641 M79.642 Luz Dawkins NP ortho 06/28/2023 , 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, will refer again 10/25/2023 [id number] Yogi rwight MD [facility] Primary [facility] [address] [facility] [address] [place] [address] 01/29/2024 13:57:03 01/29/2024 14:38:24 Adult health examination 833126809 Z00.00 Screening for disorder 093771084 Z13.9 Essential hypertension 09445284 I10 EKG: NSR, no acute STT changesStr ess test 07/19/2022 : Neg On amlodipine 5mg dailyNot on HCTZ 12.5mg dailyOn lisinopril 40mg dailyOn lasix given by Dr Alejo CRUZGet labs Dr Wynn 11/27/2023 , referred 01/29/2024 Screening - NAD 95696756 3 Z13.9 C-scope: 04/13/2022 : Dr Marie next in 5 years Mammogram: 11/17/2021 : NegMammogr am: 11/22/2022 : NegOrdered 01/29/2024 DEXA: 10/14/2020 : NegDEXA: 01/03/2023 : Neg PAP: 1: Mag Perez SPECIALTIES OPERATOR, Mag Perez 10/26/2022 Get yearly flu shotGet tdap if not doneUTD on COVID 19 vaccineCan do shingrix vaccineGet RSV vaccine RTC in 3 monthsDo labsER if worseShe did verbalize her understand ing of the above Hyperlipidemia 06025946 E78.5 On atorvastat in 80mg dailyNot on fenofibrat e 145mg dailyNot on vascepa caused vomitingGe t labs Cigarette smoker 5270635 7 F17.210 Smoker 24 years 2 PPD, now cut down to 1/4 PPDAdvised to quit smokingShe has been started on chantix by Dr Alejo CRUZ on 10/20/2023 LDCT 12/31/2020 LDCT 02/22/2022 LDCT 06/30/2022 : Dr Jones 06/30/2023 Leukocytosis 016146076 D 72.[address] Hernandez last OV 07/25/2023 , next in 3 months, referred 10/25/2023 Pain of le ft knee joint 0304467045 85613 M25.562 Chuy Doll PA 09/01/2021 , s/p knee arthroscop y, f/u PRN Prediabetes 843017742 R7 3.03 Not taking metformin 500mg bid, declined 03/27/2023 , prediabete s, more diet and exercise is neededGet labs On farxiga 10mg dailyGet labs Proteinuria 36394057 R80 .9 On vit d weeklyOn calcitriol Sees Dr Alejo CRUZ Gout 00705306 M10.[address] Vera IJ Pain of le ft shoulder joint 9612870493 9050457 M25.512 Slept wrong, seen in the ER as per her history, will refer to Dr Katy Kingston SPECIALTIES OPERATOR 10/19/2022 , f/u PRN Macrocytosis 198827049 D 75.89 Get labs Liver enzy mes level above reference range 083464599 R74.8 GGT: 12/05/2022 : NegHepatit is panel: 12/05/2022 : Neg US liver 12/13/2022 US liver 06/30/2023 CT A/P: 12/23/2022 : [facility]: Hepatomega ly Skin lesion 68715201 L98 .9 On the R upper lip, and is now to see dermatolog y, referred by Mag Perez NPStates that she could not get in with the dermatolog ist d/t her insurance, will get an apt with Dr Kelly OV 06/21/2023 :S/p surgery Dr Kelly, 04/11/2023 Pre-surger y evaluation 031154073 Z01.818 Surgery: R foot bunyonSurg garland: Dr Heard te: TBDAsunny cyndi: Cheyanne ce: Awaiting cardiac clearance with Dr Mcgraw dum: 06/22/2023 :She has been cleared for surgery by cardiology , 06/21/2023 , will need to see Dr Hernandez d/t her elevated WBC count OV 01/08/2024 :Needs to get cardiac clearance for the L foot bunion OV 01/29/2024 : Is to see Dr Loredo today Addendum: 02/10/2024 : Dr Loredo post op 02/05/2024 next apt 02/26/2024 Screening mammography 24 354213 Z12.31 Pain of bi lateral hands 7229440445 3635124 M79.641 M79.642 Luz Dawkins SPECIALTIES OPERATOR ortho 06/28/2023 , 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, will refer again 10/25/2023 [id number] Anne Loredo DPM [facility] [place] [address] [place] [address] 01/29/2024 15:02:11 02/16/2024 07:35:47 Hallux valgus AND bunion 374519456 M20.12 distal great toe bunionSurg linda clearance obtained- plan surgery August 10plan Jean Marie osteotomy with hardware- repeat xrays at next visit Hammer toe 606559428 M20 .42 left 2nd toediscuss ed optionsrec ommend arthroplas ty right 2nd toe [id number] Anne Loredo DPM [facility] [place] [address] [place] [address] 02/05/2024 14:03:57 02/16/2024 09:01:41 Postoperative care 086949515 Z48.89 status post-left great toe Jean Marie osteotomy and hammertoe arthroplas ty 2ndcontinu e postop shoeminima l 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- to and from the bathroom onlyrice therapyfol low-up in 3 weeks for suture removal [id number] Anne Loredo DPM [facility] [place] [address] [place] [address] 02/29/2024 12:01:19 03/06/2024 09:01:55 Postoperative care 794627359 Z48.89 status post-left great toe Jean Marie osteotomy and hammertoe arthroplas ty 2ndcontinu e postop shoeminima l 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- to and from the bathroom onlyrice therapyfol low-up in 3 weeks for suture removal [id number] Anne Loredo DPM [facility] [place] [address] [place] [address] 03/04/2024 14:58:29 03/15/2024 13:10:25 Postoperative care 234276026 Z48.89 status post-left great toe Jean Marie osteotomy and hammertoe arthroplas ty 2ndcontinu e postop shoeminima l 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- to and from the bathroom onlyrice therapyfol low-up in 4-5 weeks xrays Pain in toe 530034479 M7 9.674 as above [id number] Yogi wright MD [facility] [place] [facility] [address] [facility] [address] [place] [address] 03/13/2024 13:59:22 03/13/2024 14:53:16 [id number] Yogi wright MD [facility] [address] [facility] [address] [facility] [place] [address] 04/01/2024 14:15:52 04/01/2024 15:13:15 Essential hypertension 73294834 I10 EKG: NSR, no acute STT changesStr ess test 07/19/2022 : [facility] On amlodipine 5mg dailyNot on HCTZ 12.5mg dailyOn lisinopril 40mg dailyOn lasix given by Dr Alejo Romero labs Dr Wynn 11/27/2023 , referred 01/29/2024 , must keep her apts! Screening - NAD 90439237 3 Z13.9 C-scope: 04/13/2022 : Dr Marie next in 5 years Mammogram: 11/17/2021 : NegMammogr am: 11/22/2022 : NegOrdered 01/29/2024 DEXA: 10/14/2020 : NegDEXA: 01/03/2023 : Neg PAP: 1: Mag Perez SPECIALTIES OPERATOR, Mag Perez 10/26/2022 Get yearly flu shotGet tdap if not doneUTD on COVID 19 vaccineCan do shingrix vaccineGet RSV vaccine RTC in 3 monthsDo labsER if worseShe did verbalize her understand ing of the above Hyperlipidemia 59521553 E78.5 On atorvastat in 80mg dailyNot on fenofibrat e 145mg dailyNot on vascepa caused vomitingGe t labs Cigarette smoker 0119105 7 F17.210 Smoker 24 years 2 PPD, now cut down to 1/4 PPDAdvised to quit smokingShe has been started on chantix by Dr Alejo CRUZ on 10/20/2023 LDCT 12/31/2020 LDCT 02/22/2022 LDCT 06/30/2022 : Dr WynnLDCT 06/30/2023 Leukocytosis 409763209 D 72.[address] Hernandez last OV 07/25/2023 , next in 3 months, referred 10/25/2023 Pain of le ft knee joint [id number] 33283 M25.562 Chuy Doll PA 09/01/2021 , s/p knee arthroscop y, f/u PRN Prediabetes 349372431 R7 3.03 Not taking metformin 500mg bid, declined 03/27/2023 , prediabete s, more diet and exercise is neededGet labs On farxiga 10mg dailyGet labs Proteinuria 53822706 R80 .9 On vit d weeklyOn calcitriol Sees Dr Alejo CRUZ Gout 45890089 M10.[address] Alejo CRUZ Pain of le ft shoulder joint 9136839358 5491679 M25.512 Slept wrong, seen in the ER as per her history, will refer to Dr Katy Kingston SPECIALTIES OPERATOR 10/19/2022 , f/u PRN Macrocytosis 902013392 D 75.89 Get labs Liver enzy mes level above reference range 264097891 R74.8 GGT: 12/05/2022 : NegHepatit is panel: 12/05/2022 : Neg US liver 12/13/2022 US liver 06/30/2023 CT A/P: 12/23/2022 : [facility]: Hepatomega ly Skin lesion 05100027 L98 .9 On the R upper lip, and is now to see dermatolog y, referred by Mag Perez NPStates that she could not get in with the dermatolog ist d/t her insurance, will get an apt with Dr Kelly OV 06/21/2023 :S/p surgery Dr Kelly, 04/11/2023 Pre-surger y evaluation 804745178 Z01.818 Surgery: R foot bunyonSurg garland: Dr Heard te: TBDAnesthe cyndi: Cheyanne ce: Awaiting cardiac clearance with Dr Mcgraw dum: 06/22/2023 :She has been cleared for surgery by cardiology , 06/21/2023 , will need to see Dr Hernandez d/t her elevated WBC count OV 01/08/2024 :Needs to get cardiac clearance for the L foot bunion OV 01/29/2024 : Is to see Dr Loredo today Addendum: 02/10/2024 : Dr Loredo post op 02/05/2024 next apt 02/26/2024 Screening mammography 24 779370 Z12.31 Pain of bi lateral hands 1659423112 7904370 M79.641 M79.642 Luz Dawkins SPECIALTIES OPERATOR ortho 06/28/2023 , 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, will refer again 10/25/2023 Fall [id number] W19.XXXA S/p fall and seen in the ERS/p Xray 03/17/2024 : PelvisS/p CT C-spine 03/17/2024 S/p CT head 03/17/2024 per D/c note 03/19/2024 , she did have alcohol, and fell and was noted to be unresponsi ve, diagnosed with catatonia, benzodiaze pine given and told to follow up with Dr Todd Morgan and to put on ativan Serum isabelle min B12 below reference range 640828643 R79.89 Get on vit b12 weekly for 4 weeks and then monthly for 2 months and repeat the labs Hypothyroidism 01222078 E03.9 Will repeat the TSH and FT4 level againMay need to be on levothyrox ine [id number] Anne Loredo DPM [facility] [place] [address] [place] [address] 04/18/2024 14:04:33 04/19/2024 14:24:23 Postoperative care 758157611 Z48.89 status post-left great toe Jean Marie osteotomy and hammertoe arthroplas ty 2ndcontinu e postop shoeminima l 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- to and from the bathroom onlyrice therapyrep eat x-rays reviewedfo llow-up in 4-5 weeks xrays Pain in toe 715860384 M7 9.674 as above Closed fra cture proximal phalanx, toe 072595660 S92.415K plan obtain surgical clearancex -rays reviewed with the patientfai led hardware and non-union proximal phalanx great toe, leftsurgic al plan- removal hardware with 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 32283,2068 0 [id number] Yogi wright MD [facility] [address] [facility] [address] [place] [address] 05/01/2024 14:02:30 05/01/2024 14:55:27 Essential hypertension 08481880 I10 EKG: NSR, no acute STT changesStr ess test 07/19/2022 : [facility] On amlodipine 5mg dailyNot on HCTZ 12.5mg dailyOn lisinopril 40mg dailyOn lasix given by Dr Vera Get labs Dr Wynn 11/27/2023 , referred 01/29/2024 , must keep her apts!Dr Wynn 05/23/2024 for ECHO, next f/u 11/04/2024 Screening - NAD 36801465 3 Z13.9 C-scope: 04/13/2022 : Dr Marie next in 5 years Mammogram: 11/17/2021 : NegMammogr am: 11/22/2022 : NegOrdered 01/29/2024 , is to get this in June 2024 DEXA: 10/14/2020 : NegDEXA: 01/03/2023 : Neg PAP: 1: Mag Perez SPECIALTIES OPERATOR, Mag Perez 10/26/2022 Get yearly flu shotGet tdap if not doneUTD on COVID 19 vaccineCan do shingrix vaccineGet RSV vaccine RTC in 3 monthsDo labsER if worseShe did verbalize her understand ing of the above Hyperlipidemia 07219719 E78.5 On atorvastat in 80mg dailyNot on fenofibrat e 145mg dailyNot on vascepa caused vomitingGe t labs Cigarette smoker 2589307 7 F17.210 Smoker 24 years 2 PPD, now cut down to 1/4 PPDAdvised to quit smokingShe has been started on chantix by Dr Alejo CRUZ on 10/20/2023 LDCT 12/31/2020 LDCT 02/22/2022 LDCT 06/30/2022 : Dr WynnLDCT 06/30/2023 Leukocytosis 063275287 D 72.[address] Hernandez last OV 07/25/2023 , next in 3 months, referred 10/25/2023 Pain of le ft knee joint 8857555582 65152 M25.562 Chuy Doll PA 09/01/2021 , s/p knee arthroscop y, f/u PRN Prediabetes 065581243 R7 3.03 Not taking metformin 500mg bid, declined 03/27/2023 , prediabete s, more diet and exercise is neededGet labs On farxiga 10mg dailyGet labs Proteinuria 45968703 R80 .9 On vit d weeklyOn calcitriol Sees Dr Alejo CRUZ Gout 02083857 M10.[address] Alejo CRUZ Pain of le ft shoulder joint 9025309973 6374352 M25.512 Slept wrong, seen in the ER as per her history, will refer to Dr Katy Kingston SPECIALTIES OPERATOR 10/19/2022 , f/u PRN Macrocytosis 798489124 D 75.89 Get labs Liver enzy mes level above reference range 966468978 R74.8 GGT: 12/05/2022 : NegHepatit is panel: 12/05/2022 : Neg US liver 12/13/2022 US liver 06/30/2023 CT A/P: 12/23/2022 : [facility]: Hepatomega ly Skin lesion 33277246 L98 .9 On the R upper lip, and is now to see dermatolog y, referred by Mag Perez NPStates that she could not get in with the dermatolog ist d/t her insurance, will get an apt with Dr Kelly OV 06/21/2023 :S/p surgery Dr Kelly, 04/11/2023 Pre-surger y evaluation 986934712 Z01.818 Surgery: R foot bunyonSurg garland: Dr Heard te: TBDAnesthe cyndi: Cheyanne ce: Awaiting cardiac clearance with Dr Mcgraw dum: 06/22/2023 :She has been cleared for surgery by cardiology , 06/21/2023 , will need to see Dr Hernandez d/t her elevated WBC count OV 01/08/2024 :Needs to get cardiac clearance for the L foot bunion OV 01/29/2024 : Is to see Dr Loredo today Addendum: 02/10/2024 : Dr Loredo post op 02/05/2024 next apt 02/26/2024 OV 05/01/2024 :Surgery: L big toe surgerySur geon: Dr LoredoCl eared by Dr Aggarwal 05/01/2024 Cleared for the surgery, remains a moderate risk Screening mammography 24 079548 Z12.31 Pain of bi lateral hands 4393836890 3923243 M79.641 M79.642 Luz Dawkins SPECIALTIES OPERATOR ortho 06/28/2023 , 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, will refer again 10/25/2023 Fall [id number] W19.XXXA S/p fall and seen in the ERS/p Xray 03/17/2024 : PelvisS/p CT C-spine 03/17/2024 S/p CT head 03/17/2024 per D/c note 03/19/2024 , she did have alcohol, and fell and was noted to be unresponsi ve, diagnosed with catatonia, benzodiaze pine given and told to follow up with Dr Todd Morgan and to put on ativan Serum isabelle min B12 below reference range 747185680 R79.89 Get on vit b12 weekly for 4 weeks and then monthly for 2 months and repeat the labs Hypothyroidism 31288459 E03.9 Will repeat the TSH and FT4 level againMay need to be on levothyrox ine [id number] Anne Loredo DPM [facility] [place] [address] [place] [address] 05/06/2024 10:09:13 05/07/2024 09:03:09 Postoperative care 741124347 Z48.89 status post-left great toe Jean Marie osteotomy and hammertoe arthroplas ty 2ndcontinu e postop shoeminima l 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- to and from the bathroom onlyrice therapyrep eat x-rays reviewedfo llow-up post surgery- plan 331 Closed fra cture proximal phalanx, toe 372194246 S92.415K plan obtain surgical clearancex -rays reviewed with the patientfai led hardware and non-union proximal phalanx great toe, leftsurgic al plan- removal hardware with 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 46469,2068 0 Pain in toe 872390145 M7 9.674 as above [id number] Anne Loredo DPM [facility] [place] [address] [place] [address] 05/27/2024 14:20:50 06/05/2024 15:58:08 Postoperative visit 795097286 Z48.89 status post repair of nonunion and hardware removalcon tinue to keep the dressings clean and dryContinu e postop shoeMonito r for signs of infectionF ollow-up in 1 week [id number] Anne Loredo DPM [facility] [place] [address] [place] [address] 06/03/2024 13:59:49 06/07/2024 13:36:36 Postoperative visit 462283202 Z48.89 status post repair of nonunion and hardware removalcon tinue to keep the dressings clean and dryContinu e postop shoeMonito r for signs of infectionF ollow-up in 1 week [id number] Anne Loredo DPM [facility] [place] [address] [place] [address] 06/13/2024 13:53:28 06/18/2024 12:49:01 Postoperative visit 377969961 Z48.89 status post repair of nonunion and hardware removalcon tinue to keep the dressings clean and dryContinu e postop shoeMonito r for signs of infectionF ollow-up in 1 week Dehiscence of external surgical incision wound 8602412436 47045 T81.31XA betadine wet to dry dressings dailyfinis h doxycyclin eBetadine wet-to-dry dressing dailyno soaking of toe [id number] Anne Loredo DPM [facility] [place] [address] [place] [address] 06/24/2024 14:48:09 07/23/2024 15:35:06 Postoperative visit 904564311 Z48.89 status post repair of nonunion and hardware removalcon tinue to keep the dressings clean and dryContinu e postop shoeMonito r for signs of infectionF ollow-up in 1 week Dehiscence of external surgical incision wound 6122728907 43881 T81.31XA Betadine wet-to-dry dressing dailyno soaking of toemonitor for infection at present seek medical attention immediatel yoffloadin g all timesfollo w-up 1 week [id number] Anne Loredo DPM [facility] [place] [address] [place] [address] 07/01/2024 13:53:40 07/02/2024 15:32:55 Postoperative visit 574696921 Z48.89 status post repair of nonunion and hardware removalcon tinue to keep the dressings clean and dryContinu e postop shoeMonito r for signs of infection Dehiscence of external surgical incision wound 3706892815 64340 T81.31XA R23.4 continue offloading finished doxycyclin eBetadine wet-to-dry dressing dailyno soaking of toerecomme nd postop shoefollow -up in 1- 2 weeks [id number] Anne Loredo DPM [facility] [place] [address] [facility] [address] [place] [address] 07/18/2024 13:40:35 07/22/2024 11:51:21 Postoperative visit 769664343 Z48.89 status post repair of nonunion and hardware removalcon tinue to keep the dressings clean and dryContinu e postop shoeMonito r for signs of infectionf ollow up2 months Dehiscence of external surgical incision wound 8176605183 16444 T81.31XA R23.4 healedoffl oadingfoll ow up in 2 months- repeat xrays [id number] Yogi wright MD [facility] [address] [facility] [address] [place] [address] 09/04/2024 13:54:11 09/04/2024 14:54:21 Essential hypertension 89233105 I10 EKG: NSR, no acute STT changesStr ess test 07/19/2022 : NegECHO 03/18/2024 [facility] On amlodipine 5mg dailyNot on HCTZ 12.5mg dailyOn lisinopril 40mg dailyOn lasix given by Dr Vera IJGet labs Dr Wynn 11/27/2023 , referred 01/29/2024 , must keep her apts!Dr Wynn 05/23/2024 for ECHO, next f/u 11/04/2024 Screening - NAD 55373142 3 Z13.9 C-scope: 04/13/2022 : Dr Marie next in 5 years Mammogram: 11/17/2021 : NegMammogr am: 11/22/2022 : NegOrdered 01/29/2024 , is to get this in June 2024Mammog laurel: 07/08/2024 : neg DEXA: 10/14/2020 : NegDEXA: 01/03/2023 : Neg PAP: 1: Mag Perez SPECIALTIES OPERATOR, Mag Perez 10/26/2022 Get yearly flu shotGet tdap if not doneUTD on COVID 19 vaccineCan do shingrix vaccineGet RSV vaccine RTC in 2 monthsDo labsER if worseShe did verbalize her understand ing of the above Hyperlipidemia 63429631 E78.5 On atorvastat in 80mg dailyNot on fenofibrat e 145mg daily, will restart this and get labsNot on vascepa caused vomitingGe t labs Cigarette smoker 3098320 7 F17.210 Smoker 24 years 2 PPD, now cut down to 1/4 PPDAdvised to quit smokingShe has been started on chantix by Dr Alejo CRUZ on 10/20/2023 LDCT 12/31/2020 LDCT 02/22/2022 LDCT 06/30/2022 : Dr WynnLDCT 06/30/2023 Leukocytosis 278071259 D 72.[address] Hernandez last OV 07/25/2023 , next in 3 months, referred 10/25/2023 Dr Hernandez 05/28/2024 : Next in 6 months Pain of le ft knee joint 3334369303 99048 M25.562 Chuy Doll PA 09/01/2021 , s/p knee arthroscop y, f/u PRN Prediabetes 351808633 R7 3.03 Not taking metformin 500mg bid, declined 03/27/2023 , prediabete s, more diet and exercise is neededGet labs On farxiga 10mg dailyGet labs Proteinuria 96082382 R80 .9 On vit d weeklyOn calcitriol Sees Dr Alejo CRUZ Gout 12219424 M10.[address] Alejo CRUZ Pain of le ft shoulder joint 4069351339 1979370 M25.512 Slept wrong, seen in the ER as per her history, will refer to Dr Katy Kingston SPECIALTIES OPERATOR 10/19/2022 , f/u PRN Macrocytosis 214807714 D 75.89 Get labs Liver enzy mes level above reference range 229134718 R74.8 GGT: 12/05/2022 : NegHepatit is panel: 12/05/2022 : Neg US liver 12/13/2022 US liver 06/30/2023 CT A/P: 12/23/2022 : [facility]: Hepatomega ly Skin lesion 07425578 L98 .9 On the R upper lip, and is now to see dermatolog y, referred by Mag Perez NPStates that she could not get in with the dermatolog ist d/t her insurance, will get an apt with Dr Kelly OV 06/21/2023 :S/p surgery Dr Kelly, 04/11/2023 Pre-surger y evaluation 527313419 Z01.818 Surgery: R foot bunyonSurg garland: Dr Heard te: TBDAnesthe cyndi: Cheyanne ce: Awaiting cardiac clearance with Dr Mcgraw dum: 06/22/2023 :She has been cleared for surgery by cardiology , 06/21/2023 , will need to see Dr Hernandez d/t her elevated WBC count OV 01/08/2024 :Needs to get cardiac clearance for the L foot bunion OV 01/29/2024 : Is to see Dr Loredo today Addendum: 02/10/2024 : Dr Loredo post op 02/05/2024 next apt 02/26/2024 OV 05/01/2024 :Surgery: L big toe surgerySur geon: Dr LoredoCl eared by Dr Aggarwal 05/01/2024 Cleared for the surgery, remains a moderate risk Pain of bi lateral hands 8740701003 9545124 M79.641 M79.642 Luz Dawkins SPECIALTIES OPERATOR ortho, 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, will refer again Fall W19.XXXA S/p fall and seen in the ERS/p Xray 03/17/2024 : PelvisS/p CT C-spine 03/17/2024 S/p CT head 03/17/2024 per D/c note 03/19/2024 , she did have alcohol, and fell and was noted to be unresponsi ve, diagnosed with catatonia, benzodiaze pine given and told to follow up with Dr Todd Morgan and to put on ativan Serum isabelle min B12 below reference range 643663619 R79.89 Get on vit b12 weekly for 4 weeks and then monthly for 2 months and repeat the labs Hypothyroidism 41281150 E03.9 Will repeat the TSH and FT4 level againMay need to be on levothyrox ine Acute righ t otitis media 779462732 H66.91 3843164 Went swimming and now has painGet on doxyNotify if not better, ER if worse [id number] Zeeshan Adrian MD [facility] [place] [address] [place] [address] 09/19/2024 11:35:29 09/25/2024 08:41:10 Otitis media of right ear 5117459662 091082 H66.91 627607678 Acute otitis externa 302 63764 H60.311 72879991 Impacted c erumen in right ear 4942865673 525506 H61.21 3831160 [id number] Yogi wright MD [facility] [address] [facility] [address] [place] [address] 10/28/2024 14:40:34 10/28/2024 15:58:46 Essential hypertension 70571403 I10 EKG: NSR, no acute STT changesStr ess test 07/19/2022 : NegECHO 03/18[facility] On amlodipine 5mg dailyNot on HCTZ 12.5mg dailyOn lisinopril 40mg dailyOn lasix given by Dr Alejo Romero labs Dr Wynn 11/27/2023 , referred 01/29/2024 , must keep her apts!Dr Wynn 05/23/2024 for ECHO, next f/u 11/04/2024 Screening - NAD 06092017 3 Z13.9 C-scope: 04/13/2022 : Dr Cynthia [place] in 5 years Mammogram: 11/17/2021 : NegMammogr am: 11/22/2022 : NegOrdered 01/29/2024 , is to get this in June 2024Mammog laurel: 07/08/2024 : neg DEXA: 10/14/2020 : NegDEXA: 01/03/2023 : Neg PAP: 1: Mag Perez SPECIALTIES OPERATOR, Mag Perez 10/26/2022 Get yearly flu shotGet tdap if not doneUTD on COVID 19 vaccineCan do shingrix vaccineGet RSV vaccine RTC in 2 monthsDo labsER if worseShe did verbalize her understand ing of the above Hyperlipidemia 42858982 E78.5 On atorvastat in 80mg dailyOn fenofibrat e 145mg dailyNot on vascepa caused vomitingGe t labs Cigarette smoker 3573682 7 F17.210 Smoker 24 years 2 PPD, now cut down to 1/4 PPDAdvised to quit smokingShe has been started on chantix by Dr Alejo CRUZ on 10/20/2023 LDCT 12/31/2020 LDCT 02/22/2022 LDCT 06/30/2022 : Dr Jones 06/30/2023 Leukocytosis 273941031 D 72.[address] Hernandez last OV 07/25/2023 , next in 3 months, referred 10/25/2023 Dr Hernandez 05/28/2024 : Next in 6 months Pain of le ft knee joint 6048540792 96861 M25.562 Chuy Doll PA 09/01/2021 , s/p knee arthroscop y, f/u PRN Prediabetes 208806631 R7 3.03 Not taking metformin 500mg bid, declined 03/27/2023 , prediabete s, more diet and exercise is neededGet labs On farxiga 10mg dailyGet labs Proteinuria 58223670 R80 .9 On vit d weeklyOn calcitriol Sees Dr Alejo CRUZ Gout 01134893 M10.[address] Alejo CRUZ Pain of le ft shoulder joint 6774237681 0926914 M25.512 Slept wrong, seen in the ER as per her history, will refer to Dr Katy Kingston SPECIALTIES OPERATOR 10/19/2022 , f/u PRN Macrocytosis 441273905 D 75.89 Get labs Skin lesion 38941324 L98 .9 On the R upper lip, and is now to see dermatolog y, referred by Mag Perez NPStates that she could not get in with the dermatolog ist d/t her insurance, will get an apt with Dr Kelly OV 06/21/2023 :S/p surgery Dr Kelly, 04/11/2023 Pre-surger y evaluation 045534560 Z01.818 Surgery: R foot bunyonSurg garland: Dr Heard te: TBDAsunny cyndi: Cheyanne ce: Awaiting cardiac clearance with Dr Mcgraw dum: 06/22/2023 :She has been cleared for surgery by cardiology , 06/21/2023 , will need to see Dr Hernandez d/t her elevated WBC count OV 01/08/2024 :Needs to get cardiac clearance for the L foot bunion OV 01/29/2024 : Is to see Dr Loredo today Addendum: 02/10/2024 : Dr Loredo post op 02/05/2024 next apt 02/26/2024 OV 05/01/2024 :Surgery: L big toe surgerySur geon: Dr LoredoCl eared by Dr Aggarwal 05/01/2024 Cleared for the surgery, remains a moderate risk Pain of bi lateral hands 1441686524 8440755 M79.641 M79.642 Luz Dawkins SPECIALTIES OPERATOR ortho, 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, will refer again Fall W19.XXXA S/p fall and seen in the ERS/p Xray 03/17/2024 : PelvisS/p CT C-spine 03/17/2024 S/p CT head 03/17/2024 per D/c note 03/19/2024 , she did have alcohol, and fell and was noted to be unresponsi ve, diagnosed with catatonia, benzodiaze pine given and told to follow up with Dr Todd Morgan and to put on ativan Serum isabelle min B12 below reference range 141380010 R79.89 Get on vit b12 weekly for 4 weeks and then monthly for 2 months and repeat the labs Hypothyroidism 38599212 E03.9 Will repeat the TSH and FT4 level againMay need to be on levothyrox ine Liver func tion test above reference range 562462316 R79.89 116944 GGT: 12/05/2022 : NegHepatit is panel: 12/05/2022 : Neg US liver 12/13/2022 US liver 06/30/2023 CT A/P: 12/23/2022 : [facility]: Hepatomega ly Get liver US 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.921 20441194 Was at a friend's home and had a 'fifth of vodka' and then 'passed out' and was seen in the ER at [place], [place] on 10/10/2024 Now does wellGet on folate, thiamine Upper resp iratory infection 41280750 J06.9 25644640 Get on z-packRest isolate and ER if worse Health Concerns Section Related Observation LastModified by Organization Detai ls LastModified Time None Recorded Concern Status LastModified by Organization Details LastModified Time None Recorded Advance Directives Directive N: Payers Insurance Date Sequence Insurance Name Policy Number Policy Perez Covered Member ID Perez Member ID Guarantor Name 10/28/2024 1 [facility] - DOS ON OR AFTER 2020 - DUAL ELIGIBLE (MEDICARE REPLACEMENT/A DVANTAGE - HMO) [facility] [id number] [facility] 10/28/2024 1 [facility] (MEDICARE REPLACEMENT/A DVANTAGE - HMO) [facility] [id number] [facility] 10/28/2024 1 [facility] (MEDICARE REPLACEMENT/A DVANTAGE - PPO) [id number] [facility] [id number] [facility] 10/28/2024 2 [place] [facility] [id number] [facility] 10/28/2024 1 [facility] - DOS ON OR AFTER 20 (MEDICAID REPLACEMENT - HMO) [facility] [id number] [facility] Notes Date Note Type Note Provider Name and Address Organization Details Recorded Time 07/01/2024 text/html . Patient is a 63-year-old female she returns for follow-up on wound dehiscence which is 97% healed. Patient had a little eschar to the area which was easily removed with gentle pressure with sharp instrument. Patient has no further signs of infection she states she is not in any pain and presents in sandals today. Patient denies any other complaints. Anne Loredo DPM [address] [facility], [place], [address], [facility] 07/01/2024 14:53:41 07/18/2024 text/html . 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 Patient states at times she has some mild achiness to the great toe but has returned to normal shoe gear. Patient denies any other complaints. Anne Loredo, DPAguilar [address], [place], [address], [place] [facility] [place] [employer] [facility] 07/22/2024 09:53:52 09/04/2024 text/html OV 10/07/2020:Here to establish carePast Hx:CVAHTNHLDReviewe d social family and surgical historyHere to discuss aboveShe is doing wellIn 07/10 was admitted thru the ER from what she describes as a 'stroke', no complaints now, she did have a syncopal episode one week ago at work, states that she fell backwards on a bed and was 'out' for 3-4 minutes, no more such episodes, she does see her product manager Dr Lilly extensive ROS is negative todayOV 12/09/2020:Here for her routine aptShe is doing wellShe did do the labs on 12/07/2020OV 04/06/2021:ACV:Here with c/o R sided rib painS/p fall on 03/29 and seen in the ER at [facility] on 03/30/2021, was taken off work but still has the R sided pain, she had repeat Xrays done at [facility] yesterdayShe did not want to go back to the ER and insisted on been seen for continuing R rib painShe also has not been able to go to workOV 04/12/2021:Here post op from ER for rib fracturesShe states that she is doing better, was given hydrocodoneOV 05/05/2021:F/u in one monthShe is doing well todayShe did do the labsNow c/o L knee painOV 08/04/2021:Here for her routine aptShe is doing wellShe did do the labs on 2OV 12/08/2021:Here for her f/u apt, she is doing well, here for her wellness visit too, did do the labsShe does have a R ear ache, states that she has wax and this was removed by some ENT clinic, no d/c from the ear, no dizziness, no fevers or chills OV 04/20/2022:Here for her f/u apt, she is doing well today, needs to do labs OV 07/27/2022:Here for her f/u apt, she is feeling well, she did do the labs on 07/15/2022 OV 11/23/2022: Here for her f/u apt, she is doing well today, she did do the labs OV 03/27/2023: Here for her f/u apt, she feels well today, she did do the labs OV 06/21/2023: Here for her f/u apt and pre op evaluation, she is doing well today, she has had the lesion by her upper lip removed, now is doing well, she has also see Dr Dow and Dr Loredo and is now to get her R bunyon removed OV 10/25/2023: Here for her f/u apt, she is here with Wm her , is doing well today, here for her MWV also, no new labs, she was seen by Dr Alejo CRUZ as per her history and has started on chantix to help her quit smoking OV 01/08/2024: Here for her f/u apt, she is to get bunyon surgery, does well, here with her OV 01/29/2024: Here for her f/u apt, she is to see podiatry also, she also is here for her MWV OV 04/01/2024: Here for her f/u apt, she feels very well today OV 05/01/2024: Here for her f/u apt does well, here with Wm OV 09/04/2024: Here for her f/u apt, is c/o R ear ache, no d/c, no fevers or chills, no dizziness Yogi Burns MD [address], [address], [place], [address], [employer] 09/04/2024 14:51:08 09/19/2024 text/html this patient reports right ear pain for 1 week. She has been on 3 courses of antibiotics without improvement. Zeeshan Adrian MD [address], [address], [place], [address], [employer] 09/19/2024 12:03:02 10/28/2024 text/html OV 10/07/2020:Here to establish carePast Hx:CVAHTNHLDReviewe d social family and surgical historyHere to discuss aboveShe is doing wellIn 07/10 was admitted thru the ER from what she describes as a 'stroke', no complaints now, she did have a syncopal episode one week ago at work, states that she fell backwards on a bed and was 'out' for 3-4 minutes, no more such episodes, she does see her product manager Dr Lilly extensive ROS is negative todayOV 12/09/2020:Here for her routine aptShe is doing wellShe did do the labs on 12/07/2020OV 04/06/2021:ACV:Here with c/o R sided rib painS/p fall on 03/29 and seen in the ER at [facility] on 03/30/2021, was taken off work but still has the R sided pain, she had repeat Xrays done at [facility] yesterdayShe did not want to go back to the ER and insisted on been seen for continuing R rib painShe also has not been able to go to workOV 04/12/2021:Here post op from ER for rib fracturesShe states that she is doing better, was given hydrocodoneOV 05/05/2021:F/u in one monthShe is doing well todayShe did do the labsNow c/o L knee painOV 08/04/2021:Here for her routine aptShe is doing wellShe did do the labs on 2OV 12/08/2021:Here for her f/u apt, she is doing well, here for her wellness visit too, did do the labsShe does have a R ear ache, states that she has wax and this was removed by some ENT clinic, no d/c from the ear, no dizziness, no fevers or chills OV 04/20/2022:Here for her f/u apt, she is doing well today, needs to do labs OV 07/27/2022:Here for her f/u apt, she is feeling well, she did do the labs on 07/15/2022 OV 11/23/2022: Here for her f/u apt, she is doing well today, she did do the labs OV 03/27/2023: Here for her f/u apt, she feels well today, she did do the labs OV 06/21/2023: Here for her f/u apt and pre op evaluation, she is doing well today, she has had the lesion by her upper lip removed, now is doing well, she has also see Dr Dow and Dr Loredo and is now to get her R bunyon removed OV 10/25/2023: Here for her f/u apt, she is here with Wm her , is doing well today, here for her MWV also, no new labs, she was seen by Dr Alejo CRUZ as per her history and has started on chantix to help her quit smoking OV 01/08/2024: Here for her f/u apt, she is to get bunyon surgery, does well, here with her OV 01/29/2024: Here for her f/u apt, she is to see podiatry also, she also is here for her MWV OV 04/01/2024: Here for her f/u apt, she feels very well today OV 05/01/2024: Here for her f/u apt does well, here with Wm OV 09/04/2024: Here for her f/u apt, is c/o R ear ache, no d/c, no fevers or chills, no dizziness OV 10/28/2024: Here for her f/u apt, she is here with her , does well, did do the labsNow has URI sx for 3 days, it is white, no blood in the phlegm, no fevers or chills, no SOB Yogi Burns MD [address] [facility], [place], [address], [place] [facility] 10/28/2024 18:14:12 OBGyn Episode No OBEpisode recorded.
--- OUTSIDE RECORDS SUMMARY | 2024-11-14 09:14 | XMS_ITS | Clinical Summary ---
Author Organization [facility] Address [address] [place] [address] Care Team Providers Care Loan Closer Name Role Phone Caitlyn Burns MD Primary Care Provider Source Comments [facility],non-owned Affiliates and Associated Physician Practices is amultiple site organization consisting of ambulatory clinics and hospital sitesin [place], [place], [place] and [place]. This disclosure is being madepursuant to the Care Everywhere program and may not contain all information available regarding this patient. Last updated 17.[facility] Allergies Active Allergy Reactions Criticality Noted Date Comments Epa Ethyl Jennifer Vomiting 12/13/2021 Penicillins Anaphylaxis,Swelling High 10/07/2013 Medications * Be aware that medications may not be up to date on this document. Alwaysverify current medications with the patient. allopurinol (Zyloprim) 100 MG tablet Take 1 (one) tablet by mouth once daily Active amLODIPine (Norvasc) 5 MG tablet Take 1 (one) tablet by mouth once daily Active ciprofloxacin (Cipro) 250 MG tablet Take 1 (one) tablet by mouth every 12 hours FOR 10 DAYS 06/06/19 25 Active vitamin D, ergocalciferol, (Drisdol) 1.25 MG (67418 UT) capsule Take 1 (one) capsule by mouth every 7 days (once a week) Active Farxiga 10 MG tablet Take 1 (one) tablet by mouth every morning 12/10/19 23 Active lisinopril (Prinivil; Zestril) 40 MG tablet Take 1 (one) tablet by mouth once daily Active doxycycline monohydrate 100 MG capsule Take 1 (one) capsule by mouth every 12 hours 06/04/19 25 Active cyanocobalamin (Vitamin B-12) injection Inject 1,000 (one thousand) mcg subcutaneously every 30 days 05/02/19 25 Active calcitriol (Rocaltrol) 0.25 MCG capsule Take 1 (one) capsule by mouth once daily Active aspirin EC (Ecotrin) 81 MG tablet Take 1 (one) tablet by mouth once daily Active atorvastatin (Lipitor) 80 MG tablet Take 1 (one) tablet by mouth once daily Active furosemide (Lasix) 20 MG tablet Take 1 (one) tablet by mouth once daily Active acetaminophen (Tylenol) 325 MG tablet Take 2 (two) tablets by mouth every 4 hours as needed for Fever or Pain Maximum allowable Acetaminophen amount = 4 Grams (4000 mg) / 24 hours. Active ibuprofen (Motrin) 200 MG tablet Take 1 (one) tablet by mouth every 6 hours as needed for Pain Active Active Problems Problem Noted Date Diagnosed Date Fatty liver (MetALD) 08/01/2024 Overview (08/01/2024): 07/25/24 Fibroscan CAP 290, LSM 5.0 kPa Alcohol abuse 08/01/2024 Chronic obstructive pulmonary disease 08/01/2024 Stage 2 chronic kidney disease 08/01/2024 Renal osteodystrophy 08/01/2024 Secondary hyperparathyroidism 08/01/2024 Hypothyroidism 03/31/2024 Low serum vitamin B12 03/31/2024 Smoker 06/13/2023 Vitamin B12 deficiency (non anemic) 04/11/2023 Dupuytren's contracture of left hand 08/09/2022 Diabetes mellitus, type 2 06/06/2022 Gout 04/19/2022 Essential hypertension 03/29/2022 Hyperlipidemia 07/14/2021 Vitamin D deficiency 07/14/2021 Osteoarthrosis 06/21/2021 Resolved Problems Problem Noted Date Diagnosed Date Resolved Date Basal cell carcinoma of face 05/10/2023 08/01/2024 Cerebrovascular accident 09/26/202201/2025 Encounters Date Type Department Care Team Description 08/29/2024 Telephone [facility] [address] [place] [address] Marisa Burleson, ANKUSH-ODD SHOE EXAMINER Results from Last 3 Months Social History Tobacco Use Types Packs/Day Years Used Date Smoking Tobacco: Some Days Cigarettes 2 27.7 Started: 1997 Smokeless Tobacco: Never Alcohol Use Standard Drinks/Week Comments Yes 0 (1 standard drink = 0.6 oz pur e alcohol) occasionally Comments Unknown Sex and Gender Information Value Date Recorded Sex Assigned at Not on file Legal Sex Female 1:30 PM CDT Gender Identity Not on file Sexual Orientation Not on file Last Filed Vital Signs Vital Sign Reading Time Taken Comments Blood Pressure 135/86 07/25/2024 10:44 AM CDT Pulse 64 07/25/2024 10:44 AM CDT Temperature 36.5 C (97.7 F) 07/25/2024 10:44 AM CDT Respiratory Rate - - Oxygen Saturation 100% 07/25/2024 10: 44 AM CDT Inhaled Oxygen Concentration - - Weight 68.4 kg (150 lb 12.8 oz) 025 10:44 AM CDT Height 167.6 cm (5' 6) 07/25/2024 10:4 4 AM CDT Body Mass Index 24.34 07/25/2024 10:44 AM CDT Plan of Treatment Upcoming Encounters Date Type Department Care Team (Late st Contact Info) Description 01/27/2025 11:30 AM TOBACCO BALER Office Visit [facility] [place] [address] [place] [phone] Marisa Burleson, UNDERWRITING MANAGER-ODD SHOE EXAMINER [address] [place] [address] [place] [address] Health Maintenance Due Date Last Done Comments COLOGUARD (AGES 45-75) - COLON CA SCREENING 1960 COLON MONITORING 1960 COLONOSCOPY - COLON CA SCREENING 1960 CT COLONOGRAPHY - COLON CA SCREENING 1960 Colorectal Cancer Screening 1960 FIT - COLON CA SCREENING 1960 FLEX SIG - COLON CA SCREENING 1960 MAMMOGRAM 1960 HIV SCREENING 11/19/1975 DTAP/TDAP/TD VACCINES (1 - Tdap) 11/19/1979 PNEUMOCOCCAL VACCINE 50+ (1 of 2 - PCV) 11/19/1979 PAP SMEAR 1981 LUNG CANCER SCREENING 2010 ZOSTER VACCINE (1 of 2) 2010 Respiratory Syncytial Virus (RSV) Vaccine Pt: or over 60 yrs (1 - Risk 60-74 years 1-dose series) 2020 DEPRESSION SCREENING 02/21/2024 DIABETES - URINE PROTEIN SCREENING 02/21/2024 MEDICARE AWV CALENDAR YEAR 2024 DIABETES RETINOPATHY SCREENING 08/01/2024 DIABETES-FOOT EXAM WITH MONOFILAMENT 08/01/2024 DIABETES-HGB A1C 08/01/2024 COVID-19 VACCINE (2024- season) 2024 11/23/2021, 07/30/2021, 03/31/2021, Additional history exists INFLUENZA VACCINE (#1) 2024 , 12/08/2021, 12/09/2020 DIABETES-SERUM CREATININE 07/29/2025 07/29/2024 HEPATITIS C SCREENING Completed 07/29/2024 HEPATITIS B VACCINE Aged Out No longe [...] on patient's age to complete this topic Goals Goal Patient Goal Type Associated Problems Recent Progress Patient-Stated? Author Medication Management General On track( 10:49 AM CDT) No Dorothy Pierce, RN Note: Expected end date: ongoing Interventions: Take all medications as prescribed Let your doctor know right away about any changes in your medications Make sure to request a refill of your medication at least one week prior to your last dose Safety General On track(06/05/2 025 10:49 AM CDT) No Dorothy Pierce, RN Note: Expected end date: ongoing Interventions: Your nurse will assess your risk for falls/injury each visit Use appropriate and safe transfer methods Make sure appropriate safety devices are available and within reach Be aware of medications that could predispose you to falling Wear non-skid/rubber sole footwear Wear glasses/hearing aid Keep personal items within easy reach Keep walking paths clutter free and clear Maintain an unobstructed path to the bathroom Procedures Procedure Name Priority Date/Time Associated Diagnosis Comments COMPREHENSIVE METABOLIC PANEL Routine 07/29/2024 10:36 AM CDT Elevated liver enzymes HEPATITIS C AB W/RFLX TO HCV RNA QN PCR Routine 07/29/2024 10:36 AM CDT Elevated liver enzymes from Last 3 Months or Most Recently Relevant to Health Maintenance Results * HEPATITIS C AB W/RFLX TO HCV RNA QN PCR (07/29/2024 10:36 AM CDT) Hepatitis C Antibody NON-REACTI VE NON-REACT [facility] Comment: HCV antibody was non-reactive. There is no laboratory evidence of HCV infection. In most cases, no further action is required. However, if recent HCV exposure is suspected, a test for HCV RNA (test code 11783) is suggested. For additional information please refer to http://education.[employer]/faq/KDQ85d5 (This link is being provided for informational/ educational purposes only.) Test Performed at: [facility] [address] [place] [address] ZINA VAIL MD Blood BLOOD SPECIMEN / Unknown 07/29/2024 10:36 AM CDT 07/29/2024 10:36 AM CDT Marisa Burleson UNDERWRITING MANAGER-ODD SHOE EXAMINER LAB - CHEMISTRY ORD ERABLES Final Result [facility] [id number] [place] [address] * (ABNORMAL) COMPREHENSIVE METABOLIC PANEL (07/29/2024 10:36 AM CDT) Glucose 95 65 - 99 mg/dL [facility] Comment: Fasting reference interval BUN 8 7 - 25 mg/dL [facility] Creatinine 1.10(H) 0.50 - 1.05 mg/dL [facility] eGFR by Cystatin C 56(L) > OR = 60 mL/min/1.7 3m2 [facility] BUN/Creatinine Ratio 7 6 - 22 (calc) [facility] Sodium 141 135 - 146 mmol/L [facility] Potassium 4.3 3.5 - 5.3 mmol/L [facility] Chloride 104 98 - 110 mmol/L [facility] CO2 28 20 - 32 mmol/L [facility] Calcium 9.8 8.6 - 10.4 mg/dL [facility] Protein Total 7.1 6.1 - 8.1 g/dL [facility] Albumin 4.4 3.6 - 5.1 g/dL [facility] Globulin Total 2.7 1.9 - 3.7 g/dL (calc) [facility] Albumin/Globulin Ratio 1.6 1.0 - 2.5 (calc) [facility] Bilirubin Total 0.5 0.2 - 1.2 mg/dL [facility] Alkaline Phosphatase 113 37 - 153 U/L [facility] AST 26 10 - 35 U/L [facility] ALT 28 6 - 29 U/L [facility] Comment: Test Performed at: [facility] [address] [place] [address] ZINA VAIL MD Blood BLOOD SPECIMEN / Unknown 07/29/2024 10:36 AM CDT 07/29/2024 10:36 AM CDT Marisa Burleson UNDERWRITING MANAGER-ODD SHOE EXAMINER LAB - CHEMISTRY ORD ERABLES Final Result [facility] [address] [place] [address] from Last 3 Months or Most Recently Relevant to Health Maintenance Insurance [facility] MANAGED MEDICARE ADV Care Teams Loan Closer Relationship Specialty Start Date End Date Caitlyn Burns MD [address] [phone] PCP - General Internal Medicine 07/25/24
--- OUTSIDE RECORDS SUMMARY | 2024-11-14 09:14 | XMS_ITS | Clinical Summary ---
Author Organization [facility] Address [address] [place] [phone] Care Team Providers Care Regional Business Manager Name Role Phone Trang Burns MD Primary [...] on file Legal Sex Female 4:26 PM GROUND SUPPORT AGENT Gender Identity Not on file Sexual Orientation [...] 12:48 PM CDT Height 167.6 cm (5' 6) 11/10/2021 12:48 PM CDT Body Mass Index [...] (2 of 2) 10/02/2022 08/07/2022 Covid-19 Vaccine (2024-2 6 season) 2024 07/30/2021, 03/31/2021, 07/20/2020, Additional history exists Influenza Vaccine (#1) 2024 , 12/08/2021, 12/09/2020 DTaP/Tdap/Td Vaccine (2 - Td or Tdap) 10/12/2030 10/12/2020 Hepatitis B Screening Completed 07/28/2022 Insurance [employer] [place] [employer] PPO [facility] MEDICARE ADVANTAGE Care Teams Regional Business Manager Relationship Specialty Start Date End Date Trang Burns MD [address] [place] [address] PCP - General Internal Medicine 10/07/20
[2024-11-14] MEDS: dexAMETHasone SOD PHOS INJ 10 MG/ML 1 ML VIAL IM (09:29)
[2024-11-14] MEDS: diphenhydrAMINE HCl CAP 25 MG CAPSULE 50 MG PO (09:30)
== END 2024-11-14 09:50 | disposition home or self-care (01) ==
PROVIDERS: Emergency Provider Nurse Practitioner Family; PCP Internal Medicine
DX: T78.3XXA Angioneurotic edema, initial encounter (principal); F17.210 Nicotine dependence, cigarettes, uncomplicated; E11.9 Type 2 diabetes mellitus without complications; Z79.84 Long term (current) use of oral hypoglycemic drugs; I10 Essential (primary) hypertension; E78.5 Hyperlipidemia, unspecified; Z86.73 Personal history of transient ischemic attack (TIA), and cerebral infarction without residual deficits
CPT/HCPCS: 96372; 99213; A9270; G0463; J1100

== ENCOUNTER 2024-11-22 15:04 | Outpatient (CLI) | payer MEDICARE, SELFPAY ==
--- NOTE | ~2024-11-22 | US_ITS ---
EXAMINATION: US soft tissue UE RT DATE: 11/22/2024 15:27 INDICATION: Mass at the right third digit TECHNIQUE: Multiple grayscale and Doppler ultrasound images of the region of the palpable abnormality at the right third digit were obtained. COMPARISON: None FINDINGS: Imaging at the dorsal aspect of the third proximal phalanx and proximal interphalangeal joint demonstrate a couple 3-4 mm hypoechoic nodules in the subcutaneous tissues medially and laterally at the level of the neck of the proximal phalanx. Each lesion appears contiguous with a hypoechoic region exten ding deeper along the medial and lateral margins of the bone. Similar 3-4 mm hypoechoic lesions are seen at the palmar aspect of the proximal phalanx on either side of the flexor tendon at the level of the neck of the proximal phalanx. Similarly appears contiguous with region of hypoechogenicity situated between the bone deep margin of the flexor tendon. It is unclear whether these lesions are cystic structures ganglion cysts extending to recess of the joint space or solid. IMPRESSION: 1. 3-4 mm nodular hypoechoic lesions both medially and laterally at both the dorsal and palmar aspects of the third digit at the level of the distal neck of the third proximal phalanx. 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 Would consider further evaluation with pre and postcontrast MRI of the third digit differentiate solid from cystic etiologies and better delineate the relationship the lesion relative to the tendon, tendon sheath and joint space. Reviewed, dictated and finalized at location A. IMPRESSION: 1. 3-4 mm nodular hypoechoic lesions both medially and laterally at both the do rsal and palmar aspects of the third digit at the level of the distal neck of t he third proximal phalanx. It is unclear whether these are cystic such as gangl ion cysts contiguous with the proximal interphalangeal joint or solid, potentia lly related to reported prior reported tumor resection such as a giant cell isabel or of the tendon sheath. Would consider further evaluation with pre and postcon trast MRI of the third digit differentiate solid from cystic etiologies and bet ter delineate the relationship the lesion relative to the tendon, tendon sheath and joint space.
== END 2024-11-22 15:05 | disposition home or self-care (01) ==
LOC: MICIMG 15:05
PROVIDERS: PCP Internal Medicine; Visit Provider Plastic Surgery
DX: R22.31 Localized swelling, mass and lump, right upper limb (principal)
CPT/HCPCS: 76882

== ENCOUNTER 2024-11-25 11:26 | Outpatient (CLI) | payer MEDICARE, SELFPAY ==
--- OUTSIDE RECORDS SUMMARY | 2024-05-01 10:15 | XMS_ITS ---
Author Organization [facility] Address [address] [place] [address] Care Team Providers Care Snack Bar Cook Name Role Phone Alejo Dimitris Unavailable [phone] Social History Sex Assigned At : Social History Observation Description Sex Assigned At Female Problems Problem Type SNOMED Code ICD Code Onset Dates Problem Status W/U Status Risk Notes Problem Chronic obstructive pulmonary disease (64769035) Chronic obstructive pulmonary disease, unspecified (J44.9) Active confirmed Problem Vitamin D deficiency (14606329) Vitamin D deficiency, unspecified (E55.9) Active confirmed Problem Cerebrovascular disease (82027261) Cerebrovascular disease, unspecified (I67.9) Active confirmed Encounters Encounter Location Date Provider Diagnosis [place] [facility] [address] [facility] [address] [place] [address] 05/01/2024 Dimitris Dhillon Chronic kidney disea se, [...] 03:15:00 PM, [address], [address], [place], [address], Progress Notes * Brice MONDRAGONB: [birth year] (64 yo F)Acc No.[id number]:05/01/2024 Progress Notes Patient: Ju BURDEN Provider: Nina VILA MD, F.A.C.P, F.A.S.N. :1960 A ge:63 Y S ex:Female Date:05/01/2024 Address:[facility] [address] [facility] [address] [place] [address] Subjective: * Chief Complaints: * * Medical [...] Treatment: * Billing Information: * Visit Code: 74151 Office Visit, Est Pt., Level 4. * Procedure Codes: * Electronic signature of Saravanan Dhillon MD on 11/25/2024 at 01:03 PM CDT Sign off status: Pending * Provider: Nina VILA MD, Dominga.Barrington.C.P, F.A.S.N. Date: 0 05/01/2024 Generated for Printing/Faxing/eTransmitting on: 1 01:03 PM CDT
--- OUTSIDE RECORDS SUMMARY | 2024-06-05 09:15 | XMS_ITS ---
Author Organization [facility] Address [address] [place] [address] Care Team Providers Care Air Compressor Engineer Name Role Phone Alejo Dimitris Unavailable [phone] Social History Sex Assigned At : Social History Observation Description Sex Assigned At Female Problems Problem Type SNOMED Code ICD Code Onset Dates Problem Status W/U Status Risk Notes Problem Tobacco use (436471617) Tobacco use (Z72.0) Active confirmed Problem Alcohol abuse (68370503) Alcohol abuse (F10.10) Active confirmed Problem Swelling of first metatarsophalangeal joint of hallux (968034064) Bunion of unspecified foot (M21.619) Active confirmed Encounters Encounter Location Date Provider Diagnosis [place] [facility] [address] [facility] [address] [place] [address] 06/05/2024 Dimitris Dhillon Chronic kidney disea se, [...] Next Appt Details Provider Name:Dimitris Alejo , 12/04/2024 03:15:00 PM, [address] [facility], [facility] [address], [place], [address], Progress Notes * Brice MONDRAGONB: [birth year] (64 yo F)Acc No.[id number]:06/05/2024 Progress Notes Patient: Ju BURDEN Provider: Nina VILA MD, F.A.C.P, F.A.S.N. :1960 A ge:63 Y S ex:Female Date:06/05/2024 Address:[facility] [address] [facility] [address] [place], [place] [phone] Subjective: * Chief Complaints: * * Medical [...] Treatment: * Billing Information: * Visit Code: 50501 Office Visit, Est Pt., Level 4. * Procedure Codes: * Electronic signature of Saravanan Dhillon MD on 11/25/2024 at 01:04 PM CDT Sign off status: Pending * Provider: Nina VILA MD, F.A.C.P, F.A.S.N. Date: 0 06/05/2024 Generated for Printing/Faxing/eTransmitting on: 1 01:04 PM CDT
--- OUTSIDE RECORDS SUMMARY | 2024-08-14 09:45 | XMS_ITS ---
Author Organization [facility] Address [address] [place] [address] Care Team Providers Care Radio Mechanic Helper Name Role Phone Alejo Dimitris Unavailable [phone] Social History Sex Assigned At : Social History Observation Description Sex Assigned At Female Problems Problem Type SNOMED Code ICD Code Onset Dates Problem Status W/U Status Risk Notes Problem Chronic kidney disease stage 3A (disorder) (684435507) Chronic kidney disease, stage 3a (N18.31) Active confirmed Encounters Encounter Location Date Provider Diagnosis [place] [facility] [address] [facility] [address] [place] [address] 08/14/2024 Dimitris Dhillon Chronic kidney disea se, [...] Name:Dimitris Dhillon , 12/04/2024 03:15:00 PM, [address] [facility] [address], [address], Progress Notes * Zarina MONDRAGONaDOB: [birth year] (64 yo F)Acc No.[id number]:08/14/2024 Progress Notes Patient: Ju BURDEN Provider: Nina VILA MD, F.A.C.P, F.A.S.N. :1960 A ge:63 Y S ex:Female Date:08/14/2024 Address:[address] Subjective: * Chief Complaints: * * Medical [...] Treatment: * Billing Information: * Visit Code: 61426 Office Visit, Est Pt., Level 4. * Procedure Codes: * Electronic signature of Saravanan Dhillon MD on 11/25/2024 at 01:02 PM CDT Sign off status: Pending * Provider: Nina VILA MD, F.A.C.P, F.A.S.N. Date: 0 08/14/2024 Generated for Printing/Faxing/eTransmitting on: 1 01:02 PM CDT
--- OUTSIDE RECORDS SUMMARY | 2024-10-02 15:45 | XMS_ITS ---
Author Organization [facility] Address [address] [facility] [address] [facility] [address] [place] [address] Care Team Providers Care Street Superintendent Name Role Phone Glendy Dhillonerjit Unavailable [phone] Social History Sex Assigned At : Social History Observation Description Sex Assigned At Female Encounters Encounter Location Date Provider Diagnosis [place] [facility] 2043 [facility] 15 [place] [address] 10/02/2024 Dimitris Dhillon Plan Of Treatment Next Appt Details Provider Name:Dimitris Dhillon , 12/04/2024 03:15:00 PM, [address] [facility], [facility] 15, [place], [address], Progress Notes * Zraina MONDRAGONaDOB: [birth year] (64 yo F)Acc No.[id number]:10/02/2024 Progress Notes Patient: Ju BURDEN Provider: Nina VILA MD, Dominga.Barrington.C.P, F.A.S.N. :1960 A ge:63 Y S ex:Female Date:10/02/2024 Address:[address] Subjective: * Chief Complaints: * * Medical History: Objective: * Vitals: Assessment: Plan: * Treatment: * Billing Information: * Visit Code: * Procedure Codes: * Electronic signature of Saravanan Dhillon MD on 11/25/2024 at 01:02 PM CDT Sign off status: Pending * Provider: Nina VILA MD, Dominga.Barrington.C.P, F.A.S.N. Date: 0 10/02/2024 Generated for Printing/Faxing/eTransmitting on: 1 01:02 PM CDT
--- OUTSIDE RECORDS SUMMARY | 2024-10-09 10:30 | XMS_ITS ---
Author Organization [facility] Address [address] [place] [address] Care Team Providers Care Air Crew Member Name Role Phone Alejo Dimitris Unavailable [phone] Social History Sex Assigned At : Social History Observation Description Sex Assigned At Female Problems Problem Type SNOMED Code ICD Code Onset Dates Problem Status W/U Status Risk Notes Problem Metabolic disorder (24211228) Metabolic disorder, unspecified (E88.9) Active confirmed Problem Diabetic renal disease (433834621) Type 2 diabetes mellitus with diabetic chronic kidney disease (E11.22) Active confirmed Encounters Encounter Location Date Provider Diagnosis [place] [facility] 2043 [facility] [address] [place] [address] 10/09/2024 Dimitris Dhillon Chronic kidney disea se, [...] Name:Dimitris Dhillon , 12/04/2024 03:15:00 PM, 2043 [facility] 15[place], [address], Progress Notes * Zarina MONDRAGONaDOB: [birth year] (64 yo F)Acc No.[id number]:10/09/2024 Progress Notes Patient: Ju BURDEN Provider: Nina VILA MD, F.A.C.P, F.A.S.N. :1960 A ge:63 Y S ex:Female Date:10/09/2024 Address:[address] [place], [place] [id number] Subjective: * Chief Complaints: Objective: Assessment: * [...] Plan: * Billing Information: * Visit Code: 29028 Office Visit, Est Pt., Level 4. * Procedure Codes: * Electronic signature of Saravanan Dhillon MD on 11/25/2024 at 01:03 PM CDT Sign off status: Pending * Provider: Nina VILA MD, F.A.C.P, F.A.S.N. Date: 0 10/09/2024 Generated for Printing/Faxing/eTransmitting on: 1 01:03 PM CDT
[2024-11-25 11:42] LABS: Hematocrit 41.4 % (37.0-47.0); Hemoglobin 13.0 g/dL (12.0-15.0); Immature Granulocyte Percent A 1.6 % (0-0.5); Lymphocytes Absolute Auto 3.84 K/mm3 (0.9-3.2); Mean Corpuscular HGB Conc 31.4 g/dl (32-36); Mean Corpuscular Hemoglobin 31.0 pg (26-34); Mean Corpuscular Volume 98.8 fl (80-100); Nucleated Red Blood Cells Absolute Auto 0.000 K/mm3 (0.0-0.012); Nucleated Red Blood Cells Perc 0.0 % (0.0-0.2); Platelet Count Result 431 k/mm3 (150-375); Red Blood Count 4.19 M/mm3 (4.2-5.4); White Blood Count 18.3 K/mm3 (4.5-10.0)
[2024-11-25 12:22] LABS: Alanine Aminotransferase 21 U/L (6-35); Albumin Level 4.5 g/dL (3.5-5.1); Alkaline Phosphatase 65 U/L (38-126); Anion Gap 9 mmol/L (4-12); Aspartate Amino Transferase 26 U/L (14-36); Bilirubin,Total 0.4 mg/dL (0.2-1.3); Blood Urea Nitrogen 20 mg/dL (7-17); Calcium 10.2 mg/dL (8.4-10.2); Carbon Dioxide 25 mmol/L (22-30); Chloride 107 mmol/L (98-107); Estimated Glomerular Filt Rate 42; Glucose 80 mg/dL (65-110); Potassium 3.6 mmol/L (3.4-5.0); Sodium 141 mmol/L (137-145); Total Protein 8.1 g/dL (6.3-8.2)
--- OUTSIDE RECORDS SUMMARY | 2024-11-25 13:03 | XMS_ITS | Clinical Summary ---
Author Organization [facility] Address [facility] [place] [address] Care Team Providers Care Scrum Master Name Role Phone Caitlyn Burns MD Primary Care Provider Allergies Active Allergy Reactions Criticality Noted Date Comments Penicillins Unknown 10/06/2024 Medications atorvastatin (LIPITOR) 80 MG tablet Take 1 tablet (80 mg total) by mouth nightly at bedtime. Active lisinopril (PRINIVIL) 40 MG tablet Take 1 tablet (40 mg total) by mouth daily. Active acetaminophen (TYLENOL) 325 MG tablet Take 2 tablets (650 mg total) by mouth every 4 (four) hours as needed. Active allopurinol (ZYLOPRIM) 100 MG tablet Take 1 tablet (100 mg total) by mouth daily. Active amLODIPine (NORVASC) 5 MG tablet Take 1 tablet (5 mg total) by mouth daily. Active aspirin EC 81 MG tablet Take 1 tablet (81 mg total) by mouth daily. Active calcitriol (ROCALTROL) 0.25 MCG capsule Take 1 capsule (0.25 mcg total) by mouth daily. Active FARXIGA 10 MG tablet Take 1 tablet (10 mg total) by mouth daily. 09/04/2024 Active vitamin D2, ergocalciferol, (DRISDOL) 1.25 mg capsule Take 1 capsule (1.25 mg total) by mouth every 7 days. Active fenofibrate (TRICOR) 145 MG tablet Take 1 tablet (145 mg total) by mouth daily. 09/04/2024 Active Active Problems Problem Noted Date Diagnosed Date Encephalopathy 10/07/2024 Hypokalemia 10/06/2024 Encounters Date Type Department Care Team Description 10/21/[address] [facility] Med/Surg [address] [place] [address] Lashay Edmonds I, RN Follow Up Call 10/07/2024 Travel 10/06/2024 9:49 PM CDT - 10/07/2024 1:52 PM CDT Hospital Encounter [facility] Med/Surg [address] [place] [address] Gustavo Chatterjee MD Malcolm, Ashley Helen, MD Harris, Michael, MD Altered Mental Status Discharge Disposition: Home or Self Care (Routine Discharge) from Last 3 Months Social History Tobacco Use Types Packs/Day Years Used Date Smoking Tobacco: Every Day Cigarettes 1 10 Tobacco Cessation:Ready to Q uit: Not Asked; Counseling Given: Not Answered Alcohol Use Standard Drinks/Week Comments Yes 0 (1 standard drink = 0.6 oz pur e alcohol) 2 tallboys a day [facility] Utilities Answer Date Recorded In the past 12 months has [facility] [employer], gas, oil, or water [employer] threatened to shut off services in your home? No 10/07/2024 Humiliation, Afraid, Rape, and Kick questionnair e Answer Date Recorded Within the last year, have y ou been afraid of your partner or ex-partner? No 10/07/2024 Within the last year, have y ou been humiliated or emotionally abused in other ways by your partner or ex-partner? No Within the last year, have y ou been kicked, hit, slapped, or otherwise physically hurt by your partner or ex-partner? No 10/07/2024 Within the last year, have y ou been raped or forced to have any kind of sexual activity by your partner or ex-partner? No 10/07/2024 Overall Financial Resource Strain (CARDIA) Answe r Date Recorded How hard is it for you to pa y for the very basics like food, housing, medical care, and heating? Not hard at all 10/07/2024 Hunger Vital Sign Answer Date Recorded Within the past 12 months, y ou worried that your food would run out before you got the money to buy more. Never true 10/08/19 25 Within the past 12 months, t he food you bought just didn't last and you didn't have money to get more. Never true 10/07/2024 PRAPARE - Transportation Answer Date Re corded In the past 12 months, has l ack of transportation kept you from medical appointments or from getting medications? No 09/20 In the past 12 months, has l ack of transportation kept you from meetings, work, or from getting things needed for daily living? No 10/07/2024 Housing Stability Vital Sign Answer Tan e Recorded In the last 12 months, was t here a time when you were not able to pay the mortgage or rent on time? No 10/07/2024 In the past 12 months, how m any times have you moved where you were living? 0 10/07/2024 At any time in the past [address] [facility], were you homeless or living in a alf (including now)? 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 Gender Identity Not on file Sexual Orientation Not on file Last Filed Vital Signs Vital Sign Reading Time Taken Comments Blood Pressure 153/58 10/07/2024 11:30 AM CDT Pulse 56 10/07/2024 11:30 AM CDT Temperature 36.4 C (97.5 F) 10/07/2024 11:30 AM CDT Respiratory Rate 18 10/07/2024 11:30 AM CDT Oxygen Saturation 96% 10/07/2024 11:30 AM CDT Inhaled Oxygen Concentration - - Weight 67.3 kg (148 lb 5.9 oz) 10/07/2024 4:05 A M CDT Height 160 cm (5' 3) 10/06/2024 9:50 PM CDT Body Mass Index 26.28 10/06/2024 9:50 PM CDT Plan of Treatment Health Maintenance Due Date Last Done Comments Cervical Cancer Screening Pap Smear (Age 30 to 64) Every 3 Years 1960 Colorectal Cancer Screening Colonoscopy (10 Years) 1960 Annual Physical 11/19/1963 Cervical Cancer Screening Pap with HPV Testing (Age 30 to 64) Every 5 Years 1990 Cervical Cancer Screening with HPV 1990 Mammogram Screening 2000 Influenza Adult (#1) 2024 10/25/2023, 11/23/2022, 12/08/2021, Additional history exists DTaP, Tdap and Td Vaccines (2 - Td or Tdap) 10/12/2030 10/12/2020 RSV Immunization or 60+ Years (1 - 1-dose 75+ series) 11/19/2035 Pneumococcal Vaccine: 50+ Years Completed 07/28/2022 Zoster Vaccines Completed 09/14/2023, 08/07/2022 COVID-19 Vaccine Completed 10/25/2023, 05/2021, 07/30/2021, Additional history exists Hepatitis C Completed 07/29/2024, 10/2024, 07/29/2024 Meningococcal B Vaccine Aged Out No l onger eligible based on patient's age to complete this topic Meningococcal Vaccine Aged Out No liu karolina eligible based on patient's age to complete this topic RSV Immunizations Under 20 Months Aged Out No longer eligible based on patient's age to complete this topic Goals Goal Patient Goal Type Associated Problems Recent Progress Patient-Stated? Author Patient will return to prior living situation and remain independent in ADLs upon discharge from hospital Lifestyle No Stacey Yates RN Procedures Procedure Name Priority Date/Time Associated Diagnosis Comments POCT GLUCOSE - DOCKED DEVICE Routine 10/07/2024 7:58 AM CDT MAGNESIUM Routine 10/07/2024 6:15 AM CDT COMPREHENSIVE METABOLIC PANEL Routine 10/07/2024 6:15 AM CDT CBC W/DIFF AUTOMATED Routine 10/07/2024 6:15 AM CDT XR CHEST PORTABLE STAT 10/06/2024 11: [address] HEAD WO CON STAT 10/06/2024 10:17 PM CDT BLOOD GAS, ARTERIAL LAB STAT 10/07/19 10:05 PM CDT DRUG SCREEN RAPID STAT 10/06/2024 10: 00 PM CDT URINALYSIS, AUTO, COMPLETE STAT 10/06/2024 10:00 PM CDT ETHANOL STAT 10/06/2024 9:57 PM CDT MAGNESIUM STAT 10/06/2024 9:57 PM CDT PRO-BRAIN NATRIURETIC PEPTIDE STAT 10/06/2024 9:57 PM CDT LIPASE STAT 10/06/2024 9:57 PM CDT CK (CPK) STAT 10/06/2024 9:57 PM CDT TROPONIN, QUANT STAT 10/06/2024 9:57 PM CDT COMPREHENSIVE METABOLIC PANEL STAT 10/06/2024 9:57 PM CDT PARTIAL THROMBOPLASTIN TIME,PTT STAT 10/06/2024 9:57 PM CDT PROTHROMBIN TIME, VENOUS STAT 10/06/2024 9:57 PM CDT CBC W/DIFF AUTOMATED STAT 10/06/2024 9:57 PM CDT POCT GLUCOSE - DOCKED DEVICE Routine 10/06/2024 9:55 PM CDT ECG 12-LEAD Routine 10/06/2024 9:52 PM CDT from Last 3 Months Results * POCT glucose (10/07/2024 7:58 AM CDT) Only the most recent of2 resultswithin the time period is included. GLUCOSE POC 98 70 - 110 mg/dL 10/07/2024 1:14 PM CDT [facility] 10/07/2024 7:58 AM CDT us Elías Tanner MD POCT ORDERABLES - DEVICE Final Result [facility] [address] [place] [address], [place] [phone] * (ABNORMAL) COMPREHENSIVE METABOLIC PANEL (10/07/2024 6:15 AM CDT) Only the most recent of2 resultswithin the time period is included. [facility] GLUCOSE 85 70 - 99 MG/DL 10/07/2024 6:58 AM CDT [facility] BUN 6(L) 7 - 18 MG/DL 10/07/2024 6:58 AM CDT [facility] CREATININE S/P/B 0.88 0.55 - 1.02 MG/DL 10/07/2024 6:58 AM CDT [facility] SODIUM S/P/B 146(H) 136 - 145 MMOL/L 10/07/2024 6:58 AM CDT [facility] POTASSIUM S/P/B 4.4 3.5 - 5.1 MMOL/L 10/07/2024 6:58 AM CDT [facility] CHLORIDE S/P/B 114(H) 100 - 108 MMOL/L 10/07/2024 6:58 AM CDT [facility] CO2 24.4 21 - 32 MMOL/L 10/07/2024 6:58 AM CDT [facility] CALCIUM S/P/B 8.4(L) 8.5 - 10.1 MG/DL 10/07/2024 6:58 AM CDT [facility] BILIRUBIN TOTAL S/P/B 0.2 0.2 - 1.2 MG/DL 10/07/2024 6:58 AM CDT [facility] TOTAL PROTEIN S/P/B 6.7 6.4 - 8.2 G/DL 10/07/2024 6:58 AM CDT [facility] ALBUMIN S/P/B 3.5 3.4 - 5.0 G/DL 10/07/2024 6:58 AM CDT [facility] AST 40(H) 15 - 37 U/L 10/07/2024 6:58 AM CDT [facility] ALT 43 14 - 55 U/L 10/07/2024 6:58 AM T [facility] ALKALINE PHOSPHATASE S/P/B 67 50 - 136 U/L 10/07/2024 6:58 AM CDT [facility] ANION GAP 7.6 5 - 15 MMOL/L 10/07/2024 6:58 AM T [facility] BUN CREATININE RATIO 6.8 6 - 26 10/07/2024 6:58 AM T [facility] A/G RATIO 1.1 1.0 - 2.0 RATIO 10/07/2024 6:58 AM T [facility] GFR ESTIMATE 74(L) >90 ML/MIN/1.7 3 M2 10/07/2024 6:58 AM T [facility] Comment: NOTE: eGFR is not calculated for patients <18 years of age. This is an estimated GFR calculation using the new CKD EPI creatinine equation without race and so does not require a correction factor for race. This estimated GFR should not be used for calculating drug doses. 10/07/2024 6:15 AM CDT us Robyn Short MD LABORATORY Final Re sult [facility] [address] [place] [address], [place] [phone] * (ABNORMAL) CBC W/DIFF AUTOMATED (10/07/2024 6:15 AM CDT) Only the most recent of2 resultswithin the time period is included. WBC 8.38 4.4 - 11.0 x10'3/uL 10/07/2024 6:58 AM T [facility] RBC 3.79(L) 4.50 - 5.10 x10'6/uL 10/07/2024 6:58 AM T [facility] HGB 12.0(L) 12.3 - 15.3 G/DL 10/07/2024 6:58 AM T [facility] HCT 38.0 35.9 - 44.6 % 10/07/2024 6:58 AM T [facility] MCV 100.3(H) 80.0 - 96.0 FL 10/07/2024 6:58 AM T [facility] MCH 31.7(H) 25.3 - 30.9 PG 10/07/2024 6:58 AM T [facility] MCHC 31.6 31.0 - 34.1 G/DL 10/07/2024 6:58 AM T [facility] RDW 13.2 12.4 - 15.1 % 10/07/2024 6:58 AM [facility] PLT 300 151 - 353 x10'3/uL 10/07/2024 6:58 AM T [facility] MPV 10.0 9.6 - 12.0 FL 10/07/2024 6:58 AM T [facility] RBC MORPHOLOGY NORMAL 10/07/2024 6:58 AM T [facility] PLT MORPH. NORMAL 10/07/2024 6:58 AM [facility] WBC MORPHOLOGY NORMAL 10/07/2024 6:58 AM T [facility] LYMPHOCYTES % 34.2 15.8 - 45.0 % 10/07/2024 6:58 AM CDT [facility] NEUTROPHILS % 52.0 42.1 - 71.9 % 10/07/2024 6:58 AM CDT [facility] MONOCYTES % 9.2 5.7 - 12.5 % 10/07/2024 6:58 AM CDT [facility] EOSINOPHILS 1.9 0.0 - 5.6 % 10/07/2024 6:58 AM CDT [facility] BASOPHILS 1.0 0.0 - 1.3 % 10/07/2024 6:58 AM CDT [facility] ABS. NEUTROPHILS 4.36 1.40 - 6.00 x10'3/uL 10/07/2024 6:58 AM CDT [facility] IMMATURE GRANS % 1.7(H) 0.0 - 0.5 % 10/07/2024 6:58 AM CDT [facility] ABS. LYMPHOCYTES 2.87 0.80 - 4.70 x10'3/uL 10/07/2024 6:58 AM CDT [facility] 10/07/2024 6:15 AM CDT Robyn Short MD LABORATORY Final Re sult [facility] [address] [place] [address], * (ABNORMAL) MAGNESIUM (10/07/2024 6:15 AM CDT) Only the most recent of2 resultswithin the time period is included. MAGNESIUM 2.6(H) 1.8 - 2.4 MG/DL 10/07/2024 6:58 AM CDT [facility] 10/07/2024 6:15 AM CDT Robyn Short MD LABORATORY Final Re sult [facility] [address] [place] [address], * XR CHEST PORTABLE (10/06/2024 11:28 PM CDT) Anatomical Region Laterality Modality Chest Radiographic Jazmin ging 10/06/2024 11:3 1 PM CDT Impressions 10/06/2024 11:32 PM CDT IMPRESSION: ======== 1. No acute cardiopulmonary findings. 2. Right posterior fifth sixth and seventh rib fractures. Seventh rib fracture has an acute appearance. Referred By: Interpreted By: Cristophre Fong MD, 10/06/2024 11:31 PM Narrative 10/06/2024 11:32 PM CDT [facility] [address] [facility] [place] [address] Examination: Chest x-ray 1 view Exam Date/Time: 10/06/2024 11:27 PM Reason For Exam: cough AMS Comparison: none Technique: Single AP view of the chest was obtained. Findings: Heart size prominent but within normal limits for AP technique. No large effusion. No pneumothorax. No focal infiltrate or consolidation. Pulmonary vasculature within normal limits. Right posterior fifth sixth and seventh rib fractures. Minimal healing changes of the superior acute fractures with acute appearance of the seventh rib fracture. ======== Procedure Note Cristopher Fong MD - 10/06/2024 [facility] [address] [facility] [place] [address] Examination: Chest x-ray 1 view Exam Date/Time: 10/06/2024 11:27 PM Reason For Exam: cough AMS Comparison: none Technique: Single AP view of the chest was obtained. Findings: Heart size prominent but within normal limits for AP technique.No large effusion. No pneumothorax. No focal infiltrate orconsolidation. Pulmonary vasculature within normal limits. Rightposterior fifth sixth and seventh rib fractures. Minimal healing changesof the superior acute fractures with acute appearance of the seventh ribfracture. ======== IMPRESSION: ======== 1. No acute cardiopulmonary findings. 2. Right posterior fifth sixth and seventh rib fractures. Seventh ribfracture has an acute appearance. Referred By: Interpreted By: Cristopher Fong MD, 10/06/2024 11:31 PM Gustavo Chatterjee MD GENERAL IMAGING Final Result * CT HEAD WO CON (10/06/2024 10:17 PM CDT) Anatomical Region Laterality Modality Head Computed Tomogra phy 10/06/2024 10:3 6 PM CDT Impressions 10/06/2024 10:39 PM CDT IMPRESSION: 1. No acute intracranial abnormality. 2. Mild generalized atrophy, especially in the frontal and temporal lobes. 3. 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 4. Mucous retention cyst and/or mucosal thickening in a few right ethmoid air cells. Pneumatization of the middle turbinates. Referred By: Interpreted By: Toya Goldman MD, 10/06/2024 10:36 PM Narrative 10/06/2024 10:39 PM CDT [facility] [address] [place] [address] EXAMINATION: CT Head without Contrast, Axial Imaging with 2-D Coronal and Sagittal Reconstruction. This CT exam was performed using one or more of the following dose reduction techniques: automated exposure control, adjustment of the mA and/or kV according to patient size, the use of iterative reconstruction technique, use of ALARA (As Low As Reasonably Achievable) and/or use of Image Gently techniques. INDICATION: Altered mental status. Unresponsive, confusion upon arrival, episodes of emesis. COMPARISON: None. FINDINGS: No mass, midline shift, intracranial hemorrhage, areas of acute macrovascular ischemia, or acute osseous abnormality. Mild generalized atrophy, especially in the frontal and temporal lobes. No extra-axial fluid collections. Ventricles and sulci are normal for age. Obnb-ko-rjolkbgy nonspecific hypodensity in the periventricular and deep cerebral white matter in bilateral cerebral hemispheres without edema or mass effect, likely nonspecific chronic white matter microvascular disease. Visualized orbits are unremarkable. Pneumatization of the middle turbinates. Mucous retention cyst and/or mucosal thickening in a few right ethmoid air cells. No other significant disease in the partially visualized paranasal sinuses or mastoid air cells. Procedure Note Toya Goldman MD - 10/06/2024 [facility] [address] [facility]. [place] [id number] EXAMINATION: CT Head without Contrast, Axial Imaging with 2-D Coronal andSagittal Reconstruction. This CT exam was performed using one or more of the following dosereduction techniques: automated exposure control, adjustment of the mAand/or kV according to patient size, the use of iterative reconstructiontechnique, use of ALARA (As Low As Reasonably Achievable) and/or use ofImage Gently techniques. INDICATION: Altered mental status. Unresponsive, confusion upon arrival,episodes of emesis. COMPARISON: None. FINDINGS: No mass, midline shift, intracranial hemorrhage, areas of acutemacrovascular ischemia, or acute osseous abnormality. Mild generalizedatrophy, especially in the frontal and temporal lobes. No extra-axialfluid collections. Ventricles and sulci are normal for age.Qmte-br-ygvekqmw nonspecific hypodensity in the periventricular and deepcerebral white matter in bilateral cerebral hemispheres without edema ormass effect, likely nonspecific chronic white matter microvasculardisease. Visualized orbits are unremarkable. Pneumatization of the middleturbinates. Mucous retention cyst and/or mucosal thickening in a fewright ethmoid air cells. No other significant disease in the partiallyvisualized paranasal sinuses or mastoid air cells. IMPRESSION: 1. No acute intracranial abnormality. 2. Mild generalized atrophy, especially in the frontal and temporallobes. 3. Bvhy-bp-exzibqqb nonspecific chronic periventricular and deep cerebralwhite matter microvascular disease in bilateral cerebral hemispheres. 4. Mucous retention cyst and/or mucosal thickening in a few right ethmoidair cells. Pneumatization of the middle turbinates. Referred By: Interpreted By: Toya Goldman MD, 10/06/2024 10:36 PM Gustavo Chatterjee MD CT Final Result * (ABNORMAL) ARTERIAL BLOOD GAS (10/06/2024 10:05 PM CDT) PH ARTERIAL 7.33(L) 7.35 - 7.45 10/06/2024 10:12 PM CDT [facility] PCO2 40.0 35 - 45 MMHG 10/06/2024 10:12 PM T [facility] PO2 65.0(L) 83 - 108 MMHG 10/06/2024 10:12 PM T [facility] TOTAL CO2 ARTERIAL 22.3 19.0 - 24.0 MMOL/L 10/06/2024 10:12 PM T [facility] BASE DEFICIT 4.5(H) 0 - 2 MMOL/L 10/06/2024 10:12 PM [facility] O2 SATURATION 91(L) 94.0 - 98.0 % 10/06/2024 10:12 PM T [facility] BICARB ARTERIAL 21.1 21.0 - 28.0 MMOL/L 10/06/2024 10:12 PM T [facility] OMAR TEST POSITIVE OMAR TEST 10/06/2024 10:08 PM T [facility] O2 ADMIN ARTERIAL ROOM AIR 10/06/2024 10:08 PM [facility] DRAW SITE ARTERIAL DRAWN FROM LEFT WRIST 10/06/2024 10:08 PM [facility] 10/06/2024 10:0 5 PM CDT us Gustavo Chatterjee MD LABORATORY Final Result [facility] [address] [place] [address], [place] [phone] * (ABNORMAL) DRUG SCREEN RAPID (10/06/2024 10:00 PM CDT) Pathologist [facility] AMPHETAMINE (U) NONE DETECTED NONE DETECTED 10/06/2024 10:42 PM CDT [facility] BARBITURATES SCREEN (U) NONE DETECTED NONE DETECTED 10/06/2024 10:42 PM CDT [facility] BENZODIAZEPINES SCREEN (U) NONE DETECTED NONE DETECTED 10/06/2024 10:42 PM CDT [facility] BUPRENORPHINE SCREEN (U) NONE DETECTED NONE DETECTED 10/06/2024 10:42 PM CDT [facility] COCAINE METABOLITES (U) NONE DETECTED NONE DETECTED 10/06/2024 10:42 PM CDT [facility] METHAMPHETAMINE (U) NONE DETECTED NONE DETECTED 10/06/2024 10:42 PM CDT [facility] METHADONE (U) NONE DETECTED NONE DETECTED 10/06/2024 10:42 PM CDT [facility] OPIATE SCREEN (U) NONE DETECTED NONE DETECTED 10/06/2024 10:42 PM CDT [facility] OXYCODONE SCREEN (U) NONE DETECTED NONE DETECTED 10/06/2024 10:42 PM CDT [facility] PHENCYCLIDINE PCP (U) NONE DETECTED NONE DETECTED 10/06/2024 10:42 PM CDT [facility] CANNABINOIDS SCREEN (U) DETECTED(A) NONE DETECTED 10/06/2024 10:42 PM CDT [facility] TRICYCLIC ANTIDEPRESSANT SCREEN (U) NONE DETECTED NONE DETECTED 10/06/2024 10:42 PM CDT [facility] Comment: NOTE: RESULTS OF THIS DRUG SCREEN SHOULD BE USED FOR MEDICAL PURPOSES ONLY AND NOT FOR LEGAL OR EMPLOYEMENT PURPOSES. MEDICATIONS CONTAINING EPHEDRINE MAY CAUSE FALSE POSITIVE AMPHETAMINE. AMPHETAMINE- 500 NG/ML BARBITURATE- 200 NG/ML BENZODIAZEPINE- 150 NG/ML BUPRENORPHINE- 10 NG/ML COCAINE- 150 NG/ML METHAMPHETAMINES- 500 NG/ML METHADONE- 200 NG/ML OPIATE- 100 NG/ML OXYCODONE- 100 NG/ML PCP- 25 NG/ML THC- 50 NG/ML TCA- 300 NG/ML URINE SPECIMEN / Unknown 10/06/2024 10:00 PM CDT us Gustavo Chatterjee MD URINE ORDERABLES Final Result [facility] [address] [place] [address], [place] [phone] * (ABNORMAL) URINALYSIS, AUTO, COMPLETE (10/06/2024 10:00 PM CDT) COLOR (U) YELLOW 10/06/2024 10:41 PM CDT [facility] TRANSPARENCY CLEAR 10/06/2024 10:41 PM CDT [facility] SPECIFIC GRAVITY (U) <1.005 1.000 - 1.030 10/06/2024 10:41 PM CDT [facility] U PH 6.0 5.0 - 9.0 10/06/2024 10:41 PM CDT [facility] LEUKOCYTES (U) 1+(A) NEGATIVE 10/06/2024 10:41 PM CDT [facility] NITRITES NEGATIVE NEGATIVE 10/06/2024 10:41 PM CDT [facility] PROTEIN RANDOM (U) NEGATIVE NEGATIVE 10/06/2024 10:41 PM CDT [facility] GLUCOSE (U) 2+(A) NEGATIVE 10/06/2024 10:41 PM CDT [facility] KETONES MG/DL (U) NEGATIVE NEGATIVE 10/06/2024 10:41 PM CDT [facility] BILIRUBIN (U) NEGATIVE NEGATIVE 10/06/2024 10:41 PM CDT [facility] BLOOD (U) TRACE(A) NEGATIVE 10/06/2024 10:41 PM CDT [facility] WBC/HPF 0-5 0 - 5 /HPF 10/06/2024 10:41 PM CDT [facility] RBC/HPF 0-5 0 - 5 /HPF 10/06/2024 10:41 PM CDT [facility] EPI/HPF RARE /HPF 10/06/2024 10:41 PM CDT [facility] URINE SPECIMEN OBTAINED BY CLEAN CATCH PROCEDURE / Unknown 10/06/2024 10:00 PM CDT us Gustavo Chatterjee MD URINE ORDERABLES Final Result [facility] [address] [place] [address], * PRO-BRAIN NATRIURETIC PEPTIDE (10/06/2024 9:57 PM CDT) PRO-B TYPE NATRIURETIC PEPTIDE 116 <125 PG/ML 10/06/2024 10:44 PM CDT [facility] Comment: CUT POINTS ESTABLISHED BY [employer] ON NT PROBNP (ICON) STUDY (2006). AGE INDEPENDENT: <300 PG/ML HAS A 99% NEGATIVE PREDICTIVE VALUE FOR EXCLUDING ACUTE CHF <50 YEARS: >450 PG/ML IS CONSISTENT WITH ACUTE CHF 50-75 YEARS: >900 PG/ML IS CONSISTENT WITH ACUTE CHF >75 YEARS: >1800 PG/ML IS CONSISTENT WITH ACUTE CHF IN PATIENTS WITH RENAL INSUFFICIENCY (GFR <60), >1200 PG/ML YIELDS A DIAGNOSTIC SENSITIVITY AND SPECIFICITY OF 89% AND 72% FOR ACUTE CHF. 10/06/2024 9:57 PM CDT us Gustavo Chatterjee MD LABORATORY Final Result Performing Organization Address [facility] [address]/ZIP Co de Phone Number [facility] [address] [place] [address], [place] [phone] * PARTIAL THROMBOPLASTIN TIME,PTT (10/06/2024 9:57 PM CDT) PTT 33.6 25.1 - 36.5 SEC 10/06/2024 10:18 PM CDT [facility] 10/06/2024 9:57 PM CDT us Gustavo Chatterjee MD LABORATORY Final Result Performing Organization Address [facility] [address]/[facility] Co de Phone Number [facility] [address] [place] [address], [place] [phone] * PROTIME/INR, VENOUS (10/06/2024 9:57 PM CDT) PROTIME 11.5 9.1 - 12.4 SEC 10/06/2024 10:18 PM CDT [facility] INR 1.0 10/06/2024 10:18 PM CDT [facility] Comment: Recommend INR ranges for Oral Anticoagulant Therapy: Mechanical Cardiac Values 2.5-3.5 All others indication 2.0-3.0 10/06/2024 9:57 PM CDT us Gustavo Chatterjee MD LABORATORY Final Result Performing Organization Address [facility] [facility] [address]/[facility] Co de Phone Number [facility] [address] [place] [address], [place] [phone] * TROPONIN, QUANT (10/06/2024 9:57 PM CDT) Pathologist [facility] TROPONIN I HIGH SENSITIVITY 6 0 - 50 ng/L 10/06/2024 10:29 PM CDT [facility] Comment: HIGH DOSES OF BIOTIN, TROPONIN-SPECIFIC AUTOANTIBODIES, AND ANTIBODY THERAPY CONTAINING HAMA MAY INTERFERE WITH THIS TEST RESULT. CORRELATION TO CLINICAL HISTORY AND PRESENTATION RECOMMENDED. 10/06/2024 9:57 PM CDT us Gustavo Chatterjee MD LABORATORY Final Result Performing Organization Address City/[facility] [address]/ZIP Co de Phone Number [facility] [address] [place] [address], [place] [phone] * LIPASE (10/06/2024 9:57 PM CDT) [facility] LIPASE 72 16 - 77 UNITS/L 10/06/2024 10:44 PM CDT [facility] 10/06/2024 9:57 PM CDT us Gustavo Chatterjee MD LABORATORY Final Result Performing Organization Address [facility] [address]/ZIP Co de Phone Number [facility] [address] [place] [address], [place] [phone] * (ABNORMAL) ETHANOL (10/06/2024 9:57 PM CDT) Pathologist [facility] ALCOHOL S/P/B 0.184(H) <0.003 G/DL 10/06/2024 10:44 PM CDT [facility] 10/06/2024 9:57 PM CDT us Gustavo Chatterjee MD LABORATORY Final Result Performing Organization Address City/[facility] [address]/ZIP Co de Phone Number [facility] [address] [place] [address], [place] [phone] * CK (CPK) (10/06/2024 9:57 PM CDT) CPK 79 26 - 192 U/L 10/06/2024 10:44 PM CDT [facility] 10/06/2024 9:57 PM CDT us Gustavo Chatterjee MD LABORATORY Final Result [facility] [address] [place] [address], * ECG 12 lead (10/06/2024 9:52 PM CDT) 10/06/2024 9:52 PM CDT Narrative [facility] ([facility]) RAD - 10/07/2024 11:01 PM CDT [facility] Test Date: 2024-10-06 Pat Name: JU MONDRAGON Department: 85 Room: 104 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1960 Requested By: GUSTAVO CHATTERJEE Order Number: [id number] Reading MD: Chdii Crisostomo Measurements Intervals [place] Rate: 75 P: 56 NH: 167 QRS: 36 QRSD: 101 T: 51 QT: 388 QTc: 434 Interpretive Statements SINUS RHYTHM POSSIBLE LEFT ATRIAL ENLARGEMENT [-0.1mV P-WAVE IN V1/V2] INCOMPLETE RIGHT BUNDLE BRANCH BLOCK [90+ ms QRS DURATION, TERMINAL R IN V1/V2, 40+ ms S IN I/aVL/V4/V5/V6] ST DEVIATION AND MODERATE T-WAVE ABNORMALITY, CONSIDER ANTERIOR ISCHEMIA [-0.1+ mV T-WAVE IN V3/V4] No previous ECG available for comparison Procedure Note Chidi Crisostomo MD - 10/07/2024 [facility] Test Date: 2024-10-06 Pat Name: JU MONDRAGON Department: 85 Room: 104 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1960 Requested By: GUTSAVO CHATTERJEE Order Number: [id number] Reading MD: Chidi Crisostomo Measurements Intervals [place] Rate: 75 P: 56 NH: 167 QRS: 36 QRSD: 101 T: 51 QT: 388 QTc: 434 Interpretive Statements SINUS RHYTHM POSSIBLE LEFT ATRIAL ENLARGEMENT [-0.1mV P-WAVE IN V1/V2] INCOMPLETE RIGHT BUNDLE BRANCH BLOCK [90+ ms QRS DURATION, TERMINAL RIN V1/V2, 40+ ms S IN I/aVL/V4/V5/V6] ST DEVIATION AND MODERATE T-WAVE ABNORMALITY, CONSIDER ANTERIOR ISCHEMIA [-0.1+ mV T-WAVE IN V3/V4] No previous ECG available for comparison us Gustavo Chatterjee MD ECG ORDERABLES Final Result Performing Organization Address City/[facility] [address]/[facility] de Phone Number [facility] ([facility]) RAD from Last 3 Months Insurance MEDICARE Advance Directives * Full Code (Latest Code Status on File) Date Activated Date Inactivated Comments 10/06/2024 11:25 PM 10/07/2024 3:58 PM Care Teams Scrum Master Relationship Specialty Start Date End Date Caitlyn Burns MD [address] [place] [phone] (work) PCP - General INTERNAL MEDICINE 10/06/24
--- OUTSIDE RECORDS SUMMARY | 2024-11-25 13:03 | XMS_ITS | Clinical Summary ---
Author Organization [facility] Address [address] [place] [address] Care Team Providers Care Class B Truck Driver Name Role Phone Caitlyn Burns MD Primary Care Provider Source Comments [facility],non-owned Affiliates and Associated Physician Practices is amultiple site organization consisting of ambulatory clinics and hospital sitesin [place], [place], [place] and [place]. This disclosure is being madepursuant to the Care Everywhere program and may not contain all information available regarding this patient. Last updated 17.[facility] [employer] Allergies Active Allergy Reactions Criticality Noted Date [...] Active vitamin D, ergocalciferol, (Drisdol) 1.25 MG (85113 UT) capsule Take 1 (one) capsule by [...] Telephone [facility] [address] [place] [address] Marisa Burleson, [employer]-HEALTH CARE LAW SPECIALIST Results from Last 3 Months Social History Tobacco Use Types Packs/Day Years Used Date Smoking Tobacco: Some Days Cigarettes 2 27.8 Started: 1997 Smokeless Tobacco: Never Alcohol Use [...] st Contact Info) Description 01/27/2025 11:30 AM COMMUNITY SERVICE COORDINATOR Office Visit [facility] [address] [place] [phone] Marisa Burleson, NEW CAR SALES MANAGER-HEALTH CARE LAW SPECIALIST [address] [place] [address] [place] [address] Health Maintenance Due Date Last Done Comments [...] a test for HCV RNA (test code 30141) is suggested. For additional information please refer to http://education.[employer]/faq/ZWG07u7 (This link is being provided for informational/ educational purposes only.) Test Performed at: [facility] [address] [place] [address] ZINA VAIL MD Blood BLOOD SPECIMEN / Unknown 07/29/2024 10:36 AM CDT 07/29/2024 10:36 AM CDT Marisa Burleson NEW CAR SALES MANAGER-HEALTH CARE LAW SPECIALIST LAB - CHEMISTRY ORD ERABLES Final Result [facility] [address] [place] [address] * (ABNORMAL) COMPREHENSIVE METABOLIC PANEL (07/29/2024 10:36 [...] 29 U/L [facility] Comment: Test Performed at: [facility] [place] [address] [place] [address] ZINA VAIL MD Blood BLOOD SPECIMEN / Unknown 07/29/2024 10:36 AM CDT 07/29/2024 10:36 AM CDT Marisa Burleson NEW CAR SALES MANAGER-HEALTH CARE LAW SPECIALIST LAB - CHEMISTRY ORD ERABLES Final Result [facility] [address] [place] [address] from Last 3 Months or Most Recently Relevant to Health Maintenance Insurance [facility] MANAGED MEDICARE ADV Care Teams Class B Truck Driver Relationship Specialty Start Date End Date Caitlyn Burns MD [address] [phone] PCP - General Internal Medicine 07/25/24
--- OUTSIDE RECORDS SUMMARY | 2024-11-25 13:03 | XMS_ITS | Patient Health Record ---
Author Organization [facility] Address [address] [place] [address] Care Team Providers Care Inspector Salvage Name Role Phone Dimitris Dhillon Unavailable [phone] Reason For Referral No Information Medications Medication [...] 90 days 08/09/2025 Active Ergocalciferol 1.25 MG (61244 UT) 1 capsule Orally Once a week; Duration: 30 days 08/14/2024 12/12/2024 Active Social History Sex Assigned At : Social History Observation Description Sex Assigned At Female Problems Problem Type SNOMED Code ICD Code Onset Dates Problem Status W/U Status Risk Notes Problem Diabetic renal disease (169387590) Type 2 diabetes mellitus with diabetic chronic kidney disease (E11.22) Active confirmed Problem Secondary hyperparathyroidism (88861383) Secondary hyperparathyroidi sm, not elsewhere classified (E21.1) Active confirmed Problem Vitamin D deficiency (74583367) Vitamin D deficiency, unspecified (E55.9) Active confirmed Problem Metabolic disorder (87720669) Metabolic disorder, unspecified (E88.9) Active confirmed Problem Cerebrovascular disease (93969908) Cerebrovascular disease, unspecified (I67.9) Active confirmed Problem Chronic obstructive pulmonary disease (15750891) Chronic obstructive pulmonary disease, unspecified (J44.9) Active confirmed Problem Renal osteodystrophy (24561704) Renal osteodystrophy (N25.0) Active confirmed Problem Proteinuria (11730853) Other proteinuria (R80.8) Active confirmed Problem Tobacco use (473550022) Tobacco use (Z72.0) Active confirmed Problem Essential hypertension (73721211) Essential hypertension (I10) Active confirmed Problem Alcohol abuse (38185457) Alcohol abuse (F10.10) Active confirmed Problem Swelling of first metatarsophalangeal joint of hallux (258689627) Bunion of unspecified foot (M21.619) Active confirmed Problem Chronic kidney disease stage 3A (disorder) (289370830) Chronic kidney disease, stage 3a (N18.31) Active confirmed Encounters Encounter Location Date Provider Diagnosis [facility] [address] [place] [address] 12/22/2023 Dimitris Dhillon Essential hypertensi on I10 ; Chronic kidney disease, stage 3 unspecified N18.30 ; Other proteinuria R80.8 ; Renal osteodystrophy N25.0 ; Secondary hyperparathyroidism, not elsewhere classified E21.1 and Chronic kidney disease, stage 2 (mild) N18.2 [facility] [address] [place] [address] 05/01/2024 Dimitris Dhillon Chronic kidney disea se, stage 3 unspecified N18.30 ; Essential hypertension I10 ; Other proteinuria R80.8 ; Renal osteodystrophy N25.0 ; Secondary hyperparathyroidism, not elsewhere classified E21.1 ; Chronic obstructive pulmonary disease, unspecified J44.9 ; Vitamin D deficiency, unspecified E55.9 and Cerebrovascular disease, unspecified I67.9 [facility] [address] [place] [address] 06/05/2024 Dimitris Dhillon Chronic kidney disea se, stage 2 (mild) N18.2 ; Essential hypertension I10 ; Other proteinuria R80.8 ; Renal osteodystrophy N25.0 ; Secondary hyperparathyroidism, not elsewhere classified E21.1 ; Chronic obstructive pulmonary disease, unspecified J44.9 ; Vitamin D deficiency, unspecified E55.9 ; Cerebrovascular disease, unspecified I67.9 ; Tobacco use Z72.0 ; Alcohol abuse F10.10 and Bunion of unspecified foot M21.619 [facility] [address] [place] [address] 08/14/2024 Dimitris Dhillon Chronic kidney disea se, stage 3a N18.31 ; Essential hypertension I10 ; Other proteinuria R80.8 ; Renal osteodystrophy N25.0 ; Secondary hyperparathyroidism, not elsewhere classified E21.1 ; Chronic obstructive pulmonary disease, unspecified J44.9 ; Vitamin D deficiency, unspecified E55.9 ; Cerebrovascular disease, unspecified I67.9 ; Tobacco use Z72.0 ; Alcohol abuse F10.10 and Bunion of unspecified foot M21.619 [facility] [address] [place] [address] 10/09/2024 Dimitris Dhillon Chronic kidney disea se, [...] chronic kidney disease E11.22 and Hypokalemia E87.6 [facility] [address] [place] [address] 04/17/2024 Dimitris Dhillon [facility] [address] [place] [address] 04/17/2024 Dimitris Dhillon [facility] [address] [place] [address] 04/17/2024 Dimitris Dhillon [facility] [address] [place] [address] 06/05/2024 Dimitris Dhillon [facility] [address] [place] [address] 08/14/2024 Dimitris Dhillon [facility] [address] [place] [address] 12/25/2023 Dimitris Dhillon Assessments Encounter Date Diagnosis [...] Name:Dimitris Dhillon , 12/04/2024 03:15:00 PM, [address] [facility] [address], [address],
--- OUTSIDE RECORDS SUMMARY | 2024-11-25 13:04 | XMS_ITS | Data Portability ---
Author Organization [employer], Main Office Address [address] [place] [address] Care Team Providers Care Hyperion Essbase Developer Name Role Phone YOGI BURNS Primary Care Provider [phone] GINAVASQUEZBarrington YOGI Referring Provider ZOË DOW Learning Coordinator ANNE LOREDO Micro Computer Data Processor JANINA SAMUEL Orthopedic Surgeon [phone] LUZ KINGSTON Orthopedic Surgeon ZAMZAM YOGI Primary Care Provider GERRY MILIAN General Surgeon [phone] FREDRICK WYNN Donor Center Technician JULIA ROBERTSON Hand Surgeon [phone] DIMITRIS VERA Stone Carriage Operator AP HERNANDEZ Hematology/Oncology [phone] DYANA MARIE Snake Charmer [phone] Assessment Encounter Date Assessment Date Assessment LastModified by Organization Details LastModified Time 07/01/2024 07/01/2024 This note is dictated and transcribed by [email or web address]. Cage Cashier variances may occur. Despite proofreading, typographical errors may occur. Occasional wrong-word or 'uizca-o-pvbg' substitutions may have occurred due to the inherent limitations of voice recording. Read the chart carefully and recognize, using context, where substitutions have occurred. Not available 07/01/2024 14:52:22 07/18/2024 07/18/2024 This note is dictated and transcribed by [employer]. Cage Cashier variances may occur. Despite proofreading, typographical errors may occur. Occasional wrong-word or 'tctra-b-hjxy' substitutions may have occurred due to the [...] 10/29/2024 11:06:44 microalbu min, urine 2024 025 [facility] - Outpatient Lab, [address] [place], [address], 10/29/2024 11:06:44 lipid panel, serum 2024 025 [...] 10/24/2024 11:08:58 microalbu min, urine [email or web address] - Outpatient Lab, [address] [facility], [place], [address], 09/04/2024 17:27:28 lipid panel, serum 2024 025 [...] you. 2024 025 YEFRI Loredo DPM, [address] [facility], [address], [place], [address], 10/29/2024 12:49:31 nephrolog ist referral - Please call patient to schedule an appointme nt. Thank you. 2024 025 Evan-Resub elissa-Revert Dimitris Vera MD (Nephrology, [address], [address], [place], [address], 10/29/2024 14:20:39 hand surgeon referral - Please call patient to schedule an appointme nt. Thank you. 2024 025 SAMEER Robertson MD, [address] [facility] [address], [address], [place], [address], 10/29/2024 13:00:11 podiatris t referral - Please call patient to schedule an appointme nt. Thank you. 2024 025 YEFRI Loredo DPM, [address], [address], [place], [address], 09/04/2024 16:00:18 nephrolog ist referral - Please call patient to schedule an appointme nt. Thank you. 2024 025 SAMEER Vera MD (Nephrology, [address], [address], [place], [address], 09/16/2024 10:06:47 hand surgeon referral - Please call patient to schedule an appointme nt. Thank you. 2024 025 SAMEER Robertson MD, [address] [facility] [address], [address], [place], [address], 09/04/2024 15:36:31 hepatolog ist referral - Please call patient to schedule an appointme nt. Thank you. 2024 025 SAMEER [facility], [address] [place], [address], 09/11/2024 12:52:30 Procedures cerumen removal (PROC) 2024 025 [email or web address] In-Office Order, Internal Use Only DO Not Attach Compendium DO Not Attach Compendium, Do Not Delete/merge, [id number] 09/24/2024 08:56:42 Surgeries None recorded. Imaging US, liver - Please call patient to schedule. 2024 025 SAMEER [facility] Central Scheduling, [address] [facility], [place], [address], 10/28/2024 16:31:51 LDCT, chest, for lung cancer screening - Please call patient to schedule. [address] Central Scheduling, [address], [place], [address], 10/28/2024 16:23:51 LDCT, chest, for lung cancer screening - Please call patient to schedule. 2024 025 [email or web address] [facility] (Imaging), [address] [facility] [address], [place], [address], 09/04/2024 15:06:39 Medication Orders folic acid [address] tablet [address] [facility] [address] [place], [address], 10/28/2024 15:42:36 thiamine HCl (vitamin B1) 100 [address] tablet [address] [facility] [address] [place], [address], 10/28/2024 15:42:35 Zithromax Z-Imer 250 mg tablet [address] [facility] [address] [place], [address], 10/28/2024 15:42:38 Ciprodex 0.3 %-0.1 % ear drops,reuben pension [address] [facility] [address], [address] [place], [address], 09/19/2024 12:02:46 Farxiga 10 mg tablet [address] [facility] [address] [place], [address], 09/04/2024 14:32:56 fenofibra te nanocryst allized 145 mg tablet 2024 025 YEFRI [facility] [address], [address] [place], [address], 09/04/2024 14:32:51 doxycycli ne hyclate 100 mg capsule 2024 025 [email or web address] [facility] [address] [place], [address], 09/18/2024 14:58:01 Patient TargetsNo targets recorded. Patient InstructionsNo instructions recorded. Reason for Referral Micro Computer Data Processor Referral for Pred iabetes Please call patient to schedule an appointment. Thank you. Referring Physician: Yogi Burns Internal Medicine, Encounter Date: 09/04/2024 Stone Carriage Operator Referral for Pr oteinuria Please call patient to schedule an appointment. Thank you. Referring Physician: Yogi Burns Internal Medicine, Encounter Date: 09/04/2024 Manufacturing Maintenance Mechanic Referral for Li carole enzymes level above reference range Please call patient to schedule an appointment. Thank you. Referring Physician: Yogi Burns Internal Medicine, Encounter Date: 09/04/2024 Hand Surgeon Referral for Pa in of bilateral hands Please call patient to schedule an appointment. Thank you. Referring Physician: Yogi Burns Internal Medicine, Encounter Date: 09/04/2024 Micro Computer Data Processor Referral for Pred iabetes Please call patient to schedule an appointment. Thank you. Referring Physician: Yogi Burns Internal Medicine, Encounter Date: 10/28/2024 Stone Carriage Operator Referral for Pr oteinuria Please call [...] [address] [facility] [address], [place], [address], 06/06/2024 11:51:23 07/09/19 25 07/08/2024 imagi ng/di agnos tic resul t No observ ation record ed. [address], [place], [address], 07/08/2024 13:42:27 07/10/19 25 07/08/2024 imagi ng/di agnos tic resul t No observ ation record ed. [facility] [address], [place], [address], 07/09/2024 09:48:44 07/20/19 25 07/08/2024 imagi ng/di agnos tic resul t No observ ation record ed. [address], [place], [address], 07/19/2024 08:36:32 07/21/19 25 07/19/2024 imagi ng/di agnos tic resul t No observ ation record ed. [address], [place], [address], 07/20/2024 00:31:39 07/21/19 25 07/19/2024 XR, foot, 3 or more view No observ ation record ed. [email or web address] [place] [id number] [facility] [address], [place], [address], 07/22/2024 09:53:22 11/23/19 25 11/22/2024 imagi ng/di agnos tic resul t No observ ation record ed. [facility] [address], [place], [address], 11/22/2024 17:22:17 Result Notes None recorded. Problems Name Problem SNOMED Code Status Onset Date Resolution Date Notes Provider Name and Address Organization Details Recorded Time Osteoarthr itis 143036243 Active 2021 Not Available [facility] 3 15:48:22 Vitamin D deficiency 93872505 Active 2021 Not Available [facility] 3 15:48:22 Hypertrigl yceridemia 576899027 Active 2021 Not Available [facility] 3 15:48:22 Essential hypertensi on 73931161 Active 2022 Not Available [facility] 3 15:48:22 Cigarette smoker 15792154 Active 2022 Not Available [facility] 3 15:48:22 Gout 58744457 Active 2022 Not Available [facility] 3 15:48:22 Diabetes mellitus 29581849 Active 2022 Not Available [facility] 3 15:48:22 Cerebrovas cular accident 013707335 Active 2022 Not Available [facility] 3 15:48:22 Non-alcoho lic fatty liver 403987256 Active 2022 Not Available [facility] 3 15:48:22 Vitamin B12 deficiency (non anemic) 50449400 Active 2023 Erika Andersen MA null, [employer] 4 12:09:13 Peripheral arterial occlusive disease 977937340 Active 2023 Anne Loredo DPM [address] [facility], [facility] [address], [place], [address] , [employer] [place] 4 14:44:22 Basal cell carcinoma of face 509503041 Active 2023 ZULLY Aggarwal, [employer] [place] 4 10:19:31 Dyspnea on exertion 44680145 Active 2023 Zoë Dow MD [address], [address], [place], [address] , [facility] [place] [employer] [facility] 4 12:41:41 Smoker 64276935 Active 2023 Zoë Dow MD [address], [address], [place], [address] , [facility] - [facility] [place] [employer] [facility] 4 12:44:42 Hallux valgus AND bunion 332555613 Active 2023 Anne Loredo DPM [address], [address], [place], [address] , [facility] [place] [facility] [employer] [facility] 4 15:12:29 Proteinuri a 47270317 Active 2023 Yogi wright MD [address], [address], [place], [address] , [employer] [facility] 4 10:50:05 Hyperlipid emia 49319507 Active 2023 Yogi wright MD [address], [address], [place], [address] , [employer] [facility] 4 10:50:05 Prediabete s 874864032 Active 2023 Yogi wright MD [address], [address], [place], [address] , [employer] [facility] 4 10:50:05 Leukocytos is 080612584 Active 2023 Yogi wright MD [address], [address], [place], [address] , [employer] [facility] 4 10:50:05 Macrocytos is 606090969 Active 2023 Yogi wright MD [address], [address], [place], [address] , [employer] [facility] 4 10:50:05 Liver enzymes level above reference range 546842971 Active 2023 Yogi wright MD [address], [address], [place], [address] , [facility] 4 10:50:05 Pain of right hand 0787355228973 09 Active 2023 TORIN Webb null, [place] [facility] 4 13:54:33 Pain of bilateral hands 1087624494090 9109 Active 2023 TORIN Webb null, [place] [facility] 4 13:55:11 Pain in toe 644436530 Active 2023 Anne Loredo DPM [address], [address], [place], [address] , [facility] - [facility] 4 09:40:49 Postoperat lou care Active 2023 Anne Loredo DPM [address], [address], [place], [address] , [facility] 4 11:25:46 Pain of left knee joint 9393018943668 07 Active 2023 Yogi wright MD [address], [address], [place], [address] , [facility] 4 16:57:55 Skin lesion 04876706 Active 2023 Yogi wright MD [address], [address], [place], [address] , [facility] 4 16:57:55 Pain of left hand 2729597795235 03 Active 2023 Yogi wright MD [address], [address], [place], [address] , [place] [facility] 4 16:57:55 Pain of left shoulder joint 5977368883957 9109 Active 2023 Yogi wright MD [address], [address], [place], [address] , [employer] 4 16:57:55 Hallux valgus AND bunion 728966614 Active 2023 Anne Loredo DPM [address], [address], [place], [address] , [employer] 4 15:06:33 Hallux valgus AND bunion 912200246 Active 2023 Anne Loredo DPM [address], [address], [place], [address] , [employer] 4 15:06:41 Hammer toe 174404933 Active 2023 Anne Loredo DPM [address], [address], [place], [address] , [employer] 4 15:24:01 Pain in toe 631085118 Active 2024 Anne Loredo DPM [address], [address], [place], [address] , [employer] 5 15:38:42 Serum vitamin B12 below reference range 443394750 Active 2024 Yogi wright MD [address], [address], [place], [address] , [employer] 5 15:30:38 Hypothyroi dism 37257804 Active 2024 Yogi wright MD [address], [address], [place], [address] , [employer] 5 15:31:20 Cobalamin deficiency 828409792 Active 2024 Kailey Espinosa MA null, [employer] [facility] [employer] 5 12:08:39 Closed fracture proximal phalanx, toe 191167341 Active 2024 Anne Loredo DPM [address], [address], [place], [address] , [place] [facility] 5 17:37:10 Pain in toe 046762701 Active 2024 Anne Loredo DPM [address], [address], [place], [address] , [place] [facility] 5 17:38:27 Postoperat lou visit 932885647 Active 2024 Anne Loredo DPM [address], [address], [place], [address] , [place] [facility] 5 14:14:50 Dehiscence of external surgical incision wound 6498055073286 08 Active 2024 Anne Loredo DPM [address], [address], [place], [address] , [place] [facility] 5 14:39:21 Acute right otitis media 432826631 Active 2024 Yogi wright MD [address], [address], [place], [address] , [place] [facility] 5 14:33:25 Otitis media of right ear 1238928755559 104 Active 2024 Tammy Wilkes [facility] null, [place] [facility] 5 15:39:11 Acute otitis externa 27309320 Active 2024 Zeeshan Adrian MD [address], [address], [place], [address] , [place] [facility] 5 12:01:35 Impacted cerumen in right ear 8518383594172 103 Active 2024 Zeeshan Adrian MD [address], [address], [place], [address] , [place] [facility] 5 12:01:46 Liver function test above reference range 415256459 Active 2024 Yogi wright MD [address], [place], [address] , [employer] [facility] 15:36:02 Alcohol intoxicati on delirium 45997683 Active 2024 Yogi wright MD [address], [place], [address] , [employer] [place] 15:38:11 Upper respirator y infection 39728768 Active 2024 Yogi wright MD [address], [place], [address] , [employer] [place] 15:41:05 Notes:Medical History: Near syncope Right CVA without residual left hemiparesis Right tinnitus Eosinophils 180/uL Nicotine use PASP 25 mmHg Mod TR Mild AL Mild MR Hypertension EF 59% Mixed hyperlipidemia [...] cell ca excision 2023 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 Procedures Surgical History Date Name Laterality Status Provider Name and Address Organization Details Recorded Time 07/02/19 25 Wound Care-Podiatry completed Anne Loredo DPM [address], [place], [address], [facility] [place] [place] [employer] [facility] 07/01/2024 14:51:56 02/28/19 25 Suture Removal completed Anne Loredo DPM [address], [place], [address], [employer] [place] 02/29/2024 14:24:39 01/29/20 24 Advanced Care Planning completed Umer Bañuelos LPN [place] [employer] [place] [facility] [employer] 01/29/2024 15:04:34 01/29/20 24 Medicare Wellness CPT Code, Initial completed Umer Bañuelos LPN [place] [employer] [facility] 01/29/2024 07:48:05 10/25/19 24 Medicare Wellness CPT Code, Welcome completed mUer Bañuelos LPN [facility] [employer] [facility] 10/25/2023 10:25:58 10/25/19 24 Advanced Care Planning completed Umer Bañuelos LPN [facility] [employer] [facility] 10/25/2023 10:24:53 08/28/19 24 Suture Removal completed Anne Loredo DPM [address], [address], [place], [address], [facility] [employer] [facility] 08/28/2023 15:47:13 04/11/19 24 Excision Cyst Multilayer completed Gerry Milian MD [address], [address], [place], [address], [facility] [place] [place] [facility] [employer] [facility] 04/11/2023 18:10:14 12/27/19 23 Nail Debridement completed Anne Loredo DPM [address], [address], [place], [address], [facility] [employer] [facility] 12/26/2022 15:02:34 12/15/19 23 Ortho - Cortisone Injection completed Janina Samuel MD [address], [address], [place], [address], [facility] [employer] [facility] 12/14/2022 13:21:26 09/27/19 23 Nail Debridement completed Anne Loredo DPM [address], [address], [place], [address], [facility] [employer] [facility] 09/26/2022 14:47:07 09/27/19 23 Callus Debridement 2-4 completed Anne Loredo DPM [address], [address], [place], [address], [facility] [employer] [facility] 09/26/2022 14:46:55 Hysterectomy completed Not Available [employer] 04/20/2022 10:42:48 Toe completed Ai Hammonds MA [facility] [employer] [facility] 09/04/2024 14:08:35 Imaging Results None recorded. Procedure Notes None recorded. Medical Equipment None Reported. Allergies Allergen ID Allergen Name Allergen Category Reaction Reaction Severity Criticality Documentation Date Start Date Code Code System Note Provider Name and Address Organization Details Recorded Time Vascepa medicatio n vomiting Not available Not available 04/20/20222021 94004 80 RxNorm Not Available [facility] 3 10:49:31 94211 Product containin g penicilli n (product) medicatio n swelling moderate Not available 04/20/2022 64717 8001 SNOMED Not Available [facility] 3 10:49:32 Medications Name Sig Start Date [...] Not Available Not Available No t Available prednisone 10 mg tablet TAKE 6 TABLETS (60 MG) BY MOUTH ONCE DAILY ON DAY 1, THEN 4 TABS (40 MG) DAILY ON DAYS 2-4, THEN 3 TABS (30 MG) DAILY ON DAYS 5-6, THEN 2 TABS (20 MG) DAILY ON DAYS 7-8, THEN 1 TAB (10 MG) DAILY ON DAYS 9-10. active Not Available Not Available No t [...] MOUTH EVERY 12 HOURS FOR 10 DAYS 05/12 /2025 completed Not Available Not Available Not Available [...] suspension for injection in office 03/27 completed [facility]: 0003- 0494- 20 Not Available Not Available [...] 2024 active Not Available Not Available Not Avelda labkevin ropivacaine (PF) 5 mg/mL (0.5 %) injection solution in office 03/27 completed [facility] [address]- [phone] Not Available Not Available Not [...] Last Updated DateTime 167.64 cm 23.9 kg/m2 29700.6 7 g 74 /min 14 /min 98 % 98 % 153/96 mm[Hg] Martha Joseph [facility] [employer] [facility] 14:06:32 Date Recorded Body height Body mass index (BMI) Body weight Provider Name and Address Organization Details Last Updated DateTime 07/18/2024 167.64 cm 23.9 kg/m2 87817.67 g [facility] 07/18/2024 14:07:04 Date Recorded Heart rate Respiratory rate Oxygen saturation Oxygen saturation in Arterial blood by Pulse oximetry Systolic And Diastolic Provider Name and Address Organization Details Last Updated DateTime 72 /min 14 /min 98 % 98 % 114/190 mm[Hg] Martha Ruiz [facility] [employer] [facility] 14:07:58 Date Recorded Body height Body mass index (BMI) Body weight Body temperature Heart rate Oxygen saturation Oxygen saturation in Arterial blood by Pulse oximetry Pain severity - 0-10 verbal numeric rating [Score] - Reported Systolic And Diastolic Provider Name and Address Organization Details Last Updated DateTime 167.64 cm 23.7 kg/m2 79989.0 8 g 97.8 [degF] 67 /min 97 % 97 % 10 118/66 mm[Hg] Ai Hammonds MA [facility] [employer] [facility] 14:05:45 Date Recorded Body height Body mass index (BMI) Body weight Body temperature Provider Name and Address Organization Details Last Updated DateTime 09/19/2024 167.64 cm 23.1 kg/m2 32293.71 g 96.7 [degF] Florina Joshi [facility] [employer] [facility] 09/19/2024 11:43:00 Date Recorded Body height Body mass index (BMI) Body weight Body temperature Heart rate Systolic And Diastolic Provider Name and Address Organization Details Last Updated DateTime 167.64 cm 22.9 kg/m2 29998.1 2 g 98 [degF] 72 /min 128/76 mm[Hg] Tammy Wilkes [facility] [employer] [facility] 14:53:55 Social History Question Answer Notes LastModified by Organizat ion Details LastModified Time Tobacco Smoking Status Current Every Day Smoker Not Available [employer] 04/20/2022 10:42:21 Do You Have An Advance Directive? No [id number] Information not available 04/20/2022 How Many Years Have You Consumed Alcohol? 20 [email or web address] Information not available 10/25/2023 Do You Wear A Helmet When Biking? No Does Not Bike Information not available 10/25/2023 Is Blood Transfusion Acceptable In An Emergency? Yes [email or web address] Information not available 10/25/2023 What Is Your Level Of Caffeine Consumption? Moderate [id number] Information not available 04/20/2022 In The 14 Days Before Symptom Onset, Have You Had Close Contact With A Laboratory-confir med COVID-19 While That Case Was Ill? No [id number] Information not available 04/20/2022 In The 14 Days Before Symptom Onset, Have You Had Close Contact With A Person Who Is Under Investigation For COVID-19 While That Person Was Ill? No [id number] Information not available 04/20/2022 What Type Of Diet Are You Following? REGULAR [id number] Information not available 04/20/2022 What Is The Highest Grade Or Level Of School You Have Completed Or The Highest Degree You Have Received? [id number] 9845 Information not available 04/20/2022 How Many Days Of Moderate To Strenuous Exercise, Like A Brisk Walk, Did You Do In The Last 7 Days? 5 [email or web address] Information not available 10/25/2023 On Those Days That You Engage In Moderate To Strenuous Exercise, How Many Minutes, On Average, Do You Exercise? 30 [email or web address] Information not available 10/25/2023 Have There Been Any Changes To Your Family Or Social Situation? No [id number] 2664 Information not available 04/20/2022 Are There Any Guns Present In Your Home? No [id number].555250 1098 Information not available 04/20/2022 Do You Use Insect Repellent Routinely? No [id number].729149 4042 Information not available 04/20/2022 Where Do You Live? Apartment [id number] 3487 Information not available 04/20/2022 Do You Have A Medical Power Of Head Bellhop Captain? No MIGRATION.093531 4631 Information not available 04/20/2022 What Was The Date Of Your Most Recent Tobacco Screening? 10/28/2024 Information not available 10/28/2024 How Many Children Do You Have? 2 [email or web address] Information not available 10/25/2023 What Is Your Current Pack Years? [email or web address] MIGRATION.232285 0788 Information not available 04/20/2022 Have You Ever Been Counseled For Unhealthy Alcohol Use? No MIGRATION.[id number] 6458 Information not available 04/20/2022 Do You Have Any Pets? Yes [id number].[id number] 2926 Information not available 04/20/2022 Do You Use Protection During Sex? No [email or web address] Information not available 10/25/2023 What Is Your Relationship Status? MIGRATION.764528 1467 Information not available 04/20/2022 Do You Use Your Seat Belt Or Car Seat Routinely? Yes MIGRATION.263884 9437 Information not available 04/20/2022 Are You Sexually Active? Yes [email or web address] Information not available 10/25/2023 Do You Have Smoke And Carbon Monoxide Detectors In Your Home? Yes [id number] Information not available 04/20/2022 At What Age Did You Start Smoking Tobacco? 25 [email or web address] Information not available 10/25/2023 Are You Passively Exposed To Smoke? Yes [id number] Information not available 04/20/2022 Are There Any Smokers In Your House? Yes MIGRATION.[id number] Information not available 04/20/2022 How Much Tobacco Do You Smoke? 1 PPD Information not available 10/28/2024 What Types Of Sporting Activities Do You Participate In? None [id number] Information not available 04/20/2022 Do You Use Sunscreen Routinely? No MIGRATION.[id number] 2176 Information not available 04/20/2022 Has Tobacco Cessation Counseling Been Provided? Yes Information not available 10/25/2023 On What Date Was Tobacco Cessation Counseling Provided? 10/25/2023 [email or web address] Information not available 10/25/2023 How Many Years Have You Smoked Tobacco? 40 [email or web address] Information not available 10/25/2023 Have You Recently Traveled Abroad? No MIGRATION.601667 2101 Information not available 04/20/2022 Do You Have Any Dietary Restrictions? Yes MIGRATION.130477 9765 Information not available 04/20/2022 How Many Days In The Past Year Have You Consumed 4 Or More Drinks? 0 [email or web address] Information no t available 10/25/2023 Sex: Female Functional Status Question Answer Note LastModified by Organizat [employer] Details LastModified Time Do you use any illicit or recreational drugs? No MIGRATION.[id number] 035 Information not available 04/20/2022 Do you or have you ever used any other forms of tobacco or nicotine? No MIGRATION.[id number] 035 Information not available 04/20/2022 What is your level of alcohol consumption? Occasional Information not available 10/25/2023 Are you currently employed? No Retired [email or web address] Information not available 10/25/2023 What is your exercise level? Moderate walking MIGRATION.[id number] 035 Information not available 04/20/2022 Mental Status Question Answer Note LastModified by Edyn Details LastModified Time Do you feel stressed (tense, restless, nervous, or anxious, or unable to sleep at night)? [id number] [id number] 5 Information not available 04/20/2022 Family History Relationship Description Onset Age of this Age Resolved Age Notes LastModified by Organization Details LastModified Time Mother Diabetes mellitus [id number] Not available 04/20/2022 10:42:55 Medical History Condition Response BLINDNESS N NERVE DISEASE N RHEUMATIC FEVER N BLADDER PROBLEMS N KIDNEY STONES N MRSA N OTHER # 1 Y POLIO N LUNG DISEASE/DISORDER N HISTORY OF DRUG ABUSE N RADIATION / CHEMOTHERAPY N COPD N Other # 2 N BLOOD DISEASES Y EAR OR HEARING PROBLEMS N MUMPS N SHINGLES N BOWEL PROBLEMS N DEPRESSION (INCLUDING POST ) N STROKE/TIA Y ULCERS N BENIGN PROSTATIC [...] INSOMNIA N HIGH CHOLESTEROL / HYPERLIPIDEMIA Y EYE PROBLEMS N HYPERTHYROIDISM N EDEMA N CHRONIC PAIN SYNDROME N HYPOTHYROIDISM N CAROTID BLOCKAGE N CONSTIPATION N BACK / NECK PROBLEMS N ATHEROSCLEROSIS N BREAST PROBLEMS N DIALYSIS N ECZEMA N OSTEOPOROSIS N ARTHRITIS N APPENDICITIS N DIABETES, TYPE Y BAD TEETH N ENT N HEARTBURN / REFLUX N AUTISM SPECTRUM DISORDER (ASD) N HEPATITIS / LIVER DISEASE N GOUT N SLEEP DISORDER N ALZHEIMER'S DISEASE N Brain Problems N DEMENTIA N HERPES N SEIZURES/EPILEPSY N HEADACHES/MIGRAINES N VASCULAR DISEASE N PACEMAKER N Blood Disorder N DIZZINESS N HEART DISEASE/HEART PROBLEMS N KIDNEY DISEASE N MULTIPLE SCLEROSIS N CANCER: SPECIFY N CARDIAC ARRHYTHMIA N ATRIAL FIBRILLATION N Gall Stones N PULMONARY EMBOLISM N AUTOIMMUNE DISEASE N [...] Details Recorded Time zoster recombinant 3 completed FIFI Mckenzie, [facility] 10/24/2023 11:27:53 HepB-CpG 3 completed Umer Bañuelos LPN null, [facility] 10/24/2023 11:27:53 COVID-19, mRNA, LNP-S, PF, 30 mcg/0.3 mL dose 1 completed FIFI Mckenzie, [facility] 10/24/2023 11:27:53 COVID-19, mRNA, LNP-S, PF, 30 mcg/0.3 mL dose 1 completed Umer Bañuelos LPN null, [facility] 10/24/2023 11:27:53 Pneumococcal conjugate PCV20, polysaccharide [id number] conjugate, adjuvant, PF 3 completed Umer Bañuelos LPN null, [facility] 10/24/2023 11:27:53 COVID-19, mRNA, LNP-S, PF, 30 mcg/0.3 mL dose, silvia-sucrose 2 completed Umer Bañuelos LPN null, [facility] 10/24/2023 11:27:53 COVID-19, mRNA, LNP-S, PF, 30 mcg/0.3 mL dose, silvia-sucrose 2 completed Umer Bañuelos LPN null, [facility] 10/24/2023 11:27:53 COVID-19, mRNA, LNP-S, bivalent, PF, 30 mcg/0.3 mL dose 2 completed Umer Bañuelos LPN null, [facility] 10/24/2023 11:27:53 zoster recombinant 4 completed Not Available [facility] 10/28/2024 14:42:55 COVID-19, mRNA, LNP-S, PF, silvia-sucrose, 30 mcg/0.3 mL 4 completed [facility] 10/28/[facility]24 14:42:55 Influenza, split virus, trivalent, PF 4 completed Not Available [facility] 10/28/2024 14:42:55 Influenza, split virus, quadrivalent, PF 3 completed Yogi Burns MD [address] [place] [address], [address], [facility] 11/23/2022 15:51:31 COVID-19, mRNA, LNP-S, PF, 30 mcg/0.3 mL dose 2 completed Umer Bañuelos LPN null, [facility] 10/24/2023 11:27:53 COVID-19, mRNA, LNP-S, PF, 100 mcg/0.5mL dose or 50 mcg/0.25mL dose 1 completed Umer Bañuelos LPN null, [facility] 10/24/2023 11:27:53 COVID-19, mRNA, LNP-S, PF, 100 mcg/0.5mL dose or 50 mcg/0.25mL dose 1 completed Umer Bañuelos LPN null, [facility] 10/24/2023 11:27:53 COVID-19, mRNA, LNP-S, PF, 30 mcg/0.3 mL dose 2 completed FIFI Mckenzie, [facility] 10/24/2023 11:27:53 Influenza, split virus, quadrivalent, PF 2 completed Not Available [facility] 03/01/2023 02:51:04 Influenza, split virus, quadrivalent, PF 1 completed Not Available [facility] 03/01/2023 02:51:04 Tdap 1 completed Not Available [facility] 03/01/2023 02:51:04 Past Encounters Encounter ID Performer Location Encounter Start Date Encounter Closed Date Diagnosis/Indication Diagnosis SNOMED-CT Code Diagnosis ICD10 Code Diagnosis IMO Codes Diagnosis Note [id number] Yogi wright MD [facility] Internal Med Debra gaona [address] [place] [address] [place] [address] 10/07/2020 00:00:00 10/07/2020 11:24:35 [id number] Yogi wright MD [facility] Internal Med [address] [place] [address] 10/14/2020 00:00:00 10/14/2020 16:39:33 [id number] Chan Beltrán MD [facility] [address] [facility] [address] [address] 10/22/2020 00:00:00 10/22/2020 10:22:09 [id number] Yogi wright MD [facility] Internal Med Debra gaona [address] [place] [address] [place] [address] 12/09/2020 00:00:00 12/09/2020 17:11:52 [id number] Yogi wright MD [facility] Internal Med [facility] [address], [facility] [address] [place] [address] 04/06/2021 00:00:00 04/06/2021 17:05:19 [id number] MD GUIDO [facility] Internal Med [address] [address] 04/12/2021 00:00:00 04/12/2021 09:59:03 [id number] MD GUIDO [facility] Internal Med [address] [place] [address] 05/05/2021 00:00:00 05/05/2021 14:24:27 [id number] Paul George MD [facility] Ortho [place] [address] [place] [address] 05/21/2021 00:00:00 05/21/2021 20:45:17 [id number] Paul George MD [facility] Orth[facility] [place] [address] [place] [address] 06/21/2021 00:00:00 06/21/2021 15:40:25 [id number] Paul George MD [facility] Orth[facility] [place] [address] [place] [address] 07/09/2021 00:00:00 07/19/2021 19:23:01 [id number] Paul George MD [facility] Orth[facility] [place] [address] [place] [address] 07/23/2021 00:00:00 07/23/2021 14:22:50 [id number] MD GUIDO [facility] Internal Med [address] [place] [address] 08/04/2021 00:00:00 08/04/2021 17:08:56 [id number] Paul George MD [facility] Orth[facility] [place] [address] [place] [address] 09/01/2021 00:00:00 09/01/2021 11:00:40 [id number] Yogi wright MD [facility] Internal Med Debra gaona [address] [place] [address] [place] [address] 10/20/2021 00:00:00 10/20/2021 11:20:15 [id number] [facility] Internal Med Debra radha [address] [place] [address] [place] [address] 12/08/2021 00:00:00 12/08/2021 16:31:48 [id number] Yogi wright MD [facility] Internal [facility] Debra gaona [address] [place] [address] [place] [address] 04/20/2022 13:41:40 04/20/2022 14:50:13 Screening - NAD [id number] Z13.9 C-scope: Get the report Mammogram: 11/17/2021 : NegDEXA: 10/14/2020 : NegPAP: 1: Mag Perez MANAGER OF PHARMACY Get yearly flu shotGet tdap if not doneUTD on COVID 19 vaccineCan do shingrix vaccine RTC in 3 monthsDo labsER if worseShe did verbalize her understand ing of the above Essential hypertension 24428209 I10 EKG: NSR, no acute STT changes On amlodipine 5mg dailyOn HCTZ 12.5mg dailyOn lisinopril 40mg dailyGet labsWill see Dr Wynn today 04/20/2022 at [facility] location Hyperlipidemia 06923143 E78.5 On atorvastat in 40mg dailyOn vascepaGet labs Cigarette smoker 9667946 7 F17.210 Smoker 24 years 2 PPD, now cut down to 1/4 PPDAdvised to quit smoking LDCT 12/31/2020 LDCT 02/22/2022 Leukocytosis 331421843 D [address] Hernandez Pain of le ft knee joint 9292810484 65326 M25.562 Chuy MARIE 09/01/2021 , s/p knee arthroscop y, f/u PRN Prediabetes 988336106 R7 3.03 On metformin 500mg bidGet labs Proteinuria 73002855 R80 .9 On vit d weeklyOn calcitriol Sees Dr Alejo CRUZ Gout 83638847 M10.[address] Alejo CRUZ [id number] Yogi wright MD [facility] Internal Med Debra gaona [address] [facility] [place] [address] 07/27/2022 13:56:12 07/27/2022 14:34:52 Screening - NAD [id number] Z13.9 C-scope: 04/13/2022 : Dr Marie next in 5 years Mammogram: 11/17/2021 : NegDEXA: 10/14/2020 : NegPAP: 1: Mag Perez MANAGER OF PHARMACY Get yearly flu shotGet tdap if not doneUTD on COVID 19 vaccineCan do shingrix vaccine RTC in 3 monthsDo labsER if worseShe did verbalize her understand ing of the above Essential hypertension 54151668 I10 EKG: NSR, no acute STT changesStr ess test 07/19/2022 : Neg On amlodipine 5mg dailyOn HCTZ 12.5mg dailyOn lisinopril 40mg dailyGet labsWill see Dr Wynn today 04/20/2022 at [facility] location Hyperlipidemia 50226762 E78.5 On atorvastat in 40mg dailyOn vascepaGet labs Cigarette smoker 3044361 7 F17.210 Smoker 24 years 2 PPD, now cut down to 1/4 PPDAdvised to quit smoking LDCT 12/31/2020 LDCT 02/22/2022 LDCT 06/30/2022 : Dr Wynn Leukocytosis 868931302 D 72.[address] Hernandez Pain of le ft knee joint 9238579669 04254 M25.562 Chuy MARIE 09/01/2021 , s/p knee arthroscop y, f/u PRN Prediabetes 428310215 R7 3.03 On metformin 500mg bidGet labs Proteinuria 41795797 R80 .9 On vit d weeklyOn calcitriol Sees Dr Alejo CRUZ Gout 76024792 M10.[address] Vera IJ Pain of le ft shoulder joint 8094991922 9514111 M25.512 Slept wrong, seen in the ER as per her history, will refer to Dr Burns Pain of left hand 249045 9432 [address]79[address] Burns Screening for malignant neoplasm of breast 063242781 Z12.39 [id number] Prudencio Burns MD [facility] [place] [address] [place] [address] 08/09/2022 13:39:19 08/09/2022 15:08:57 Pain of left shoulder joint 0935889779 1405165 M25.512 Adhesive c apsulitis of left shoulder 4465955404 51126 M75.02 physical therapy for the shoulder to [...] course typically Dupuytren contracture of left palm 9110856717 3967626 M72.0 conservati ve observatio n for the Dupuytren' s [id number] Janina Samuel MD [facility] [place] [address] [place] [address] 09/07/2022 10:47:54 09/07/2022 11:47:17 Pain of left shoulder joint 1239933933 1586002 M25.512 Adhesive c apsulitis of left shoulder 0779258204 34470 M75.02 [id number] Anne Loredo DPM [facility] Podiatry [place] [address] [place] [address] 09/26/2022 13:43:34 10/20/2022 20:34:42 Foot callus 312882110 L84 bilateral great toesDebrid ed without incidentOf floadingEd ucated on wider shoe gearFollow -up in 3 months Dystrophia unguium 73440 009 L60.3 Nails 1 through 10 were debrided with sharp mechanical debridemen t without incident. Nails were debrided and greater than 50% length and thickness where needed. Cigarette smoker 1748706 7 F17.210 Educated the patient on the side effects of smokingRec [facility] discontinu e [facility] Diabetes mellitus 129509 09 E11.9 Patient educated on neuropathy , diabetes, diabetic diet, and daily foot exams. Patient is to check feet daily for new wounds, blisters, redness to prevent infection and ulceration s to the feet. Patient will return to clinic in 3 months for diabetic foot workup. [id number] Janina Samuel MD [facility] Orth[facility] [place] [address] [place] [address] 10/19/2022 13:57:44 10/19/2022 14:37:35 Pain of left shoulder joint 3500259483 2517986 M25.512 Adhesive c apsulitis of left shoulder 4315161646 27889 M75.02 [id number] Yogi wright MD [facility] Internal Med Marc adama [address] [place] [address] [place] [address] 10/26/2022 09:17:44 10/26/2022 10:09:32 Gynecologic examination 66630633 Z01.411 Discussed importance of SBE, diet rich in calcium, weight bearing exercise. Notify office if any vaginal bleeding occurs. RTC 1 year and PRN. She does voice understand ing of the above. Lesion of skin of face 5347648910 06 L98.9 Get appointmen t with DermI advised patient I suspect this is either precancer skin cancer, so I stressed importance of her getting her appointmen t for evaluation , she voices understand ing [id number] Yogi wright MD [facility] Internal Med Debra llradha [address] [place] [address] [place] [address] 11/23/2022 14:03:56 11/23/2022 14:44:28 Screening - NAD 388680871 Z13.9 C-scope: 04/13/2022 : Dr Marie next in 5 years Mammogram: 11/17/2021 : NegMammogr am: 11/22/2022 : Neg DEXA: 10/14/2020 : NegPAP: 1: Mag Ana MANAGER OF PHARMACY, Mag Ana 10/26/2022 Get yearly flu shotGet tdap if not doneUTD on COVID 19 vaccineCan do shingrix vaccineGet RSV vaccine RTC in 3 monthsDo labsER if worseShe did verbalize her understand ing of the above Essential hypertension 09568290 I10 EKG: NSR, no acute STT changesStr ess test 07/19/2022 : Neg On amlodipine 5mg dailyNot on HCTZ 12.5mg dailyOn lisinopril 40mg dailyOn lasix given by Dr Alejo CRUZGet labsWill see Dr Wynn today 04/20/2022 at [facility] location Hyperlipidemia 37971199 E78.5 On atorvastat in 80mg daily, stopGet on fenofibrat e 145mg dailyNot on vascepa caused vomitingGe t labs Cigarette smoker 0616476 7 F17.210 Smoker 24 years 2 PPD, now cut down to 1/4 PPDAdvised to quit smoking LDCT 12/31/2020 LDCT 02/22/2022 LDCT 06/30/2022 : Dr Wynn Leukocytosis 701063276 D 72.[address] Hernandez Pain of le ft knee joint 5913174962 65432 M25.562 Chuy MARIE 09/01/2021 , s/p knee arthroscop y, f/u PRN Prediabetes 156756369 R7 3.03 On metformin 500mg bidGet labs Proteinuria 13485482 R80 .9 On vit d weeklyOn calcitriol Sees Dr Alejo CRUZ Gout 30727451 M10.[address] Alejo CRUZ Pain of le ft shoulder joint 7469030043 0218034 M25.512 Slept wrong, seen in the ER as per her history, will refer to Dr Katy Kingston NP 10/19/2022 , f/u PRN Pain of left hand 299045 1895 [address] Burns Screening for osteoporosis 804000126 Z13.820 Z78.0 Macrocytosis 797931411 D 75.89 Get labs Liver enzy mes level above reference range 419592863 R74.8 Administra tion of influenza vaccine 50064100 Z23 Skin lesion 86825846 L98 .9 On the R upper lip, and is now to see dermatolog y, referred by Mag Perez MANAGER OF PHARMACY [id number] Janina Samuel MD [facility] [place] [address] [facility] [address] [place] [address] 12/14/2022 11:07:09 12/14/2022 11:27:26 Pain of left hand 1574035192 96383 M79.652 [id number] Anne Loredo DPM [facility] Podiatry [place] [address] [place] [address] 12/26/2022 14:09:20 12/26/2022 15:25:57 Diabetes mellitus 47683206 E11.9 Patient educated on neuropathy , diabetes, diabetic diet, and daily foot exams. Patient is to check feet daily for new wounds, blisters, redness to prevent infection and ulceration s to the feet. Patient will return to clinic in 3 months for diabetic foot workup. Cigarette smoker 4815361 7 F17.210 Educated the patient on the side effects of smokingRec [facility]u [facility] Dystrophia unguium 60104 009 L60.3 Nails 1 through 10 were debrided with sharp mechanical debridemen t without incident. Nails were debrided and greater than 50% length and thickness where needed. Porokeratosis 510794028 Q82.8 Debrided without incident left footRecomm end use of Amlactin and pumice stone dailyFollo w-up as needed [id number] Yogi wright MD [facility] Internal Med Debra gaona [address] [facility] [place] [address] 03/27/2023 14:01:41 03/27/2023 15:11:43 Screening - NAD 008710518 Z13.9 C-scope: 04/13/2022 : Dr Marie next in 5 years Mammogram: 11/17/2021 : NegMammogr am: 11/22/2022 : Neg DEXA: 10/14/2020 : NegDEXA: 01/03/2023 : Neg PAP: 1: Mag Perez NP, Mag Perez 10/26/2022 Get yearly flu shotGet tdap if not doneUTD on COVID 19 vaccineCan do shingrix vaccineGet RSV vaccine RTC in 3 monthsDo labsER if worseShe did verbalize her understand ing of the above Essential hypertension 90711501 I10 EKG: NSR, no acute STT changesStr ess test 07/19/2022 : Neg On amlodipine 5mg dailyNot on HCTZ 12.5mg dailyOn lisinopril 40mg dailyNot on lasix given by Dr Vera IJGet labsWill see Dr Wnyn Hyperlipidemia 39921339 E78.5 On atorvastat in 80mg daily, stopOn fenofibrat e 145mg dailyNot on vascepa caused vomitingGe t labs Cigarette smoker 0393900 7 F17.210 Smoker 24 years 2 PPD, now cut down to 1/4 PPDAdvised to quit smoking LDCT 12/31/2020 LDCT 02/22/2022 LDCT 06/30/2022 : Dr Wynn Leukocytosis 058117054 D 72.[address] Hernandez Pain of le ft knee joint 6785976866 61980 M25.562 Chuy MARIE 09/01/2021 , s/p knee arthroscop y, f/u PRN Prediabetes 543841579 R7 3.03 Not taking metformin 500mg bid, declined 03/27/2023 , prediabete s, more diet and exercise is neededGet labs Proteinuria 96706268 R80 .9 On vit d weeklyOn calcitriol Sees Dr Alejo CRUZ Gout 03950167 M10.[address] Alejo CRUZ Pain of le ft shoulder joint 1996644016 9781295 M25.512 Slept wrong, seen in the ER as per her history, will refer to Dr Katy Kingston MANAGER OF PHARMACY 10/19/2022 , f/u PRN Pain of left hand 004604 [address] Samuel 12/14/2022 Macrocytosis 378040051 D 75.89 Get labs Liver enzy mes level above reference range 793132550 R74.8 GGT: 12/05/2022 : NegHepatit is panel: 12/05/2022 : Neg US liver 12/13/2022 CT A/P: 12/23/2022 : [facility]: Hepatomega ly Skin lesion 72736095 L98 .9 On the R upper lip, and is now to see dermatolog y, referred by Mag Perez NPStates that she could not get in with the dermatolog ist d/t her insurance, will get an apt with Dr Kelly [id number] Janina Samuel MD [facility] [place] [address] [place] [address] 03/29/2023 14:04:55 03/29/2023 14:26:02 Pain of right hand 0782135091 70596 M79.547 [id number] Gerry faustin MD [facility] General Surgery [address] [address] 04/11/2023 11:52:18 04/11/2023 16:53:07 Skin lesion 31770635 L98.9 upper lip [id number] Gerry faustin MD [facility] General [facility] [address] [address] 04/18/2023 11:34:26 04/18/2023 16:15:01 Basal cell carcinoma of skin 131094725 C44.91 right face [id number] Anne Loredo DPM [facility] Podiat[facility] [place] [address] [place] [address] 05/01/2023 13:42:39 05/19/2023 16:35:13 Diabetes mellitus 76254541 E11.9 Patient educated on neuropathy , diabetes, diabetic diet, and daily foot exams. Patient is to check feet daily for new wounds, blisters, redness to prevent infection and ulceration s to the feet. Patient will return to clinic in 3 months for diabetic foot workup. Peripheral arterial occlusive disease 915142881 I73.9 Follow-up testing Cigarette smoker 9373407 7 F17.210 Educated the patient on the side effects of smokingRec ommend patient discontinu e smoking Bunion 870801580 M21.61 9 follow-up testing possible surgery [id number] Anne Loredo DPM [facility] Podiat[facility] [place] [address] [place] [address] 05/15/2023 13:54:39 05/15/2023 14:45:15 Bunion 482267958 M21.619 right- SLAUGHTER 18 degrees distal bunioncall us of IPJ medial and plantarDis cussed treatment optionswil l try toe spacer and wide shoe gearfollow -up in early May if not improved will discuss surgery options, likely did Jean Marie osteotomy Pain of to e of right foot 3176613561 40850 M79.674 as above Peripheral arterial occlusive disease 742999497 I73.9 testing reviewedne gative for significan t diseasefol low-up 6 months Cigarette smoker 7254708 7 F17.210 Educated the patient on the side effects of smokingRec ommend patient discontinu e smoking [id number] Zoë Dow MD [facility]mon[facility] [address] [place] [address] 06/13/2023 10:43:01 06/14/2023 09:01:53 Dyspnea on exertion 00933555 R06.09 R05.9 T78.40XA D89.9 Smoker 35343976 F17.218 F17.219 E83.42 [id number] Anne Loredo DPM [facility] Pod[facility] [place] [address] [place] [address] 06/19/2023 14:12:39 06/20/2023 11:55:42 Hallux valgus AND bunion 615632221 M20.11 distal great toe bunionplan Jean Marie osteotomy with hardwareOb tain surgical clearancep atient has a upcoming appointmen t with her primary care on 06/20 Pain in toe 395025526 M7 9.674 as above [id number] Yogi wright MD [facility] Internal Med Debra gaona [address] [facility] y , [facility] [place] [address] 06/21/2023 09:47:19 06/21/2023 11:32:36 Screening - NAD 637989367 Z13.9 C-scope: 04/13/2022 : Dr Nyazee next in 5 years Mammogram: 11/17/2021 : NegMammogr am: 11/22/2022 : Neg DEXA: 10/14/2020 : NegDEXA: 01/03/2023 : Neg PAP: 1: Mag Perez MANAGER OF PHARMACY, Mag Perez 10/26/2022 Get yearly flu shotGet tdap if not doneUTD on COVID 19 vaccineCan do shingrix vaccineGet RSV vaccine RTC in 3 monthsDo labsER if worseShe did verbalize her understand ing of the above Essential hypertension 91433404 I10 EKG: NSR, no acute STT changesStr ess test 07/19/2022 : Neg On amlodipine 5mg dailyNot on HCTZ 12.5mg dailyOn lisinopril 40mg dailyNow on lasix given by Dr Alejo CRUZGet labs Dr Wynn 03/01/2023 Hyperlipidemia 78460372 E78.5 On atorvastat in 40mg dailyOn fenofibrat e 145mg dailyNot on vascepa caused vomitingGe t labs Cigarette smoker 0515046 7 F17.210 Smoker 24 years 2 PPD, now cut down to 1/4 PPDAdvised to quit smoking LDCT 12/31/2020 LDCT 02/22/2022 LDCT 06/30/2022 : Dr Wynn Leukocytosis 856537485 D 72.[address] Hernandez Pain of le ft knee joint 5392760560 52312 M25.562 Chuy MARIE 09/01/2021 , s/p knee arthroscop y, f/u PRN Prediabetes [id number] R7 3.03 Not taking metformin 500mg bid, declined 03/27/2023 , prediabete s, more diet and exercise is neededGet labs OV 06/21/2023 :On farxiga 10mg dailyGet labs Proteinuria 17812444 R80 .9 On vit d weeklyOn calcitriol Sees Dr Alejo CRUZ Gout 64482022 M10.[address] Alejo CRUZ Pain of le ft shoulder joint 8504808190 3873321 M25.512 Slept wrong, seen in the ER as per her history, will refer to Dr Katy Kingston MANAGER OF PHARMACY 10/19/2022 , f/u PRN Pain of left hand 701438 [address] Samuel 03/29/2023 , next apt 06/28/2023 Macrocytosis 284827428 D 75.89 Get labs Liver enzy mes level above reference range 518699561 R74.8 GGT: 12/05/2022 : NegHepatit is panel: 12/05/2022 : Neg US liver 12/13/2022 CT A/P: 12/23/2022 : [facility]: Hepatomega ly Skin lesion 83203183 L98 .9 On the R upper lip, and is now to see dermatolog y, referred by Mag Perez NPStates that she could not get in with the dermatolog ist d/t her insurance, will get an apt with Dr Kelly OV 06/21/2023 :S/p surgery Dr Kelly, 04/11/2023 Pre-surger y evaluation 121436284 Z01.818 Surgery: R foot bunyonSurg garland: Dr Heard te: TBDAnesthe cyndi: Cheyanne ce: Awaiting cardiac clearance with Dr Mcgraw dum: 06/22/2023 :She has been cleared for surgery by cardiology , 06/21/2023 , will need to see Dr Hernandez d/t her elevated WBC count [id number] Janina Samuel MD [facility] [place] [address] [place] [address] 06/28/2023 13:45:56 06/28/2023 14:57:15 Pain of bilateral hands [id number] 7678485 M79.106 [id number] Anne Loredo DPM [facility] [place] [address] [place] [address] 07/31/2023 08:23:25 08/01/2023 11:57:23 Hallux valgus AND bunion 050668690 M20.11 distal great toe bunionSurg linda clearance obtained- plan surgery August 10plan Jean Marie osteotomy with hardware Pain in toe 300248851 M7 9.674 as above [id number] Anne Loredo DPM [facility] [place] [address] [facility] [address] [place] [address] 08/15/2023 10:56:33 08/16/2023 13:45:01 Postoperative care 288334411 Z48.89 status post 4 days right great toe Jean Marie osteotomyd ressings removed and changedx-r ays reviewed lateral cortex has broken intact staple fixationco ntinue postop shoeminima l weight-antoine ring focused to the heel right foot- to and from the bathroom onlyfollow -up 1 week for dressing change [id number] Anne Loredo DPM [facility] [place] [address] [place] [address] 08/21/2023 12:01:05 08/22/2023 11:16:07 Postoperative care 524351739 Z48.89 status post 11days right great toe Jean Marie osteotomyd ressings removed and changedcon tinue postop shoeminima l weight-antoine ring focused to the heel right foot- to and from the bathroom onlyfollow -up 1 week for suture removal and repeat x-rays [id number] Anne Loredo DPM [facility] [place] [address] [place] [address] 08/28/2023 15:04:46 08/28/2023 16:21:40 Postoperative care 625517542 Z48.89 status post 3 weeks---ri ght great toe Jean Marie osteotomyd ressings removed and changedsut ures removedcon tinue postop shoeminima l weight-antoine ring focused to the heel right foot- to and from the bathroom onlyrepeat x-rays in 2 weeks [id number] Anne Loredo DPM [facility] [place] [address] [place] [address] 09/11/2023 13:52:34 09/12/2023 16:41:05 Postoperative care 762667017 Z48.89 status post 5 weeks---ri ght great toe Jean Marie osteotomyc ontinue postop shoeminima l weight-antoine ring focused to the heel right foot- to and from the bathroom onlyrice therapyx-r ays reviewed with the patientrtc in 3-4 weeks Noncomplia nce with treatment [id number] Z91.199 not wearing postop shoe [id number] Anne Loredo DPM [facility] [place] [address] [place] [address] 10/16/2023 13:54:13 10/16/2023 16:48:55 Postoperative care 237044137 Z48.89 status post-right great toe Jean Marie osteotomyc ontinue postop shoeminima l weight-antoine ring focused to the heel right foot- to and from the bathroom onlyrice therapyx-r ays reviewed with the patientrtc 2 months possible surg eval of the left at that time if conservati ve therapy fails [id number] Yogi wright MD [facility] [address] [facility] [place] [address] 10/25/2023 09:51:06 10/25/2023 10:35:27 Essential hypertension 09659770 I10 EKG: NSR, no acute STT changesStr ess test 07/19/2022 : Neg On amlodipine 5mg dailyNot on HCTZ 12.5mg dailyOn lisinopril 40mg dailyOn lasix given by Dr Vera IJGet labs Dr Wynn 03/01/2023 Screening - NAD 04373802 3 Z13.9 C-scope: 04/13/2022 : Dr Marie next in 5 years Mammogram: 11/17/2021 : NegMammogr am: 11/22/2022 : Neg DEXA: 10/14/2020 : NegDEXA: 01/03/2023 : Neg PAP: 1: Mag Perez MANAGER OF PHARMACY, Mag Perez 10/26/2022 Get yearly flu shotGet tdap if not doneUTD on COVID 19 vaccineCan do shingrix vaccineGet RSV vaccine RTC in 3 monthsDo labsER if worseShe did verbalize her understand ing of the above Hyperlipidemia 21960281 E78.5 On atorvastat in 40mg dailyNot on fenofibrat e 145mg dailyNot on vascepa caused vomitingGe t labs Cigarette smoker 4264864 7 F17.210 Smoker 24 years 2 PPD, now cut down to 1/4 PPDAdvised to quit smokingShe has been started on chantix by Dr Alejo CRUZ on 10/20/2023 LDCT 12/31/2020 LDCT 02/22/2022 LDCT 06/30/2022 : Dr Jones 06/30/2023 Leukocytosis 363642769 D 72.[address] Hernandez last OV 07/25/2023 , next in 3 months, referred 10/25/2023 Pain of le ft knee joint 6492869410 32698 M25.562 Chuy Doll PA 09/01/2021 , s/p knee arthroscop y, f/u PRN Prediabetes 035041164 R7 3.03 Not taking metformin 500mg bid, declined 03/27/2023 , prediabete s, more diet and exercise is neededGet labs On farxiga 10mg dailyGet labs Proteinuria 96578706 R80 .9 On vit d weeklyOn calcitriol Sees Dr Alejo CRUZ Gout 18876880 M10.[address] Alejo CRUZ Pain of le ft shoulder joint 6873127471 1659242 M25.512 Slept wrong, seen in the ER as per her history, will refer to Dr Katy Kingston MANAGER OF PHARMACY 10/19/2022 , f/u PRN Macrocytosis 256126539 D 75.89 Get labs Liver enzy mes level above reference range 288035381 R74.8 GGT: 12/05/2022 : NegHepatit is panel: 12/05/2022 : Neg US liver 12/13/2022 US liver 06/30/2023 CT A/P: 12/23/2022 : [facility]: Hepatomega ly Skin lesion 49666103 L98 .9 On the R upper lip, and is now to see dermatolog y, referred by Mag Perez NPStates that she could not get in with the dermatolog ist d/t her insurance, will get an apt with Dr Kelly OV 06/21/2023 :S/p surgery Dr Kelly, 04/11/2023 Pre-surger y evaluation [id number] Z01.818 Surgery: R foot bunyonSurg garland: Dr Heard te: TBDAnesthe cyndi: Cheyanne ce: Awaiting cardiac clearance with Dr Mcgraw dum: 06/22/2023 :She has been cleared for surgery by cardiology , 06/21/2023 , will need to see Dr Hernandez d/t her elevated WBC count Screening mammography 24 144520 Z12.31 Pain of bi lateral hands 9940374013 9610643 M79.641 M79.642 Luz Dawkins NP ortho 06/28/2023 , 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, will refer again 10/25/2023 Adult heal th examination 162722583 Z00.00 Screening for disorder 024529664 Z13.9 [id number] Anne Loredo DPM [facility] [place] [address] [place] [address] 12/18/2023 14:19:07 02/15/2024 14:47:58 Hallux valgus AND bunion 274352699 M20.12 distal great toe bunionSurg linda clearance obtained- plan surgery August 10plan Jean Marie osteotomy with hardware- repeat xrays at next visit [id number] Yogi wright MD [facility] [address] [place] [address] 01/08/2024 16:23:45 01/08/2024 17:58:39 Essential hypertension 31800495 I10 EKG: NSR, no acute STT changesStr ess test 07/19/2022 : Neg On amlodipine 5mg dailyNot on HCTZ 12.5mg dailyOn lisinopril 40mg dailyOn lasix given by Dr Alejo Romero labs Dr Wynn 03/01/2023 Screening - NAD 30313180 3 Z13.9 C-scope: 04/13/2022 : Dr Marie next in 5 years Mammogram: 11/17/2021 : NegMammogr am: 11/22/2022 : Neg DEXA: 10/14/2020 : NegDEXA: 01/03/2023 : Neg PAP: 1: Mag Perez NP, Mag Perez 10/26/2022 Get yearly flu shotGet tdap if not doneUTD on COVID 19 vaccineCan do shingrix vaccineGet RSV vaccine RTC in 3 monthsDo labsER if worseShe did verbalize her understand ing of the above Hyperlipidemia 78700067 E78.5 On atorvastat in 40mg dailyNot on fenofibrat e 145mg dailyNot on vascepa caused vomitingGe t labs Cigarette smoker 6180448 7 F17.210 Smoker 24 years 2 PPD, now cut down to 1/4 PPDAdvised to quit smokingShe has been started on chantix by Dr Alejo CRUZ on 10/20/2023 LDCT 12/31/2020 LDCT 02/22/2022 LDCT 06/30/2022 : VardiLDCT 06/30/2023 Leukocytosis 203575808 D 72.[address] Hernandez last OV 07/25/2023 , next in 3 months, referred 10/25/2023 Pain of le ft knee joint 6469974801 49204 M25.562 Chuy Doll PA 09/01/2021 , s/p knee arthroscop y, f/u PRN Prediabetes 424928119 R7 3.03 Not taking metformin 500mg bid, declined 03/27/2023 , prediabete s, more diet and exercise is neededGet labs On farxiga 10mg dailyGet labs Proteinuria 88303079 R80 .9 On vit d weeklyOn calcitriol Sees Dr Alejo CRUZ Gout 37737139 M10.[address] Alejo CRUZ Pain of le ft shoulder joint 1309588493 9119863 M25.512 Slept wrong, seen in the ER as per her history, will refer to Dr Katy Kingston MANAGER OF PHARMACY 10/19/2022 , f/u PRN Macrocytosis 170788555 D 75.89 Get labs Liver enzy mes level above reference range 772817732 R74.8 GGT: 12/05/2022 : NegHepatit is panel: 12/05/2022 : Neg US liver 12/13/2022 US liver 06/30/2023 CT A/P: 12/23/2022 : [facility]: Hepatomega ly Skin lesion 61526269 L98 .9 On the R upper lip, and is now to see dermatolog y, referred by Mag Perez NPStates that she could not get in with the dermatolog ist d/t her insurance, will get an apt with Dr Kelly OV 06/21/2023 :S/p surgery Dr Kelly, 04/11/2023 Pre-surger y evaluation 438361390 Z01.818 Surgery: R foot bunyonSurg garland: Dr Heard te: TBDAnesthe cyndi: Cheyanne ce: Awaiting cardiac clearance with Dr Mcgraw dum: 06/22/2023 :She has been cleared for surgery by cardiology , 06/21/2023 , will need to see Dr Hernandez d/t her elevated WBC count OV 01/08/2024 :Needs to get cardiac clearance for the L foot bunion Screening mammography 24 755560 Z12.31 Pain of bi lateral hands 7318583037 3830687 M79.641 M79.642 Luz Dawkins MANAGER OF PHARMACY ortho 06/28/2023 , 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, will refer again 10/25/2023 [id number] Yogi wright MD [facility] [address] [place] [address] 01/29/2024 13:57:03 01/29/2024 14:38:24 Adult health examination 038785462 Z00.00 Screening for disorder 998898417 Z13.9 Essential hypertension 92135398 I10 EKG: NSR, no acute STT changesStr ess test 07/19/2022 : Neg On amlodipine 5mg dailyNot on HCTZ 12.5mg dailyOn lisinopril 40mg dailyOn lasix given by Dr Alejo Romero labs Dr Wynn 11/27/2023 , referred 01/29/2024 Screening - NAD 92351640 3 Z13.9 C-scope: 04/13/2022 : Dr Marie next in 5 years Mammogram: 11/17/2021 : NegMammogr am: 11/22/2022 : NegOrdered 01/29/2024 DEXA: 10/14/2020 : NegDEXA: 01/03/2023 : Neg PAP: 1: Mag Perez MANAGER OF PHARMACY, Mag Perez 10/26/2022 Get yearly flu shotGet tdap if not doneUTD on COVID 19 vaccineCan do shingrix vaccineGet RSV vaccine RTC in 3 monthsDo labsER if worseShe did verbalize her understand ing of the above Hyperlipidemia 29748571 E78.5 On atorvastat in 80mg dailyNot on fenofibrat e 145mg dailyNot on vascepa caused vomitingGe t labs Cigarette smoker 3052701 7 F17.210 Smoker 24 years 2 PPD, now cut down to 1/4 PPDAdvised to quit smokingShe has been started on chantix by Dr Alejo CRUZ on 10/20/2023 LDCT 12/31/2020 LDCT 02/22/2022 LDCT 06/30/2022 : Dr WynnLDCT 06/30/2023 Leukocytosis 440973049 D 72.[address] Hernandez last OV 07/25/2023 , next in 3 months, referred 10/25/2023 Pain of le ft knee joint 9473759610 61791 M25.562 Chuy Doll PA 09/01/2021 , s/p knee arthroscop y, f/u PRN Prediabetes 091722899 R7 3.03 Not taking metformin 500mg bid, declined 03/27/2023 , prediabete s, more diet and exercise is neededGet labs On farxiga 10mg dailyGet labs Proteinuria 07564351 R80 .9 On vit d weeklyOn calcitriol Sees Dr Alejo CRUZ Gout 18575905 M10.[address] Alejo CRUZ Pain of le ft shoulder joint 4805943433 9604674 M25.512 Slept wrong, seen in the ER as per her history, will refer to Dr Katy Kingston MANAGER OF PHARMACY 10/19/2022 , f/u PRN Macrocytosis 881065128 D 75.89 Get labs Liver enzy mes level above reference range 196385216 R74.8 GGT: 12/05/2022 : NegHepatit is panel: 12/05/2022 : Neg US liver 12/13/2022 US liver 06/30/2023 CT A/P: 12/23/2022 : [facility]: Hepatomega ly Skin lesion 10165751 L98 .9 On the R upper lip, and is now to see dermatolog y, referred by Mag Perez NPStates that she could not get in with the dermatolog ist d/t her insurance, will get an apt with Dr Kelly OV 06/21/2023 :S/p surgery Dr Kelly, 04/11/2023 Pre-surger y evaluation 613394542 Z01.818 Surgery: R foot bunyonSurg garland: Dr [...] 02/05/2024 next apt 02/26/2024 Screening mammography 24 031892 Z12.31 Pain of bi lateral hands 7382412453 1001232 M79.641 M79.642 Luz Dawkins MANAGER OF PHARMACY ortho 06/28/2023 , 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, will refer again 10/25/2023 [id number] Anne Loredo DPM [facility] [place] [address] [place] [address] 01/29/2024 15:02:11 02/16/2024 07:35:47 Hallux valgus AND bunion 933338237 M20.12 distal great toe bunionSurg linda clearance obtained- plan surgery August 10plan Jean Marie osteotomy with hardware- repeat xrays at next visit Hammer toe 528922133 M20 .42 left 2nd toediscuss ed optionsrec ommend arthroplas ty right 2nd toe [id number] Anne Loredo DPM [facility] [place] [address] [place] [address] 02/05/2024 14:03:57 02/16/2024 09:01:41 Postoperative care 339829301 Z48.89 status post-left great toe Jean Marie osteotomy and hammertoe arthroplas ty 2ndcontinu e postop shoeminima l 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- to and from the bathroom onlyrice therapyfol low-up in 3 weeks for suture removal [id number] Anne Loredo DPM [facility] [place] [address] [place] [address] 02/29/2024 12:01:19 03/06/2024 09:01:55 Postoperative care 641768281 Z48.89 status post-left great toe Jean Marie osteotomy and hammertoe arthroplas ty 2ndcontinu e postop shoeminima l 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- to and from the bathroom onlyrice therapyfol low-up in 3 weeks for suture removal [id number] Anne Loredo DPM [facility] [place] [address] [place] [address] 03/04/2024 14:58:29 03/15/2024 13:10:25 Postoperative care 717177216 Z48.89 status post-left great toe Jean Marie osteotomy and hammertoe arthroplas ty 2ndcontinu e postop shoeminima l 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- to and from the bathroom onlyrice therapyfol low-up in 4-5 weeks xrays Pain in toe 150974537 M7 9.674 as above [id number] Yogi wright MD [facility] Primary Care [place] [address] [place] [address] 03/13/2024 13:59:22 03/13/2024 14:53:16 [id number] Yogi wright MD [facility] [place] [address] [place] [address] 04/01/2024 14:15:52 04/01/2024 15:13:15 Essential hypertension 34655977 I10 EKG: NSR, no acute STT changesStr ess test 07/19/2022 : [facility] On amlodipine 5mg dailyNot on HCTZ 12.5mg dailyOn lisinopril 40mg dailyOn lasix given by Dr Vera IJGet labs Dr Wynn 11/27/2023 , referred 01/29/2024 , must keep her apts! Screening - NAD 57607223 3 Z13.9 C-scope: 04/13/2022 : Dr Marie next in 5 years Mammogram: 11/17/2021 : NegMammogr am: 11/22/2022 : NegOrdered 01/29/2024 DEXA: 10/14/2020 : NegDEXA: 01/03/2023 : Neg PAP: 1: Mag Perez MANAGER OF PHARMACY, Mag Perez 10/26/2022 Get yearly flu shotGet tdap if not doneUTD on COVID 19 vaccineCan do shingrix vaccineGet RSV vaccine RTC in 3 monthsDo labsER if worseShe did verbalize her understand ing of the above Hyperlipidemia 52132833 E78.5 On atorvastat in 80mg dailyNot on fenofibrat e 145mg dailyNot on vascepa caused vomitingGe t labs Cigarette smoker 6549938 7 F17.210 Smoker 24 years 2 PPD, now cut down to 1/4 PPDAdvised to quit smokingShe has been started on chantix by Dr Alejo CRUZ on 10/20/2023 LDCT 12/31/2020 LDCT 02/22/2022 LDCT 06/30/2022 : Dr WynnLDCT 06/30/2023 Leukocytosis 945739668 D 72.[address] Hernandez last OV 07/25/2023 , next in 3 months, referred 10/25/2023 Pain of le ft knee joint 4184177154 63527 M25.562 Chuy MARIE 09/01/2021 , s/p knee arthroscop y, f/u PRN Prediabetes 334166010 R7 3.03 Not taking metformin 500mg bid, declined 03/27/2023 , prediabete s, more diet and exercise is neededGet labs On farxiga 10mg dailyGet labs Proteinuria 83054315 R80 .9 On vit d weeklyOn calcitriol Sees Dr Alejo CRUZ Gout 73876739 M10.[address] Vera IJ Pain of le ft shoulder joint 9748891770 5161579 M25.512 Slept wrong, seen in the ER as per her history, will refer to Dr Katy Kingston MANAGER OF PHARMACY 10/19/2022 , f/u PRN Macrocytosis 985081705 D 75.89 Get labs Liver enzy mes level above reference range 462601841 R74.8 GGT: 12/05/2022 : NegHepatit is panel: 12/05/2022 : Neg US liver 12/13/2022 US liver 06/30/2023 CT A/P: 12/23/2022 : [facility]: Hepatomega ly Skin lesion 72304223 L98 .9 On the R upper lip, and is now to see dermatolog y, referred by Mag Perez NPStates that she could not get in with the dermatolog ist d/t her insurance, will get an apt with Dr Kelly OV 06/21/2023 :S/p surgery Dr Kelly, 04/11/2023 Pre-surger y evaluation 222472946 Z01.818 Surgery: R foot bunyonSurg garland: Dr [...] 02/05/2024 next apt 02/26/2024 Screening mammography 24 766383 Z12.31 Pain of bi lateral hands 6282103860 1502238 M79.641 M79.642 Luz Dawkins MANAGER OF PHARMACY ortho 06/28/2023 , 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, will refer again 10/25/2023 Fall 0202298 W19.XXXA S/p fall and seen in the [...] Serum isabelle min B12 below reference range 469767810 R79.89 Get on vit b12 weekly for 4 weeks and then monthly for 2 months and repeat the labs Hypothyroidism 96460903 E03.9 Will repeat the TSH and FT4 level againMay need to be on levothyrox ine [id number] Anne Loredo DPM [facility] [place] [address] [place] [address] 04/18/2024 14:04:33 04/19/2024 14:24:23 Postoperative care 883180554 Z48.89 status post-left great toe Jean Marie osteotomy and hammertoe arthroplas ty 2ndcontinu e postop shoeminima l 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- to and from the bathroom onlyrice therapyrep eat x-rays reviewedfo llow-up in 4-5 weeks xrays Pain in toe 945750539 M7 9.674 as above Closed fra cture proximal phalanx, toe 239755168 S92.415K plan obtain surgical clearancex -rays reviewed with the patientfai led hardware and non-union proximal phalanx great toe, leftsurgic al plan- removal hardware with 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 85094,2068 0 [id number] Yogi wright MD [facility] [address] [place] [address] 05/01/2024 14:02:30 05/01/2024 14:55:27 Essential hypertension 03912699 I10 EKG: NSR, no acute STT changesStr ess test 07/19/2022 : [facility]ECHO [facility] On amlodipine 5mg dailyNot on HCTZ 12.5mg dailyOn lisinopril 40mg dailyOn lasix given by Dr Alejo Romero labs Dr Wynn 11/27/2023 , referred 01/29/2024 , must keep her apts!Dr Wynn 05/23/2024 for ECHO, next f/u 11/04/2024 Screening - NAD 05290718 3 Z13.9 C-scope: 04/13/2022 : Dr Marie next in 5 years Mammogram: 11/17/2021 : NegMammogr am: 11/22/2022 : NegOrdered 01/29/2024 , is to get this in June 2024 DEXA: 10/14/2020 : NegDEXA: 01/03/2023 : Neg PAP: 1: Mag Perez MANAGER OF PHARMACY, Mag Perez 10/26/2022 Get yearly flu shotGet tdap if not doneUTD on COVID 19 vaccineCan do shingrix vaccineGet RSV vaccine RTC in 3 monthsDo labsER if worseShe did verbalize her understand ing of the above Hyperlipidemia 29737704 E78.5 On atorvastat in 80mg dailyNot on fenofibrat e 145mg dailyNot on vascepa caused vomitingGe t labs Cigarette smoker 0282358 7 F17.210 Smoker 24 years 2 PPD, now cut down to 1/4 PPDAdvised to quit smokingShe has been started on chantix by Dr Alejo CRUZ on 10/20/2023 LDCT 12/31/2020 LDCT 02/22/2022 LDCT 06/30/2022 : Dr WynnLDCT 06/30/2023 Leukocytosis 250974151 D 72.[address] Hernandez last OV 07/25/2023 , next in 3 months, referred 10/25/2023 Pain of le ft knee joint 1060134334 43315 M25.562 Chuy MARIE 09/01/2021 , s/p knee arthroscop y, f/u PRN Prediabetes 550497032 R7 3.03 Not taking metformin 500mg bid, declined 03/27/2023 , prediabete s, more diet and exercise is neededGet labs On farxiga 10mg dailyGet labs Proteinuria 25400031 R80 .9 On vit d weeklyOn calcitriol Sees Dr Alejo CRUZ Gout 87147519 M10.[address] Alejo CRUZ Pain of le ft shoulder joint 9520848021 4956603 M25.512 Slept wrong, seen in the ER as per her history, will refer to Dr Katy Kingston MANAGER OF PHARMACY 10/19/2022 , f/u PRN Macrocytosis 712172997 D 75.89 Get labs Liver enzy mes level above reference range 238500569 R74.8 GGT: 12/05/2022 : NegHepatit is panel: 12/05/2022 : Neg US liver 12/13/2022 US liver 06/30/2023 CT A/P: 12/23/2022 : [facility]: Hepatomega ly Skin lesion 49250501 L98 .9 On the R upper lip, and is now to see dermatolog y, referred by Mag Perez NPStates that she could not get in with the dermatolog ist d/t her insurance, will get an apt with Dr Kelly OV 06/21/2023 :S/p surgery Dr Kelly, 04/11/2023 Pre-surger y evaluation 262913565 Z01.818 Surgery: R foot bunyonSurg garland: Dr [...] remains a moderate risk Screening mammography 24 884147 Z12.31 Pain of bi lateral hands 6230059567 6150333 M79.641 M79.642 Luz Dawkins MANAGER OF PHARMACY ortho 06/28/2023 , 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, will refer again 10/25/2023 Fall 2606777 W19.XXXA S/p fall and seen in the [...] Serum isabelle min B12 below reference range 470546002 R79.89 Get on vit b12 weekly for 4 weeks and then monthly for 2 months and repeat the labs Hypothyroidism 53546034 E03.9 Will repeat the TSH and FT4 level againMay need to be on levothyrox ine [id number] Anne Loredo DPM [facility] Podiat[facility] [place] [address] [place] [address] 05/06/2024 10:09:13 05/07/2024 09:03:09 Postoperative care 995589463 Z48.89 status post-left great toe Jean Marie osteotomy and hammertoe arthroplas ty 2ndcontinu e postop shoeminima l 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- to and from the bathroom onlyrice therapyrep eat x-rays reviewedfo llow-up post surgery- plan 331 Closed fra cture proximal phalanx, toe 261229588 S92.415K plan obtain surgical clearancex -rays reviewed with the patientfai led hardware and non-union proximal phalanx great toe, leftsurgic al plan- removal hardware with 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 81719,2068 0 Pain in toe 338156450 M7 9.674 as above [id number] Anne Loredo DPM [facility] Podiat[facility] [place] [address] [place] [address] 05/27/2024 14:20:50 06/05/2024 15:58:08 Postoperative visit 328603113 Z48.89 status post repair of nonunion and hardware removalcon tinue to keep the dressings clean and dryContinu e postop shoeMonito r for signs of infectionF ollow-up in 1 week [id number] Anne Loredo DPM [facility] Podiat[facility] [place] [address] [place] [address] 06/03/2024 13:59:49 06/07/2024 13:36:36 Postoperative visit [id number] Z48.89 status post repair of nonunion and hardware removalcon tinue to keep the dressings clean and dryContinu e postop shoeMonito r for signs of infectionF ollow-up in 1 week [id number] Anne Loredo DPM [facility] [place] [address] [place] [address] 06/13/2024 13:53:28 06/18/2024 12:49:01 Postoperative visit [id number] Z48.89 status post repair of nonunion and hardware removalcon tinue to keep the dressings clean and dryContinu e postop shoeMonito r for signs of infectionF ollow-up in 1 week Dehiscence of external surgical incision wound 0157191316 78152 T81.31XA betadine wet to dry dressings dailyfinis h doxycyclin eBetadine wet-to-dry dressing dailyno soaking of toe [id number] Anne Loredo DPM [facility] [place] [address] [place] [address] 06/24/2024 14:48:09 07/23/2024 15:35:06 Postoperative visit 530245782 Z48.89 status post repair of nonunion and hardware removalcon tinue to keep the dressings clean and dryContinu e postop shoeMonito r for signs of infectionF ollow-up in 1 week Dehiscence of external surgical incision wound [id number] 01350 T81.31XA Betadine wet-to-dry dressing dailyno soaking of toemonitor for infection at present seek medical attention immediatel yoffloadin g all timesfollo w-up 1 week [id number] Anne Loredo DPM [facility] [place] [address] [place] [address] 07/01/2024 13:53:40 07/02/2024 15:32:55 Postoperative visit 718603654 Z48.89 status post repair of nonunion and hardware removalcon tinue to keep the dressings clean and dryContinu e postop shoeMonito r for signs of infection Dehiscence of external surgical incision wound 4034212196 22717 T81.31XA R23.4 continue offloading finished doxycyclin eBetadine wet-to-dry dressing dailyno soaking of toerecomme nd postop shoefollow -up in 1- 2 weeks [id number] Anne Loredo DPM [facility] [place] [address] [facility] [address] [place] [address] 07/18/2024 13:40:35 07/22/2024 11:51:21 Postoperative visit 169737488 Z48.89 status post repair of nonunion and hardware removalcon tinue to keep the dressings clean and dryContinu e postop shoeMonito r for signs of infectionf ollow up2 months Dehiscence of external surgical incision wound 5923259402 28536 T81.31XA R23.4 healedoffl oadingfoll ow up in 2 months- repeat xrays [id number] Yogi wright MD [facility] [address] [place] [address] 09/04/2024 13:54:11 09/04/2024 14:54:21 Essential hypertension 62826224 I10 EKG: NSR, no acute STT changesStr ess test 07/19/2022 : [facility] On amlodipine 5mg dailyNot on HCTZ 12.5mg dailyOn lisinopril 40mg dailyOn lasix given by Dr Alejo Romero labs Dr Wynn 11/27/2023 , referred 01/29/2024 , must keep her apts!Dr Wynn 05/23/2024 for ECHO, next f/u 11/04/2024 Screening - NAD 24391160 3 Z13.9 C-scope: 04/13/2022 : Dr Marie next in 5 years Mammogram: 11/17/2021 : NegMammogr am: 11/22/2022 : NegOrdered 01/29/2024 , is to get this in June 2024Mammog laurel: 07/08/2024 : neg DEXA: 10/14/2020 : NegDEXA: 01/03/2023 : Neg PAP: 1: Mag Perez MANAGER OF PHARMACY, Mag Perez 10/26/2022 Get yearly flu shotGet tdap if not doneUTD on COVID 19 vaccineCan do shingrix vaccineGet RSV vaccine RTC in 2 monthsDo labsER if worseShe did verbalize her understand ing of the above Hyperlipidemia 79310972 E78.5 On atorvastat in 80mg dailyNot on fenofibrat e 145mg daily, will restart this and get labsNot on vascepa caused vomitingGe t labs Cigarette smoker 7640843 7 F17.210 Smoker 24 years 2 PPD, now cut down to 1/4 PPDAdvised to quit smokingShe has been started on chantix by Dr Alejo CRUZ on 10/20/2023 LDCT 12/31/2020 LDCT 02/22/2022 LDCT 06/30/2022 : Dr WynnLDCT 06/30/2023 Leukocytosis 894840322 D 72.[address] Hernandez last OV 07/25/2023 , next in 3 months, referred 10/25/2023 Dr Hernandez 05/28/2024 : Next in 6 months Pain of le ft knee joint 2529252789 46742 M25.562 Chuy MARIE 09/01/2021 , s/p knee arthroscop y, f/u PRN Prediabetes 285438988 R7 3.03 Not taking metformin 500mg bid, declined 03/27/2023 , prediabete s, more diet and exercise is neededGet labs On farxiga 10mg dailyGet labs Proteinuria 08688464 R80 .9 On vit d weeklyOn calcitriol Sees Dr Alejo CRUZ Gout 33775622 M10.[address] Alejo CRUZ Pain of le ft shoulder joint 6351691627 9121175 M25.512 Slept wrong, seen in the ER as per her history, will refer to Dr Katy Kingston NP 10/19/2022 , f/u PRN Macrocytosis 269501813 D 75.89 Get labs Liver enzy mes level above reference range 455284988 R74.8 GGT: 12/05/2022 : NegHepatit is panel: 12/05/2022 : Neg US liver 12/13/2022 US liver 06/30/2023 CT A/P: 12/23/2022 : [facility]: Hepatomega ly Skin lesion 34960234 L98 .9 On the R upper lip, and is now to see dermatolog y, referred by Mag Perez NPStates that she could not get in with the dermatolog ist d/t her insurance, will get an apt with Dr Kelly OV 06/21/2023 :S/p surgery Dr Kelly, 04/11/2023 Pre-surger y evaluation 835409925 Z01.818 Surgery: R foot bunyonSurg garland: Dr [...] moderate risk Pain of bi lateral hands 0675638409 6556800 M79.641 M79.642 Luz Dawkins MANAGER OF PHARMACY ortho, 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, will refer again Fall W19.XXXA S/p fall and seen in the ERS/p Xray 03/17/2024 : PelvisS/p CT C-spine 03/17/2024 S/p CT head 03/17/2024 per D/c note 03/19/2024 , she did have alcohol, and fell and was noted to be unresponsi ve, diagnosed with catatonia, benzochio pine given and told to follow up with Dr Todd Morgan and to put on ativan Serum isabelle min B12 below reference range 767837460 R79.89 Get on vit b12 weekly for 4 weeks and then monthly for 2 months and repeat the labs Hypothyroidism 23015045 E03.9 Will repeat the TSH and FT4 level againMay need to be on levothyrox ine Acute righ t otitis media 003377861 H66.91 [id number] Went swimming and now has painGet on doxyNotify if not better, ER if worse [id number] Zeeshan Adrian MD [facility] [place] [address] [place] [address] 09/19/2024 11:35:29 09/25/2024 08:41:10 Otitis media of right ear 4642762819 560848 H66.91 643598269 Acute otitis externa 302 22988 H60.311 09971749 Impacted c erumen in right ear 6577108628 856053 H61.21 4687720 [id number] Yogi wright MD [facility] [address] [place] [address] 10/28/2024 14:40:34 10/28/2024 15:58:46 Essential hypertension 37857514 I10 EKG: NSR, no acute STT changesStr ess test 07/19/2022 : NegECHO [facility]18[facility] On amlodipine 5mg dailyNot on HCTZ 12.5mg dailyOn lisinopril 40mg dailyOn lasix given by Dr Alejo Romero labs Dr Wynn 11/27/2023 , referred 01/29/2024 , must keep her apts!Dr Wynn 05/23/2024 for ECHO, next f/u 11/04/2024 Screening - NAD 36562901 3 Z13.9 C-scope: 04/13/2022 : Dr Marie next in 5 years Mammogram: 11/17/2021 : NegMammogr am: 11/22/2022 : NegOrdered 01/29/2024 , is to get this in June 2024Mammog laurel: 07/08/2024 : neg DEXA: 10/14/2020 : NegDEXA: 01/03/2023 : Neg PAP: 1: Mag Perez MANAGER OF PHARMACY, Mag Perez 10/26/2022 Get yearly flu shotGet tdap if not doneUTD on COVID 19 vaccineCan do shingrix vaccineGet RSV vaccine RTC in 2 monthsDo labsER if worseShe did verbalize her understand ing of the above Hyperlipidemia 17089060 E78.5 On atorvastat in 80mg dailyOn fenofibrat e 145mg dailyNot on vascepa caused vomitingGe t labs Cigarette smoker 6733295 7 F17.210 Smoker 24 years 2 PPD, now cut down to 1/4 PPDAdvised to quit smokingShe has been started on chantix by Dr Alejo CRUZ on 10/20/2023 LDCT 12/31/2020 LDCT 02/22/2022 LDCT 06/30/2022 : Dr YanesdiLDCT 06/30/2023 Leukocytosis 835332796 D 72.[address] Hernandez last OV 07/25/2023 , next in 3 months, referred 10/25/2023 Dr Hernandez 05/28/2024 : Next in 6 months Pain of le ft knee joint 3364496919 17508 M25.562 Chuy MARIE 09/01/2021 , s/p knee arthroscop y, f/u PRN Prediabetes 857119662 R7 3.03 Not taking metformin 500mg bid, declined 03/27/2023 , prediabete s, more diet and exercise is neededGet labs On farxiga 10mg dailyGet labs Proteinuria 47217462 R80 .9 On vit d weeklyOn calcitriol Sees Dr Alejo CRUZ Gout 03257449 M10.[address] Alejo CRUZ Pain of le ft shoulder joint 8072020010 4731252 M25.512 Slept wrong, seen in the ER as per her history, will refer to Dr Katy Kingston MANAGER OF PHARMACY 10/19/2022 , f/u PRN Macrocytosis 888767314 D 75.89 Get labs Skin lesion 05612889 L98 .9 On the R upper lip, and is now to see dermatolog y, referred by Mag Perez NPStates that she could not get in with the dermatolog ist d/t her insurance, will get an apt with Dr Kelly OV 06/21/2023 :S/p surgery Dr Kelly, 04/11/2023 Pre-surger y evaluation 678927971 Z01.818 Surgery: R foot bunyonSurg garland: Dr [...] moderate risk Pain of bi lateral hands 4993030230 8913356 M79.641 M79.642 Luz Dawkins MANAGER OF PHARMACY ortho, 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, will [...] Serum isabelle min B12 below reference range 188305458 R79.89 Get on vit b12 weekly for 4 weeks and then monthly for 2 months and repeat the labs Hypothyroidism 94174701 E03.9 Will repeat the TSH and FT4 level againMay need to be on levothyrox ine Liver func tion test above reference range 423582829 R79.89 297918 GGT: 12/05/2022 : NegHepatit is panel: 12/05/2022 : Neg US liver 12/13/2022 US liver 06/30/2023 CT A/P: 12/23/2022 : [facility]: Hepatomega ly Get liver US Alcohol in toxication delirium 84058683 F10.921 92750911 Was at a friend's home and had a 'fifth of vodka' and then 'passed out' and was seen in the ER at [place], [place] on 10/10/2024 Now does wellGet on folate, thiamine Upper resp iratory infection 71643456 J06.9 70884870 Get on z-packRest isolate and ER if worse Health Concerns Section Related Observation LastModified by Organization Detai ls LastModified Time None Recorded Concern Status LastModified by Organization Details LastModified Time None Recorded Advance Directives Directive N: Payers Insurance Date Sequence Insurance Name Policy Number Policy Perez Covered Member ID Perez Member ID Guarantor Name 10/28/2024 1 [facility] - DOS ON OR AFTER 2020 - DUAL ELIGIBLE (MEDICARE REPLACEMENT/A DVANTAGE - HMO) [facility] [id number] [facility] 10/28/2024 1 [facility] (MEDICARE REPLACEMENT/A DVANTAGE - HMO) [facility] [id number] [facility] 10/28/2024 1 [facility] (MEDICARE REPLACEMENT/A DVANTAGE - PPO) [id number] [facility] [id number] [facility] 10/28/2024 2 [place] [facility] [id number] [facility] 10/28/2024 1 [facility] - DOS ON OR AFTER 20 (MEDICAID REPLACEMENT - HMO) [facility] [id number] [facility] Notes Date Note Type Note Provider Name [...] any other complaints. Anne Loredo DPM [address], [place], [address], [employer] [facility] 07/01/2024 14:53:41 07/18/2024 text/html . Patient is [...] gear. Patient denies any other complaints. Anne Loredo DPM [address], [place], [address], [employer] [facility] 07/22/2024 09:53:52 09/04/2024 text/html OV 10/07/2020:Here to [...] more such episodes, she does see her [employer] operations consultant Dr Lilly extensive ROS is negative todayOV 12/09/2020:Here for her routine aptShe is doing wellShe did do the labs on 12/07/2020OV 04/06/2021:ACV:Here with c/o R sided rib painS/p fall on 03/29 and seen in the ER at [place] on 03/30/2021, was taken off work but still has the R sided pain, she had repeat Xrays done at [place] yesterdayShe did not want to go back [...] Burns MD [address], [place], [address], [facility] [employer] [facility] 09/04/2024 14:51:08 09/19/2024 text/html this patient reports right ear pain for 1 week. She has been on 3 courses of antibiotics without improvement. Zeeshan Adrian MD [address], [place], [address], [facility] [employer] [facility] 09/19/2024 12:03:02 10/28/2024 text/html OV 10/07/2020:Here to [...] more such episodes, she does see her [employer] operations consultant Dr Lilly extensive ROS is negative todayOV 12/09/2020:Here for her routine aptShe is doing Tyler did do the labs on 12/07/2020OV 04/06/2021:ACV:Here with c/o R sided rib painS/p fall on 03/29 and seen in the ER at [place] on 03/30/2021, was taken off work but still has the R sided pain, she had repeat Xrays done at [place] yesterdayShe did not want to go back [...] 08/04/2021:Here for her routine aptShe is doing Tyler did do the labs on 2OV 12/08/2021:Here [...] chills, no SOB Yogi Burns MD [address], [facility] [address], [place], [address], [facility] 10/28/2024 18:14:12 OBGyn Episode No OBEpisode recorded.
--- OUTSIDE RECORDS SUMMARY | 2024-11-25 13:04 | XMS_ITS | Clinical Summary ---
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
--- OUTSIDE RECORDS SUMMARY | 2024-11-25 13:04 | XMS_ITS | Clinical Summary ---
Author Organization [facility] Krystle rollins Jorge Address [address] [place] [address] Care Team Providers Care Janitor Name Role Phone Caitlyn Burns MD Primary [...] Description 11/27/2024 11:45 AM CDT Office Visit [facility] Oncology and Hematology [facility] [address] [facility] [address] [place] [address] Howie Hernandez MD [address] [facility] [address] [place] [address] Health Maintenance Due Date Last [...] - Risk 60-74 years 1-dose series) 2020 Medicare Advantage ([place]) Prev entative Visit/Annual Wellness Visit 02/21/2024 INFLUENZA VACCINE (#1) 2024 Insurance [facility] PPO SNP MCR Care Teams Janitor Relationship Specialty Start Date End Date Caitlyn Burns MD PCP - General Internal Medicine 07/22/21
== END 2024-11-25 11:27 | disposition home or self-care (01) ==
LOC: ANHLAB 11:27
PROVIDERS: PCP Internal Medicine; Visit Provider Internal Medicine Hematology & Oncology
DX: D72.829 Elevated white blood cell count, unspecified (principal)
CPT/HCPCS: 36415; 80053; 83615; 85025

== ENCOUNTER 2024-11-27 11:58 | Outpatient (CLI) | payer MEDICARE, SELFPAY ==
--- NOTE | 2024-11-27 12:08 | CY_PTH ---
PATIENT: Ju Mondragon LOC: [facility] U#:[id number] AGE/SX: 64/F ROOM: RE11/27/[address]: Howie Hernandez MD : 1960 BED: DIS: 11/27/2024 SPEC #: [id number] RECD: 11/27/24 13:09 STATUS: DON REQ #: [id number] DISHA: 11/27/24 12:[address]: Howie Hernandez DEPT: [facility] Cytology RECD BY: Beverly Welch ENTERED: 11/27/24 13:10 SP TYPE: Cytology OT DR: Caitlyn BurnsMD Tissues: A - Flow Procedures: Flow Cytometry
[2024-11-27 13:21] LABS: CRP < 0.5 mg/dL (<1.0)
== END 2024-11-27 11:59 | disposition home or self-care (01) ==
LOC: ANHLAB 11:59
PROVIDERS: PCP Internal Medicine; Visit Provider Internal Medicine Hematology & Oncology
DX: D72.829 Elevated white blood cell count, unspecified (principal)
CPT/HCPCS: 36415; 85652; 86140; 88184

== ENCOUNTER 2024-12-09 11:25 | Outpatient (CLI) | payer MEDICARE, SELFPAY ==
[2024-12-09 11:43] LABS: Hematocrit 39.4 % (37.0-47.0); Hemoglobin 12.3 g/dL (12.0-15.0); Immature Granulocyte Percent A 1.5 % (0-0.5); Lymphocytes Absolute Auto 4.09 K/mm3 (0.9-3.2); Mean Corpuscular HGB Conc 31.2 g/dl (32-36); Mean Corpuscular Hemoglobin 31.4 pg (26-34); Mean Corpuscular Volume 100.5 fl (80-100); Nucleated Red Blood Cells Absolute Auto 0.000 K/mm3 (0.0-0.012); Nucleated Red Blood Cells Perc 0.0 % (0.0-0.2); Platelet Count Result 386 k/mm3 (150-375); Red Blood Count 3.92 M/mm3 (4.2-5.4); White Blood Count 16.8 K/mm3 (4.5-10.0)
[2024-12-09 14:45] LABS: Anion Gap 7 mmol/L (4-12); Blood Urea Nitrogen 14 mg/dL (7-17); CRP 0.7 mg/dL (<1.0); Calcium 9.5 mg/dL (8.4-10.2); Carbon Dioxide 26 mmol/L (22-30); Chloride 106 mmol/L (98-107); Estimated Glomerular Filt Rate 47; Glucose 93 mg/dL (65-110); Potassium 3.3 mmol/L (3.4-5.0); Sodium 139 mmol/L (137-145)
== END 2024-12-09 11:26 | disposition home or self-care (01) ==
PROVIDERS: PCP Internal Medicine; Visit Provider Internal Medicine Hematology & Oncology
DX: D72.829 Elevated white blood cell count, unspecified (principal)
CPT/HCPCS: 36415; 80048; 85025; 85652; 86140

== ENCOUNTER 2025-01-10 06:51 | Outpatient (CLI) | payer MEDICARE, SELFPAY ==
--- OUTSIDE RECORDS SUMMARY | 2023-09-08 08:30 | XMS_ITS ---
Author Organization [facility] [facility] Address [address] [facility] [address] [place] [address] Care Team Providers Care Hair Worker Name Role Phone Alejo Dimitris Unavailable [phone] Medications Medication SIG (Take, Route, Frequency, Duration) Notes Start Date End Date Status Ergocalciferol 1.25 MG (24854 UT) 1 capsule Orally Once a week; Duration: 90 day(s) 04/12/2023 01/07/2024 Active Furosemide 20 MG Take 1 tablet by rodger th once daily; Duration: 90 Active Vitamin D (Ergocalciferol) 1.25 MG (00342 UT) Take 1 capsule by mouth once a week; Duration: 91 Active Ciprofloxacin HCl 250 MG TAKE 1 TABLET B Y MOUTH EVERY 12 HOURS FOR 10 DAYS; Duration: 10 Active Allopurinol 100 MG Take 1 tablet by rodger th once daily; Duration: 90 Active Calcitriol 0.25 MCG Take 1 capsule by mo uth once daily; Duration: 90 Active Social History Sex Assigned At : Social History Observation Description Sex Assigned At Female Encounters Encounter Location Date Provider Diagnosis [facility] [place] [facility] [address] [facility] [address] [place] [address] 09/08/2023 Dimitris Dhillon Chronic kidney disea se, stage 2 (mild) N18.2 ; Essential hypertension I10 ; Other proteinuria R80.8 ; Renal osteodystrophy N25.0 and Secondary hyperparathyroidism, not elsewhere classified E21.1 Assessments Encounter Date Diagnosis (ICD Code) Assessment Notes Treatment Notes Treatment Clinical Notes Section Notes 09/08/2023 Chronic kidney disease, stage 2 (mild) (ICD-10 - N18.2) 09/08/2023 Essential hypertension (ICD-10 - I10) 09/08/2023 Other proteinuria (ICD-10 - R80.8) 09/08/2023 Renal osteodystrophy (ICD-10 - N25.0) 09/08/2023 Secondary hyperparathyroidism , not elsewhere classified (ICD-10 - E21.1) Plan Of Treatment Next Appt Details Provider Name:Dimitris Dhillon , 02/05/2025 02:00:00 PM, [address], [place], [address], Progress Notes * Zarina MONDRAGONaDOB: [birth year] (64 yo F)Acc No.[id number]:09/08/2023 Patient: Ju BURDEN Provider: Nina VILA MD, F.A.C.P, F.A.S.N. :1960 A ge:62 Y S ex:Female Date:09/08/2023 Address:[id number] Subjective: * Chief Complaints: Objective: Assessment: * Assessment: 1. C hronic kidney disease, stage 2 (mild) - N18.2 (Primary) 2 . E ssential hypertension - I10 3 . O ther proteinuria - R80.8 4 . R enal osteodystrophy - N25.0 5 . S econdary hyperparathyroidism, not elsewhere classified - E21.1 Plan: * Billing Information: * Visit Code: 12504 Office Visit, Est Pt., Level 5. * Procedure Codes: * Electronic signature of Saravanan Dhillon MD on 01/10/2025 at 06:56 AM FOUR SLIDE OPERATOR Sign off status: Pending * Provider: Nina VILA MD, F.A.C.P, F.A.S.N. Date: 0 09/08/2023 Generated for Printing/Faxing/eTransmitting on: 03/12/2024 06:56 AM FOUR SLIDE OPERATOR
--- OUTSIDE RECORDS SUMMARY | 2023-10-20 10:30 | XMS_ITS ---
Author Organization [facility] Address [address] [place] [address] Care Team Providers Care Band Nailer Name Role Phone Alejo Dimitris Unavailable [phone] Medications Medication SIG (Take, Route, Frequency, Duration) Notes Start Date End Date Status Calcitriol 0.25 MCG Take 1 capsule by mo uth once daily; Duration: 90 Active Furosemide 20 MG Take 1 tablet by rodger th once daily; Duration: 90 Active Ciprofloxacin HCl 250 MG TAKE 1 TABLET B Y MOUTH EVERY 12 HOURS FOR 10 DAYS; Duration: 10 Active Vitamin D (Ergocalciferol) 1.25 MG (09065 UT) Take 1 capsule by mouth once a week; Duration: 91 Active Allopurinol 100 MG Take 1 tablet by rodger th once daily; Duration: 90 Active Social History Sex Assigned At : Social History Observation Description Sex Assigned At Female Encounters Encounter Location Date Provider Diagnosis [facility] [place] [facility] [address] [place] [address] 10/20/2023 Dimitris Dhillon Chronic kidney disea se, stage 3 unspecified N18.30 ; Essential hypertension I10 ; Renal osteodystrophy N25.0 ; Other proteinuria R80.8 and Secondary hyperparathyroidism, not elsewhere classified E21.1 Assessments Encounter Date Diagnosis (ICD Code) Assessment Notes Treatment Notes Treatment Clinical Notes Section Notes 10/20/2023 Chronic kidney disease, stage 3 unspecified (ICD-10 - N18.30) 10/20/2023 Essential hypertension (ICD-10 - I10) 10/20/2023 Renal osteodystrophy (ICD-10 - N25.0) 10/20/2023 Other proteinuria (ICD-10 - R80.8) 10/20/2023 Secondary hyperparathyroidism , not elsewhere classified (ICD-10 - E21.1) Plan Of Treatment Next Appt Details Provider Name:Dimitris Dhillon , 02/05/2025 02:00:00 PM, [address], [place], [address], Progress Notes * Brice MONDRAGONB: [birth year] (64 yo F)Acc No.[id number]:10/20/2023 Patient: Ju BURDEN Provider: Nina VILA MD, Dominga.Dunia.P, F.A.S.N. :1960 A ge:62 Y S ex:Female Date:10/20/2023 Address:[address], [facility] Subjective: * Chief Complaints: Objective: Assessment: * Assessment: 1. C hronic kidney disease, stage 3 unspecified - N18.30 2 . E ssential hypertension - I10 3 . R enal osteodystrophy - N25.0 4 . O ther proteinuria - R80.8 5 . S econdary hyperparathyroidism, not elsewhere classified - E21.1 Plan: * Billing Information: * Visit Code: 66837 Office Visit, Est Pt., Level 4. * Procedure Codes: * Electronic signature of Saravanan Dhillon MD on 01/10/2025 at 06:56 AM HAND EXPANSION ENVELOPE MAKER Sign off status: Pending * Provider: Nina VILA MD, Deysi.P, F.A.S.N. Date: 0 10/20/2023 Generated for Printing/Faxing/eTransmitting on: 03/12/2024 06:56 AM HAND EXPANSION ENVELOPE MAKER
--- OUTSIDE RECORDS SUMMARY | 2023-12-22 07:00 | XMS_ITS ---
Author Organization [facility] Address [address] [facility] [address] [facility] [address] [place] [address] Care Team Providers Care Saloon Keeper Name Role Phone Dimitris Dhillon Unavailable [phone] Medications Medication SIG (Take, Route, Frequency, Duration) Notes Start Date End Date Status Ciprofloxacin HCl 250 MG TAKE 1 TABLET B Y MOUTH EVERY 12 HOURS FOR 10 DAYS; Duration: 10 Active Varenicline Tartrate (Starter) 0.5 MG X 11 & 1 MG X 42 as directed Orally 10/20/2023 Active Calcitriol 0.25 MCG Take 1 capsule by mo uth once daily; Duration: 90 Active Vitamin D (Ergocalciferol) 1.25 MG (55996 UT) Take 1 capsule by mouth once a week; Duration: 91 Active Allopurinol 100 MG Take 1 tablet by rodger th once daily; Duration: 90 Active Furosemide 20 MG Take 1 tablet by rodger th once daily; Duration: 90 Active Social History Sex Assigned At : Social History Observation Description Sex Assigned At Female Encounters Encounter Location Date Provider Diagnosis [facility] [address] [place] [address] 12/22/2023 Dimitris Dhillon Essential hypertensi on I10 ; Chronic kidney disease, stage 3 unspecified N18.30 ; Other proteinuria R80.8 ; Renal osteodystrophy N25.0 ; Secondary hyperparathyroidism, not elsewhere classified E21.1 and Chronic kidney disease, stage 2 (mild) N18.2 Assessments Encounter Date Diagnosis (ICD Code) Assessment Notes Treatment Notes Treatment Clinical Notes Section Notes 12/22/2023 Essential hypertension (ICD-10 - I10) 12/22/2023 Chronic kidney disease, stage 3 unspecified (ICD-10 - N18.30) 12/22/2023 Other proteinuria (ICD-10 - R80.8) 12/22/2023 Renal osteodystrophy (ICD-10 - N25.0) 12/22/2023 Secondary hyperparathyroidism , not elsewhere classified (ICD-10 - E21.1) 12/22/2023 Chronic kidney disease, stage 2 (mild) (ICD-10 - N18.2) Plan Of Treatment Next Appt Details Provider Name:Dimitris Dhillon , 02/05/2025 02:00:00 PM, [address], [facility] [address], [place], [address], Progress Notes * Brice MONDRAGONB: [birth year] (64 yo F)Acc No.[id number]:12/22/2023 Progress Notes Patient: Ju BURDEN Provider: Nina VILA MD, F.A.C.P, F.A.S.N. :1960 A ge:63 Y S ex:Female Date:12/22/2023 Address:[facility] [address] [facility] [address] Subjective: * Chief Complaints: * * Medical History: * Medications: T aking Furosemide 20 MG Tablet Take 1 tablet by mouth once daily , Taking Calcitriol 0.25 MCG Capsule Take 1 capsule by mouth once daily , Taking Allopurinol 100 MG Tablet Take 1 tablet by mouth once daily , Taking Vitamin D (Ergocalciferol) 1.25 MG (60151 UT) Capsule Take 1 capsule by mouth once a week , Taking Varenicline Tartrate (Starter) 0.5 MG X 11 & 1 MG X 42 Tablet Therapy Pack as directed Orally , Taking Ciprofloxacin HCl 250 MG Tablet TAKE 1 TABLET BY MOUTH EVERY 12 HOURS FOR 10 DAYS Objective: * Vitals: Assessment: * Assessment: 1. C hronic kidney disease, stage 3 unspecified - N18.30 (Primary) 2 . E ssential hypertension - I10 3 . O ther proteinuria - R80.8 4 .?Renal osteodystrophy - N25.0 5 . S econdary hyperparathyroidism, not elsewhere classified - E21.1 6 . C hronic kidney disease, stage 2 (mild) - N18.2 ? Plan: * Treatment: * Billing Information: * Visit Code: 02260 Office Visit, Est Pt., Level 4. * Procedure Codes: * Electronic signature of Saravanan Dhillon MD on 01/10/2025 at 06:56 AM PHOTOGRAPHY SPOTTER Sign off status: Pending * Provider: Nina VILA MD, F.A.C.P, F.A.S.N. Date: 02/20/2023 Generated for Printing/Faxing/eTransmitting on: 03/12/2024 06:56 AM PHOTOGRAPHY SPOTTER
--- OUTSIDE RECORDS SUMMARY | 2024-03-01 08:15 | XMS_ITS ---
Author Organization [facility] Office Address [address] [facility] [address] [facility] [address] [place] [address] Care Team Providers Care Property Condition Assessor Name Role Phone Cory Dhillonjit Unavailable [phone] Social History Sex Assigned At : Social History Observation Description Sex Assigned At Female Encounters Encounter Location Date Provider Diagnosis [facility] [address] [facility] [address] [place] [address] 03/01/2024 Dimitris Dhillon Plan Of Treatment Next Appt Details Provider Name:Dimitris Dhillon , 02/05/2025 02:00:00 PM, [address], [facility] [address], [address], Progress Notes * Zarina MONDRAGONaDOB: [birth year] (64 yo F)Acc No.[id number]:03/01/2024 Progress Notes Patient: Ju BURDEN Provider: Nina VILA MD, Dominga.Barrington.C.P, F.A.S.N. :1960 A ge:63 Y S ex:Female Date:03/01/2024 Address:[address] Subjective: * Chief Complaints: * * Medical History: Objective: * Vitals: Assessment: Plan: * Treatment: * Billing Information: * Visit Code: * Procedure Codes: * Electronic signature of Saravanan Dhillon MD on 01/10/2025 at 06:55 AM TRACK SERVICE PERSON Sign off status: Pending * Provider: Nina VILA MD, Dominga.Barrington.C.P, F.A.S.N. Date: 0 03/01/2024 Generated for Printing/Faxing/eTransmitting on: 03/12/2024 06:55 AM TRACK SERVICE PERSON
--- OUTSIDE RECORDS SUMMARY | 2024-05-01 09:15 | XMS_ITS ---
Author Organization [facility] Address [address] [place] [address] Care Team Providers Care Natural Remedy Consultant Name Role Phone Alejo Dimitris Unavailable [phone] Social History Sex Assigned At : Social History Observation Description Sex Assigned At Female Problems Problem Type SNOMED Code ICD Code Onset Dates Problem Status W/U Status Risk Notes Problem Chronic obstructive pulmonary disease (84054330) Chronic obstructive pulmonary disease, unspecified (J44.9) Active confirmed Problem Vitamin D deficiency (37949760) Vitamin D deficiency, unspecified (E55.9) Active confirmed Problem Cerebrovascular disease (13067877) Cerebrovascular disease, unspecified (I67.9) Active confirmed Encounters Encounter Location Date Provider Diagnosis [place] [facility] [address] [facility] [address] [place] [address] 05/01/2024 Dimitris Dhillon Chronic kidney disea se, stage 3 unspecified N18.30 ; Essential hypertension I10 ; Other proteinuria R80.8 ; Renal osteodystrophy N25.0 ; Secondary hyperparathyroidism, not elsewhere classified E21.1 ; Chronic obstructive pulmonary disease, unspecified J44.9 ; Vitamin D deficiency, unspecified E55.9 and Cerebrovascular disease, unspecified I67.9 Assessments Encounter Date Diagnosis (ICD Code) Assessment Notes Treatment Notes Treatment Clinical Notes Section Notes 05/01/2024 Chronic kidney disease, stage 3 unspecified (ICD-10 - N18.30) 05/01/2024 Essential hypertension (ICD-10 - I10) 05/01/2024 Other proteinuria (ICD-10 - R80.8) 05/01/2024 Renal osteodystrophy (ICD-10 - N25.0) 05/01/2024 Secondary hyperparathyroidism, not elsewhere classified (ICD-10 - E21.1) 05/01/2024 Chronic obstructive pulmonary disease, unspecified (ICD-10 - J44.9) 05/01/2024 Vitamin D deficiency, unspecified (ICD-10 - E55.9) 05/01/2024 Cerebrovascular disease, unspecified (ICD-10 - I67.9) Plan Of Treatment Next Appt Details Provider Name:Dimitris Dhillon , 02/05/2025 02:00:00 PM, [address], [address], [place], [address], Progress Notes * Zarina MONDRAGONaDOB: [birth year] (64 yo F)Acc No.[id number]:05/01/2024 Progress Notes Patient: Ju BURDEN Provider: Nina VILA MD, F.Barrington.C.P, F.A.S.N. :1960 A ge:63 Y S ex:Female Date:05/01/2024 Address:[address] [facility] [address] [address] Subjective: * Chief Complaints: * * Medical History: Objective: * Vitals: Assessment: * Assessment: 1. C hronic kidney disease, stage 3 unspecified - N18.30 (Primary) 2 . E ssential hypertension - I10 3 . O ther proteinuria - R80.8 4 .?Renal osteodystrophy - N25.0 5 . S econdary hyperparathyroidism, not elsewhere classified - E21.1 6 . C hronic obstructive pulmonary disease, unspecified - J44.9 7 . V itamin D deficiency, unspecified - E55.9 8 . C erebrovascular disease, unspecified - I67.9 Plan: * Treatment: * Billing Information: * Visit Code: 22987 Office Visit, Est Pt., Level 4. * Procedure Codes: * Electronic signature of Saravanan Dhillon MD on 01/10/2025 at 06:55 AM CASE SPECIALIST Sign off status: Pending * Provider: Nina VILA MD, Dominga.Barrington.C.P, F.A.S.N. Date: 0 05/01/2024 Generated for Printing/Faxing/eTransmitting on: 03/12/2024 06:55 AM CASE SPECIALIST
--- OUTSIDE RECORDS SUMMARY | 2024-06-05 08:15 | XMS_ITS ---
Author Organization [facility] Address [address] [place] [address] Care Team Providers Care Tie Maker Name Role Phone Alejo Dimitris Unavailable [phone] Social History Sex Assigned At : Social History Observation Description Sex Assigned At Female Problems Problem Type SNOMED Code ICD Code Onset Dates Problem Status W/U Status Risk Notes Problem Tobacco use (518191339) Tobacco use (Z72.0) Active confirmed Problem Alcohol abuse (50836775) Alcohol abuse (F10.10) Active confirmed Problem Swelling of first metatarsophalangeal joint of hallux (354713592) Bunion of unspecified foot (M21.619) Active confirmed Encounters Encounter Location Date Provider Diagnosis [place] [facility] [address] [facility] [address] [place] [address] 06/05/2024 Dimitris Dhillon Chronic kidney disea se, stage 2 (mild) N18.2 ; Essential hypertension I10 ; Other proteinuria R80.8 ; Renal osteodystrophy N25.0 ; Secondary hyperparathyroidism, not elsewhere classified E21.1 ; Chronic obstructive pulmonary disease, unspecified J44.9 ; Vitamin D deficiency, unspecified E55.9 ; Cerebrovascular disease, unspecified I67.9 ; Tobacco use Z72.0 ; Alcohol abuse F10.10 and Bunion of unspecified foot M21.619 Assessments Encounter Date Diagnosis (ICD Code) Assessment Notes Treatment Notes Treatment Clinical Notes Section Notes 06/05/2024 Chronic kidney disease, stage 2 (mild) (ICD-10 - N18.2) 06/05/2024 Essential hypertension (ICD-10 - I10) 06/05/2024 Other proteinuria (ICD-10 - R80.8) 06/05/2024 Renal osteodystrophy (ICD-10 - N25.0) 06/05/2024 Secondary hyperparathyroidism, not elsewhere classified (ICD-10 - E21.1) 06/05/2024 Chronic obstructive pulmonary disease, unspecified (ICD-10 - J44.9) 06/05/2024 Vitamin D deficiency, unspecified (ICD-10 - E55.9) 06/05/2024 Cerebrovascular disease, unspecified (ICD-10 - I67.9) 06/05/2024 Tobacco use (ICD-10 - Z72.0) 06/05/2024 Alcohol abuse (ICD-10 - F10.10) 06/05/2024 Bunion of unspecified foot (ICD-10 - M21.619) Plan Of Treatment Next Appt Details Provider Name:Dimitris Alejo , 02/05/2025 02:00:00 PM, [facility], [place], [address], Progress Notes * Zarina MONDRAGONaDOB: [birth year] (64 yo F)Acc No.[id number]:06/05/2024 Progress Notes Patient: Ju BURDEN Provider: Nina VILA MD, F.A.C.P, F.A.S.N. :1960 A ge:63 Y S ex:Female Date:06/05/2024 Address:[facility] [address] [facility] [address] [place], [place] [id number] Subjective: * Chief Complaints: * * Medical [...] C hronic obstructive pulmonary disease, unspecified - J44.9? 7. V itamin D deficiency, unspecified - E55.9 8 . C erebrovascular disease, unspecified - I67.9 9 . T obacco use - Z72.0 1 0. Alcohol abuse - F10.10 1 1. B union of unspecified foot - M21.619 ? Plan: * Treatment: * Billing Information: * Visit Code: 84882 Office Visit, Est Pt., Level 4. * Procedure Codes: * Electronic signature of Saravanan Dhillon MD on 01/10/2025 at 06:56 AM CHEMICAL STRENGTH TESTER Sign off status: Pending * Provider: Nina VILA MD, F.A.C.P, F.A.S.N. Date: 0 06/05/2024 Generated for Printing/Faxing/eTransmitting on: 03/12/2024 06:56 AM CHEMICAL STRENGTH TESTER
--- OUTSIDE RECORDS SUMMARY | 2024-08-14 08:45 | XMS_ITS ---
Author Organization [facility] Address [address] [place] [address] Care Team Providers Care Commercial Energy Auditor Name Role Phone Alejo Dimitris Unavailable [phone] Social History Sex Assigned At : Social History Observation Description Sex Assigned At Female Problems Problem Type SNOMED Code ICD Code Onset Dates Problem Status W/U Status Risk Notes Problem Chronic kidney disease stage 3A (disorder) (464836092) Chronic kidney disease, stage 3a (N18.31) Active confirmed Encounters Encounter Location Date Provider Diagnosis [place] [facility] [address] [facility] [address] [place] [address] 08/14/2024 Dimitris Dhillon Chronic kidney disea se, stage 3a N18.31 ; Essential hypertension I10 ; Other proteinuria [...] Treatment Notes Treatment Clinical Notes Section Notes 08/14/2024 Chronic kidney disease, stage 3a (ICD-10 - N18.31) 08/14/2024 Essential hypertension (ICD-10 - I10) 08/14/2024 Other proteinuria (ICD-10 - R80.8) 08/14/2024 Renal osteodystrophy (ICD-10 - N25.0) 08/14/2024 Secondary hyperparathyroidism, not elsewhere classified (ICD-10 - E21.1) 08/14/2024 Chronic obstructive pulmonary disease, unspecified (ICD-10 - J44.9) 08/14/2024 Vitamin D deficiency, unspecified (ICD-10 - E55.9) 08/14/2024 Cerebrovascular disease, unspecified (ICD-10 - I67.9) 08/14/2024 Tobacco use (ICD-10 - Z72.0) 08/14/2024 Alcohol abuse (ICD-10 - F10.10) 08/14/2024 Bunion of unspecified foot (ICD-10 - M21.619) Plan Of Treatment Next Appt Details Provider Name:Dimitris Dhillon , 02/05/2025 02:00:00 PM, [address] [facility], [facility] [address], [address], Progress Notes * Zarina MONDRAGONaDOB: [birth year] (64 yo F)Acc No.[id number]:08/14/2024 Progress Notes Patient: Ju BURDEN Provider: Nina VILA MD, F.A.C.P, F.A.S.N. :1960 A ge:63 Y S ex:Female Date:08/14/2024 Address:[address] Subjective: * Chief Complaints: * * Medical History: Objective: * Vitals: Assessment: * Assessment: 1. C hronic kidney disease, stage 3a - N18.31 (Primary) 2 . E ssential hypertension - I10 3 . O ther proteinuria - R80.8 4 . R enal osteodystrophy - N25.0 5 . S econdary hyperparathyroidism, not elsewhere classified - E21.1 6 . C hronic obstructive pulmonary disease, unspecified - J44.9 ? 7 . V itamin D deficiency, unspecified - E55.9 8 . C erebrovascular disease, unspecified - I67.9 9 . T obacco use - Z72.0 1 0. A lcohol abuse - F10.10 1 1. B union of unspecified foot - M21.619 ? Plan: * Treatment: * Billing Information: * Visit Code: 19824 Office Visit, Est Pt., Level 4. * Procedure Codes: * Electronic signature of Saravanan Dhillon MD on 01/10/2025 at 06:55 AM ECOMMERCE MARKETING MANAGER Sign off status: Pending * Provider: Nina VILA MD, F.A.C.P, F.A.S.N. Date: 0 08/14/2024 Generated for Printing/Faxing/eTransmitting on: 1 03/12/2024 06:55 AM ECOMMERCE MARKETING MANAGER
--- OUTSIDE RECORDS SUMMARY | 2024-10-09 09:30 | XMS_ITS ---
Author Organization [facility] Address [address] [place] [address] Care Team Providers Care Game Advisor Name Role Phone Alejo Dimitris Unavailable [phone] Social History Sex Assigned At : Social History Observation Description Sex Assigned At Female Problems Problem Type SNOMED Code ICD Code Onset Dates Problem Status W/U Status Risk Notes Problem Metabolic disorder (81590528) Metabolic disorder, unspecified (E88.9) Active confirmed Problem Diabetic renal disease (969483931) Type 2 diabetes mellitus with diabetic chronic kidney disease (E11.22) Active confirmed Encounters Encounter Location Date Provider Diagnosis [place] [facility] 2043 [facility] [address] [place] [address] 10/09/2024 Dimitris Dhillon Chronic kidney disea se, stage 3a N18.31 ; Essential hypertension I10 ; Other proteinuria R80.8 ; Renal osteodystrophy N25.0 ; Secondary hyperparathyroidism, not elsewhere classified E21.1 ; Chronic obstructive pulmonary disease, unspecified J44.9 ; Vitamin D deficiency, unspecified E55.9 ; Cerebrovascular disease, unspecified I67.9 ; Tobacco use Z72.0 ; Alcohol abuse F10.10 ; Bunion of unspecified foot M21.619 ; Metabolic disorder, unspecified E88.9 ; Type 2 diabetes mellitus with diabetic chronic kidney disease E11.22 and Hypokalemia E87.6 Assessments Encounter Date Diagnosis (ICD Code) Assessment Notes Treatment Notes Treatment Clinical Notes Section Notes 10/09/2024 Chronic kidney disease, stage 3a (ICD-10 - N18.31) 10/09/2024 Essential hypertension (ICD-10 - I10) 10/09/2024 Other proteinuria (ICD-10 - R80.8) 10/09/2024 Renal osteodystrophy (ICD-10 - N25.0) 10/09/2024 Secondary hyperparathyroidism, not elsewhere classified (ICD-10 - E21.1) 10/09/2024 Chronic obstructive pulmonary disease, unspecified (ICD-10 - J44.9) 10/09/2024 Vitamin D deficiency, unspecified (ICD-10 - E55.9) 10/09/2024 Cerebrovascular disease, unspecified (ICD-10 - I67.9) 10/09/2024 Tobacco use (ICD-10 - Z72.0) 10/09/2024 Alcohol abuse (ICD-10 - F10.10) 10/09/2024 Bunion of unspecified foot (ICD-10 - M21.619) 10/09/2024 Metabolic disorder, unspecified (ICD-10 - E88.9) 10/09/2024 Type 2 diabetes mellitus with diabetic chronic kidney disease (ICD-10 - E11.22) 10/09/2024 Hypokalemia (ICD-10 - E87.6) Plan Of Treatment Next Appt Details Provider Name:Dimitris Dhillon , 02/05/2025 02:00:00 PM, 2043 [facility] 15[place], [address], Progress Notes * Zarina MONDRAGONaDOB: [birth year] (64 yo F)Acc No.[id number]:10/09/2024 Progress Notes Patient: Ju BURDEN Provider: Nina VILA MD, F.A.C.P, F.A.S.N. :1960 A ge:63 Y S ex:Female Date:10/09/2024 Address:[address] [place] [address] [place] [address] Subjective: * Chief Complaints: Objective: Assessment: * [...] B union of unspecified foot - M21.619 ?12. M etabolic disorder, unspecified - E88.9 1 3. T ype 2 diabetes mellitus with diabetic chronic kidney disease - E11.22 1 4. H ypokalemia - E87.6 Plan: * Billing Information: * Visit Code: 25341 Office Visit, Est Pt., Level 4. * Procedure Codes: * Electronic signature of Saravanan Dhillon MD on 01/10/2025 at 06:56 AM NEUROPSYCHOLOGY DIRECTOR Sign off status: Pending * Provider: Nina VILA MD, F.A.C.P, F.A.S.N. Date: 0 10/09/2024 Generated for Printing/Faxing/eTransmitting on: 1 03/12/2024 06:56 AM NEUROPSYCHOLOGY DIRECTOR
--- OUTSIDE RECORDS SUMMARY | 2024-12-04 09:15 | XMS_ITS ---
Author Organization [facility] Address [address] [address] Care Team Providers Care Tobacco Roller Name Role Phone Dimitris Dhillon Unavailable [phone] Social History Sex Assigned At : Social History Observation Description Sex Assigned At Female Encounters Encounter Location Date Provider Diagnosis Sudhir Lerma [address] [place] [address] 12/04/2024 Dimitris Dhillon Chronic kidney disea se, stage [...] foot M21.619 ; Metabolic disorder, unspecified E88.9 and Type 2 diabetes mellitus with diabetic chronic kidney disease E11.22 Assessments Encounter Date Diagnosis (ICD Code) Assessment Notes Treatment Notes Treatment Clinical Notes Section Notes 12/04/2024 Chronic kidney disease, stage 3a (ICD-10 - N18.31) 12/04/2024 Essential hypertension (ICD-10 - I10) 12/04/2024 Other proteinuria (ICD-10 - R80.8) 12/04/2024 Renal osteodystrophy (ICD-10 - N25.0) 12/04/2024 Secondary hyperparathyroidism, not elsewhere classified (ICD-10 - E21.1) 12/04/2024 Chronic obstructive pulmonary disease, unspecified (ICD-10 - J44.9) 12/04/2024 Vitamin D deficiency, unspecified (ICD-10 - E55.9) 12/04/2024 Cerebrovascular disease, unspecified (ICD-10 - I67.9) 12/04/2024 Tobacco use (ICD-10 - Z72.0) 12/04/2024 Alcohol abuse (ICD-10 - F10.10) 12/04/2024 Bunion of unspecified foot (ICD-10 - M21.619) 12/04/2024 Metabolic disorder, unspecified (ICD-10 - E88.9) 12/04/2024 Type 2 diabetes mellitus with diabetic chronic kidney disease (ICD-10 - E11.22) Plan Of Treatment Next Appt Details Provider Name:Dimitris Alejo , 02/05/2025 02:00:00 PM, [address] [facility], [facility] [address], [place], [address], Progress Notes * Brice MONDRAGONB: [birth year] (64 yo F)Acc No.[id number]:12/04/2024 Progress Notes Patient: Ju BURDEN Provider: Nina VILA MD, F.A.C.P, F.A.S.N. :1960 A ge:64 Y S ex:Female Date:12/04/2024 Address:[address] [place], [place] [address] [facility] [address] [place], [place] [id number] Subjective: * Chief Complaints: Objective: Assessment: * [...] with diabetic chronic kidney disease - E11.22 Plan: * Billing Information: * Visit Code: 28179 Office Visit, Est Pt., Level 4. * Procedure Codes: * Electronic signature of Saravanan Dhillon MD on 01/10/2025 at 06:56 AM KOSHER SEALER Sign off status: Pending * Provider: Nina VILA MD, F.A.C.P, F.A.S.N. Date: Generated for Printing/Faxing/eTransmitting on: 03/12/2024 06:56 AM KOSHER SEALER
--- NOTE | ~2025-01-10 | MR_ITS ---
EXAM/PROCEDURE: MR hand RT wo/w con HISTORY: right middle finger mass eval COMPARISON: Ultrasound exam from November 22, 2024 TECHNIQUE: Multiplanar MRI of the right hand performed with and without contrast. Contrast: 13 mL MultiHance. FINDINGS: Process involving the third finger proximal phalanx focus with tissue marker. On image 12 series 20 the postcontrast coronal images, 2 lesions with fairly discrete margins are seen along the ulnar and radial aspects of the distal diaphyseal portions of the proximal falx of the middle finger, on the dorsal side. The one on the ulnar side measures 6.5 x 4.0 mm in the long by transverse dimension. The lesion on the lateral aspect measures 4.3 x 4.1 mm in same dimensions. The lesions are isointense on T1, and hypointense T2 sequences, with mild diffuse enhancement. There also appear to be 2 additional lesions or foci more volar situated, and adjacent to the tendon apparatus with the lesion along the radial aspect measuring 6 x 5 mm and the lesion along the ulnar aspect measuring 4 x 3 mm. On axial images, there appears to be confluent extension of these foci along the volar aspect of the bony cortex with no gross erosive changes of the bone itself. No clear invasion of the flexor tendon itself is well, although the tendon does appear slightly thickened. See image 29 series 18 where these 4 foci merge and there is almost a butterfly appearance suggesting this is all one communicating lesion or process. Signal change and soft tissue fullness extends through the lateral and medial margins of the flexor apparatus but the flexor tendon itself appears intact throughout. Moderately extensive cystic changes are present along the the volar aspect of the middle finger metacarpal head. Mild diffuse osteoarthritic appearing degenerative changes also present. IMPRESSION/DISCUSSION: 1. Solitary process with multinodular extension manifesting as discrete lesions insinuating along the sides of the distal portion of the proximal phalanx of middle finger along the volar aspect with isointense T1 and hypointense T2- weighted, and diffusely enhancing features. Hypointense T2-weighted signal suggests more benign possibly fibrosing process or lesion. On axial images the lesion is centered deep to the flexor tendon apparatus adjacent to or contiguous with the volar cortex of the phalanx itself and from there spreads in the ulnar and radial directions along the dorsal and volar aspects. Neoplasm is not excluded but the appearance on the axial images suggest a benign process or if malignant, a low-grade less aggressive lesion. Changes could be fibromatous associated with with injury, inflammation or possible connective tissue disease. Tenosynovial giant cell tumor might also have a similar appearance, although I think this is less likely with hyperintense T2-weighted features. 2. Subchondral cystic changes along the volar aspect of the third digit or middle finger metacarpal head probably not related and may be associated with focal area of advanced degenerative change. Correlate with plain films and clinical presentation/exam. 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 Solitary process with multinodular extension manifesting as discrete lesions insinuating along the sides of the distal portion of the proximal phalanx of m iddle finger along the volar aspect with isointense T1 and hypointense T2-weigh nehemiah, and diffusely enhancing features. Hypointense T2-weighted signal suggests more benign possibly fibrosing process or lesion. On axial images the lesion is centered deep to the flexor tendon yoana aratus adjacent to or contiguous with the volar cortex of the phalanx itself an d from there spreads in the ulnar and radial directions along the dorsal and vo lar aspects. Neoplasm is not excluded but the appearance on the axial images freed ggest a benign process or if malignant, a low-grade less aggressive lesion. Radha nges could be fibromatous associated with with injury, inflammation or possible connective tissue disease. Tenosynovial giant cell tumor might also have a sim ilar appearance, although I think this is less likely with hyperintense T2-weig hted features. 2. Subchondral cystic changes along the volar aspect of the third digit or midd le finger metacarpal head probably not related and may be associated with focal area of advanced degenerative change. Correlate with plain films and clinical presentation/exam.
--- OUTSIDE RECORDS SUMMARY | 2025-01-10 06:55 | XMS_ITS | Clinical Summary ---
Author Organization [facility] Address [facility] [place] [address] Care Team Providers Care Speech Pathology Teacher Name Role Phone Caitlyn Burns MD Primary [...] Type Department Care Team Description 10/21/2024 Telephone Health system Med/Surg [address] [place] [address] Lashay Edmonds I, RN Follow Up Call from Last 3 Months Social History Tobacco Use Types Packs/Day Years Used Date Smoking Tobacco: Every Day Cigarettes 1 10 Tobacco Cessation:Ready to Q uit: Not Asked; Counseling Given: Not Answered Alcohol Use Standard Drinks/Week Comments Yes 0 (1 standard drink = 0.6 oz pur e alcohol) 2 tallboys a day [facility] Utilities Answer Date Recorded In the past 12 months has e [employer], gas, oil, or water [address] threatened to shut off services in your [...] any time in the past 12 m [place], were you homeless or living in a retirement (including now)? 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 [address] [facility] [place] [address] Caitlyn Burns MD [address] [place] [address] Health Maintenance Due Date Last Done Comments Cervical Cancer Screening Pap Smear (Age 30 to 64) Every 3 Years 1960 Colorectal Cancer Screening Colonoscopy (10 Years) 1960 Annual Physical 11/19/1963 Hepatitis C 1978 Cervical Cancer Screening Pap with HPV Testing (Age 30 to 64) Every 5 Years 1990 Cervical Cancer Screening with HPV 1990 Mammogram Screening 2000 COVID-19 Vaccine ( season) 2024 10/25/2023, 11/23/2021, 07/30/2021, Additional history exists Influenza Adult (#1) 2024 10/25/2023, 11/23/2022, 12/08/2021, Additional history exists DTaP, Tdap and Td Vaccines (2 - Td or Tdap) 10/12/2030 10/12/2020 RSV Immunization or 60+ Years (1 - 1-dose 75+ series) 11/19/2035 Pneumococcal Vaccine: 50+ Years Completed 07/28/2022 Zoster Vaccines Completed 09/14/2023, 08/07/2022 Hepatitis A Vaccines Aged Out No long er eligible based on patient's age to complete this topic Meningococcal B Vaccine Aged Out No l [...] upon discharge from hospital Lifestyle No Stacey Yates, RN Insurance MEDICARE Advance Directives * Full Code (Latest Code Status on File) Date Activated Date Inactivated Comments 10/06/2024 11:25 PM 10/07/2024 3:58 PM Care Teams Speech Pathology Teacher Relationship Specialty Start Date End Date Caitlyn Burns MD [facility] [place] [address] PCP - General INTERNAL MEDICINE 10/06/24
--- OUTSIDE RECORDS SUMMARY | 2025-01-10 06:55 | XMS_ITS | Patient Health Record ---
Author Organization [facility] Office Address [address] [facility] [address] [place] [address] Care Team Providers Care Real Estate Rep Name Role Phone Dimitris Dhillon Unavailable [phone] Reason For Referral No Information Medications Medication SIG (Take, Route, Frequency, Duration) Notes Start Date End Date Status Allopurinol 100 MG TAKE 1 TABLET BY WARNER TH ONCE DAILY; Duration: 90 Active Varenicline Tartrate (Starter) 0.5 MG X 11 & 1 MG X 42 as directed Orally 10/20/2023 Active Furosemide 20 MG Take 1 tablet by warner th once daily; Duration: 90 Active Ciprofloxacin HCl 250 MG TAKE 1 TABLET B Y MOUTH EVERY 12 HOURS FOR 10 DAYS; Duration: 10 Active Calcitriol 0.25 MCG 1 capsule Orally Onc e a day; Duration: 90 days 08/09/2025 Active Social History Sex Assigned At : Social History Observation Description Sex Assigned At Female Problems Problem Type SNOMED Code ICD Code Onset Dates Problem Status W/U Status Risk Notes Problem Diabetic renal disease (516535030) Type 2 diabetes mellitus with diabetic chronic kidney disease (E11.22) Active confirmed Problem Secondary hyperparathyroidism (32801570) Secondary hyperparathyroidi sm, not elsewhere classified (E21.1) Active confirmed Problem Vitamin D deficiency (89736699) Vitamin D deficiency, unspecified (E55.9) Active confirmed Problem Metabolic disorder (23111126) Metabolic disorder, unspecified (E88.9) Active confirmed Problem Cerebrovascular disease (00456186) Cerebrovascular disease, unspecified (I67.9) Active confirmed Problem Chronic obstructive pulmonary disease (57279737) Chronic obstructive pulmonary disease, unspecified (J44.9) Active confirmed Problem Renal osteodystrophy (50957496) Renal osteodystrophy (N25.0) Active confirmed Problem Proteinuria (85486716) Other proteinuria (R80.8) Active confirmed Problem Tobacco use (458877048) Tobacco use (Z72.0) Active confirmed Problem Essential hypertension (78102072) Essential hypertension (I10) Active confirmed Problem Alcohol abuse (93583930) Alcohol abuse (F10.10) Active confirmed Problem Swelling of first metatarsophalangeal joint of hallux (333228387) Bunion of unspecified foot (M21.619) Active confirmed Problem Chronic kidney disease stage 3A (disorder) (054730789) Chronic kidney disease, stage 3a (N18.31) Active confirmed Encounters Encounter Location Date Provider Diagnosis [facility] [address] [place] [address] 05/01/2024 Dimitris Dhillon Chronic kidney disea se, stage 3 unspecified N18.30 ; Essential hypertension I10 ; Other proteinuria R80.8 ; Renal osteodystrophy N25.0 ; Secondary hyperparathyroidism, not elsewhere classified E21.1 ; Chronic obstructive pulmonary disease, unspecified J44.9 ; Vitamin D deficiency, unspecified E55.9 and Cerebrovascular disease, unspecified I67.9 [facility] [address] [place] [address] 06/05/2024 Dimitris Dhillon Chronic kidney disea se, stage 2 (mild) N18.2 ; Essential hypertension I10 ; Other proteinuria R80.8 ; Renal osteodystrophy N25.0 ; Secondary hyperparathyroidism, not elsewhere classified E21.1 ; Chronic obstructive pulmonary disease, unspecified J44.9 ; Vitamin D deficiency, unspecified E55.9 ; Cerebrovascular disease, unspecified I67.9 ; Tobacco use Z72.0 ; Alcohol abuse F10.10 and Bunion of unspecified foot M21.619 [facility] [address] [place] [address] 08/14/2024 Dimitris Dhillon Chronic kidney disea se, stage 3a N18.31 ; Essential hypertension I10 ; Other proteinuria R80.8 ; Renal osteodystrophy N25.0 ; Secondary hyperparathyroidism, not elsewhere classified E21.1 ; Chronic obstructive pulmonary disease, unspecified J44.9 ; Vitamin D deficiency, unspecified E55.9 ; Cerebrovascular disease, unspecified I67.9 ; Tobacco use Z72.0 ; Alcohol abuse F10.10 and Bunion of unspecified foot M21.619 [facility] [address] [place] [address] 10/09/2024 Dimitris Dhillon Chronic kidney disea se, [...] chronic kidney disease E11.22 and Hypokalemia E87.6 [facility] [address] [place] [address] 12/04/2024 Dimitris Dhillon Chronic kidney disea se, [...] mellitus with diabetic chronic kidney disease E11.22 [facility] [address] [address] 04/17/2024 Dimitris Dhillon [facility] [address] [address] 04/17/2024 Dimitris Dhillon [facility] [address] [address] 04/17/2024 Dimitris Dhillon [facility] [address] [address] 06/05/2024 Dimitris Dhillon [facility] [address] [address] 08/14/2024 Dimitris Dhillon Assessments Encounter Date Diagnosis (ICD Code) Assessment Notes Treatment Notes Treatment Clinical Notes Section Notes 05/01/2024 Chronic kidney disease, stage 3 unspecified (ICD-10 - N18.30) 06/05/2024 Chronic kidney disease, stage 2 (mild) (ICD-10 - N18.2) 08/14/2024 Chronic kidney disease, stage 3a (ICD-10 - N18.31) 10/09/2024 Essential hypertension (ICD-10 - I10) 10/09/2024 Chronic kidney disease, stage 3a (ICD-10 - N18.31) 12/04/2024 Chronic kidney disease, stage 3a (ICD-10 - N18.31) 12/04/2024 Essential hypertension (ICD-10 - I10) 10/09/2024 Other proteinuria (ICD-10 - R80.8) 08/14/2024 Essential hypertension (ICD-10 - I10) 05/01/2024 Essential hypertension (ICD-10 - I10) 06/05/2024 Essential hypertension (ICD-10 - I10) 06/05/2024 Other proteinuria (ICD-10 - R80.8) 05/01/2024 Other proteinuria (ICD-10 - R80.8) 08/14/2024 Other proteinuria (ICD-10 - R80.8) 12/04/2024 Other proteinuria (ICD-10 - R80.8) 10/09/2024 Renal osteodystrophy (ICD-10 - N25.0) 12/04/2024 Renal osteodystrophy (ICD-10 - N25.0) 10/09/2024 Secondary hyperparathyroidism, not elsewhere classified (ICD-10 - E21.1) 08/14/2024 Renal osteodystrophy (ICD-10 - N25.0) 06/05/2024 Renal osteodystrophy (ICD-10 - N25.0) 05/01/2024 Renal osteodystrophy (ICD-10 - N25.0) 05/01/2024 Secondary hyperparathyroidism, not elsewhere classified (ICD-10 - E21.1) 06/05/2024 Secondary hyperparathyroidism, not elsewhere classified (ICD-10 - E21.1) 08/14/2024 Secondary hyperparathyroidism, not elsewhere classified (ICD-10 - E21.1) 10/09/2024 Chronic obstructive pulmonary disease, unspecified (ICD-10 - J44.9) 12/04/2024 Secondary hyperparathyroidism, not elsewhere classified (ICD-10 [...] 10/09/2024 Cerebrovascular disease, unspecified (ICD-10 - I67.9) 12/04/2024 Vitamin D deficiency, unspecified (ICD-10 - E55.9) 12/04/2024 Cerebrovascular disease, unspecified (ICD-10 - I67.9) 10/09/2024 Tobacco use (ICD-10 - Z72.0) 06/05/2024 Cerebrovascular disease, unspecified (ICD-10 - I67.9) 08/14/2024 Cerebrovascular disease, unspecified (ICD-10 - I67.9) 05/01/2024 Cerebrovascular disease, unspecified (ICD-10 - I67.9) 06/05/2024 Tobacco use (ICD-10 - Z72.0) 10/09/2024 Alcohol abuse (ICD-10 - F10.10) 08/14/2024 Tobacco use (ICD-10 - Z72.0) 12/04/2024 Tobacco use (ICD-10 - Z72.0) 12/04/2024 Alcohol abuse (ICD-10 - F10.10) 08/14/2024 Alcohol abuse (ICD-10 - F10.10) 10/09/2024 Bunion of unspecified foot (ICD-10 - M21.619) 06/05/2024 Alcohol abuse (ICD-10 - F10.10) 06/05/2024 Bunion of unspecified foot (ICD-10 - M21.619) 10/09/2024 Metabolic disorder, unspecified (ICD-10 - E88.9) 08/14/2024 Bunion of unspecified foot (ICD-10 - M21.619) 12/04/2024 Bunion of unspecified foot (ICD-10 - M21.619) 12/04/2024 Metabolic disorder, unspecified (ICD-10 - E88.9) 10/09/2024 Type 2 diabetes mellitus with diabetic chronic kidney disease (ICD-10 - E11.22) 10/09/2024 Hypokalemia (ICD-10 - E87.6) 12/04/2024 Type 2 diabetes mellitus with diabetic chronic kidney disease (ICD-10 - E11.22) Plan Of Treatment Next Appt Details Provider Name:Dimitris Dhillon , 02/05/2025 02:00:00 PM, [address] [facility] [address], [address],
--- OUTSIDE RECORDS SUMMARY | 2025-01-10 06:55 | XMS_ITS | Data Portability ---
Author Organization [place] [facility] [employer], Main Office Address [address] [place] [address] Care Team Providers Care Economic Specialist Name Role Phone YOGI BURNS Primary Care Provider GINAVASQUEZBarrington YOGI Referring Provider [phone] ZOË DOW Graphic Artist ANNE LOREDO Lineman Apprentice JANINA SAMUEL Orthopedic Surgeon [phone] LUZ KINGSTON Orthopedic Surgeon ZAMZAM YOGI Primary Care Provider GERRY MILIAN General Surgeon FREDRICK WYNN Inspector Wire Products JULIA ROBERTSON Hand Surgeon DIMITRIS VERA Corporate Scheduler AP HERNANDEZ Hematology/Oncology DYANA MARIE Garment Manufacturing Supervisor [phone] Assessment Encounter Date Assessment Date Assessment LastModified by Organization Details LastModified Time 07/01/2024 07/01/2024 This note is dictated and transcribed by [employer]. Indirect Sales Exec variances may occur. Despite proofreading, typographical errors may occur. Occasional wrong-word or 'vgxkw-j-[id number]' substitutions may have occurred due to the inherent limitations of voice recording. Read the chart carefully and recognize, using context, where substitutions have occurred. Not available 07/01/2024 14:52:22 07/18/2024 07/18/2024 This note is dictated and transcribed by [employer]. Indirect Sales Exec variances may occur. Despite proofreading, typographical errors may occur. Occasional wrong-word or 'mkygk-n-kpls' substitutions may have occurred due to the [...] Time Details Appointments Follow Up 15 2024 10:45A Aguilar benavides MD Not available Not available Not available Lab vitamin B12 + folate, serum or blood 2024 025 Not available 10/29/2024 11:06:44 HbA1c (hemoglob in A1c), blood 2024 025 Not available 10/29/2024 11:06:44 microalbu min, urine 2024 025 [email or web address] - Outpatient Lab, [address] [place], [address], 10/29/2024 11:06:44 lipid panel, serum 2024 025 Not available 10/29/2024 11:06:43 CMP, serum or plasma 2024 025 YEFRI Not available 11/25/2024 16:09:46 CBC w/ auto diff 2024 025 YEFRI Not available 12/09/2024 15:58:49 TSH + free T4, serum 2024 025 [email or web address] Not available 10/29/2024 11:06:44 vitamin B12 + folate, serum or blood 2024 025 YEFRI Not available 10/24/2024 11:08:57 HbA1c (hemoglob in A1c), blood 2024 025 YEFRI Not available 10/24/2024 11:08:58 microalbu min, urine [email or web address] - Outpatient Lab, [address] [facility], [place], [address], 09/04/2024 17:27:28 lipid panel, serum 2024 025 [...] you. 2024 025 YEFRI Loredo DPM, [address] [facility], [address], [place], [address], 10/29/2024 12:49:31 nephrolog ist referral - Please call patient to schedule an appointme nt. Thank you. 2024 025 Evan-Resub elissa-Revert Dimitris Vera MD (Nephrology, [address], [address], [place], [address], 10/29/2024 14:20:39 hand surgeon referral - Please call patient to schedule an appointme nt. Thank you. 2024 025 SAMEER Robertson MD, [address] [facility] [address], [address], [place], [address], 10/29/2024 13:00:11 podiatris t referral - Please call patient to schedule an appointme nt. Thank you. 2024 025 [email or web address] Anne Loredo DPM, [address] [facility], [address], [place], [address], 12/03/2024 08:44:41 nephrolog ist referral - Please call patient to schedule an appointme nt. Thank you. 2024 025 [email or web address] Dimitris Vera MD (Nephrology, [address], [address], [place], [address], 12/16/2024 08:55:16 hand surgeon referral - Please call patient to schedule an appointme nt. Thank you. 2024 025 [email or web address] Julia Robertson MD, [address] [facility] [address], [address], [place], [address], 12/03/2024 08:49:05 hepatolog ist referral - Please call patient to schedule an appointme nt. Thank you. 2024 025 [email or web address] [facility], [address] [place], [address], 12/10/2024 08:49:31 Procedures cerumen removal (PROC) 2024 025 [email or web address] In-Office Order, Internal Use Only DO Not Attach Compendium DO Not Attach Compendium, Do Not Delete/merge, [id number] 09/24/2024 08:56:42 Surgeries None recorded. Imaging US, liver - Please call patient to schedule. 2024 025 [facility] Central Scheduling, [address] [place], [address], 11/28/2024 12:31:59 LDCT, chest, for lung cancer screening - Please call patient to schedule. [address] Central Scheduling, [address] [facility], [place], [address], 10/28/2024 16:23:51 LDCT, chest, for lung cancer screening - Please call patient to schedule. [address] (Imaging), [address], [place], [address], 09/04/2024 15:06:39 Medication Orders folic acid 1 mg tablet 2024 025 [facility], [address] [place], [address], 10/28/2024 15:42:36 thiamine HCl (vitamin B1) 100 mg tablet 2024 025 [facility] [address], [address] [place], [address], 10/28/2024 15:42:35 Zithromax Z-Imer 250 mg tablet 2024 025 [facility] [address], [address] [place], [address], 10/28/2024 15:42:38 Ciprodex 0.3 %-0.1 % ear drops,reuben pension 2024 025 [facility] [address], [address] [place], [address], 09/19/2024 12:02:46 Farxiga 10 mg tablet 2024 025 [facility] [address], [address] [place], [address], 09/04/2024 14:32:56 fenofibra te nanocryst allized 145 mg tablet 2024 025 YEFRI [facility] [address], [address] [place], [address], 09/04/2024 14:32:51 doxycycli ne hyclate 100 mg capsule 2024 025 [email or web address] [facility] [address], [address] [place], [address], 09/18/2024 14:58:01 Patient TargetsNo targets recorded. Patient InstructionsNo instructions recorded. Reason for Referral Lineman Apprentice Referral for Pred iabetes Please call patient to schedule an appointment. Thank you. Referring Physician: Yogi Burns Internal Medicine, Encounter Date: 09/04/2024 Corporate Scheduler Referral for Pr oteinuria Please call patient to schedule an appointment. Thank you. Referring Physician: Yogi Burns Internal Medicine, Encounter Date: 09/04/2024 Outside Installation Machinist Referral for Li carole enzymes level above reference range Please call patient to schedule an appointment. Thank you. Referring Physician: Yogi Burns Internal Medicine, Encounter Date: 09/04/2024 Hand Surgeon Referral for Pa in of bilateral hands Please call patient to schedule an appointment. Thank you. Referring Physician: Yogi Burns Internal Medicine, Encounter Date: 09/04/2024 Lineman Apprentice Referral for Pred iabetes Please call patient to schedule an appointment. Thank you. Referring Physician: Yogi Burns Internal Medicine, Encounter Date: 10/28/2024 Corporate Scheduler Referral for Pr oteinuria Please call patient to schedule an appointment. Thank you. Referring Physician: Yogi Burns Internal Medicine, Encounter Date: 10/28/2024 Hand Surgeon Referral for Pa in of bilateral hands Please call patient to schedule an appointment. Thank you. Referring Physician: Murtuza Bahrainwala, Internal Medicine, Encounter Date: 10/28/2024 Results Created Date Observation Date Name Description Value Unit Range Abnormal Flag Note LastModifiedBy Organization Detail LastModifiedTime 06/07/19 XR, foot, 3 or more view No observ ation record ed. [email or web address] [facility] [place] [address] [facility] [address], [place], [address], 06/06/2024 11:51:23 07/09/19 25 07/08/2024 imagi ng/di agnos tic resul t No observ ation record ed. [address], [place], [address], 07/08/2024 13:42:27 07/10/19 25 07/08/2024 imagi ng/di agnos tic resul t No observ ation record ed. [facility] ([facility]) [address], [place], [address], 07/09/2024 09:48:44 07/20/19 25 07/08/2024 imagi ng/di agnos tic resul t No observ ation record ed. [address], [place], [address], 07/19/2024 08:36:32 07/21/19 25 07/19/2024 imagi ng/di agnos tic resul t No observ ation record ed. [address], [place], [address], 07/20/2024 00:31:39 07/21/19 25 07/19/2024 XR, foot, 3 or more view No observ ation record ed. [email or web address] [address], [place], [address], 07/22/2024 09:53:22 11/23/19 25 11/22/2024 imagi ng/di agnos tic resul t No observ ation record ed. [facility] [address], [place], [address], 11/22/2024 17:22:17 Result Notes None recorded. Problems Name Problem SNOMED Code Status Onset Date Resolution Date Notes Provider Name and Address Organization Details Recorded Time Osteoarthr itis 172554278 Active 2021 Not Available [facility] 3 15:48:22 Vitamin D deficiency 64026640 Active 2021 Not Available [facility] 3 15:48:22 Hypertrigl yceridemia 521436616 Active 2021 Not Available [facility] 3 15:48:22 Essential hypertensi on 23745670 Active 2022 Not Available [facility] 3 15:48:22 Cigarette smoker 18766752 Active 2022 Not Available [facility] 3 15:48:22 Gout 83982170 Active 2022 Not Available [facility] 3 15:48:22 Diabetes mellitus 87680014 Active 2022 Not Available [facility] 3 15:48:22 Cerebrovas cular accident 745721970 Active 2022 Not Available [facility] 3 15:48:22 Non-alcoho lic fatty liver 931885034 Active 2022 Not Available [facility] 3 15:48:22 Vitamin B12 deficiency (non anemic) 73708276 Active 2023 Erika Andersen MA null, [employer] 4 12:09:13 Peripheral arterial occlusive disease 520149267 Active 2023 Anne Loredo DPM [address] [facility] [facility] [address], [place], [address] , [employer] [facility] [employer] 4 14:44:22 Basal cell carcinoma of face 299761576 Active 2023 ZULLY Aggarwal, [employer] [facility] 4 10:19:31 Dyspnea on exertion 51235799 Active 2023 Zoë Dow MD [address], [address], [place], [address] , [place] [facility] 4 12:41:41 Smoker 05708785 Active 2023 Zoë Dow MD [address], [address], [place], [address] , [place] [facility] 4 12:44:42 Hallux valgus AND bunion 103373009 Active 2023 Anne Loredo DPM [address], [address], [place], [address] , [facility] 4 15:12:29 Proteinuri a 05322729 Active 2023 Yogi wright MD [address], [address], [place], [address] , [facility] 4 10:50:05 Hyperlipid emia 48798764 Active 2023 Yogi wright MD [address], [address], [place], [address] , [facility] 4 10:50:05 Prediabete s 214270309 Active 2023 Yogi wright MD [address], [address], [place], [address] , [place] [facility] 4 10:50:05 Leukocytos is 837439069 Active 2023 Yogi wright MD [address], [address], [place], [address] , [place] [facility] 4 10:50:05 Macrocytos is 121546022 Active 2023 Yogi wright MD [address], [address], [place], [address] , [place] [facility] 4 10:50:05 Liver enzymes level above reference range 445319743 Active 2023 Yogi wright MD [address], [address], [place], [address] , [facility] 4 10:50:05 Pain of right hand 4666544875397 09 Active 2023 Florina Joshi RMA null, [place] [facility] 4 13:54:33 Pain of bilateral hands 2953504862624 9109 Active 2023 Florina Joshi RMBarrington null, [place] [facility] 4 13:55:11 Pain in toe 767761347 Active 2023 Anne Loredo DPM [address], [address], [place], [address] , [facility] 4 09:40:49 Postoperat lou care Active 2023 Anne Loredo DPM [address], [address], [place], [address] , [facility] 4 11:25:46 Pain of left knee joint 1044431625572 07 Active 2023 Yogi wright MD [address], [address], [place], [address] , [facility] - [facility] 4 16:57:55 Skin lesion 17683288 Active 2023 Yogi wright MD [address], [address], [place], [address] , [facility] 4 16:57:55 Pain of left hand 8688419540153 03 Active 2023 Yogi wright MD [address], [address], [place], [address] , [facility] 4 16:57:55 Pain of left shoulder joint 0349137478803 9109 Active 2023 Yogi wright MD [address], [address], [place], [address] , [facility] [employer] [facility] [employer] [facility] 4 16:57:55 Hallux valgus AND bunion 999535741 Active 2023 Anne Loredo DPM [address], [address], [place], [address] , [facility] [employer] [facility] [employer] [facility] 4 15:06:33 Hallux valgus AND bunion 175400933 Active 2023 Anne Loredo DPM [address], [address], [place], [address] , [facility] [employer] [facility] [employer] [facility] 4 15:06:41 Hammer toe 338314051 Active 2023 Anne Loredo DPM [address], [address], [place], [address] , [facility] [employer] [facility] [employer] [facility] 4 15:24:01 Pain in toe 413946140 Active 2024 Anne Loredo DPM [address], [address], [place], [address] , [facility] [employer] [facility] 5 15:38:42 Serum vitamin B12 below reference range 465371808 Active 2024 Yogi wright MD [address], [address], [place], [address] , [facility] [employer] [facility] [employer] [facility] 5 15:30:38 Hypothyroi dism 85615165 Active 2024 Yogi wright MD [address], [address], [place], [address] , [facility] [employer] [facility] [employer] [facility] 5 15:31:20 Cobalamin deficiency 475774024 Active 2024 Kailey Espinosa MA [facility], [facility] [employer] [facility] 5 12:08:39 Closed fracture proximal phalanx, toe 133430280 Active 2024 Anne Loredo DPM [address], [address], [place], [address] , [place] [facility] 5 17:37:10 Pain in toe 731594135 Active 2024 Anne Loredo DPM [address], [address], [place], [address] , [place] [facility] [place] [facility] 5 17:38:27 Postoperat lou visit 364851203 Active 2024 Anne Loredo DPM [address], [address], [place], [address] , [place] [facility] 5 14:14:50 Dehiscence of external surgical incision wound 8097269863811 08 Active 2024 Anne Loredo DPM [address], [place], [address] , [place] [facility] 5 14:39:21 Acute right otitis media 242290022 Active 2024 Yogi wright MD [address], [address], [place], [address] , [place] [facility] 5 14:33:25 Otitis media of right ear 8145153018588 104 Active 2024 Tammy Wilkes, RM null, [place] [facility] [place] [facility] 5 15:39:11 Acute otitis externa 29860309 Active 2024 Zeeshan Adrian MD [address], [address], [place], [address] , [place] [facility] 5 12:01:35 Impacted cerumen in right ear 4832481205405 103 Active 2024 Zeeshan Adrian MD [address], [address], [place], [address] , [place] [facility] 5 12:01:46 Liver function test above reference range 646641011 Active 2024 Yogi wright MD [address], [address], [place], [address] , [employer] 15:36:02 Alcohol intoxicati on delirium 45470965 Active 2024 Yogi wright MD [address], [place], [address] , [employer] 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 Procedures Surgical History Date Name Laterality Status Provider Name and Address Organization Details Recorded Time 07/02/19 25 Wound Care-Podiatry completed Anne Loredo DPM [address], [place], [address], [employer] 07/01/2024 14:51:56 02/28/19 25 Suture Removal completed Anne Loredo DPM [address], [place], [address], [employer] 02/29/2024 14:24:39 01/29/20 24 Advanced Care Planning completed Umer Bañuelos LPN [employer] 01/29/2024 15:04:34 01/29/20 24 Medicare Wellness CPT Code, Initial completed Umer Bañuelos LPN [employer] 01/29/2024 07:48:05 10/25/19 24 Medicare Wellness CPT Code, Welcome completed Umer Bañuelos LPN [facility] [employer] [facility] 10/25/2023 10:25:58 10/25/19 24 Advanced Care Planning completed Umer Bañuelos LPN [facility] [employer] [facility] 10/25/2023 10:24:53 08/28/19 24 Suture Removal completed Anne Loredo DPM [address], [place], [address], [facility] [employer] [facility] 08/28/2023 15:47:13 04/11/19 24 Excision Cyst Multilayer completed Gerry Milian MD [address], [address], [place], [address], [facility] [employer] [facility] 04/11/2023 18:10:14 12/27/19 23 Nail Debridement completed Anne Loredo DPM [address], [address], [place], [address], [facility] [employer] [facility] 12/26/2022 15:02:34 12/15/19 23 Ortho - Cortisone Injection completed Janina Samuel MD [address], [address], [place], [address], [facility] [employer] [facility] 12/14/2022 13:21:26 09/27/19 23 Nail Debridement completed Anne Loredo DPM [address], [address], [place], [address], [facility] [employer] [facility] 09/26/2022 14:47:07 09/27/19 23 Callus Debridement 2-4 completed Anne Loredo DPM [address], [address], [place], [address], [facility] [employer] [facility] 09/26/2022 14:46:55 Hysterectomy completed Not Available [employer] 04/20/2022 10:42:48 Toe completed Ai Hammonds MA [facility] [employer] [facility] 09/04/2024 14:08:35 Imaging Results None recorded. Procedure Notes None recorded. Medical Equipment None Reported. Allergies Allergen ID Allergen Name Allergen Category Reaction Reaction Severity Criticality Documentation Date Start Date Code Code System Note Provider Name and Address Organization Details Recorded Time Vascepa medicatio n vomiting Not available Not available 04/20/20222021 79311 80 RxNorm Not Available [facility] 3 10:49:31 79704 Product containin g penicilli n (product) medicatio n swelling moderate Not available 04/20/2022 39387 8001 SNOMED Not Available [facility] 3 10:49:32 Medications Name Sig Start [...] suspension for injection in office 03/27 completed [facility]: 0003- 0494- 20 Not Available Not Available [...] 2024 active Not Available Not Available Not Melia khan ropivacaine (PF) 5 mg/mL (0.5 %) injection solution in office 03/27 completed [facility] 39712 -064- 01 Not Available Not Available Not [...] weight Heart rate Respiratory rate Oxygen saturation Systolic And Diastolic Provider Name and Address Organization Details Last Updated DateTime 167.64 cm 23.9 kg/m2 19200.6 7 g 74 /min 14 /min 98 % 153/96 mm[Hg] Martha ESPINOZA - [facility] 14:06:32 Date Recorded Body height Body mass index (BMI) Body weight Provider Name and Address Organization Details Last Updated DateTime 07/18/2024 167.64 cm 23.9 kg/m2 52792.67 g Danialblu Ceron [facility] [employer] [facility] 07/18/2024 14:07:04 Date Recorded Heart rate Respiratory rate Oxygen saturation Systolic And Diastolic Provider Name and Address Organization Details Last Updated DateTime 07/18/2024 72 /min 14 /min 98 % 114/190 mm[Hg] Martha Ruiz [facility] [employer] [facility] 14:07:58 Date Recorded Body height Body mass index (BMI) Body weight Body temperature Heart rate Oxygen saturation Pain severity - 0-10 verbal numeric rating [Score] - Reported Systolic And Diastolic Provider Name and Address Organization Details Last Updated DateTime 167.64 cm 23.7 kg/m2 34426.0 8 g 97.8 [degF] 67 /min 97 % 10 118/66 mm[Hg] Ai Hammonds MA [facility] [employer] [facility] 14:05:45 Date Recorded Body height Body mass index (BMI) Body weight Body temperature Provider Name and Address Organization Details Last Updated DateTime 09/19/2024 167.64 cm 23.1 kg/m2 86753.71 g 96.7 [degF] Florina Joshi [facility] [employer] [facility] 09/19/2024 11:43:00 Date Recorded Body height Body mass index (BMI) Body weight Body temperature Heart rate Systolic And Diastolic Provider Name and Address Organization Details Last Updated DateTime 167.64 cm 22.9 kg/m2 37617.1 2 g 98 [degF] 72 /min 128/76 mm[Hg] Tammy Wilkes [facility] 14:53:55 Social History Question Answer Notes LastModified by Organizat ion Details LastModified Time Tobacco Smoking Status Current Every Day Smoker Not Available [facility] 04/20/2022 10:42:21 Do You Have An Advance Directive? No [id number] Information not available 04/20/2022 How Many Years Have You Consumed Alcohol? 20 [email or web address] Information not available 10/25/2023 Do You Wear A Helmet When Biking? No Does Not Bike [email or web address] Information not available 10/25/2023 Is Blood Transfusion Acceptable In An Emergency? Yes Information not available 10/25/2023 What Is Your Level Of Caffeine Consumption? Moderate [id number] Information not available 04/20/2022 In The 14 Days Before Symptom Onset, Have You Had Close Contact With A Laboratory-confir med COVID-19 While That Case Was Ill? No [id number] Information not available 04/20/2022 In The 14 Days Before Symptom Onset, Have You Had Close Contact With A Person Who Is Under Investigation For COVID-19 While That Person Was Ill? No [id number] Information not available 04/20/2022 What Type Of Diet Are You Following? REGULAR [id number] Information not available 04/20/2022 What Is The Highest Grade Or Level Of School You Have Completed Or The Highest Degree You Have Received? [id number] Information not available 04/20/2022 How Many Days Of Moderate To Strenuous Exercise, Like A Brisk Walk, Did You Do In The Last 7 Days? 5 Information not available 10/25/2023 On Those Days That You Engage In Moderate To Strenuous Exercise, How Many Minutes, On Average, Do You Exercise? 30 [email or web address] Information not available 10/25/2023 Have There Been Any Changes To Your Family Or Social Situation? No [id number] Information not available 04/20/2022 Are There Any Guns Present In Your Home? No [id number] Information not available 04/20/2022 Do You Use Insect Repellent Routinely? No [id number] Information not available 04/20/2022 Where Do You Live? Apartment MIGRATION.[id number] 6379 Information not available 04/20/2022 Do You Have A Medical Power Of Bank Appraiser? No MIGRATION.274068 0337 Information not available 04/20/2022 What Was The Date Of Your Most Recent Tobacco Screening? 10/28/2024 Information not available 10/28/2024 How Many Children Do You Have? 2 [email or web address] Information not available 10/25/2023 What Is Your Current Pack Years? 30ormorepacky ears MIGRATION.721558 3624 Information not available 04/20/2022 Have You Ever Been Counseled For Unhealthy Alcohol Use? No MIGRATION.960809 1877 Information not available 04/20/2022 Do You Have Any Pets? Yes MIGRATION.336272 5053 Information not available 04/20/2022 Do You Use Protection During Sex? No [email or web address] Information not available 10/25/2023 What Is Your Relationship Status? MIGRATION.196287 3833 Information not available 04/20/2022 Do You Use Your Seat Belt Or Car Seat Routinely? Yes MIGRATION.754898 6274 Information not available 04/20/2022 Are You Sexually Active? Yes [email or web address] Information not available 10/25/2023 Do You Have Smoke And Carbon Monoxide Detectors In Your Home? Yes MIGRATION.515955 7544 Information not available 04/20/2022 At What Age Did You Start Smoking Tobacco? 25 Information not available 10/25/2023 Are You Passively Exposed To Smoke? Yes MIGRATION.798058 4566 Information not available 04/20/2022 Are There Any Smokers In Your House? Yes MIGRATION.299748 6284 Information not available 04/20/2022 How Much Tobacco Do You Smoke? 1 PPD Information not available 10/28/2024 What Types Of Sporting Activities Do You Participate In? None MIGRATION.878607 0509 Information not available 04/20/2022 Do You Use Sunscreen Routinely? No MIGRATION.265029 2865 Information not available 04/20/2022 Has Tobacco Cessation Counseling Been Provided? Yes [email or web address] Information not available 10/25/2023 On What Date Was Tobacco Cessation Counseling Provided? 10/25/2023 [email or web address] Information not available 10/25/2023 How Many Years Have You Smoked Tobacco? 40 Information not available 10/25/2023 Have You Recently Traveled Abroad? No MIGRATION.179008 5231 Information not available 04/20/2022 Do You Have Any Dietary Restrictions? Yes MIGRATION.809793 3277 Information not available 04/20/2022 How Many Days In The Past Year Have You Consumed 4 Or More Drinks? 0 Information no t available 10/25/2023 Sex: Female Functional Status Question Answer Note LastModified by Organizat ion Details LastModified Time Do you use any illicit or recreational drugs? No MIGRATION.[id number] 035 Information not available 04/20/2022 Do you or have you ever used any other forms of tobacco or nicotine? No MIGRATION.0666716 035 Information not available 04/20/2022 What is your level of alcohol consumption? Occasional [email or web address] Information not available 10/25/2023 Are you currently employed? No Retired Information not available 10/25/2023 What is your exercise level? Moderate walking MIGRATION.1787668 035 Information not available 04/20/2022 Mental Status Question Answer Note LastModified by Organizat ion Details LastModified Time Do you feel stressed (tense, restless, nervous, or anxious, or unable to sleep at night)? [id number] [id number].[id number] 5 Information not available 04/20/2022 Family History Relationship Description Onset Age of this Age Resolved Age Notes LastModified by Organization Details LastModified Time Mother Diabetes mellitus [id number] Not available 04/20/2022 10:42:55 Medical History Condition Response NERVE DISEASE N BLINDNESS N RHEUMATIC FEVER N KIDNEY STONES N BLADDER PROBLEMS N MRSA N OTHER # 1 Y POLIO N LUNG DISEASE/DISORDER N HISTORY OF DRUG ABUSE N COPD N RADIATION / CHEMOTHERAPY N Other # 2 N BLOOD DISEASES [...] GLAUCOMA N FOOT PROBLEM N DIVERTICULITIS N CHICKENPOX N SLEEP APNEA N INFECTIOUS DISEASE N HEART ARRHYTHMIA N PROSTATE N INSOMNIA N HIGH CHOLESTEROL / HYPERLIPIDEMIA [...] Time zoster recombinant 3 completed FIFI Mckenzie, [facility] 10/24/2023 11:27:53 HepB-CpG 3 completed Umer Bañuelos LPN null, [facility] 10/24/2023 11:27:53 COVID-19, mRNA, LNP-S, PF, 30 mcg/0.3 mL dose 1 completed Umer Bañuelos LPN null, [facility] 10/24/2023 11:27:53 COVID-19, mRNA, LNP-S, PF, 30 mcg/0.3 mL dose 1 completed FIFI Mckenzie, [facility] 10/24/2023 11:27:53 Pneumococcal conjugate PCV20, polysaccharide [id number] conjugate, adjuvant, PF 3 completed FIFI Mckenzie, [facility] 10/24/2023 11:27:53 COVID-19, mRNA, LNP-S, PF, 30 mcg/0.3 mL dose, silvia-sucrose 2 completed Umer Bañuelos LPN null, [facility] 10/24/2023 11:27:53 COVID-19, mRNA, LNP-S, PF, 30 mcg/0.3 mL dose, silvia-sucrose 2 completed Umer Bañuelos LPN null, [facility] 10/24/2023 11:27:53 COVID-19, mRNA, LNP-S, bivalent, PF, 30 mcg/0.3 mL dose 2 completed Umer Bañuelos LPN null, [facility] 10/24/2023 11:27:53 zoster recombinant 4 completed Not Available [facility] 10/28/2024 14:42:55 COVID-19, mRNA, LNP-S, PF, silvia-sucrose, 30 mcg/0.3 mL 4 completed Not Available [facility] 10/28/2024 14:42:55 Influenza, split virus, trivalent, PF 4 completed Not Available [facility] 10/28/2024 14:42:55 Influenza, split virus, quadrivalent, PF 3 completed Yogi Burns MD [address] [place] [address], [address], [facility] 11/23/2022 15:51:31 COVID-19, mRNA, LNP-S, PF, 30 mcg/0.3 mL dose 2 completed Umer Bañuelos LPN null, [facility] 10/24/2023 11:27:53 COVID-19, mRNA, LNP-S, PF, 100 mcg/0.5mL dose or 50 mcg/0.25mL dose 1 completed Umer Bañuelos LPN null, [facility] 10/24/2023 11:27:53 COVID-19, mRNA, LNP-S, PF, 100 mcg/0.5mL dose or 50 mcg/0.25mL dose 1 completed Umer Bañuelos LPN null, [facility] 10/24/2023 11:27:53 COVID-19, mRNA, LNP-S, PF, 30 mcg/0.3 mL dose 2 completed FIFI Mckenzie, [place] [facility] 10/24/2023 11:27:53 Influenza, split virus, quadrivalent, PF 2 completed Not Available [facility] 03/01/2023 02:51:04 Influenza, split virus, quadrivalent, PF 1 completed Not Available [facility] 03/01/2023 02:51:04 Tdap 1 completed Not Available [facility] 03/01/2023 02:51:04 Past Encounters Encounter ID Performer Location Encounter Start Date Encounter Closed Date Diagnosis/Indication Diagnosis SNOMED-CT Code Diagnosis ICD10 Code Diagnosis IMO Codes Diagnosis Note [id number] Yogi wright MD [facility] Internal Med [address] [place] [address] 10/07/2020 00:00:00 10/07/2020 11:24:35 [id number] Yogi wright MD [facility] Internal Med [address] [place] [address] 10/14/2020 00:00:00 10/14/2020 16:39:33 [id number] Chan Beltrán MD [facility] Urology [address] [address] 10/22/2020 00:00:00 10/22/2020 10:22:09 [id number] Yogi wright MD [facility] Internal Med [address] [place] [address] 12/09/2020 00:00:00 12/09/2020 17:11:52 [id number] Yogi wright MD [facility] Internal Med [facility] [address] [place], [address] [address] 04/06/2021 00:00:00 04/06/2021 17:05:19 [id number] Yogi wright MD [facility] Internal Med [place] [address] [facility] y , [place] [address] 04/12/2021 00:00:00 04/12/2021 09:59:03 [id number] MD GUIDO Samuel_K[facility] Internal Med [place] [address] [facility] y , [place] [address] 05/05/2021 00:00:00 05/05/2021 14:24:27 [id number] Paul George MD [facility] [place] [address] [place] [address] 05/21/2021 00:00:00 05/21/2021 20:45:17 [id number] Paul George MD [facility] [place] [address] [place] [address] 06/21/2021 00:00:00 06/21/2021 15:40:25 [id number] Paul George MD [facility] [place] [address] [place] [address] 07/09/2021 00:00:00 07/19/2021 19:23:01 [id number] Paul George MD [facility] [place] [address] [place] [address] 07/23/2021 00:00:00 07/23/2021 14:22:50 [id number] Yogi wright MD [facility] Internal Med [place] [address] [facility] [place] [address] 08/04/2021 00:00:00 08/04/2021 17:08:56 [id number] Paul George MD [facility] [place] [place] [address] [place] [address] 09/01/2021 00:00:00 09/01/2021 11:00:40 [id number] MD [facility] [place] [address] [facility] [place] [address] 10/20/2021 00:00:00 10/20/2021 11:20:15 [id number] Yogi wright MD [facility] Internal [place] [address] [place] [address] [place] [address] 12/08/2021 00:00:00 12/08/2021 16:31:48 [id number] Yogi wright MD [facility] Internal [place] [address] [place] [address] [place] [address] 04/20/2022 13:41:40 04/20/2022 14:50:13 Screening - NAD [id number] Z13.9 C-scope: Get the report Mammogram: 11/17/2021 : NegDEXA: 10/14/2020 : NegPAP: 1: Mag Perez 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 Get yearly flu shotGet tdap if not doneUTD on COVID 19 vaccineCan do shingrix vaccine RTC in 3 monthsDo labsER if worseShe did verbalize her understand ing of the above Essential hypertension 69969252 I10 EKG: NSR, no acute STT changes On amlodipine 5mg dailyOn HCTZ 12.5mg dailyOn lisinopril 40mg dailyGet labsWill see Dr Wynn today 04/20/2022 at [facility] location Hyperlipidemia 85565414 E78.5 On atorvastat in 40mg dailyOn vascepaGet labs Cigarette smoker 4424573 7 F17.210 Smoker 24 years 2 PPD, now cut down to 1/4 PPDAdvised to quit smoking LDCT 12/31/2020 LDCT 02/22/2022 Leukocytosis 296916483 D 72.[address] Hernandez Pain of le ft knee joint 9608291940 59844 M25.562 Chuy MARIE 09/01/2021 , s/p knee arthroscop y, f/u PRN Prediabetes 430022605 R7 3.03 On metformin 500mg bidGet labs Proteinuria 77454661 R80 .9 On vit d weeklyOn calcitriol Sees Dr Alejo CRUZ Gout 23043131 M10.[address] Alejo CRUZ [id number] Yogi wright MD [facility] Internal Med [place] [address] [place] [address] [place] [address] 07/27/2022 13:56:12 07/27/2022 14:34:52 Screening - NAD [id number] Z13.9 C-scope: 04/13/2022 : Dr Marie next in 5 years Mammogram: 11/17/2021 : NegDEXA: 10/14/2020 : NegPAP: 1: Mag Perez 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 Get yearly flu shotGet tdap if not doneUTD on COVID 19 vaccineCan do shingrix vaccine RTC in 3 monthsDo labsER if worseShe did verbalize her understand ing of the above Essential hypertension 10169382 I10 EKG: NSR, no acute STT changesStr ess test 07/19/2022 : Neg On amlodipine 5mg dailyOn HCTZ 12.5mg dailyOn lisinopril 40mg dailyGet labsWill see Dr Wynn today 04/20/2022 at [facility] location Hyperlipidemia 76254750 E78.5 On atorvastat in 40mg dailyOn vascepaGet labs Cigarette smoker 4201629 7 F17.210 Smoker 24 years 2 PPD, now cut down to 1/4 PPDAdvised to quit smoking LDCT 12/31/2020 LDCT 02/22/2022 LDCT 06/30/2022 : Dr Wynn Leukocytosis 071360906 D 72.[address] Hernandez Pain of le ft knee joint 8341992965 90894 M25.562 Chuy MARIE 09/01/2021 , s/p knee arthroscop y, f/u PRN Prediabetes 809096670 R7 3.03 On metformin 500mg bidGet labs Proteinuria 64250384 R80 .9 On vit d weeklyOn calcitriol Sees Dr Alejo CRUZ Gout 76438735 M10.[address] Alejo CRUZ Pain of le ft shoulder joint 6041169878 7290898 M25.512 Slept wrong, seen in the ER as per her history, will refer to Dr Burns Pain of left hand 614091 3517 [address] Burns Screening for malignant neoplasm of breast 747243429 Z12.39 [id number] Prudencio Burns MD [facility] [place] [address] [place] [address] 08/09/2022 13:39:19 08/09/2022 15:08:57 Pain of left shoulder joint 0184744786 5054253 M25.512 Adhesive c apsulitis of left shoulder 0810556651 72617 M75.02 physical therapy for the shoulder to [...] course typically Dupuytren contracture of left palm 6134396173 8295107 M72.0 conservati ve observatio n for the Dupuytren' s [id number] Janina Samuel MD [facility] [place] [address] [place] [address] 09/07/2022 10:47:54 09/07/2022 11:47:17 Pain of left shoulder joint 9613565983 4285267 M25.512 Adhesive c apsulitis of left shoulder 5519924440 19227 M75.02 [id number] Anne Loredo DPM [facility] Podiatry [place] [address] [place] [address] 09/26/2022 13:43:34 10/20/2022 20:34:42 Foot callus 498254536 L84 bilateral great toesDebrid ed without incidentOf floadingEd ucated on wider shoe gearFollow -up in 3 months Dystrophia unguium 44158 009 L60.3 Nails 1 through 10 were debrided with sharp mechanical debridemen t without incident. Nails were debrided and greater than 50% length and thickness where needed. Cigarette smoker 8481757 7 F17.210 Educated the patient on the side effects of smokingRec ommend patient discontinu e smoking Diabetes mellitus 302423 09 E11.9 Patient educated on neuropathy , diabetes, diabetic diet, and daily foot exams. Patient is to check feet daily for new wounds, blisters, redness to prevent infection and ulceration s to the feet. Patient will return to clinic in 3 months for diabetic foot workup. [id number] Janina Samuel MD [facility] Orth[facility] [place] [address] [place] [address] 10/19/2022 13:57:44 10/19/2022 14:37:35 Pain of left shoulder joint 3545976449 0954449 M25.512 Adhesive c apsulitis of left shoulder 5102669508 44449 M75.02 [id number] Yogi wright MD [facility] Internal [address] [place] [address] 10/26/2022 09:17:44 10/26/2022 10:09:32 Gynecologic examination 99638862 Z01.411 Discussed importance of SBE, diet rich in calcium, weight bearing exercise. Notify office if any vaginal bleeding occurs. RTC 1 year and PRN. She does voice understand ing of the above. 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, Mag Perez 10/26/2022 Get yearly flu shotGet tdap if not doneUTD on COVID 19 vaccineCan do shingrix vaccineGet RSV vaccine RTC in 3 monthsDo labsER if worseShe did verbalize her understand ing of the above Essential hypertension 34587524 I10 EKG: NSR, no acute STT changesStr ess test 07/19/2022 : Neg On amlodipine 5mg dailyNot on HCTZ 12.5mg dailyOn lisinopril 40mg dailyOn lasix given by Dr Alejo CRUZGet labsWill see Dr Wynn today 04/20/2022 at [facility] location Hyperlipidemia 93789666 E78.5 On atorvastat in 80mg daily, stopGet on fenofibrat e 145mg dailyNot on vascepa caused vomitingGe t labs Cigarette smoker 8636395 7 F17.210 Smoker 24 years 2 PPD, now cut down to 1/4 PPDAdvised to quit smoking LDCT 12/31/2020 LDCT 02/22/2022 LDCT 06/30/2022 : Dr Wynn Leukocytosis 230767133 D 72.[address] Hernandez Pain of le ft knee joint 5046522125 71440 M25.562 Chuy MARIE 09/01/2021 , s/p knee arthroscop y, f/u PRN Prediabetes 934277058 R7 3.03 On metformin 500mg bidGet labs Proteinuria 44788135 R80 .9 On vit d weeklyOn calcitriol Sees Dr Alejo CRUZ Gout 10996611 M10.[address] Alejo CRUZ Pain of le ft shoulder joint 0614168910 9598949 M25.512 Slept wrong, seen in the ER as per her history, will refer to Dr Katy Kingston 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 10/19/2022 , f/u PRN Pain of left hand 255302 5882 [address] Burns Screening for osteoporosis 406552134 Z13.820 Z78.0 Macrocytosis 783979742 D 75.89 Get labs Liver enzy mes level above reference range 297048188 R74.8 Administra tion of influenza vaccine 32625522 Z23 Skin lesion 50490326 L98 .9 On the R upper lip, and is now to see dermatolog y, referred by Mag Perez 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 [id number] Janina Samuel MD [facility] [place] [address] [place] [address] 12/14/2022 11:07:09 12/14/2022 11:27:26 Pain of left hand 4131248547 42451 M79.878 [id number] Anne Loredo DPM [facility] Podiat[facility] [place] [address] [place] [address] 12/26/2022 14:09:20 12/26/2022 15:25:57 Diabetes mellitus 74331353 E11.9 Patient educated on neuropathy , diabetes, diabetic diet, and daily foot exams. Patient is to check feet daily for new wounds, blisters, redness to prevent infection and ulceration s to the feet. Patient will return to clinic in 3 months for diabetic foot workup. Cigarette smoker 6656178 7 F17.210 Educated the patient on the side effects of smokingRec ommend patient discontinu e smoking Dystrophia unguium 06085 009 L60.3 Nails 1 through 10 were debrided with sharp mechanical debridemen t without incident. Nails were debrided and greater than 50% length and thickness where needed. Porokeratosis 506698673 Q82.8 Debrided without incident left footRecomm end use of Amlactin and pumice stone dailyFollo w-up as needed [id number] Yogi wright MD [facility] Internal Med [place] [address] [facility] [place] [address] 03/27/2023 14:01:41 03/27/2023 15:11:43 Screening - NAD 356018681 Z13.9 C-scope: 04/13/2022 : Dr Marie next in 5 years Mammogram: 11/17/2021 : NegMammogr am: 11/22/2022 : Neg DEXA: 10/14/2020 : NegDEXA: 01/03/2023 : Neg PAP: 1: Mag Perez 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, Mag Perez 10/26/2022 Get yearly flu shotGet tdap if not doneUTD on COVID 19 vaccineCan do shingrix vaccineGet RSV vaccine RTC in 3 monthsDo labsER if worseShe did verbalize her understand ing of the above Essential hypertension 00970254 I10 EKG: NSR, no acute STT changesStr ess test 07/19/2022 : Neg On amlodipine 5mg dailyNot on HCTZ 12.5mg dailyOn lisinopril 40mg dailyNot on lasix given by Dr Alejo CRUZGet labsWill see Dr Wynn Hyperlipidemia 42090503 E78.5 On atorvastat in 80mg daily, stopOn fenofibrat e 145mg dailyNot on vascepa caused vomitingGe t labs Cigarette smoker 5084098 7 F17.210 Smoker 24 years 2 PPD, now cut down to 1/ PPDAdvised to quit smoking LDCT 12/31/2020 LDCT 02/22/2022 LDCT 06/30/2022 : Dr Wynn Leukocytosis 181487757 D 72.[address] Hernandez Pain of le ft knee joint 1004674574 62112 M25.562 Chuy MARIE 09/01/2021 , s/p knee arthroscop y, f/u PRN Prediabetes 596853606 R7 3.03 Not taking metformin 500mg bid, declined 03/27/2023 , prediabete s, more diet and exercise is neededGet labs Proteinuria 12045346 R80 .9 On vit d weeklyOn calcitriol Sees Dr Alejo CRUZ Gout 05185969 M10.[address] Alejo CRUZ Pain of le ft shoulder joint 3017790377 9526879 M25.512 Slept wrong, seen in the ER as per her history, will refer to Dr Katy Kingston 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 10/19/2022 , f/u PRN Pain of left hand 757881 [address] Samuel 12/14/2022 Macrocytosis 260566743 D 75.89 Get labs Liver enzy mes level above reference range 487105297 R74.8 GGT: 12/05/2022 : NegHepatit is panel: 12/05/2022 : Neg US liver 12/13/2022 CT A/P: 12/23/2022 : [facility]: Hepatomega ly Skin lesion 49149949 L98 .9 On the R upper lip, and is now to see dermatolog y, referred by Mag Perez NPStates that she could not get in with the dermatolog ist d/t her insurance, will get an apt with Dr Kelly [id number] Janina Samuel MD [facility] [place] [address] [place] [address] 03/29/2023 14:04:55 03/29/2023 14:26:02 Pain of right hand 4157555940 77031 M79.429 [id number] Gerry faustin MD [facility] General Surgery [address] [address] 04/11/2023 11:52:18 04/11/2023 16:53:07 Skin lesion 39988502 L98.9 upper lip [id number] Gerry faustin MD [facility] General Surgery [address] [address] 04/18/2023 11:34:26 04/18/2023 16:15:01 Basal cell carcinoma of skin 069013682 C44.91 right face [id number] Anne Loredo DPM [facility] Pod[facility] [place] [address] [place] [address] 05/01/2023 13:42:39 05/19/2023 16:35:13 Diabetes mellitus 20815859 E11.9 Patient educated on neuropathy , diabetes, diabetic diet, and daily foot exams. Patient is to check feet daily for new wounds, blisters, redness to prevent infection and ulceration s to the feet. Patient will return to clinic in 3 months for diabetic foot workup. Peripheral arterial occlusive disease 302881682 I73.9 Follow-up testing Cigarette smoker 4034238 7 F17.210 Educated the patient on the side effects of smokingRec mend patient discontinu e smoking Bunion 559666325 M21.61 9 follow-up testing possible surgery [id number] Anne Loredo DPM [facility] Pod[facility] [place] [address] [place] [address] 05/15/2023 13:54:39 05/15/2023 14:45:15 Bunion 373619162 M21.619 right- SLAUGHTER 18 degrees distal bunioncall us of IPJ medial and plantarDis cussed treatment optionswil l try toe spacer and wide shoe gearfollow -up in early May if not improved will discuss surgery options, likely did Jean Marie osteotomy Pain of to e of right foot 1676759978 64327 M79.674 as above Peripheral arterial occlusive disease 670414358 I73.9 testing reviewedne gative for significan t diseasefol low-up 6 months Cigarette smoker 6227962 7 F17.210 Educated the patient on the side effects of smokingRec ommend patient discontinu e smoking [id number] Zoë Dow MD [facility] Pulmonolo gy [address] [place] [address] 06/13/2023 10:43:01 06/14/2023 09:01:53 Dyspnea on exertion 00282207 R06.09 R05.9 T78.40XA D89.9 Smoker 88856491 F17.218 F17.219 E83.42 [id number] Anne Loredo DPM [facility] [place] [address] [place] [address] 06/19/2023 14:12:39 06/20/2023 11:55:42 Hallux valgus AND bunion 955498327 M20.11 distal great toe bunionplan Jean Marie osteotomy with hardwareOb tain surgical clearancep atjulienne has a upcoming appointmen t with her primary care on 06/20 Pain in toe 730920822 M7 9.674 as above [id number] Yogi wright MD [facility] Internal Med [place] [address] [facility] [place] [address] 06/21/2023 09:47:19 06/21/2023 11:32:36 Screening - NAD 749106338 Z13.9 C-scope: 04/13/2022 : Dr Marie next in 5 years Mammogram: 11/17/2021 : NegMammogr am: 11/22/2022 : Neg DEXA: 10/14/2020 : NegDEXA: 01/03/2023 : Neg PAP: 1: Mag Perez 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, Mag Perez 10/26/2022 Get yearly flu shotGet tdap if not doneUTD on COVID 19 vaccineCan do shingrix vaccineGet RSV vaccine RTC in 3 monthsDo labsER if worseShe did verbalize her understand ing of the above Essential hypertension 52182491 I10 EKG: NSR, no acute STT changesStr ess test 07/19/2022 : Neg On amlodipine 5mg dailyNot on HCTZ 12.5mg dailyOn lisinopril 40mg dailyNow on lasix given by Dr Vera IJGet labs Dr Wynn 03/01/2023 Hyperlipidemia 69980522 E78.5 On atorvastat in 40mg dailyOn fenofibrat e 145mg dailyNot on vascepa caused vomitingGe t labs Cigarette smoker 1844497 7 F17.210 Smoker 24 years 2 PPD, now cut down to 1/4 PPDAdvised to quit smoking LDCT 12/31/2020 LDCT 02/22/2022 LDCT 06/30/2022 : Dr Wynn Leukocytosis 404686095 D 72.[address] Hernandez Pain of le ft knee joint 6336011914 77949 M25.562 Chuy MARIE 09/01/2021 , s/p knee arthroscop y, f/u PRN Prediabetes 131216863 R7 3.03 Not taking metformin 500mg bid, declined 03/27/2023 , prediabete s, more diet and exercise is neededGet labs OV 06/21/2023 :On farxiga 10mg dailyGet labs Proteinuria 42246992 R80 .9 On vit d weeklyOn calcitriol Sees Dr Alejo CRUZ Gout 20615432 M10.[address] Alejo CRUZ Pain of le ft shoulder joint 4893642245 8976963 M25.512 Slept wrong, seen in the ER as per her history, will refer to Dr Katy Kingston 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 10/19/2022 , f/u PRN Pain of left hand 072424 [address] Samuel 03/29/2023 , next apt 06/28/2023 Macrocytosis 943608421 D 75.89 Get labs Liver enzy mes level above reference range 380347918 R74.8 GGT: 12/05/2022 : NegHepatit is panel: 12/05/2022 : Neg US liver 12/13/2022 CT A/P: 12/23/2022 : [facility]: Hepatomega ly Skin lesion 75373878 L98 .9 On the R upper lip, and is now to see dermatolog y, referred by Mag Perze NPStates that she could not get in with the dermatolog ist d/t her insurance, will get an apt with Dr Kelly OV 06/21/2023 :S/p surgery Dr Kelly, 04/11/2023 Pre-surger y evaluation 464581654 Z01.818 Surgery: R foot bunyonSurg garland: Dr Heard te: TBDAnesthe cyndi: Cheyanne ce: Awaiting cardiac clearance with Dr Mcgraw dum: 06/22/2023 :She has been cleared for surgery by cardiology , 06/21/2023 , will need to see Dr Hernandez d/t her elevated WBC count [id number] Janina Samuel MD [facility] [place] [address] [place] [address] 06/28/2023 13:45:56 06/28/2023 14:57:15 Pain of bilateral hands 0886963236 3582199 M79.527 [id number] Anne Loredo DPM [facility] [place] [address] [place] [address] 07/31/2023 08:23:25 08/01/2023 11:57:23 Hallux valgus AND bunion 384085758 M20.11 distal great toe bunionSurg linda clearance obtained- plan surgery August 10plan Jean Marie osteotomy with hardware Pain in toe 600153957 M7 9.674 as above [id number] Anne Loredo DPM [facility] [place] [address] [facility] [address] [place] [address] 08/15/2023 10:56:33 08/16/2023 13:45:01 Postoperative care 428495096 Z48.89 status post 4 days right great toe Jean Marie osteotomyd ressings removed and changedx-r ays reviewed lateral cortex has broken intact staple fixationco ntinue postop shoeminima l weight-antoine ring focused to the heel right foot- to and from the bathroom onlyfollow -up 1 week for dressing change [id number] Anne Loredo DPM [facility] [place] [address] [place] [address] 08/21/2023 12:01:05 08/22/2023 11:16:07 Postoperative care 030057336 Z48.89 status post 11days right great toe Jean Marie osteotomyd ressings removed and changedcon tinue postop shoeminima l weight-antoine ring focused to the heel right foot- to and from the bathroom onlyfollow -up 1 week for suture removal and repeat x-rays [id number] Anne Loredo DPM [facility] [place] [address] [place] [address] 08/28/2023 15:04:46 08/28/2023 16:21:40 Postoperative care 246829378 Z48.89 status post 3 weeks---ri ght great toe Jean Marie osteotomyd ressings removed and changedsut ures removedcon tinue postop shoeminima l weight-antoine ring focused to the heel right foot- to and from the bathroom onlyrepeat x-rays in 2 weeks [id number] Anne Loredo DPM [facility] [place] [address] [place] [address] 09/11/2023 13:52:34 09/12/2023 16:41:05 Postoperative care 542596234 Z48.89 status post 5 weeks---ri ght great toe Jean Marie osteotomyc ontinue postop shoeminima l weight-antoine ring focused to the heel right foot- to and from the bathroom onlyrice therapyx-r ays reviewed with the patientrtc in 3-4 weeks Noncomplia nce with treatment [id number] Z91.199 not wearing postop shoe [id number] Anne Loredo DPM [facility] [place] [address] [place] [address] 10/16/2023 13:54:13 10/16/2023 16:48:55 Postoperative care 831031423 Z48.89 status post-right great toe Jean Marie osteotomyc ontinue postop shoeminima l weight-antoine ring focused to the heel right foot- to and from the bathroom onlyrice therapyx-r ays reviewed with the patientrtc 2 months possible surg eval of the left at that time if conservati ve therapy fails [id number] Yogi wright MD [facility] [place] [address] [facility] [place] [address] 10/25/2023 09:51:06 10/25/2023 10:35:27 Essential hypertension 08134310 I10 EKG: NSR, no acute STT changesStr ess test 07/19/2022 : Neg On amlodipine 5mg dailyNot on HCTZ 12.5mg dailyOn lisinopril 40mg dailyOn lasix given by Dr Alejo CRUZGet labs Dr Wynn 03/01/2023 Screening - NAD 94048295 3 Z13.9 C-scope: 04/13/2022 : Dr Marie next in 5 years Mammogram: 11/17/2021 : NegMammogr am: 11/22/2022 : Neg DEXA: 10/14/2020 : NegDEXA: 01/03/2023 : Neg PAP: 1: Mag Perez 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, Mag Perez 10/26/2022 Get yearly flu shotGet tdap if not doneUTD on COVID 19 vaccineCan do shingrix vaccineGet RSV vaccine RTC in 3 monthsDo labsER if worseShe did verbalize her understand ing of the above Hyperlipidemia 76025445 E78.5 On atorvastat in 40mg dailyNot on fenofibrat e 145mg dailyNot on vascepa caused vomitingGe t labs Cigarette smoker 2806243 7 F17.210 Smoker 24 years 2 PPD, now cut down to 1/4 PPDAdvised to quit smokingShe has been started on chantix by Dr Vera IJ on 10/20/2023 LDCT 12/31/2020 LDCT 02/22/2022 LDCT 06/30/2022 : Dr Jones 06/30/2023 Leukocytosis 512868004 D 72.[address] Hernandez last OV 07/25/2023 , next in 3 months, referred 10/25/2023 Pain of le ft knee joint 1188355929 10704 M25.562 Chuy Doll PA 09/01/2021 , s/p knee arthroscop y, f/u PRN Prediabetes 037484660 R7 3.03 Not taking metformin 500mg bid, declined 03/27/2023 , prediabete s, more diet and exercise is neededGet labs On farxiga 10mg dailyGet labs Proteinuria 95355683 R80 .9 On vit d weeklyOn calcitriol Sees Dr Alejo CRUZ Gout 00873543 M10.[address] Alejo CRUZ Pain of le ft shoulder joint 7237751544 4830749 M25.512 Slept wrong, seen in the ER as per her history, will refer to Dr Katy Kingston 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 10/19/2022 , f/u PRN Macrocytosis 205115071 D 75.89 Get labs Liver enzy mes level above reference range 828048095 R74.8 GGT: 12/05/2022 : NegHepatit is panel: 12/05/2022 : Neg US liver 12/13/2022 US liver 06/30/2023 CT A/P: 12/23/2022 : [facility]: Hepatomega ly Skin lesion 03039081 L98 .9 On the R upper lip, and is now to see dermatolog y, referred by Mag Perez NPStates that she could not get in with the dermatolog ist d/t her insurance, will get an apt with Dr Kelly OV 06/21/2023 :S/p surgery Dr Kelly, 04/11/2023 Pre-surger y evaluation 039821337 Z01.818 Surgery: R foot bunyonSurg garland: Dr Heard te: TBDAnesthe cyndi: Cheyanne ce: Awaiting cardiac clearance with Dr Mcgraw dum: 06/22/2023 :She has been cleared for surgery by cardiology , 06/21/2023 , will need to see Dr Hernandez d/t her elevated WBC count Screening mammography 24 423517 Z12.31 Pain of bi lateral hands 9651665824 2253932 M79.641 M79.642 Luz Dawkins NP ortho 06/28/2023 , 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, will refer again 10/25/2023 Adult heal th examination 169072257 Z00.00 Screening for disorder 266824893 Z13.9 [id number] Anne Loredo DPM [facility] [place] [address] [place] [address] 12/18/2023 14:19:07 02/15/2024 14:47:58 Hallux valgus AND bunion 414897777 M20.12 distal great toe bunionSurg linda clearance obtained- plan surgery August 10plan Jean Marie osteotomy with hardware- repeat xrays at next visit [id number] Yogi wright MD [facility] [address] [place] [address] 01/08/2024 16:23:45 01/08/2024 17:58:39 Essential hypertension 83447948 I10 EKG: NSR, no acute STT changesStr ess test 07/19/2022 : Neg On amlodipine 5mg dailyNot on HCTZ 12.5mg dailyOn lisinopril 40mg dailyOn lasix given by Dr Vera IJGet labs Dr Wynn 03/01/2023 Screening - NAD 68519164 3 Z13.9 C-scope: 04/13/2022 : Dr Marie [...] her understand ing of the above Hyperlipidemia 84787941 E78.5 On atorvastat in 40mg dailyNot on fenofibrat e 145mg dailyNot on vascepa caused vomitingGe t labs Cigarette smoker 5739918 7 F17.210 Smoker 24 years 2 PPD, now cut down to 1/4 PPDAdvised to quit smokingShe has been started on chantix by Dr Alejo CRUZ on 10/20/2023 LDCT 12/31/2020 LDCT 02/22/2022 LDCT 06/30/2022 : Dr WynnLDCT 06/30/2023 Leukocytosis 223492601 D 72.[address] Hernandez last OV 07/25/2023 , next in 3 months, referred 10/25/2023 Pain of le ft knee joint 5542937322 18307 M25.562 Chuy Doll PA 09/01/2021 , s/p knee arthroscop y, f/u PRN Prediabetes 762406333 R7 3.03 Not taking metformin 500mg bid, declined 03/27/2023 , prediabete s, more diet and exercise is neededGet labs On farxiga 10mg dailyGet labs Proteinuria 94136047 R80 .9 On vit d weeklyOn calcitriol Sees Dr Alejo CRUZ Gout 60426358 M10.[address] Alejo CRZU Pain of le ft shoulder joint 6281293117 1005602 M25.512 Slept wrong, seen in the ER as per her history, will refer to Dr Katy Kingston 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 10/19/2022 , f/u PRN Macrocytosis 893228995 D 75.89 Get labs Liver enzy mes level above reference range 999398544 R74.8 GGT: 12/05/2022 : NegHepatit is panel: 12/05/2022 : Neg US liver 12/13/2022 US liver 06/30/2023 CT A/P: 12/23/2022 : [facility]: Hepatomega ly Skin lesion 66030368 L98 .9 On the R upper lip, and is now to see dermatolog y, referred by Mag Perez NPStates that she could not get in with the dermatolog ist d/t her insurance, will get an apt with Dr Kelly OV 06/21/2023 :S/p surgery Dr Kelly, 04/11/2023 Pre-surger y evaluation 488899243 Z01.818 Surgery: R foot bunyonSurg garland: Dr Heard te: TBDAnesthe cyndi: Cheyanne ce: Awaiting cardiac clearance with Dr Mcgraw dum: 06/22/2023 :She has been cleared for surgery by cardiology , 06/21/2023 , will need to see Dr Hernandez d/t her elevated WBC count OV 01/08/2024 :Needs to get cardiac clearance for the L foot bunion Screening mammography 24 307986 Z12.31 Pain of bi lateral hands 4328031765 2375544 M79.641 M79.642 Luz Dawkins 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 ortho 06/28/2023 , 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, will refer again 10/25/2023 [id number] Yogi wright MD [facility] [address] [place] [address] 01/29/2024 13:57:03 01/29/2024 14:38:24 Adult health examination 121062675 Z00.00 Screening for disorder 347112139 Z13.9 Essential hypertension 87874448 I10 EKG: NSR, no acute STT changesStr ess test 07/19/2022 : Neg On amlodipine 5mg dailyNot on HCTZ 12.5mg dailyOn lisinopril 40mg dailyOn lasix given by Dr Vera IJGet labs Dr Wynn 11/27/2023 , referred 01/29/2024 Screening - NAD 75913740 3 Z13.9 C-scope: 04/13/2022 : Dr Marie [...] her understand ing of the above Hyperlipidemia 15680448 E78.5 On atorvastat in 80mg dailyNot on fenofibrat e 145mg dailyNot on vascepa caused vomitingGe t labs Cigarette smoker 4140794 7 F17.210 Smoker 24 years 2 PPD, now cut down to 1/4 PPDAdvised to quit smokingRosa has been started on chantix by Dr Alejo CRUZ on 10/20/2023 LDCT 12/31/2020 LDCT 02/22/2022 LDCT 06/30/2022 : Dr WynnLDCT 06/30/2023 Leukocytosis 166208875 D 72.[address] Hernandez last OV 07/25/2023 , next in 3 months, referred 10/25/2023 Pain of le ft knee joint 3205730531 29389 M25.562 Chuy Doll PA 09/01/2021 , s/p knee arthroscop y, f/u PRN Prediabetes 339283069 R7 3.03 Not taking metformin 500mg bid, declined 03/27/2023 , prediabete s, more diet and exercise is neededGet labs On farxiga 10mg dailyGet labs Proteinuria 66909650 R80 .9 On vit d weeklyOn calcitriol Sees Dr Alejo CRUZ Gout 82353234 M10.[address] Alejo CRUZ Pain of le ft shoulder joint 8249520965 4476356 M25.512 Slept wrong, seen in the ER as per her history, will refer to Dr Katy Kingston 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 10/19/2022 , f/u PRN Macrocytosis 393113949 D 75.89 Get labs Liver enzy mes level above reference range 982139021 R74.8 GGT: 12/05/2022 : NegHepatit is panel: 12/05/2022 : Neg US liver 12/13/2022 US liver 06/30/2023 CT A/P: 12/23/2022 : [facility]: Hepatomega ly Skin lesion 75750260 L98 .9 On the R upper lip, and is now to see dermatolog y, referred by Mag Perez NPStates that she could not get in with the dermatolog ist d/t her insurance, will get an apt with Dr Kelly OV 06/21/2023 :S/p surgery Dr Kelly, 04/11/2023 Pre-surger y evaluation [id number] Z01.818 Surgery: R foot bunyonSurg garland: Dr [...] 02/05/2024 next apt 02/26/2024 Screening mammography 24 267640 Z12.31 Pain of bi lateral hands 9780203244 7251267 M79.641 M79.642 Luz Dawkins 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 ortho 06/28/2023 , 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, will refer again 10/25/2023 [id number] Anne Loredo DPM [facility] [place] [address] [place] [address] 01/29/2024 15:02:11 02/16/2024 07:35:47 Hallux valgus AND bunion 205242178 M20.12 distal great toe bunionSurg linda clearance obtained- plan surgery August 10plan Jean Marie osteotomy with hardware- repeat xrays at next visit Hammer toe 675946164 M20 .42 left 2nd toediscuss ed optionsrec ommend arthroplas ty right 2nd toe [id number] Anne Loredo DPM [facility] [place] [address] [place] [address] 02/05/2024 14:03:57 02/16/2024 09:01:41 Postoperative care 534131894 Z48.89 status post-left great toe Jean Marie osteotomy and hammertoe arthroplas ty 2ndcontinu e postop shoeminima l 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- to and from the bathroom onlyrice therapyfol low-up in 3 weeks for suture removal [id number] Anne Loredo DPM [facility] [place] [address] [place] [address] 02/29/2024 12:01:19 03/06/2024 09:01:55 Postoperative care 042052038 Z48.89 status post-left great toe Jean Marie osteotomy and hammertoe arthroplas ty 2ndcontinu e postop shoeminima l 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- to and from the bathroom onlyrice therapyfol low-up in 3 weeks for suture removal [id number] Anne Loredo DPM [facility] [place] [address] [place] [address] 03/04/2024 14:58:29 03/15/2024 13:10:25 Postoperative care [id number] Z48.89 status post-left great toe Jean Marie osteotomy and hammertoe arthroplas ty 2ndcontinu e postop shoeminima l 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- to and from the bathroom onlyrice therapyfol low-up in 4-5 weeks xrays Pain in toe 605260317 M7 9.674 as above [id number] Yogi wright MD [facility] Primary Care [facility] [address] [facility] [place] [address] 03/13/2024 13:59:22 03/13/2024 14:53:16 [id number] Yogi wright MD [facility] [address] [place] [address] 04/01/2024 14:15:52 04/01/2024 15:13:15 Essential hypertension 86419794 I10 EKG: NSR, no acute STT changesStr ess test 07/19/2022 : [facility] On amlodipine 5mg dailyNot on HCTZ 12.5mg dailyOn lisinopril 40mg dailyOn lasix [facility] 11/27/2023 , referred 01/29/2024 , must keep her apts! Screening - NAD 92596170 3 Z13.9 C-scope: 04/13/2022 : Dr Marie next in 5 years Mammogram: 11/17/2021 : NegMammogr am: 11/22/2022 : NegOrdered 01/29/2024 DEXA: 10/14/2020 : NegDEXA: 01/03/2023 : Neg PAP: 1: Mag Perez 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, Mag Perez 10/26/2022 Get yearly flu shotGet tdap if not doneUTD on COVID 19 vaccineCan do shingrix vaccineGet RSV vaccine RTC in 3 monthsDo labsER if worseShe did verbalize her understand ing of the above Hyperlipidemia 02174302 E78.5 On atorvastat in 80mg dailyNot on fenofibrat e 145mg dailyNot on vascepa caused vomitingGe t labs Cigarette smoker 5856680 7 F17.210 Smoker 24 years 2 PPD, now cut down to 1/4 PPDAdvised to quit smokingShe has been started on chantix by Dr Alejo CRUZ on 10/20/2023 LDCT 12/31/2020 LDCT 02/22/2022 LDCT 06/30/2022 : Dr WynnLDCT 06/30/2023 Leukocytosis 528507212 D 72.[address] Hernandez last OV 07/25/2023 , next in 3 months, referred 10/25/2023 Pain of le ft knee joint 5500604455 39502 M25.562 Chuy MARIE 09/01/2021 , s/p knee arthroscop y, f/u PRN Prediabetes 555858123 R7 3.03 Not taking metformin 500mg bid, declined 03/27/2023 , prediabete s, more diet and exercise is neededGet labs On farxiga 10mg dailyGet labs Proteinuria 69185200 R80 .9 On vit d weeklyOn calcitriol Sees Dr Alejo CRUZ Gout 43493083 M10.[address] Alejo CRUZ Pain of le ft shoulder joint 7784102288 6705265 M25.512 Slept wrong, seen in the ER as per her history, will refer to Dr Katy Kingston 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 10/19/2022 , f/u PRN Macrocytosis 889827071 D 75.89 Get labs Liver enzy mes level above reference range 709502162 R74.8 GGT: 12/05/2022 : NegHepatit is panel: 12/05/2022 : Neg US liver 12/13/2022 US liver 06/30/2023 CT A/P: 12/23/2022 : [facility]: Hepatomega ly Skin lesion 39593670 L98 .9 On the R upper lip, and is now to see dermatolog y, referred by Mag Perez NPStates that she could not get in with the dermatolog ist d/t her insurance, will get an apt with Dr Kelly OV 06/21/2023 :S/p surgery Dr Kelly, 04/11/2023 Pre-surger y evaluation 981702540 Z01.818 Surgery: R foot bunyonSurg garland: Dr [...] 02/05/2024 next apt 02/26/2024 Screening mammography 24 339837 Z12.31 Pain of bi lateral hands 8151333691 9168057 M79.641 M79.642 Luz Dawkins 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 ortho 06/28/2023 , 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, will refer again 10/25/2023 Fall 7025027 W19.XXXA S/p fall and seen in the ERS/p Xray 03/17/2024 : PelvisS/p CT C-spine 03/17/2024 S/p CT head 03/17/2024 per D/c note 03/19/2024 , she did have alcohol, and fell and was noted to be unresponsi ve, diagnosed with catatonia, benzodiazradha pine given and told to follow up with Dr Todd Morgan and to put on ativan Serum isabelle min B12 below reference range 993845525 R79.89 Get on vit b12 weekly for 4 weeks and then monthly for 2 months and repeat the labs Hypothyroidism 54719456 E03.9 Will repeat the TSH and FT4 level againMay need to be on levothyrox ine [id number] Anne Loredo DPM [facility] [place] [address] [place] [address] 04/18/2024 14:04:33 04/19/2024 14:24:23 Postoperative care 347052944 Z48.89 status post-left great toe Jean Marie osteotomy and hammertoe arthroplas ty 2ndcontinu e postop shoeminima l 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- to and from the bathroom onlyrice therapyrep eat x-rays reviewedfo llow-up in 4-5 weeks xrays Pain in toe 281685673 M7 9.674 as above Closed fra cture proximal phalanx, toe 242913639 S92.415K plan obtain surgical clearancex -rays reviewed with the patientfai led hardware and non-union proximal phalanx great toe, leftsurgic al plan- removal hardware with 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 63134,2068 0 [id number] Yogi wright MD [facility] [address] [address] [place] [address] 05/01/2024 14:02:30 05/01/2024 14:55:27 Essential hypertension 91763237 I10 EKG: NSR, no acute STT changesStr ess test 07/19/2022 : [facility]ECHO [facility] On amlodipine 5mg dailyNot on HCTZ 12.5mg dailyOn lisinopril 40mg dailyOn lasix given by Dr Alejo Romero labs Dr Wynn 11/27/2023 , referred 01/29/2024 , must keep her apts!Dr Wynn 05/23/2024 for ECHO, next f/u 11/04/2024 Screening - NAD 97290142 3 Z13.9 C-scope: 04/13/2022 : Dr Marie next in 5 years Mammogram: 11/17/2021 : NegMammogr am: 11/22/2022 : NegOrdered 01/29/2024 , is to get this in June 2024 DEXA: 10/14/2020 : NegDEXA: 01/03/2023 : Neg PAP: 1: Mag Perez 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, Mag Perez 10/26/2022 Get yearly flu shotGet tdap if not doneUTD on COVID 19 vaccineCan do shingrix vaccineGet RSV vaccine RTC in 3 monthsDo labsER if worseShe did verbalize her understand ing of the above Hyperlipidemia 42797567 E78.5 On atorvastat in 80mg dailyNot on fenofibrat e 145mg dailyNot on vascepa caused vomitingGe t labs Cigarette smoker 7985261 7 F17.210 Smoker 24 years 2 PPD, now cut down to 1/4 PPDAdvised to quit smokingShe has been started on chantix by Dr Alejo CRUZ on 10/20/2023 LDCT 12/31/2020 LDCT 02/22/2022 LDCT 06/30/2022 : Dr WynnLDCT 06/30/2023 Leukocytosis 562929990 D 72.[address] Hernandez last OV 07/25/2023 , next in 3 months, referred 10/25/2023 Pain of le ft knee joint 5379612456 90887 M25.562 Chuy MARIE 09/01/2021 , s/p knee arthroscop y, f/u PRN Prediabetes 887841216 R7 3.03 Not taking metformin 500mg bid, declined 03/27/2023 , prediabete s, more diet and exercise is neededGet labs On farxiga 10mg dailyGet labs Proteinuria 56678301 R80 .9 On vit d weeklyOn calcitriol Sees Dr Alejo CRUZ Gout 96785992 M10.[address] Alejo CRUZ Pain of le ft shoulder joint 0451473423 2417489 M25.512 Slept wrong, seen in the ER as per her history, will refer to Dr Katy Kingston 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 10/19/2022 , f/u PRN Macrocytosis 807042201 D 75.89 Get labs Liver enzy mes level above reference range 741371852 R74.8 GGT: 12/05/2022 : NegHepatit is panel: 12/05/2022 : Neg US liver 12/13/2022 US liver 06/30/2023 CT A/P: 12/23/2022 : [facility]: Hepatomega ly Skin lesion 44555561 L98 .9 On the R upper lip, and is now to see dermatolog y, referred by Mag Perez NPStates that she could not get in with the dermatolog ist d/t her insurance, will get an apt with Dr Kelly OV 06/21/2023 :S/p surgery Dr Kelly, 04/11/2023 Pre-surger y evaluation 585912118 Z01.818 Surgery: R foot bunyonSurg garland: Dr Herad te: TBDAnesthe cyndi: Cheyanne ce: Awaiting cardiac [...] remains a moderate risk Screening mammography 24 453825 Z12.31 Pain of bi lateral hands 0986569987 9095567 M79.641 M79.642 Luz Dawkins 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 ortho 06/28/2023 , 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, will refer again 10/25/2023 Fall 3043533 W19.XXXA S/p fall and seen in the [...] Serum isabelle min B12 below reference range 816355374 R79.89 Get on vit b12 weekly for 4 weeks and then monthly for 2 months and repeat the labs Hypothyroidism 19429459 E03.9 Will repeat the TSH and FT4 level againMay need to be on levothyrox ine [id number] Anne Loredo DPM [facility] [place] [address] [place] [address] 05/06/2024 10:09:13 05/07/2024 09:03:09 Postoperative care 990732644 Z48.89 status post-left great toe Jean Marie osteotomy and hammertoe arthroplas ty 2ndcontinu e postop shoeminima l 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- to and from the bathroom onlyrice therapyrep eat x-rays reviewedfo llow-up post surgery- plan 331 Closed fra cture proximal phalanx, toe 194268887 S92.415K plan obtain surgical clearancex -rays reviewed with the patientfai led hardware and non-union proximal phalanx great toe, leftsurgic al plan- removal hardware with 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 01159,2068 0 Pain in toe 535482458 M7 9.674 as above [id number] Anne Loredo DPM [facility] [place] [address] [place] [address] 05/27/2024 14:20:50 06/05/2024 15:58:08 Postoperative visit 953313103 Z48.89 status post repair of nonunion and hardware removalcon tinue to keep the dressings clean and dryContinu e postop shoeMonito r for signs of infectionF ollow-up in 1 week [id number] Anne Loredo DPM [facility] [place] [address] [place] [address] 06/03/2024 13:59:49 06/07/2024 13:36:36 Postoperative visit 583320815 Z48.89 status post repair of nonunion and hardware removalcon tinue to keep the dressings clean and dryContinu e postop shoeMonito r for signs of infectionF ollow-up in 1 week [id number] Anne Loredo DPM [facility] [place] [address] [place] [address] 06/13/2024 13:53:28 06/18/2024 12:49:01 Postoperative visit [id number] Z48.89 status post repair of nonunion and hardware removalcon tinue to keep the dressings clean and dryContinu e postop shoeMonito r for signs of infectionF ollow-up in 1 week Dehiscence of external surgical incision wound [id number] 43163 T81.31XA betadine wet to dry dressings dailyfinis h doxycyclin eBetadine wet-to-dry dressing dailyno soaking of toe [id number] Anne Loredo DPM [facility] [place] [address] [place] [address] 06/24/2024 14:48:09 07/23/2024 15:35:06 Postoperative visit [id number] Z48.89 status post repair of nonunion and hardware removalcon tinue to keep the dressings clean and dryContinu e postop shoeMonito r for signs of infectionF ollow-up in 1 week Dehiscence of external surgical incision wound [id number] 92620 T81.31XA Betadine wet-to-dry dressing dailyno soaking of toemonitor for infection at present seek medical attention immediatel yoffloadin g all timesfollo w-up 1 week [id number] Anne Loredo DPM [facility] [place] [address] [place] [address] 07/01/2024 13:53:40 07/02/2024 15:32:55 Postoperative visit [id number] Z48.89 status post repair of nonunion and hardware removalcon tinue to keep the dressings clean and dryContinu e postop shoeMonito r for signs of infection Dehiscence of external surgical incision wound [id number] 56657 T81.31XA R23.4 continue offloading finished doxycyclin eBetadine wet-to-dry dressing dailyno soaking of toerecomme nd postop shoefollow -up in 1- 2 weeks [id number] Anne Loredo DPM [facility] [place] [address] [facility] [address] [address] [place] [address] 07/18/2024 13:40:35 07/22/2024 11:51:21 Postoperative visit 887931353 Z48.89 status post repair of nonunion and hardware removalcon tinue to keep the dressings clean and dryContinu e postop shoeMonito r for signs of infectionf ollow up2 months Dehiscence of external surgical incision wound [id number] 11584 T81.31XA R23.4 healedoffl oadingfoll ow up in 2 months- repeat xrays [id number] Yogi wright MD [facility] [address] [place] [address] 09/04/2024 13:54:11 09/04/2024 14:54:21 Essential hypertension 81009797 I10 EKG: NSR, no acute STT changesStr ess test 07/19/2022 : [facility] On amlodipine 5mg dailyNot on HCTZ 12.5mg dailyOn lisinopril 40mg dailyOn lasix given by Dr Vera IJGet labs Dr Wynn 11/27/2023 , referred 01/29/2024 , must keep her apts!Dr Wynn 05/23/2024 for ECHO, next f/u 11/04/2024 Screening - NAD 36580379 3 Z13.9 C-scope: 04/13/2022 : Dr Marie next in 5 years Mammogram: 11/17/2021 : NegMammogr am: 11/22/2022 : NegOrdered 01/29/2024 , is to get this in June 2024Mammog [place]: 07/08/2024 : neg DEXA: 10/14/2020 : NegDEXA: 01/03/2023 : Neg PAP: 1: Mag Perez 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, Mag Perez 10/26/2022 Get yearly flu shotGet tdap if not doneUTD on COVID 19 vaccineCan do shingrix vaccineGet RSV vaccine RTC in 2 monthsDo labsER if worseShe did verbalize her understand ing of the above Hyperlipidemia 16323008 E78.5 On atorvastat in 80mg dailyNot on fenofibrat e 145mg daily, will restart this and get labsNot on vascepa caused vomitingGe t labs Cigarette smoker 5574947 7 F17.210 Smoker 24 years 2 PPD, now cut down to 1/4 PPDAdvised to quit smokingShe has been started on chantix by Dr Alejo CRUZ on 10/20/2023 LDCT 12/31/2020 LDCT 02/22/2022 LDCT 06/30/2022 : Dr YanesdiLDCT 06/30/2023 Leukocytosis 687358577 D 72.[address] Hernandez last OV 07/25/2023 , next in 3 months, referred 10/25/2023 Dr Hernandez 05/28/2024 : Next in 6 months Pain of le ft knee joint 9236922618 25216 M25.562 Chuy MARIE 09/01/2021 , s/p knee arthroscop y, f/u PRN Prediabetes 270324093 R7 3.03 Not taking metformin 500mg bid, declined 03/27/2023 , prediabete s, more diet and exercise is neededGet labs On farxiga 10mg dailyGet labs Proteinuria 97113828 R80 .9 On vit d weeklyOn calcitriol Sees Dr Alejo CRUZ Gout 70919988 M10.[address] Alejo CRUZ Pain of le ft shoulder joint 8273962561 3846111 M25.512 Slept wrong, seen in the ER as per her history, will refer to Dr Katy Kingston 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 10/19/2022 , f/u PRN Macrocytosis 937093276 D 75.89 Get labs Liver enzy mes level above reference range 644570173 R74.8 GGT: 12/05/2022 : NegHepatit is panel: 12/05/2022 : Neg US liver 12/13/2022 US liver 06/30/2023 CT A/P: 12/23/2022 : [facility]: Hepatomega ly Skin lesion 40839165 L98 .9 On the R upper lip, and is now to see dermatolog y, referred by Mag Perez NPStates that she could not get in with the dermatolog ist d/t her insurance, will get an apt with Dr Kelly OV 06/21/2023 :S/p surgery Dr Kelly, 04/11/2023 Pre-surger y evaluation 234370243 Z01.818 Surgery: R foot bunyonSurg garland: Dr [...] moderate risk Pain of bi lateral hands 7381681922 6018702 M79.641 M79.642 Luz Dawkins 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 ortho, 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, will [...] Serum isabelle min B12 below reference range 505024570 R79.89 Get on vit b12 weekly for 4 weeks and then monthly for 2 months and repeat the labs Hypothyroidism 41111886 E03.9 Will repeat the TSH and FT4 level againMay need to be on levothyrox ine Acute righ t otitis media 436219045 H66.91 5846077 Went swimming and now has painGet on doxyNotify if not better, ER if worse [id number] Zeeshan Adrian MD [facility] [place] [address] [place] [address] 09/19/2024 11:35:29 09/25/2024 08:41:10 Otitis media of right ear 5930802988 282852 H66.91 973441285 Acute otitis externa 302 40386 H60.311 76110642 Impacted c erumen in right ear 6106437086 523776 H61.21 5129517 [id number] Yogi wright MD [facility] [address] [place] [address] 10/28/2024 14:40:34 10/28/2024 15:58:46 Essential hypertension 80502287 I10 EKG: NSR, no acute STT changesStr ess test 07/19/2022 : [facility]ECHO [facility] On amlodipine 5mg dailyNot on HCTZ 12.5mg dailyOn lisinopril 40mg dailyOn lasix given by Dr Vera IJGet labs Dr Wynn 11/27/2023 , referred 01/29/2024 , must keep her apts!Dr Wynn 05/23/2024 for ECHO, next f/u 11/04/2024 Screening - NAD 05855267 3 Z13.9 C-scope: 04/13/2022 : Dr Cynthia rice in 5 years Mammogram: 11/17/2021 : NegMammogr am: 11/22/2022 : NegOrdered 01/29/2024 , is to get this in June 2024Mammog laurel: 07/08/2024 : neg DEXA: 10/14/2020 : NegDEXA: 01/03/2023 : Neg PAP: 1: Mag Perez 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, Mag Perez 10/26/2022 Get yearly flu shotGet tdap if not doneUTD on COVID 19 vaccineCan do shingrix vaccineGet RSV vaccine RTC in 2 monthsDo labsER if worseShe did verbalize her understand ing of the above Hyperlipidemia 83113637 E78.5 On atorvastat in 80mg dailyOn fenofibrat e 145mg dailyNot on vascepa caused vomitingGe t labs Cigarette smoker 4990058 7 F17.210 Smoker 24 years 2 PPD, now cut down to 1/4 PPDAdvised to quit smokingShe has been started on chantix by Dr Alejo CRUZ on 10/20/2023 LDCT 12/31/2020 LDCT 02/22/2022 LDCT 06/30/2022 : Dr HortaCT 06/30/2023 Leukocytosis 194917964 D 72.[address] Hernandez last OV 07/25/2023 , next in 3 months, referred 10/25/2023 Dr Hernandez 05/28/2024 : Next in 6 months Pain of le ft knee joint 4667564439 91017 M25.562 Chuy MARIE 09/01/2021 , s/p knee arthroscop y, f/u PRN Prediabetes 490037786 R7 3.03 Not taking metformin 500mg bid, declined 03/27/2023 , prediabete s, more diet and exercise is neededGet labs On farxiga 10mg dailyGet labs Proteinuria 73050573 R80 .9 On vit d weeklyOn calcitriol Sees Dr Alejo CRUZ Gout 85539124 M10.[address] Alejo CRUZ Pain of le ft shoulder joint 5810846879 1488310 M25.512 Slept wrong, seen in the ER as per her history, will refer to Dr Katy Kingston 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 10/19/2022 , f/u PRN Macrocytosis 539789864 D 75.89 Get labs Skin lesion 45182042 L98 .9 On the R upper lip, and is now to see dermatolog y, referred by Mag Perez NPStates that she could not get in with the dermatolog ist d/t her insurance, will get an apt with Dr Kelly OV 06/21/2023 :S/p surgery Dr Kelly, 04/11/2023 Pre-surger y evaluation 415989441 Z01.818 Surgery: R foot bunyonSurg garland: Dr Heard te: TBDAnesthe cyndi: MACClerekha ce: Awaiting cardiac clearance with Dr Mcgraw [...] moderate risk Pain of bi lateral hands 7894984094 5576384 M79.641 M79.642 Luz Dawkins 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 ortho, 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, will [...] Serum isabelle min B12 below reference range 214926983 R79.89 Get on vit b12 weekly for 4 weeks and then monthly for 2 months and repeat the labs Hypothyroidism 54313854 E03.9 Will repeat the TSH and FT4 level againMay need to be on levothyrox ine Liver func tion test above reference range 984834031 R79.89 [id number] GGT: 12/05/2022 : NegHepatit is panel: 12/05/2022 : Neg US liver 12/13/2022 US liver 06/30/2023 CT A/P: 12/23/2022 : [facility]: Hepatomega ly Get liver US 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 18182403 Was at a friend's home and had a 'fifth of vodka' and then 'passed out' and was seen in the ER at [place], [place] on 10/10/2024 Now does wellGet on folate, thiamine Upper resp iratory infection 07510687 J06.9 90478473 Get on z-packRest isolate and ER if worse Health Concerns Section Related Observation LastModified by Organization Detai ls LastModified Time None Recorded Concern Status LastModified by Organization Details LastModified Time None Recorded Advance Directives Directive N: Payers Insurance Date Sequence Insurance Name Policy Number Policy Perez Covered Member ID Perez Member ID Guarantor Name 10/28/2024 1 [facility] ON OR AFTER 02/21/2020 - DUAL ELIGIBLE (MEDICARE REPLACEMENT/A DVANTAGE - HMO) [facility] [id number] [facility] 10/28/2024 1 [facility] (MEDICARE REPLACEMENT/A DVANTAGE - HMO) [facility] [id number] [facility] 10/28/2024 1 [facility] (MEDICARE REPLACEMENT/A DVANTAGE - PPO) [id number] [facility] [id number] [facility] 10/28/2024 2 [place] [facility] [id number] [facility] 10/28/2024 1 [facility] ON OR AFTER 08/20/20 (MEDICAID REPLACEMENT - HMO) [facility] [id number] [facility] Notes Date Note Type Note Provider [...] any other complaints. Anne Loredo DPM [address] [facility], [place], [address], [facility] 07/01/2024 14:53:41 07/18/2024 text/html . Patient is [...] Patient denies any other complaints. 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 Dr Lilly extensive ROS is negative todayOV 12/09/2020:Here for her routine aptShe is doing wellShe did do the labs on 12/07/2020OV 04/06/2021:ACV:Here with c/o R sided rib painS/p fall on 03/29 and seen in the ER at [facility] on 03/30/2021, was taken off work but still has the R sided pain, she had repeat Xrays done at [facility] yesterdayShe did not want to go back [...] no fevers or chills, no dizziness Yogi Bunrs MD [address], [address], [place], [address], [facility] 09/04/2024 14:51:08 09/19/2024 text/html this patient reports right ear pain for 1 week. She has been on 3 courses of antibiotics without improvement. 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
--- OUTSIDE RECORDS SUMMARY | 2025-01-10 06:56 | XMS_ITS | Clinical Summary ---
Author Organization [facility] [employer] [address] Address [address] [place] [address] Care Team Providers Care Division Roadmaster Name Role Phone Caitlyn Burns MD Primary [...] Encounters Date Type Department Care Team Description 01/07/2025 External Device Data STL ABSTRACTION Provider, Abstract 12/18/2024 External Device Data STL ABSTRACTION Provider, Abstract 12/11/2024 External Device Data STL ABSTRACTION Provider, Abstract 12/10/2024 External Device Data STL ABSTRACTION Provider, Abstract 12/10/2024 Orders Only [facility] Oncology and Hematology - [place] [address] [place] [address] Howie Hernandez MD 12/03/2024 Orders Only [facility] Oncology and Hematology [facility] [address] [place] [address] Howie Hernandez MD 11/27/2024 11:45 AM CDT Office Visit [facility] Oncology and [facility] [address] [place] [address] Howie Hernandez MD Leukocytosis, unspecified type (Primary Dx) 11/06/2024 External Device Data STL ABSTRACTION Provider, [...] Sign Reading Time Taken Comments Blood Pressure 130/67 11/27/2024 11:24 AM CDT Pulse 70 11/27/2024 11:24 AM CDT Temperature 36.4 C (97.5 F) 11/27/2024 11:24 AM CDT Respiratory Rate 15 11/27/2024 11:2 4 AM CDT Oxygen Saturation 98% 11/27/2024 11: 24 AM CDT Inhaled Oxygen Concentration - - Weight 64.8 kg (142 lb 12.8 oz) 025 11:24 AM CDT Height 157.5 cm (5' 2) 12/01/2021 3:28 PM CDT Body Mass Index 26.12 12/01/2021 3:28 PM CDT Plan of Treatment Upcoming Encounters Date Type Department Care Team (Late st Contact Info) Description 03/05/2025 2:45 PM TANK WORKER Office Visit [facility] Oncology and Hematology - [place] [address] [facility] [address] [place] [address] Howie Hernandez MD [address] [facility] [address] [place] [address] Health Maintenance Due Date Last Done Comments DIABETES ANNUAL FOOT EXAM 1978 DIABETES ANNUAL RETINAL EXAM 1978 DIABETES HBA1C Q 6 MONTHS 1978 DIABETES MICROALBUMIN ANNUAL SCREEN 1978 LDL CHOLESTEROL ANNUAL 1978 HPV/Cotest (21-29) 1981 CERVICAL CANCER SCREENING 1990 HPV/Cotest (30-65) 1990 PAP SMEAR 1990 BREAST CANCER SCREENING 2000 COLORECTAL SCREENING 2005 Colorectal Cancer Screening 2005 FIT-DNA Q 3 years 2005 FIT/FOBT Q 1 year 2005 Flex Sig/CT Colonography Q 5 years 2005 RSV VACCINE (60+ or ) (1 - Risk 50-74 years 1-dose series) 2010 INFLUENZA VACCINE (#1) 2024 , 11/23/2022, 12/08/2021, Additional history exists DTAP/TDAP/TD VACCINES (2 - T d or Tdap) 10/12/2030 10/12/2020 ZOSTER VACCINE Completed 09/14/2023, 08/07/2022 COVID-19 Vaccine Completed 10/25/2023, 05/2021, 07/30/2021, Additional history exists Procedures Procedure Name Priority Date/Time Associated Diagnosis Comments SEDIMENTATION RATE Routine 12/26/2024 1: 33 PM TANK WORKER Leukocytosis, unspecified type C-REACTIVE PROTEIN Routine 12/26/2024 1: 33 PM TANK WORKER Leukocytosis, unspecified type LACTATE DEHYDROGENASE Routine 12/26/2024 1:32 PM TANK WORKER Leukocytosis, unspecified type BASIC METABOLIC PANEL Routine 12/09/2024 2:29 PM CDT CBC WITH AUTODIFFERENTIAL Routine 12/09/2024 1:50 PM CDT FLOW CYTOMETRY REPORT Routine 11/27/2024 2:20 PM CDT from Last 3 Months Results * SEDIMENTATION RATE (12/26/2024 1:33 PM TANK WORKER) [facility] ESR (SEDIMENTATION RATE) 2 < OR = 30 mm/h [facility] Comment: Test Performed at: [facility] [address] AngelaAlmita Feng MD Blood 12/26/2024 1:33 PM TANK WORKER 12/26/2024 1:34 PM TANK WORKER Howie Hernandez MD HEMATOLOGY ORDERABLES Final Res ult Performing Organization Address [facility]/ZIP Co de Phone Number [facility] [phone] [facility] [address] * (ABNORMAL) C-REACTIVE PROTEIN (12/26/2024 1:33 PM TANK WORKER) [facility] CRP 8.6(H) <8.0 mg/L [facility] Comment: Test Performed at: [facility] [address] AngelaAlmita Feng MD Blood 12/26/2024 1:33 PM TANK WORKER 12/26/2024 1:34 PM TANK WORKER Howie Hernandez MD CHEMISTRY ORDERABLES Final Resu lt [facility] [phone] [facility] [address] * LACTATE DEHYDROGENASE (12/26/2024 1:32 PM TANK WORKER) [facility] LD (LACTATE DEHYDROGENASE) 189 120 - 250 U/L [facility] Comment: AN UPDATE OR CORRECTION HAS BEEN MADE TO NAME Test Performed at: [facility] [address] [address] Lenny Feng MD Blood 12/26/2024 1:32 PM TANK WORKER 12/26/2024 1:34 PM TANK WORKER Howie Hernandez MD CHEMISTRY ORDERABLES Final Resu lt [facility] [phone] [facility] [address] [address] * BASIC METABOLIC PANEL (12/09/2024 2:29 PM CDT) Blood us Howie Hernandez MD CHEMISTRY ORDERABLES Final Resu lt * CBC WITH AUTODIFFERENTIAL (12/09/2024 1:50 PM CDT) Blood us Howie Hernandez MD HEMATOLOGY ORDERABLES Final Res ult * FLOW CYTOMETRY REPORT (11/27/2024 2:20 PM CDT) us Howie Hernandez MD PATHOLOGY/CYTOLOGY ORDERABLES F inal Result from Last 3 Months Insurance [facility] PPO [facility] Care Teams Division Roadmaster Relationship Specialty Start Date End Date Caitlyn Burns MD PCP - General Internal Medicine 07/22/21
--- OUTSIDE RECORDS SUMMARY | 2025-01-10 06:56 | XMS_ITS | Clinical Summary ---
Author Organization [facility] [employer] Address [address] [facility] [place] [address] Care Team Providers Care Senior Unix Administrator Name Role Phone Caitlyn Burns MD Primary Care Provider Source Comments [facility],non-owned Affiliates and Associated Physician Practices is amultiple site organization consisting of ambulatory clinics and hospital sitesin [place], [place], [place] and [place]. This disclosure is being madepursuant to the Care Everywhere program and may not contain all information available regarding this patient. Last updated 17.[facility] Allergies Active Allergy Reactions Criticality Noted Date [...] Active vitamin D, ergocalciferol, (Drisdol) 1.25 MG (72835 UT) capsule Take 1 (one) capsule by [...] of face 05/10/2023 08/01/2024 Cerebrovascular accident 09/26/202201/2025 Social History Tobacco Use Types Packs/Day Years Used Date Smoking Tobacco: Some Days Cigarettes 2 27.9 Started: 1997 Smokeless Tobacco: Never Alcohol Use [...] st Contact Info) Description 01/27/2025 11:30 AM SALES OFFICE COORDINATOR Office [place] [facility] [place] [address] [place] [address], [place] [address] Marisa Burleson, SCREW MACHINE TENDER-SENIOR DATABASE ENGINEER [address] [place] [address] [address] [place] [address] Health Maintenance Due Date Last Done Comments [...] 50+ (1 of 2 - PCV) 11/19/1979 Cervical Cancer Screening 1981 PAP SMEAR 1981 PAP with HPV 1990 LUNG CANCER SCREENING 2010 Respiratory Syncytial Virus (RSV) Vaccine Pt: or over 60 yrs (1 - Risk 50-74 years 1-dose series) 2010 ZOSTER VACCINE (1 of 2) 2010 DEPRESSION SCREENING 02/21/2024 DIABETES - URINE PROTEIN SCREENING 02/21/2024 MEDICARE AWV CALENDAR YEAR 2024 DIABETES RETINOPATHY SCREENING 08/01/2024 DIABETES-FOOT EXAM WITH MONOFILAMENT 08/01/2024 DIABETES-HGB A1C 08/01/2024 COVID-19 VACCINE ( season) 2024 11/23/2021, 07/30/2021, 03/31/2021, Additional history [...] track( 10:49 AM CDT) No Dorothy Pierce, XOCHILT Note: Expected end date: ongoing Interventions: Take all medications as prescribed Let your doctor know right away about any changes in your medications Make sure to request a refill of your medication at least one week prior to your last dose Safety General On track( 10:49 AM CDT) No [...] a test for HCV RNA (test code 05430) is suggested. For additional information please refer to http://education.DeviceAuthority/faq/YID71a9 (This link is being provided for informational/ educational purposes only.) Test Performed at: [facility] [address] [place] [address] ZINA VAIL MD Blood BLOOD SPECIMEN / Unknown 07/29/2024 10:36 AM CDT 07/29/2024 10:36 AM CDT us Marisa Burleson SCREW MACHINE TENDER-SENIOR DATABASE ENGINEER LAB - CHEMISTRY ORD ERABLES Final Result [facility] [address] [place] [address] * (ABNORMAL) COMPREHENSIVE METABOLIC PANEL (07/29/2024 10:36 [...] 29 U/L [facility] Comment: Test Performed at: [facility] [address] [place] [address] ZINA VAIL MD Blood BLOOD SPECIMEN / Unknown 07/29/2024 10:36 AM CDT 07/29/2024 10:36 AM CDT Marisa Burleson SCREW MACHINE TENDER-SENIOR DATABASE ENGINEER LAB - CHEMISTRY ORD ERABLES Final Result Performing Organization Address City/State/RUST Co de Phone Number [facility] [address] [place] [address] from Last 3 Months or Most Recently Relevant to Health Maintenance Insurance [facility] MANAGED MEDICARE ADV Care Teams Senior Unix Administrator Relationship Specialty Start Date End Date Caitlyn Burns MD [address] [phone] PCP - General Internal Medicine 07/25/24
--- OUTSIDE RECORDS SUMMARY | 2025-01-10 06:57 | XMS_ITS | Continuity of Care Document ---
Author Organization [place] - [facility] [employer] [facility], [facility] Primary Care [place] Address [address] [place] [address] Care Team Providers Care Compotype Operator Name Role Phone CAITLYN BURNS Primary Care Provider CAITLYN BURNS Referring Provider [phone] ZOË DOW Interventional Pain Physician TWAN LOREDO [employer] Pol[employer] Machine Operator JANINA SAMUEL Orthopedic Surgeon MANDY KINGSTON Orthopedic Surgeon [phone] KRIS BURNSVY Primary Care Provider AISHA MILIAN General Surgeon FREDRICK WYNN Manager Universal JULIA ROBERTSON Hand Surgeon DIMITRIS VERA Director Drug AP HERNANDEZ Hematology/Oncology DYANA MARIE Orthopedic Shoes Salesperson Assessment Encounter Date Assessment Date Assessment LastModified by Organization Details LastModified Time 10/28/2024 10/28/2024 04/18/2022: A1C 5.6 TSH/FT4/VIT D/CBC: [...] 50, ALT/AST 36/34 TG 187, LDL 102 [email or web address] Not available 10/28/2024 15:06:11 Plan of Treatment [...] 10/29/2024 11:06:44 microalbu min, urine 2024 025 [facility], [address] [place], [address], 10/29/2024 11:06:44 lipid panel, serum 2024 025 Not available 10/29/2024 11:06:43 CMP, serum or plasma 2024 025 YEFRI Not available 11/25/2024 16:09:46 CBC w/ auto diff 2024 025 YEFRI Not available 12/09/2024 15:58:49 TSH + free T4, serum 2024 [email or web address] Not available 10/29/2024 11:06:44 Referral podiatris t referral - Please call patient to schedule an appointme nt. Thank you. 2024 YEFRI Loredo DPM, [address], [address], [place], [address], 10/29/2024 12:49:31 nephrolog ist referral - Please call patient to schedule an appointme nt. Thank you. 2024 025 Evan-Resub elissa-Revert Dimitris Vera MD (Nephrology, [address], [address], [place], [address], 10/29/2024 14:20:39 hand surgeon referral - Please call patient to schedule an appointme nt. Thank you. 2024 025 SAMEER Robertson MD, [address] [facility] [address], [address], [place], [address], 10/29/2024 13:00:11 Procedures None recorded. Surgeries None recorded. Imaging US, liver - Please call patient to schedule. 2024 025 [email or web address] [facility], [address] [place], [address], 11/28/2024 12:31:59 LDCT, chest, for lung cancer screening - Please call patient to schedule. 2024 025 [email or web address] [facility], [address] [facility], [place], [address], 10/28/2024 16:23:51 Medication Orders folic acid 1 mg tablet 2024 [facility] [place], [address], 10/28/2024 15:42:36 thiamine HCl (vitamin B1) 100 mg tablet 2024 025 [facility] [address] [place], [address], 10/28/2024 15:42:35 Zithromax Z-Imer 250 mg tablet 2024 025 [facility] [address] [place], [address], 10/28/2024 15:42:38 Patient TargetsNo targets recorded. Patient InstructionsNo instructions recorded. Reason for Referral Yarn Polishing Machine Operator Referral for Pred iabetes Please call patient to schedule an appointment. Thank you. Referring Physician: Caitlny Burns, Internal Medicine, Encounter Date: 10/28/2024 Director Drug Referral for Pr oteinuria Please call patient to schedule an appointment. Thank you. Referring Physician: Caitlyn Burns Internal Medicine, Encounter Date: 10/28/2024 Hand Surgeon Referral for Pa in of bilateral hands Please call patient to schedule an appointment. Thank you. Referring Physician: Caitlyn Burns, Internal Medicine, Encounter Date: 10/28/2024 Results Created Date Observation Date Name Description Value Unit Range Abnormal Flag Note LastModifiedBy Organization Detail LastModifiedTime 11/23/19 25 11/22/2024 imagi ng/di leroyos tic resul t No observ ation record ed. [facility] [address], [place], [address], 11/22/2024 17:22:17 Result Notes None recorded. Problems Name Problem SNOMED Code Status Onset Date Resolution Date Notes Provider Name and Address Organization Details Recorded Time Osteoarthr itis 985905002 Active 2021 Not Available [facility] 3 15:48:22 Vitamin D deficiency 84615158 Active 2021 Not Available [facility] 3 15:48:22 Hypertrigl yceridemia 950935727 Active 2021 Not Available [facility] 3 15:48:22 Essential hypertensi on 59824306 Active 2022 Not Available [facility] 3 15:48:22 Cigarette smoker 63080937 Active 2022 Not Available [facility] 3 15:48:22 Gout 63141632 Active 2022 Not Available [facility] 3 15:48:22 Diabetes mellitus 84930822 Active 2022 Not Available [facility] 3 15:48:22 Cerebrovas cular accident 341681918 Active 2022 Not Available [facility] 3 15:48:22 Non-alcoho lic fatty liver 503944128 Active 2022 Not Available [facility] 3 15:48:22 Vitamin B12 deficiency (non anemic) 69354322 Active 2023 Erika Andersen MA null, [place] [employer] [facility] [employer] [facility] 4 12:09:13 Peripheral arterial occlusive disease 654897151 Active 2023 Twan Loredo DPM [address], [address], [place], [address] , [facility] [employer] [facility] 4 14:44:22 Basal cell carcinoma of face 863701329 Active 2023 Erika Andersen MA null, [place] [employer] [facility] [employer] [facility] 4 10:19:31 Dyspnea on exertion 50592170 Active 2023 Zoë Dow MD [address], [address], [place], [address] , [employer] [facility] [employer] [facility] 4 12:41:41 Smoker 83163518 Active 2023 Zoë Dow MD [address], [address], [place], [address] , [facility] [employer] [facility] [employer] [facility] 4 12:44:42 Hallux valgus AND bunion 135012404 Active 2023 Twan Loredo DPM [address], [address], [place], [address] , [facility] 4 15:12:29 Proteinuri a 92654837 Active 2023 Caitlyn wright MD [address], [address], [place], [address] , [facility] 4 10:50:05 Hyperlipid emia 66692259 Active 2023 Caitlyn wright MD [address], [address], [place], [address] , [facility] 4 10:50:05 Prediabete s 820202384 Active 2023 Caitlyn wright MD [address], [address], [place], [address] , [facility] 4 10:50:05 Leukocytos is 920668379 Active 2023 Caitlyn wright MD [address], [address], [place], [address] , [facility] 4 10:50:05 Macrocytos is 151592593 Active 2023 Caitlyn wright MD [address], [address], [place], [address] , [facility] 4 10:50:05 Liver enzymes level above reference range 053884734 Active 2023 Caitlyn wright MD [address], [address], [place], [address] , [facility] 4 10:50:05 Pain of right hand 4169761894370 09 Active 2023 TORIN Webb null, [facility] 4 13:54:33 Pain of bilateral hands 7550412645595 9109 Active 2023 TORIN Webb null, [place] [facility] 4 13:55:11 Pain in toe 049566169 Active 2023 Twan Loredo DPM [address], [address], [place], [address] , [facility] - [facility] 4 09:40:49 Postoperat lou care Active 2023 Twan Loredo DPM [address], [address], [place], [address] , [facility] - S [facility] 4 11:25:46 Pain of left knee joint 1578336711906 07 Active 2023 Caitlyn wright MD [address], [address], [place], [address] , [facility] - S [facility] 4 16:57:55 Skin lesion 75493318 Active 2023 Caitlyn wright MD [address], [address], [place], [address] , [facility] - [facility] MED[facility] 4 16:57:55 Pain of left hand 8159077057920 03 Active 2023 Caitlyn wright MD [address], [address], [place], [address] , [facility] - [facility] 4 16:57:55 Pain of left shoulder joint 2719432042627 9109 Active 2023 Caitlyn wright MD [address], [address], [place], [address] , [facility] 4 16:57:55 Hallux valgus AND bunion 026345645 Active 2023 Twan Loredo DPM [address], [address], [place], [address] , [facility] 4 15:06:33 Hallux valgus AND bunion 821687971 Active 2023 Twan Loredo DPM [address], [address], [place], [address] , [facility] [employer] [facility] [employer] [facility] 4 15:06:41 Hammer toe 834547491 Active 2023 Twan Loredo DPM [address], [address], [place], [address] , [facility] [employer] [facility] [employer] [facility] 4 15:24:01 Pain in toe 467111913 Active 2024 Twan Loredo DPM [address], [address], [place], [address] , [facility] [employer] [facility] [employer] [facility] 5 15:38:42 Serum vitamin B12 below reference range 740573670 Active 2024 Caitlyn wright MD [address], [address], [place], [address] , [facility] [employer] [facility] [employer] [facility] 5 15:30:38 Hypothyroi dism 97462662 Active 2024 Caitlyn wright MD [address], [address], [place], [address] , [facility] [employer] [facility] [employer] [facility] 5 15:31:20 Cobalamin deficiency 623758425 Active 2024 Kailey Espinosa MA [facility], [facility] [employer] [facility] 5 12:08:39 Closed fracture proximal phalanx, toe 606396200 Active 2024 Twan Loredo DPM [address], [address], [place], [address] , [facility] [employer] [facility] 5 17:37:10 Pain in toe 920005962 Active 2024 Twan Loredo DPM [address], [address], [place], [address] , [facility] [employer] [facility] [employer] [facility] 5 17:38:27 Postoperat lou visit 382528952 Active 2024 Twan Loredo DPM [address], [address], [place], [address] , [facility] 5 14:14:50 Dehiscence of external surgical incision wound 6251391379146 08 Active 2024 Twan Loredo DPM [address], [address], [place], [address] , [facility] 5 14:39:21 Acute right otitis media 698170785 Active 2024 Caitlyn wright MD [address], [address], [place], [address] , [facility] 5 14:33:25 Otitis media of right ear 3768015044388 104 Active 2024 Tammy Wilkes [place] null, [facility] 5 15:39:11 Acute otitis externa 01857256 Active 2024 Zeeshan Adrian MD [address], [address], [place], [address] , [facility] 5 12:01:35 Impacted cerumen in right ear 9263200518793 103 Active 2024 Zeeshan Adrian MD [address], [address], [place], [address] , [facility] 5 12:01:46 Liver function test above reference range 385209789 Active 2024 Caitlyn wright MD [address], [address], [place], [address] , [facility] 5 15:36:02 Alcohol intoxicati on delirium 28958538 Active 2024 Caitlyn wright MD [address], [address], [place], [address] , [facility] 5 15:38:11 Upper respirator y infection 63412065 Active 2024 Caitlyn wright MD [address], [address], [place], [address] , [facility] [employer] [facility] [employer] [facility] 15:41:05 Notes:Medical History: Near syncope Right CVA without residual left hemiparesis Right tinnitus Eosinophils 180/uL Nicotine use PASP 25 mmHg Mod TR Mild RI Mild MR Hypertension EF 59% Mixed hyperlipidemia [...] cell ca excision 2023 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 Procedures Surgical History Date Name Laterality Status Provider Name and Address Organization Details Recorded Time 07/02/19 25 Wound Care-Podiatry completed Twan Loredo DPM [address], [address], [place], [address], [facility] [employer] [facility] [employer] 07/01/2024 14:51:56 02/28/19 25 Suture Removal completed Twan Loredo DPM [address], [address], [place], [address], [employer] [facility] [employer] [facility] 02/29/2024 14:24:39 01/29/20 24 Advanced Care Planning completed Umer Bañuelos LPN [facility] OR [employer] [facility] 01/29/2024 15:04:34 01/29/20 24 Medicare Wellness CPT Code, Initial completed Umer Bañuelos LPN [place] [employer] [facility] 01/29/2024 07:48:05 10/25/19 24 Medicare Wellness CPT Code, Welcome completed Umer Bañuelos LPN [place] [employer] 10/25/2023 10:25:58 10/25/19 24 Advanced Care Planning completed Umer Bañuelos LPN [place] [employer] 10/25/2023 10:24:53 08/28/19 24 Suture Removal completed Twan Loredo DPM [address], [place], [address], [facility] [employer] [facility] 08/28/2023 15:47:13 04/11/19 24 Excision Cyst Multilayer completed Aisha Milian MD [address], [address], [place], [address], [facility] [employer] [facility] [employer] [facility] 04/11/2023 18:10:14 12/27/19 23 Nail Debridement completed Twan Loredo DPM [address], [address], [place], [address], [facility] [employer] [facility] [employer] [facility] 12/26/2022 15:02:34 12/15/19 23 Ortho - Cortisone Injection completed Janina Samuel MD [address], [address], [place], [address], [facility] [employer] [facility] [employer] [facility] 12/14/2022 13:21:26 09/27/19 23 Nail Debridement completed Twan Loredo DPM [address] [facility] [address], [place], [address], [facility] [employer] [facility] [employer] [facility] 09/26/2022 14:47:07 09/27/19 23 Callus Debridement 2-4 completed Twan Loredo DPM [address], [place], [address], [facility] [employer] [facility] [employer] [facility] 09/26/2022 14:46:55 Hysterectomy completed Not Available [facility] 04/20/2022 10:42:48 Toe completed Ai Hammonds MA [facility] [employer] [facility] 09/04/2024 14:08:35 Imaging Results None recorded. Procedure Notes None recorded. Medical Equipment None Reported. Allergies Allergen ID Allergen Name Allergen Category Reaction Reaction Severity Criticality Documentation Date Start Date Code Code System Note Provider Name and Address Organization Details Recorded Time 89808 Vascepa medicatio n vomiting Not available Not available 04/20/20222021 44826 80 RxNorm Not Available [facility] 10:49:31 78239 Product containin g penicilli n (product) medicatio n swelling moderate Not available 04/20/2022 26821 8001 SNOMED Not Available [facility] 03/01/202 3 10:49:32 Medications Name Sig Start Date [...] suspension for injection in office 03/27 completed [facility]: 0003- 0494- 20 Not Available Not Available [...] active Not Available Not Available Not Avai erni ropivacaine (PF) 5 mg/mL (0.5 %) injection solution in office 03/27 completed [facility] 03224 -064- 01 Not Available Not Available Not Available Vascepa 1 gram capsule TAKE 2 CAPSULES BY MOUTH TWICE DAILY 09/10 completed Not Available Not Available Not Available Farxiga 10 mg tablet Take 1 tablet by oral route. 2024 active Not Available Not Available Not Melia [employer] COVID-19 Ag Card kit TEST DIRECTED 04/12 completed Not Available Not Available Not Available Vitals Date Recorded Body height Body mass index (BMI) Body weight Body temperature Heart rate Systolic And Diastolic Provider Name and Address Organization Details Last Updated DateTime 5 167.64 cm 22.9 kg/m2 35225.1 2 g 98 [degF] 72 /min 128/76 mm[Hg] TORIN Moeller [place] - [facility] [place] [employer] 5 14:53:55 Social History Question Answer Notes LastModified by Organizat ion Details LastModified Time Tobacco Smoking Status Current Every Day Smoker Not Available [employer] 04/20/2022 10:42:21 Do You Have An Advance Directive? No [id number].[id number] 2008 Information not available 04/20/2022 How Many Years Have You Consumed Alcohol? 20 [email or web address] Information not available 10/25/2023 Do You Wear A Helmet When Biking? No Does Not Bike [email or web address] Information not available 10/25/2023 Is Blood Transfusion Acceptable In An Emergency? Yes [email or web address] Information not available 10/25/2023 What Is Your Level Of Caffeine Consumption? Moderate MIGRATION.018781 6558 Information not available 04/20/2022 In The 14 Days Before Symptom Onset, Have You Had Close Contact With A Laboratory-confir med COVID-19 While That Case Was Ill? No MIGRATION.150252 4560 Information not available 04/20/2022 In The 14 Days Before Symptom Onset, Have You Had Close Contact With A Person Who Is Under Investigation For COVID-19 While That Person Was Ill? No MIGRATION.947148 5454 Information not available 04/20/2022 What Type Of Diet Are You Following? REGULAR MIGRATION.578013 8790 Information not available 04/20/2022 What Is The Highest Grade Or Level Of School You Have Completed Or The Highest Degree You Have Received? [id number] MIGRATION.590013 6536 Information not available 04/20/2022 How Many Days Of Moderate To Strenuous Exercise, Like A Brisk Walk, Did You Do In The Last 7 Days? 5 [email or web address] Information not available 10/25/2023 On Those Days That You Engage In Moderate To Strenuous Exercise, How Many Minutes, On Average, Do You Exercise? 30 [email or web address] Information not available 10/25/2023 Have There Been Any Changes To Your Family Or Social Situation? No MIGRATION.144119 5897 Information not available 04/20/2022 Are There Any Guns Present In Your Home? No MIGRATION.208326 4683 Information not available 04/20/2022 Do You Use Insect Repellent Routinely? No MIGRATION.442173 4671 Information not available 04/20/2022 Where Do You Live? Apartment MIGRATION.605017 7744 Information not available 04/20/2022 Do You Have A Medical Power Of Area Representative? No MIGRATION.723580 1481 Information not available 04/20/2022 What Was The Date Of Your Most Recent Tobacco Screening? 10/28/2024 Information not available 10/28/2024 How Many Children Do You Have? 2 [email or web address] Information not available 10/25/2023 What Is Your Current Pack Years? [email or web address] MIGRATION.619020 9037 Information not available 04/20/2022 Have You Ever Been Counseled For Unhealthy Alcohol Use? No MIGRATION.379972 3955 Information not available 04/20/2022 Do You Have Any Pets? Yes MIGRATION.568849 4576 Information not available 04/20/2022 Do You Use Protection During Sex? No [email or web address] Information not available 10/25/2023 What Is Your Relationship Status? MIGRATION.695555 9225 Information not available 04/20/2022 Do You Use Your Seat Belt Or Car Seat Routinely? Yes MIGRATION.686651 9841 Information not available 04/20/2022 Are You Sexually Active? Yes [email or web address] Information not available 10/25/2023 Do You Have Smoke And Carbon Monoxide Detectors In Your Home? Yes MIGRATION.192947 2213 Information not available 04/20/2022 At What Age Did You Start Smoking Tobacco? 25 [email or web address] Information not available 10/25/2023 Are You Passively Exposed To Smoke? Yes MIGRATION.607745 8580 Information not available 04/20/2022 Are There Any Smokers In Your House? Yes MIGRATION.115424 9083 Information not available 04/20/2022 How Much Tobacco Do You Smoke? 1 PPD Information not available 10/28/2024 What Types Of Sporting Activities Do You Participate In? None MIGRATION.715894 5244 Information not available 04/20/2022 Do You Use Sunscreen Routinely? No MIGRATION.133436 0057 Information not available 04/20/2022 Has Tobacco Cessation Counseling Been Provided? Yes [email or web address] Information not available 10/25/2023 On What Date Was Tobacco Cessation Counseling Provided? 10/25/2023 [email or web address] Information not available 10/25/2023 How Many Years Have You Smoked Tobacco? 40 [email or web address] Information not available 10/25/2023 Have You Recently Traveled Abroad? No MIGRATION.630000 3495 Information not available 04/20/2022 Do You Have Any Dietary Restrictions? Yes MIGRATION.431403 0995 Information not available 04/20/2022 How Many Days In The Past Year Have You Consumed 4 Or More Drinks? 0 [email or web address] Information no t available 10/25/2023 Sex: Female Functional Status Question Answer Note LastModified by Organizat ion Details LastModified Time Do you use any illicit or recreational drugs? No MIGRATION.9477560 035 Information not available 04/20/2022 Do you or have you ever used any other forms of tobacco or nicotine? No MIGRATION.2025383 035 Information not available 04/20/2022 What is your level of alcohol consumption? Occasional [email or web address] Information not available 10/25/2023 Are you currently employed? No Retired [email or web address] Information not available 10/25/2023 What is your exercise level? Moderate walking MIGRATION.4136256 035 Information not available 04/20/2022 Mental Status Question Answer Note LastModified by Organizat ion Details LastModified Time Do you feel stressed (tense, restless, nervous, or anxious, or unable to sleep at night)? [id number] MIGRATION.969971079 5 Information not available 04/20/2022 Family History Relationship Description Onset Age of this Age Resolved Age Notes LastModified by Organization Details LastModified Time Mother Diabetes mellitus [id number].[id number] Not available 04/20/2022 10:42:55 Medical History Condition [...] Time zoster recombinant 3 completed FIFI Mckenzie, [facility] 10/24/2023 11:27:53 HepB-CpG 3 completed Umer Bañuelos LPN null, [facility] 10/24/2023 11:27:53 COVID-19, mRNA, LNP-S, PF, 30 mcg/0.3 mL dose 1 completed FIFI Mckenzie, [facility] 10/24/2023 11:27:53 COVID-19, mRNA, LNP-S, PF, 30 mcg/0.3 mL dose 1 completed FIFI Mckenzie, [facility] 10/24/2023 11:27:53 Pneumococcal conjugate PCV20, polysaccharide HAI033 conjugate, adjuvant, PF 3 completed Umer Bañuelos LPN null, [facility] 10/24/2023 11:27:53 COVID-19, mRNA, LNP-S, PF, 30 mcg/0.3 mL dose, silvia-sucrose 2 completed Umer Bañuelos LPN null, [facility] 10/24/2023 11:27:53 COVID-19, mRNA, LNP-S, PF, 30 mcg/0.3 mL dose, silvia-sucrose 2 completed Umer Bañuelos LPN null, [facility] 10/24/2023 11:27:53 COVID-19, mRNA, LNP-S, bivalent, PF, 30 mcg/0.3 mL dose 2 completed Umer Bañuelos LPN null, [facility] 10/24/2023 11:27:53 zoster recombinant 4 completed Not Available [facility] 10/28/2024 14:42:55 COVID-19, mRNA, LNP-S, PF, silvia-sucrose, 30 mcg/0.3 mL 4 completed Not Available [facility] 10/28/2024 14:42:55 Influenza, split virus, trivalent, PF 4 completed Not Available [facility] 10/28/2024 14:42:55 Influenza, split virus, quadrivalent, PF 3 completed Caitlyn Burns MD [address] [place] [address], [phone], [facility] 11/23/2022 15:51:31 COVID-19, mRNA, LNP-S, PF, 30 mcg/0.3 mL dose 2 completed Umer Bañuelos LPN null, [facility] 10/24/2023 11:27:53 COVID-19, mRNA, LNP-S, PF, 100 mcg/0.5mL dose or 50 mcg/0.25mL dose 1 completed Umer Bañuelos LPN null, [facility] 10/24/2023 11:27:53 COVID-19, mRNA, LNP-S, PF, 100 mcg/0.5mL dose or 50 mcg/0.25mL dose 1 completed Umer Bañuelos LPN null, [facility] 10/24/2023 11:27:53 COVID-19, mRNA, LNP-S, PF, 30 mcg/0.3 mL dose 2 completed Umer Bañuelos LPN null, [facility] 10/24/2023 11:27:53 Influenza, split virus, quadrivalent, PF 2 completed Not Available [facility] 03/01/2023 02:51:04 Influenza, split virus, quadrivalent, PF 1 completed Not Available [facility] 03/01/2023 02:51:04 Tdap 1 completed Not Available [facility] 03/01/2023 02:51:04 Past Encounters Encounter ID Performer Location Encounter Start Date Encounter Closed Date Diagnosis/Indication Diagnosis SNOMED-CT Code Diagnosis ICD10 Code Diagnosis IMO Codes Diagnosis Note [id number] Caitlyn wright MD [facility] Primary [facility] [address] [facility] [address] [place] [address] 10/28/2024 14:40:34 10/28/2024 15:58:46 Essential hypertension 48986811 I10 EKG: NSR, no acute STT changesStr ess test 07/19/2022 [facility] On amlodipine 5mg dailyNot on HCTZ 12.5mg dailyOn lisinopril 40mg dailyOn lasix given by Dr Alejo Romero labs Dr Wynn 11/27/2023 , referred 01/29/2024 , must keep her apts!Dr Wynn 05/23/2024 for ECHO, next f/u 11/04/2024 Screening - NAD 04847241 3 Z13.9 C-scope: 04/13/2022 : Dr Marie next in 5 years Mammogram: 11/17/2021 : NegMammogr am: 11/22/2022 : NegOrdered 01/29/2024 , is to get this in June 2024Mammog laurel: 07/08/2024 : neg DEXA: 10/14/2020 : NegDEXA: 01/03/2023 : Neg PAP: 1: Mag Perez MACHINE SETTER AND REPAIRER, Mag Perez 10/26/2022 Get yearly flu shotGet tdap if not doneUTD on COVID 19 vaccineCan do shingrix vaccineGet RSV vaccine RTC in 2 monthsDo labsER if worseShe did verbalize her understand ing of the above Hyperlipidemia 16379146 E78.5 On atorvastat in 80mg dailyOn fenofibrat e 145mg dailyNot on vascepa caused vomitingGe t labs Cigarette smoker 0180339 7 F17.210 Smoker 24 years 2 PPD, now cut down to 1/4 PPDAdvised to quit smokingShe has been started on chantix by Dr Alejo CRUZ on 10/20/2023 LDCT 12/31/2020 LDCT 02/22/2022 LDCT 06/30/2022 : Dr WynnLDCT 06/30/2023 Leukocytosis 790904868 D 72.[address] Hernandez last OV 07/25/2023 , next in 3 months, referred 10/25/2023 Dr Hernandez 05/28/2024 : Next in 6 months Pain of le ft knee joint 4993470906 84399 M25.562 Chuy Doll PA 09/01/2021 , s/p knee arthroscop y, f/u PRN Prediabetes 588396089 R7 3.03 Not taking metformin 500mg bid, declined 03/27/2023 , prediabete s, more diet and exercise is neededGet labs On farxiga 10mg dailyGet labs Proteinuria 02740772 R80 .9 On vit d weeklyOn calcitriol Sees Dr Alejo CRUZ Gout 54848655 M10.[address] Alejo CRUZ Pain of le ft shoulder joint 0388974674 8867197 M25.512 Slept wrong, seen in the ER as per her history, will refer to Dr Katy Kingston MACHINE SETTER AND REPAIRER 10/19/2022 , f/u PRN Macrocytosis 157678546 D 75.89 Get labs Skin lesion 30079569 L98 .9 On the R upper lip, and is now to see dermatolog y, referred by Mag Perez NPStates that she could not get in with the dermatolog ist d/t her insurance, will get an apt with Dr Kelly OV 06/21/2023 :S/p surgery Dr Kelly, 04/11/2023 Pre-surger y evaluation 259067442 Z01.818 Surgery: R foot bunyonSurg garland: Dr [...] moderate risk Pain of bi lateral hands 8523627926 7632225 M79.641 M79.642 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, 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, will [...] Serum isabelle min B12 below reference range 465786479 R79.89 Get on vit b12 weekly for 4 weeks and then monthly for 2 months and repeat the labs Hypothyroidism 98485421 E03.9 Will repeat the TSH and FT4 level againMay need to be on levothyrox ine Liver func tion test above reference range 497219325 R79.89 [id number] GGT: 12/05/2022 : NegHepatit is panel: 12/05/2022 : Neg US liver 12/13/2022 US liver 06/30/2023 CT A/P: 12/23/2022 : [facility]: Hepatomega ly Get liver US 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 [id number] Was at a friend's home and had a 'fifth of vodka' and then 'passed out' and was seen in the ER at [place], [place] on 10/10/2024 Now does wellGet on folate, thiamine Upper resp iratory infection 71376084 J06.9 08371636 Get on z-packRest isolate and ER if worse Health Concerns Section Related Observation LastModified by Organization Detai ls LastModified Time None Recorded Concern Status LastModified by Organization Details LastModified Time None Recorded Payers Encounter Date Sequence Insurance Name Policy Number Policy Perez Covered Member ID Perez Member ID Guarantor Name 10/28/2024 1 [facility] (MEDICARE REPLACEMENT/A DVANTAGE - PPO) [id number] Ju Mondragon [id number] Ju Mondragon Notes Date Note Type Note Provider Name and Address Organization Details Recorded Time 10/28/2024 text/html OV 10/07/2020:Here to establish carePast [...] more such episodes, she does see her play therapist Dr Lilly extensive ROS is negative todayOV 12/09/2020:Here for her routine aptShe is doing Tyler did do the labs on 12/07/2020OV 04/06/2021:ACV:Here with c/o R sided rib painS/p fall on 03/29 and seen in the ER at [place] on 03/30/2021, was taken off work but still has the R sided pain, she had repeat Xrays done at [place] yesterdayShe did not want to go back [...] phlegm, no fevers or chills, no SOB Caitlyn Burns MD [address], [facility] [address], [place], [address], [facility] 10/28/2024 18:14:12 OBGyn Episode No OBEpisode recorded.
--- OUTSIDE RECORDS SUMMARY | 2025-01-10 06:57 | XMS_ITS | Clinical Summary ---
Author Organization [facility] Address [address] [place] [phone] Care Team Providers Care Supervisor Shearing Name Role Phone Trang Burns MD Primary [...] on file Legal Sex Female 4:26 PM [employer] Gender Identity Not on file Sexual Orientation [...] 10/12/2020 Hepatitis B Screening Completed 07/28/2022 Insurance [facility] PPO [facility] MEDICARE ADVANTAGE Care Teams Supervisor Shearing Relationship Specialty Start Date End Date Trang Burns MD [address] [place] [address] PCP - General Internal Medicine 10/07/20
== END 2025-01-10 06:52 | disposition home or self-care (01) ==
PROVIDERS: PCP Internal Medicine; Visit Provider Plastic Surgery
DX: R22.31 Localized swelling, mass and lump, right upper limb (principal)
CPT/HCPCS: 73220; A9577